=== PATIENT | male | born 1935 | race Caucasian/White ===

== ENCOUNTER 2020-10-07 07:17 | Outpatient (REF) | payer MEDICARE, SELFPAY ==
[2020-10-07 08:24] LABS: MANUAL DIFF FLAG NO
[2020-10-07 08:34] LABS: Basophils Percent Auto 0.9 % (0-2); Eosinophils Absolute Auto 0.2 X10*3/uL (0.0-0.4); Eosinophils Percent Auto 3.2 % (0-4); Hematocrit 42.7 % (42-52); Hemoglobin 13.5 g/dl (14.0-18.0); Imm Gran Abs Auto 0.01 X10*3/uL (0.00-0.03); Imm Gran Pct Auto 0.2 % (0.0-0.4); Lymphocytes Absolute Auto 1.5 X10*3/uL (1.2-4.9); Lymphocytes Percent Auto 32.8 % (20-40); Mean Corpuscular HGB Conc 31.6 g/dl (31.0-36.0); Mean Corpuscular Hemoglobin 32.9 pg (27.0-33.0); Mean Corpuscular Volume 104.1 fL (80-98); Mean Platelet Volume 10.7 fL (9.4-12.4); Monocytes Absolute Auto 0.5 X10*3/uL (0.1-1.2); Monocytes Percent Auto 10.6 % (2-11); Neutrophils Absolute Auto 2.4 X10*3/uL (2.0-8.3); Neutrophils Percent Auto 52.3 % (45-73); Platelet Count 203 X10*3/uL (160-400); Red Cell Distribution Width 13.8 % (11.0-16.0); White Blood Count 4.6 X10*3/uL (4.8-10.8)
[2020-10-07 08:54] LABS: Alanine Aminotransferase 21 U/L (0-40); Albumin Level 3.9 g/dL (3.5-5.0); Alkaline Phosphatase 59 U/L (39-117); Anion Gap 12 (12-20); Aspartate Amino Transferase 17 U/L (5-37); Bilirubin Total 1.2 mg/dL (0.0-1.0); Blood Urea Nitrogen 19 mg/dL (9-16); Calcium 9.2 mg/dL (8.4-10.2); Carbon Dioxide 27 mmol/L (22-29); Chloride 103 mmol/L (96-108); Cholesterol 127 mg/dL; Estimated Glomerular Filt Rate > 60; Glucose Fasting 97 mg/dL (60-99); HDL Cholesterol 49 mg/dL; LDL Cholesterol Calculated 63 mg/dl; Sodium 138 mmol/L (135-145); Total Protein 6.7 g/dL (6.5-8.0); Triglycerides 77 mg/dL
[2020-10-07 09:57] LABS: Prostate Specific Antigen 0.24 ng/mL (<0.05-4.0)
== END 2020-10-07 07:18 | disposition home or self-care (01) ==
LOC: HO.LAB 07:17
PROVIDERS: PCP Internal Medicine Medical Oncology; Visit Provider Internal Medicine Medical Oncology
DX: Z12.5 Encounter for screening for malignant neoplasm of prostate (principal); I10 Essential (primary) hypertension; E78.5 Hyperlipidemia, unspecified; E66.3 Overweight
CPT/HCPCS: 36415; 80053; 80061; 84153; 85025

== ENCOUNTER 2020-12-24 07:47 | Outpatient (REF) | payer MEDICARE, SELFPAY ==
[2020-12-24 08:22] LABS: MANUAL DIFF FLAG NO
[2020-12-24 08:26] LABS: Basophils Percent Auto 0.5 % (0-2); Eosinophils Absolute Auto 0.1 X10*3/uL (0.0-0.4); Eosinophils Percent Auto 1.6 % (0-4); Hematocrit 41.5 % (42-52); Hemoglobin 13.3 g/dl (14.0-18.0); Imm Gran Abs Auto 0.03 X10*3/uL (0.00-0.03); Imm Gran Pct Auto 0.5 % (0.0-0.4); Lymphocytes Absolute Auto 1.5 X10*3/uL (1.2-4.9); Lymphocytes Percent Auto 26.6 % (20-40); Mean Corpuscular Hemoglobin 32.8 pg (27.0-33.0); Mean Corpuscular Volume 102.5 fL (80-98); Mean Platelet Volume 9.9 fL (9.4-12.4); Monocytes Absolute Auto 0.7 X10*3/uL (0.1-1.2); Neutrophils Absolute Auto 3.2 X10*3/uL (2.0-8.3); Neutrophils Percent Auto 58.8 % (45-73); Platelet Count 307 X10*3/uL (160-400); Red Blood Count 4.05 X10*6/uL (4.60-5.80); Red Cell Distribution Width 14.3 % (11.0-16.0); White Blood Count 5.5 X10*3/uL (4.8-10.8)
[2020-12-24 08:34] LABS: Prothrombin Time 11.2 SEC (9.9-13.0)
[2020-12-24 09:05] LABS: Anion Gap 10 (12-20); Blood Urea Nitrogen 17 mg/dL (9-16); Calcium 9.5 mg/dL (8.4-10.2); Carbon Dioxide 29 mmol/L (22-29); Chloride 105 mmol/L (96-108); Estimated Glomerular Filt Rate > 60; Glucose Random 95 mg/dL (60-115); Potassium 4.4 mmol/L (3.3-5.1); Sodium 140 mmol/L (135-145)
== END 2020-12-24 07:48 | disposition home or self-care (01) ==
LOC: HO.LAB 07:47
PROVIDERS: PCP Internal Medicine Medical Oncology; Visit Provider Internal Medicine Cardiovascular Disease
DX: I35.0 Nonrheumatic aortic (valve) stenosis (principal)
CPT/HCPCS: 36415; 80048; 85025; 85610

== ENCOUNTER 2021-05-18 11:28 | Outpatient (REF) | payer MEDICARE, SELFPAY ==
[2021-05-18 13:12] LABS: COVID-19 Test Negative (Negative)
== END 2021-05-18 11:29 | disposition home or self-care (01) ==
LOC: HO.LAB 11:28
PROVIDERS: Visit Provider Internal Medicine
DX: Z20.822 Contact with and (suspected) exposure to COVID-19 (principal)
CPT/HCPCS: 36415; 87635; C9803

== ENCOUNTER 2021-11-05 12:04 | Outpatient (REF) | payer MEDICARE, SELFPAY ==
[2021-11-05 12:27] LABS: MANUAL DIFF FLAG NO
[2021-11-05 13:22] LABS: Basophils Percent Auto 0.5 % (0-2); Eosinophils Absolute Auto 0.1 X10*3/uL (0.0-0.4); Eosinophils Percent Auto 0.7 % (0-4); Hematocrit 39.2 % (42.0-52.0); Hemoglobin 12.6 g/dl (14.0-18.0); Imm Gran Abs Auto 0.04 X10*3/uL (0.00-0.03); Imm Gran Pct Auto 0.5 % (0.0-0.4); Lymphocytes Absolute Auto 1.3 X10*3/uL (1.2-4.9); Lymphocytes Percent Auto 17.2 % (20-40); Mean Corpuscular HGB Conc 32.1 g/dl (31.0-36.0); Mean Corpuscular Hemoglobin 31.2 pg (27.0-33.0); Mean Platelet Volume 10.2 fL (9.4-12.4); Monocytes Absolute Auto 0.6 X10*3/uL (0.1-1.2); Monocytes Percent Auto 7.6 % (2-11); Neutrophils Absolute Auto 5.4 x10*3/uL (2.0-8.3); Neutrophils Percent Auto 73.5 % (45-73); Platelet Count 251 X10*3/uL (160-400); Red Blood Count 4.04 X10*6/uL (4.60-5.80); White Blood Count 7.4 X10*3/uL (4.8-10.8)
[2021-11-05 13:40] LABS: Alanine Aminotransferase 23 U/L (0-40); Albumin Level 3.9 g/dL (3.5-5.0); Alkaline Phosphatase 61 U/L (39-117); Anion Gap 12 (12-20); Aspartate Amino Transferase 19 U/L (5-37); Blood Urea Nitrogen 15 mg/dL (9-16); Calcium 9.1 mg/dL (8.4-10.2); Carbon Dioxide 27 mmol/L (22-29); Chloride 105 mmol/L (96-108); Estimated Glomerular Filt Rate > 60; Glucose Random 83 mg/dL (60-115); Lipase 26 U/L (8-78); Sodium 140 mmol/L (135-145); Total Protein 6.9 g/dL (6.5-8.0)
[2021-11-05 14:01] LABS: Erythrocyte Sedimentation Rate 12 MM/HR (0-15)
[2021-11-05 14:19] LABS: Folate 19.2 ng/mL (> or = 4.0); Vitamin B12 412 pg/mL (200-900)
[2021-11-06 08:54] LABS: Campylobacter Not Detected (Not Detect.); E. coli EAEC Not Detected (Not Detect.); E. coli EPEC Not Detected (Not Detect.); E. coli ETEC Not Detected (Not Detect.); E. coli STEC Not Detected (Not Detect.); Plesiomonas shigelloides Not Detected (Not Detect.); Salmonella Not Detected (Not Detect.); Vibrio Not Detected (Not Detect.); Vibrio Cholerae Not Detected (Not Detect.); Yersinia enterocolitica Not Detected (Not Detect.)
[2021-11-06 08:55] LABS: Adenovirus F 40/41 Not Detected (Not Detect.); Astrovirus Not Detected (Not Detect.); Cryptosporidium Not Detected (Not Detect.); Cyclospora cayetanensis Not Detected (Not Detect.); Entamoeba histolytica Not Detected (Not Detect.); Giardia lamblia Not Detected (Not Detect.); Norovirus GI/GII Not Detected (Not Detect.); Rotavirus A Not Detected (Not Detect.); Sapovirus Not Detected (Not Detect.); Shigella sp./EIEC Not Detected (Not Detect.)
== END 2021-11-05 12:05 | disposition home or self-care (01) ==
LOC: HO.LAB 12:04
PROVIDERS: Visit Provider Internal Medicine Medical Oncology
DX: R19.5 Other fecal abnormalities (principal); A08.8 Other specified intestinal infections; I10 Essential (primary) hypertension; E78.5 Hyperlipidemia, unspecified; C61 Malignant neoplasm of prostate; K52.9 Noninfective gastroenteritis and colitis, unspecified
CPT/HCPCS: 36415; 80053; 82607; 82746; 83690; 85025; 85652; 87177; 87209; 87507

== ENCOUNTER 2022-01-12 08:20 | Outpatient (REF) | payer MEDICARE, SELFPAY ==
--- NOTE | ~2022-01-12 | FL_ITS ---
EXAMINATION: FL BARIUM SWALLOW CLINICAL INFORMATION: Dysphagia COMPARISON: None TECHNIQUE: Barium swallow examination is performed using fluoroscopic evaluation in addition to multiple fluoroscopic spot views. After effervescent granules, the patient swallowed thick barium in upright position. Fluoroscopy time: 1.3 minutes DAP: 3.155 Gycm2 Images: 12 FINDINGS: The patient initiated swallowing normally. The patient had minimal silent aspiration of thin barium with single swallows by cup, (image 4/12). There is ineffective primary peristalsis with marked tertiary contractions noted even with swallowing in the upright position. No fixed esophageal narrowing seen to suggest a mass or stricture. The patient has undergone additional episode of aspiration which triggered a cough (image 12/12). At this point, the examination was terminated. FL/FL barium swallow IMPRESSION: Aspiration of thin barium by cup in upright position. Recommend dedicated swallowing evaluation by speech and language therapy. Esophageal dysmotility evidenced by ineffective primary peristalsis with marked tertiary contractions noted in the upright position.
== END 2022-01-12 08:21 | disposition home or self-care (01) ==
LOC: HO.XRAY 08:20
PROVIDERS: PCP Internal Medicine Medical Oncology; Visit Provider Internal Medicine Gastroenterology
DX: R13.10 Dysphagia, unspecified (principal)
CPT/HCPCS: 74220

== ENCOUNTER 2022-01-29 10:18 | Outpatient (REF) | payer MEDICARE, SELFPAY ==
--- NOTE | ~2022-01-29 | FL_ITS ---
EXAMINATION: XR BARIUM SWALLOW CLINICAL INFORMATION: Dysphagia COMPARISON: Barium swallow 01/12/2022 TECHNIQUE: Fluoroscopy guidance provided for modified barium swallow performed by the speech and hearing department. FINDINGS: There is penetration seen with liquid barium. There is probable faint aspiration. There is retention in the vallecula seen with multiple media. No penetration or aspiration was seen with solid food or thickened liquids. Please see speech and hearing report for detailed findings. FLUOROSCOPY TIME: 2.7 minutes DOSE AREA PRODUCT: 1.9 gycm2 FL/FL barium swallow modified IMPRESSION: Fluoroscopy guidance for modified barium swallow.
--- NOTE | 2022-01-29 16:35 | MHC.SL.IMP ---
Date of Plan of Treatment: 01/29/22 Onset of Symptoms/Illness: 01/29/21 Date Treatment Started: 01/29/22 Admitting Diagnosis: Hypertension, Hyperlipidemia Primary Speech & Language Diagnosis: R13.12 Oropharyngeal Phase Dysphagia Reason for Today's Visit: 59509 Modified Barium Swallow Study Pre-evaluation Dietary Consistencies: Regular Pre-evaluation Liquid Consistency: Thin Pre-evaluation Medication Administration: Whole with Liquid Medical History: [place], [place] Modified Barium Swallow Study Fluoroscopic Evaluation of Swallowing Function CPT Code 43449 Evaluation Year: 2021 Reason for Study: Patient reports globus sensation. 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 Pt reports globus sensation intermittently when swallowing and expectoration of bile and food. Pt denies odynophagia. Pt denies choking or coughing on food or liquids. Pt stated that milkshakes and yogurt in particular ?won?t go down.? Pt mentioned he had a procedure for his tonsils when he was 25 and that he ?had his esophagus checked 30-40 years ago and was advised not to eat or drink in bed? at that time. Pt had barium swallow study done on 01/12/22 which showed silent aspiration on thin barium. He was subsequently referred for a modified barium swallow study to further evaluate. Barium Swallow X-Ray 01/12/22: ?FINDINGS: The patient initiated swallowing normally. The patient had minimal silent aspiration of thin barium with single swallows by cup, (image 4/12). There is ineffective primary peristalsis with marked tertiary contractions noted even with swallowing in the upright position. No fixed esophageal narrowing seen to suggest a mass or stricture. The patient has undergone additional episode of aspiration which triggered a cough (image 12/). At this point, the examination was terminated. FL/FL barium swallow IMPRESSION: Aspiration of thin barium by cup in upright position. Recommend dedicated swallowing evaluation by speech and language therapy. Esophageal dysmotility evidenced by ineffective primary peristalsis with marked tertiary contractions noted in the upright position.? Oral Motor Exam Facial Symmetry: Symmetrical Mouth Occlusion: Normal Oral-Facial Teeth Characteristics: Intact/Normal Oral-Facial Smile (Lips) Description: Normal Oral-Facial Puff Cheeks Description: Normal Tongue Size: Normal Tongue Excursion Description: Normal Tongue Range of Movement Description: Normal Tongue Speed of Movement Description: Normal Tongue Strength of Movement (against opposing pressure): Normal Is patient able to produce volitional cough?: Yes Food and Liquid Trials: Oral Impairment: Lip Closure: Did not test Oral Impairment: Tongue Control During Bolus Hold: 1=Escape to lateral buccal cavity/floor of mouth (FOM) Oral Impairment: Bolus Preparation/Mastication: 1=Slow prolonged chewing/mashing with complete re-collection Oral Impairment: Bolus Transport/Lingual Motion: 2=Slowed tongue motion Oral Impairment: Oral Residue: 2=Residue collection on oral structures Oral Impairment:Initiation of Pharyngeal Swallow: 2=Bolus head at posterior laryngeal surface of epiglottis Pharyngeal Impairment: Soft Palate Elevation: 0=No bolus between soft palate (SP)/pharyngeal wall (PW) Pharyngeal Impairment: Laryngeal Elevation: 1=Partial thyroid cartilage/arytenoids to epiglottic petiole movement Pharyngeal Impairment: Anterior Hyoid Excursion: 1=Partial anterior movement Pharyngeal Impairment: Epiglottic Movement: 1=Partial inversion Pharyngeal Impairment: Laryngeal Vestibular Closure:: 1=Incomplete: narrow column air/contrast in laryngeal vestibule Pharyngeal Impairment: Pharyngeal Stripping Wave: 1=Present: diminished Pharyngeal Impairment: Pharyngeal Contraction: Did not test Pharyngeal Impairment: Pharyngoesophageal Segment Openin=Complete distension and complete duration: no obstruction of flow Pharyngeal Impairment: Tongue Base (TB) Retraction: 2=Narrow column of contrast/air between TB and posterior PW Pharyngeal Impairment: Pharyngeal Residue: 2=Collection of residue within or on pharyngeal structures Pharyngeal Impairment: Esophageal Clearance Upright Position: Did not test Impressions and Recommendations Clinical Observations: OBJECTIVE: Time-out: performed at 10:45 Evaluation Start: 10:30; Stop: 10:36 Patient Positioning: Seated 70-90 degrees Viewing Planes: LATERAL ONLY Contrast: MBSImP? Standardized Protocol using commercially prepared, standardized Barium viscosities, including: Varibar? THIN LIQUID (40% w/v, <15 cps) , Varibar? NECTAR (40% w/v, <150-450 cps) , Varibar? THIN HONEY (40% w/v, <800-1800 cps) , 1/2 Shortbread Cookie (1 x1 x.25 ) MBSImP ID: [id number] MBSImP Results: Lip closure for intraoral bolus containment could not be assessed due to logistical reasons not related to physiologic impairment. Tongue control during bolus hold allowed bolus escape to the lateral buccal cavity/floor of mouth. Bolus preparation and mastication resulted in slow, prolonged chewing/mashing but with complete re-collection. Bolus transport/lingual motion was with slowed tongue motion. Oral residue was a collection on oral structures. Initiation of the pharyngeal swallow occurred as the bolus head was at the posterior laryngeal surface of the epiglottis. Soft palate elevation resulted in no bolus between the soft palate and the pharyngeal wall. Laryngeal elevation was decreased, with partial superior movement of the thyroid cartilage/partial approximation of the arytenoids to the epiglottic petiole. Anterior hyoid excursion demonstrated partial anterior movement. Epiglottic movement resulted in partial inversion. Laryngeal vestibular closure was incomplete, with a narrow column of air/contrast noted within the laryngeal vestibule at the height of the swallow. Pharyngeal stripping wave was present, but diminished. Pharyngeal contraction could not be determined due to logistical reasons not related to physiologic impairment. Pharyngoesophageal segment opening was completely distended for complete duration with no obstruction of bolus flow. Tongue base retraction allowed a narrow column of contrast or air between the retracted tongue base and the posterior pharyngeal wall. Pharyngeal residue was a collection of residue within or on pharyngeal structures. Esophageal clearance in the upright position could not be assessed due to logistical reasons not related to physiologic impairment. Oral Impairment Score: 8 (absence of score, component 1) Pharyngeal Impairment Score: 9 (absence of score, component 13) Esophageal Impairment Score: --- (absence of score, component 17) Laryngeal Penetration and Aspiration: Both Penetration and Aspiration were observed in today's study. Thin Contrast entered the airway, remained above the vocal folds, and was ejected from the airway. Thin Contrast entered the airway, remained above the vocal folds, and was not ejected from the airway. Thin Contrast mixed w/ pureed residuals entered the airway, passed below the vocal folds, and no effort was made to eject. ASSESSMENT: Clinician Assessment: This exam was conducted by a multidisciplinary team, which included speech pathologist, radiologist, and museum exhibit technician. Pt was seated upright at 90 degree position in a chair for lateral view only. Pt trialed the following liquid and solid consistencies: 5 mL thin liquid barium, individual cup sips thin liquid barium, individual cup sips nectar thick liquid barium, honey thick liquid barium via teaspoon, pureed solid (mixture applesauce with barium paste), ground solid (mixture chicken salad with barium paste), regular solid (Tonja Doone cookie coated with barium paste). Pt presents with moderate oropharyngeal phase dysphagia. Mild impairments noted in oral phase of swallow. When instructed for bolus hold, there was escape of bolus to the floor of mouth. Lingual movement for posterior transport of bolus was mildly delayed and slowed. Mastication was mildly prolonged. There was mild lingual residue which cleared with subsequent dry swallow. Pt demonstrated moderate impairments of the pharyngeal phase of swallow. Pharyngeal swallow trigger was delayed, initiated as bolus head reached posterior laryngeal surface of epiglottis. There was no nasopharyngeal reflux evident during this exam. Laryngeal elevation was incomplete, with partial anterior hyoid excursion and partial epiglottic inversion. Incomplete laryngeal vestibular closure, with evidence of penetration with thin liquid and trace aspiration on residuals thin liquid mixed with pureed solid. Diminished pharyngeal stripping wave. Mild residue in valleculae, trace residuals in pyriform sinuses, on tongue base, and on posterior pharyngeal wall. Additional dry swallow with and without chin tuck strategy was effective in reducing oral and pharyngeal residue. With 5 mL amount thin liquid barium, there was no aspiration or penetration seen, with complete clearance of the valleculae and pyriforms. Pt took individual sips of thin liquid barium by cup with consistent penetration during the swallow. Contrast entered the trachea above the vocal folds at times spontaneously clearing, other times leaving trace residue above the vocal folds. With thin liquid there was mild residue in the valleculae, trace residuals in pyriform sinus. Pt was cued for a dry swallow, which reduced but did not entirely clear valleculae. Pt took bite of applesauce by teaspoon. Pureed consistency (likely mixed with thin residuals) spilled from valleculae with trace tracheal aspiration. There was no aspiration or penetration with bites of ground solid and regular solid. There was mild residue in the valleculae, with trace residuals in pyriform sinuses and on pharyngeal wall. Dry swallow both with and without chin tuck strategy was effective in reducing pharyngeal residue. There was no aspiration or penetration with intake of nectar thick liquid and honey thick liquid. There was mild pooling in the valleculae and trace pooling in pyriform sinuses. Again, dry swallow both with and without chin tuck strategy was effective in reducing pharyngeal residue. Throughout the exam, pt did not produce spontaneous cough or throat clear in response to penetration or aspiration. The following compensatory strategies have not been used until today's study, but when employed, improved swallowing function: [place]-thick Liquid eliminated Penetration, Aspiration Honey-thick Liquid eliminated Penetration, Aspiration Bolus Volume Change eliminated Pharyngeal Residue Bolus Volume Change decreased Penetration Rate of Ingestion Change decreased Penetration, Pharyngeal Residue Chin Tuck decreased Pharyngeal Residue Additional Swallow(s) per Bolus decreased Pharyngeal Residue Liquid Intake Recommendation: [place] Thick Liquid Intake Strategies: Small Sips, No Straws, Double Swallow Dietary Recommendations: Regular Medication Administration: Whole with Liquid Please contact the pharmacy regarding appropriate crushable or liquid drug formulations that are available whenever modified delivery is recommended. Compensatory Strategies Recommended: Sitting Upright (90 deg) Chin Tuck Double Swallow No Straw Liquids from Cup Liquids from Spoon Small Bites and Sips Rate of Ingestion Change Supervision during eating and or drinking: None Needed Recommended Treatments: Pharyngeal Resistive Exer, Compens. Strategy Educat. Recommendation for Speech Therapy: Outpatient Speech Therapy PLAN: Intake Recommendations: Route: PO Diet Grade: Regular Liquid Consistencies: [place] Post-Study Functional Oral Intake Scale (FOIS): 5- Total oral intake of multiple consistencies requiring special preparation Pt is recommended REGULAR solids, self-selecting items which are easier for him to swallow, NECTAR THICK liquids, pills WHOLE with NECTAR THICK liquid. When eating softer food items, ensure pudding-like CONGEALED textures ONLY, selecting thick, more viscous, and thoroughly blended purees, such as pudding and thick yogurt, which form a cohesive bolus on the spoon. Avoid purees such as applesauce and pureed peaches, as these often separate into a mixed texture with thin liquid. As evidenced during our exam, pt is at risk of aspiration with this texture (thin/mixed purees & thin liquid). Recommend strict aspiration precautions and a strict oral care routine to reduce risk of aspiration pneumonia: Use small sponge or wash with toothbrush and toothpaste, rinse with mouthwash that does not contain alcohol. Oral care to be provided before pt?s first meal and after each meal. Recommended strategies and precautions include: -Take small sips of liquid, one sip at a time -Additional dry swallow after each sip -Avoid ?chugging? consecutive sips of liquid -Avoid the use of straws -One bite at a time and chew food well -Additional dry swallow after each bite -Chin tuck with dry swallow to clear pharyngeal residue -Clear oral cavity before taking more bites. -Upright 90 degree position when eating/drinking and for at least 45-60 minutes afterwards Pt is recommended 10 speech therapy visits for the treatment of dysphagia, w/ follow-up MBSS in 10-12 weeks. Recommend patient to continue monitoring his dysphagia. Contact PCP if there is any worsening of dysphagia, in which case patient may need re-evaluation. Suggested Referrals: The patient might benefit from a referral to: Gastroenterology Indication for Referral: Pt reports expectoration of bile and food. Pt may benefit from further workup w/ G.I. for esophageal dysphagia. Nutrition Services Indication for Referral: Pt is recommended thickened liquids. Therapy Recommendations: Therapy will be initiated Prognosis for Improvement: The prognosis for the patient to meet nutritional needs by mouth is good based on degree of impairment. Longterm Goals: ? The patient will demonstrate improved swallowing function via repeat clinical evaluation, videoendoscopy/videofluoroscopy and/or patient self-rating scores. ? The patient and/or family will participate in further education for swallowing goals. Short Term Goals: ? Guidelines - The patient will comply with/recall the following guidelines/strategies 100% of the time with minimal cuing: [place]-thick Liquid, Bolus Volume Change, Rate of Ingestion Change, Chin Tuck, Additional Swallow(s) per Bolus. ? Independent Home Exercise - The patient will perform 10 repetitions of the Effortful Swallow, Thomas Maneuver, Shaker Head Lifts, Teodora Maneuver 2 times a day with 100% accuracy and minimal cuing as part of a home exercise program. ? Structured Therapy - The patient will demonstrate 100% accuracy and require minimal cuing in structured swallowing therapy with the TELEPHONE WORKER using the following exercises/therapy approaches and therapy assisted devices: Effortful Swallow, Thomas Maneuver, Shaker Head Lifts, Teodora Maneuver, . ? Education - The patient will verbalize/demonstrate understanding of the results of this evaluation, the above recommendations, and the swallowing guidelines. Frequency/Duration: 1x weekly x 10 weeks Date Range for Service Requested: Timeline to reassess: 3 months Clinician - Supplemental, Miscellaneous Communication: It is important to note MBSS objective studies are snapshots in time and Patient function might vary with factors such as time of day or concomitant medical conditions. For this reason, the final treatment plan for this patient should rest with their medical care team. Additional recommendations should be considered with the totality of the Patient in mind. Thank for the opportunity to participate in the care of this patient. If you have any questions about the content of this report, please contact the [facility] at [facility]. Education: Education regarding findings from today's study and plans for therapy were provided to Patient only through Verbal Instruction. Understanding was expressed by the Patient only. [employer] Clinician/Clinical Fellow: No Supervisory Statement: N/A Speech Language Pathologist: Mya Armenta M.A., [facility]-TELEPHONE WORKER
== END 2022-01-29 10:19 | disposition home or self-care (01) ==
LOC: HO.XRAY 10:18
PROVIDERS: Visit Provider Internal Medicine Gastroenterology
DX: R13.10 Dysphagia, unspecified (principal)
CPT/HCPCS: 74230; 92611

== ENCOUNTER 2022-11-23 07:13 | Outpatient (REF) | payer MEDICARE, SELFPAY ==
[2022-11-23 07:24] LABS: MANUAL DIFF FLAG NO
[2022-11-23 08:27] LABS: Basophils Absolute Auto 0.1 X10*3/uL (0.0-0.2); Basophils Percent Auto 1.2 % (0-2); Eosinophils Absolute Auto 0.2 X10*3/uL (0.0-0.4); Eosinophils Percent Auto 3.9 % (0-4); Hematocrit 40.7 % (42.0-52.0); Imm Gran Abs Auto 0.02 X10*3/uL (0.00-0.03); Imm Gran Pct Auto 0.3 % (0.0-0.4); Lymphocytes Absolute Auto 1.4 X10*3/uL (1.2-4.9); Mean Corpuscular HGB Conc 31.9 g/dl (31.0-36.0); Mean Corpuscular Hemoglobin 31.2 pg (27.0-33.0); Mean Corpuscular Volume 97.6 fL (80.0-98.0); Mean Platelet Volume 10.4 fL (9.4-12.4); Monocytes Absolute Auto 0.6 X10*3/uL (0.1-1.2); Monocytes Percent Auto 10.3 % (2-11); Neutrophils Absolute Auto 3.5 x10*3/uL (2.0-8.3); Neutrophils Percent Auto 60.3 % (45-73); Platelet Count 206 X10*3/uL (160-400); Red Blood Count 4.17 X10*6/uL (4.60-5.80); Red Cell Distribution Width 14.3 % (11.0-16.0); White Blood Count 5.8 X10*3/uL (4.8-10.8)
[2022-11-23 09:11] LABS: Alanine Aminotransferase 24 U/L (0-40); Albumin Level 3.8 g/dL (3.5-5.0); Alkaline Phosphatase 54 U/L (39-117); Anion Gap 14 (12-20); Aspartate Amino Transferase 21 U/L (5-37); Bilirubin Total 1.1 mg/dL (0.0-1.0); Blood Urea Nitrogen 15 mg/dL (9-16); Calcium 9.6 mg/dL (8.4-10.2); Carbon Dioxide 25 mmol/L (22-29); Chloride 105 mmol/L (96-108); Cholesterol 131 mg/dL; Estimated Glomerular Filt Rate > 60; Glucose Fasting 103 mg/dL (60-99); HDL Cholesterol 49 mg/dL; LDL Cholesterol Calculated 69 mg/dl; Potassium 3.9 mmol/L (3.3-5.1); Sodium 140 mmol/L (135-145); Total Protein 7.1 g/dL (6.5-8.0); Triglycerides 66 mg/dL
[2022-11-23 09:20] LABS: Prostate Specific Antigen 0.43 ng/mL (<0.05-4.0)
== END 2022-11-23 07:14 | disposition home or self-care (01) ==
LOC: HO.LAB 07:13
PROVIDERS: PCP Internal Medicine Medical Oncology; Visit Provider Internal Medicine Medical Oncology
DX: Z12.5 Encounter for screening for malignant neoplasm of prostate (principal); E78.5 Hyperlipidemia, unspecified; I10 Essential (primary) hypertension; C61 Malignant neoplasm of prostate; I25.10 Atherosclerotic heart disease of native coronary artery without angina pectoris; I35.0 Nonrheumatic aortic (valve) stenosis
CPT/HCPCS: 36415; 80053; 80061; 84153; 85025

== ENCOUNTER 2023-04-12 11:06 | Outpatient (REF) | payer MEDICARE, SELFPAY ==
--- NOTE | ~2023-04-12 | XR_ITS ---
EXAMINATION: XR HAND, RIGHT CLINICAL INFORMATION: Right hand edema and swelling of third finger. COMPARISON: Right hand radiographs dated 05/03/2014. TECHNIQUE: PA, lateral, and oblique views of the right hand. FINDINGS: No acute fracture or dislocation. Joint space narrowing with marginal osteophytes scattered throughout the metacarpophalangeal and interphalangeal joints, most severe at the 1st and 2nd distal interphalangeal joints where there are central erosions. Second and third digit soft tissue swelling. No abnormal soft tissue calcification. XR/XR hand RT min 3V IMPRESSION: 1. Degenerative arthritis scattered throughout the metacarpophalangeal and interphalangeal joints, most severe at the 1st and 2nd distal interphalangeal joints where there are central erosions. 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 2. Second and third digit soft tissue swelling.
[2023-04-12 11:40] LABS: MANUAL DIFF FLAG NO
[2023-04-12 12:06] LABS: Basophils Absolute Auto 0.1 X10*3/uL (0.0-0.2); Eosinophils Absolute Auto 0.2 X10*3/uL (0.0-0.4); Eosinophils Percent Auto 2.3 % (0-4); Hemoglobin 12.6 g/dl (14.0-18.0); Imm Gran Abs Auto 0.02 X10*3/uL (0.00-0.03); Imm Gran Pct Auto 0.3 % (0.0-0.4); Lymphocytes Absolute Auto 1.2 X10*3/uL (1.2-4.9); Lymphocytes Percent Auto 17.4 % (20-40); Mean Corpuscular HGB Conc 32.3 g/dl (31.0-36.0); Mean Corpuscular Hemoglobin 31.7 pg (27.0-33.0); Mean Corpuscular Volume 98.2 fL (80.0-98.0); Mean Platelet Volume 9.9 fL (9.4-12.4); Monocytes Absolute Auto 0.7 X10*3/uL (0.1-1.2); Monocytes Percent Auto 10.3 % (2-11); Neutrophils Absolute Auto 4.8 x10*3/uL (2.0-8.3); Neutrophils Percent Auto 68.7 % (45-73); Platelet Count 246 X10*3/uL (160-400); Red Blood Count 3.97 X10*6/uL (4.60-5.80); Red Cell Distribution Width 14.4 % (11.0-16.0)
[2023-04-12 12:43] LABS: Alanine Aminotransferase 16 U/L (0-40); Albumin Level 3.9 g/dL (3.5-5.0); Alkaline Phosphatase 62 U/L (39-117); Anion Gap 11 (12-20); Aspartate Amino Transferase 20 U/L (5-37); Bilirubin Total 0.7 mg/dL (0.0-1.0); Blood Urea Nitrogen 17 mg/dL (9-16); Calcium 9.4 mg/dL (8.4-10.2); Carbon Dioxide 30 mmol/L (22-29); Chloride 102 mmol/L (96-108); Estimated Glomerular Filt Rate > 60; Glucose Random 97 mg/dL (60-115); Potassium 4.5 mmol/L (3.3-5.1); Sodium 138 mmol/L (135-145); Total Protein 7.3 g/dL (6.5-8.0); Uric Acid 5.4 mg/dL (3.4-7.0)
[2023-04-12 12:52] LABS: Prostate Specific Antigen 0.44 ng/mL (<0.05-4.0)
== END 2023-04-12 11:07 | disposition home or self-care (01) ==
LOC: HO.LAB 11:06
PROVIDERS: PCP Internal Medicine Medical Oncology; Visit Provider Internal Medicine Medical Oncology
DX: Z12.5 Encounter for screening for malignant neoplasm of prostate (principal); I10 Essential (primary) hypertension; R60.9 Edema, unspecified; M79.89 Other specified soft tissue disorders; C61 Malignant neoplasm of prostate
CPT/HCPCS: 36415; 73130; 80053; 84153; 84550; 85025

== ENCOUNTER 2024-05-14 12:08 | Outpatient (REF) | payer MEDICARE, SELFPAY ==
[2024-05-14 12:42] LABS: MANUAL DIFF FLAG NO
[2024-05-14 13:02] LABS: Basophils Absolute Auto 0.1 X10*3/uL (0.0-0.2); Basophils Percent Auto 0.6 % (0-2); Eosinophils Absolute Auto 0.2 X10*3/uL (0.0-0.4); Eosinophils Percent Auto 1.8 % (0-4); Hematocrit 38.7 % (42.0-52.0); Hemoglobin 12.3 g/dl (14.0-18.0); Imm Gran Abs Auto 0.03 X10*3/uL (0.00-0.03); Imm Gran Pct Auto 0.4 % (0.0-0.4); Lymphocytes Percent Auto 12.2 % (20-40); Mean Corpuscular HGB Conc 31.8 g/dl (31.0-36.0); Mean Corpuscular Hemoglobin 31.3 pg (27.0-33.0); Mean Corpuscular Volume 98.5 fL (80.0-98.0); Mean Platelet Volume 9.6 fL (9.4-12.4); Monocytes Absolute Auto 0.8 X10*3/uL (0.1-1.2); Monocytes Percent Auto 9.2 % (2-11); Neutrophils Absolute Auto 6.5 x10*3/uL (2.0-8.3); Neutrophils Percent Auto 75.8 % (45-73); Platelet Count 243 X10*3/uL (160-400); Red Blood Count 3.93 X10*6/uL (4.60-5.80); Red Cell Distribution Width 15.7 % (11.0-16.0); White Blood Count 8.5 X10*3/uL (4.8-10.8)
[2024-05-14 14:08] LABS: Alanine Aminotransferase 17 U/L (0-40); Alkaline Phosphatase 62 U/L (39-117); Anion Gap 10 (12-20); Aspartate Amino Transferase 25 U/L (5-37); Bilirubin Total 0.8 mg/dL (0.0-1.0); Blood Urea Nitrogen 18 mg/dL (9-16); Calcium 9.7 mg/dL (8.4-10.2); Carbon Dioxide 28 mmol/L (22-29); Chloride 104 mmol/L (96-108); Estimated Glomerular Filt Rate > 60; Glucose Random 97 mg/dL (60-115); Potassium 4.2 mmol/L (3.3-5.1); Sodium 138 mmol/L (135-145); Total Protein 7.1 g/dL (6.5-8.0)
[2024-05-18 23:44] LABS: Beta-2 Glycoprotein IgA <2.0 U/mL (<20.0); Beta-2 Glycoprotein IgG <2.0 U/mL (<20.0); Beta-2 Glycoprotein IgM 4.8 U/mL (<20.0)
[2024-05-21 09:12] LABS: Amitriptyline, Urine NEGATIVE; Nortriptyline, Urine NEGATIVE
== END 2024-05-14 12:09 | disposition home or self-care (01) ==
LOC: HO.LAB 12:08
PROVIDERS: PCP Internal Medicine Medical Oncology; Visit Provider Internal Medicine Medical Oncology
DX: Z87.891 Personal history of nicotine dependence (principal); I10 Essential (primary) hypertension; C61 Malignant neoplasm of prostate; Z12.5 Encounter for screening for malignant neoplasm of prostate
CPT/HCPCS: 36415; 80053; 80335; 84153; 85025; 86146

== ENCOUNTER 2024-05-23 11:46 | Outpatient (REF) | payer MEDICARE, SELFPAY ==
--- NOTE | ~2024-05-23 | CT_ITS ---
EXAMINATION: CT ABDOMEN PELVIS WITH IV CONTRAST HISTORY: femoral hernia COMPARISON: There are no prior studies for comparison. TECHNIQUE: CT scan of the abdomen and pelvis was performed following administration of 85 mL Omnipaque 350 using standard departmental protocol. Coronal and sagittal reformatted images were generated and reviewed. The patient received oral contrast material. This CT exam was performed with one or more of the following dose reduction techniques: automated exposure control, adjustment of the mA and/or kV according to patient size, use of iterative reconstruction technique. DLP: 594 mGy-cm FINDINGS: LOWER CHEST: There is scarring at the right lung base. The visualized left lung base is clear. There is no pleural effusion. CARDIOVASCULATURE: The heart is normal in size. There is no pericardial effusion. LIVER: The liver is normal in size and contour. No liver mass is identified. The hepatic and portal veins are patent. GALLBLADDER / BILE DUCTS: The gallbladder is unremarkable. There is no intra or extrahepatic biliary ductal dilatation. SPLEEN: The spleen is normal in size. No focal splenic lesion is identified. PANCREAS: The pancreas is unremarkable in appearance. ADRENAL GLANDS: Within normal limits. KIDNEYS/RETROPERITONEUM: No renal calculi are identified. There is no hydronephrosis. No renal masses are identified. LYMPH NODES: No abdominal or pelvic lymphadenopathy. VASCULATURE: The abdominal aorta demonstrates atherosclerotic calcification, but is normal in caliber. MESENTERY/PERITONEUM: No free fluid. No masses. There is no free intraperitoneal gas. STOMACH: The stomach is collapsed, limiting evaluation. SMALL BOWEL: The small bowel is normal in caliber. COLON: There is a large amount of stool throughout the colon. APPENDIX: Normal. URINARY BLADDER/PELVIC ORGANS: The urinary bladder is unremarkable. The prostate is obscured by streak artifact from a left total hip arthroplasty. BONES / SOFT TISSUES: No suspicious bony or soft tissue abnormalities. There is a fat-containing right femoral hernia. CT/CT abdomen pelvis w IV con IMPRESSION: 1. Fat-containing right femoral hernia. 2. Large amount of stool throughout the colon. Electronically signed by: Sebastian Latham MD 05/23/2024 03:27 PM [facility] [place]
--- OUTSIDE RECORDS SUMMARY | 2024-05-23 11:55 | XMS_ITS | Patient Health Record ---
Author Organization [facility] Address [address] [place] [id number] Care Team Providers Care Brine Room Laborer Name Role Phone Sebastian Preciado MD Primary Care Provider Kt Sorenson Jr Unavailable ALLERGIES No Known Allergies REASON FOR REFERRAL No Information MEDICATIONS Medication SIG (Take, Route, Frequency, Duration) Notes Start Date End Date Status Plavix 75 MG 1 tablet Orally Once a day for 30 day(s) Active Aspirin 81 81 MG 1 tablet Orally Once a day for 30 day(s) Active Losartan Potassium-HCTZ 50-12.5 MG 1 tablet Orally Once a day for 30 day(s) Active Atenolol 25 MG 1 tablet Orally Once a day for 30 day(s) Active Pravastatin Sodium 40 MG 1 tablet Orally Once a day for 30 day(s) Active IMMUNIZATIONS Vaccine Route Administration Date Status Comme nts Influenza Unknown 12/16/2021 Refused SOCIAL HISTORY Tobacco Use: Social History Observation Description Date Details (start date - stop date) Never Smoker NA - NA Sex Assigned At : Social History Observation Description Sex Assigned At Unknown Tobacco Use/Smoking Question Answer Notes Patient is a nonsmoker Alcohol Screen Question Answer Notes Did you have a drink contain ing alcohol in the past year? Yes How often did you have a dri nk containing alcohol in the past year? Monthly or less (1 point) How many drinks did you have on a typical day when you were drinking in the past year? 1 or 2 drinks (0 point) How often did you have 6 or more drinks on one occasion in the past year? Never (0 point) Points 1 Interpretation Negative PROBLEMS Problem Type ICD Code Onset Dates Problem Status W/U Status Risk SNOMED Code Notes Problem Diarrhea, unspecified type (R19.7) Active confirmed 03085242 Problem Other dysphagia (R13.19) Active confirmed 29552031 Problem Dysphagia, unspecified type (R13.10) Active confirmed 76517238 Problem Aspiration into airway, initial encounter (T17.908A) Active confirmed 989556270 Problem Oropharyngeal dysphagia (R13.12) Active confirmed 87631113 Problem Other constipation (K59.09) Active confirmed 22945281 PLAN OF TREATMENT Pending Test Test Name Order Date XR BARIUM SWALLOW-ESOPHAGUS 12/16/2021 XR BARIUM SWALLOW, MODIFIED VIDEO 2021 Insurance Providers Payer Name Payer Address Payer Phone Subscriber Number Group Number Insured Name Patient Relationship to Insured Coverage Start Date Coverage End Date MEDICARE OF [place] [address] [place] [id number] AMITA JERNIGAN Self - patient is the insured [employer] CLAIMS [address] [place] [phone] [id number] AMITA JERNIGAN Self - patient is the insured MEDICAL (GENERAL) HISTORY Medical History History ICD Code Hypertension Coronary artery disease with history of stent placement Prostate cancer status post XRT and horm one therapy Hyperlipidemia Degenerative joint disease/osteoarthriti s Gastroesophageal reflux disease Microscopic hematuria VZV/shingles infection Aortic stenosis TIA Surgical History Surgery Date(Month/Year) Tonsillectomy TAVR, 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
--- OUTSIDE RECORDS SUMMARY | 2024-05-23 11:55 | XMS_ITS ---
Author Organization Sebastian Preciado III, MD Address [address] [place] [address] [place] [address] Care Team Providers Care Climate Change Analyst Name Role Phone Sebastian Preciado Primary Care Provider REASON FOR VISIT Message Social History Sex Assigned At : Social History Observation Description Sex Assigned At Male Encounters Encounter Location Date Provider Diagnosis Sebastian Preciado III, MD [address] [place] [address] [place] [address] 05/21/2024 Sebastian Preciado Unilateral femoral hernia without obstruction or gangrene, recurrence not specified K41.90 Assessments Encounter Date Diagnosis (ICD Code) Assessment Notes Treat ment Notes Treatment Clinical Notes 05/21/2024 Unilateral femoral hernia without obstruction or gangrene, recurrence not specified (ICD-10 - K41.90) Plan Of Treatment Pending Test Test Name Order Date CT ABD & PELVIS WITH CONTRAST 05/21/2024 Next Appt Details Provider Name:Sebastian Preciado, 06/04/2024 09:00:00 AM, [address] [place] [address] [place], [address], Progress Notes * Mar JERNIGAN: 8 (88 yo M)Acc No.[id number]:05/21/2024 Patient:Royce INGRAM :1935???Age:88 Y???Sex:Male Address:[address] [place] [id number] Subjective: * Chief Complaints: * ???Message * Medical History:? * Surgical History:? * Hospitalization/Major Diagno stic Procedure:? * Medications:? Objective: * Vitals:? * Physical Examination:? Assessment: * Assessment: 1.?Unilateral femoral hernia without obstruction or gangrene, recurrence not specified - K41.90??? Plan: * Treatment: * Procedure Codes:? * * Date:?
--- OUTSIDE RECORDS SUMMARY | 2024-05-23 11:55 | XMS_ITS ---
Author Organization Sebastian Preciado III, MD Address [address] [place] [address] [address] [place] [address] Care Team Providers Care Clinical Data Assistant Name Role Phone Sebastian Preciado Primary Care Provider Allergies Allergen (clinical drug ingredient) Drug/Non Drug Allergy documented on EMR Reaction Allergy Type Onset Date Status No Known Drug Allergy Unknown Drug Allergy Active REASON FOR VISIT Left hip pain, Reason left hip intertrochanteric fracture, Hypertension, Prostate cancer, Coronary artery disease, 3. Aortic stenosis cervical radiculopathy, . Medications Medication SIG (Take, Route, Frequency, Duration) Notes Start Date End Date Status Docusate Sodium 100 MG TAKE 1 CAPSULE BY MOUTH TWICE DAILY Oral Active Enoxaparin Sodium 40 MG/0.4ML INJECT 1 SHOT SUBCUTANEOUSLY ONCE DAILY. LAST DOSE ON 12/12/2023 Injection Active FeroSul 325 (65 Fe) MG TAKE 1 TABLET BY MOUTH TWICE DAILY Oral Active Acetaminophen 325 MG TAKE 3 TABLETS BY M OUTH THREE TIMES DAILY Oral Active Pravastatin Sodium 40 MG 1 tablet Orally Once a day Active Isosorbide Mononitrate ER 30 MG 1 tablet in the morning Orally Once a day Active Multi Vitamin Active Atenolol 25 MG 12.5 mg Orally Once a day Active Clopidogrel Bisulfate 75 MG 1 tablet Orally Once a day 07/28/2022 A ctive Adult Aspirin EC Low Strength 81 MG 1 tablet Orally Once a day Active Polyethylene Glycol 3350 17 GM MIX 1 PACKET (17 GRAM) IN LIQUID DIRECTED AND DRINK BY MOUTH DAILY NEEDED FOR CONSTIPATION Oral Active Social History Tobacco Use: Social History Observation Description Date Details (start date - stop date) Former Smoker NA - NA Sex Assigned At : Social History Observation Description Sex Assigned At Male Tobacco Use/Smoking Question Answer Notes Patient is a former smoker How long has it been since you last smoked? > 10 years Additional Findings: Tobacco Non-User Ex-cigaret te smoker Vital Signs Temperature 97.3 degrees Fahrenheit 01/27/20 24 Blood pressure systolic 130 mm Hg 01/27/20 24 Blood pressure diastolic 68 mm Hg 024 Heart Rate 72 /min 01/27/2024 Height 68 in 01/27/2024 Weight 164 lbs 01/27/2024 BMI 24.93 kg/m2 01/27/2024 Encounters Encounter Location Date Provider Diagnosis Sebastian Preciado III, MD [address] [place] [address] [place] [address] 01/27/2024 Sebastian Preciado Former smoker Z87.89 1 ; Essential (primary) hypertension I10 ; Hyperlipidemia, unspecified E78.5 ; Gastro-esophageal reflux disease without esophagitis K21.9 ; Nonrheumatic aortic valve stenosis I35.0 ; Ischemic heart disease I25.9 and Closed fracture of left hip, initial encounter S72.002A Assessments Encounter Date Diagnosis (ICD Code) Assessment Notes Treatment Notes Treatment Clinical Notes 01/27/2024 Former smoker (ICD-10 - Z87.891) He has a plan to prevent relapse in times of stress and illness. We discussed lifestyle today. 01/27/2024 Essential (primary) hypertension (ICD-10 - I10) His blood pressure has been in the normal range at 133/69 and no change was made in his regimen. I urged him to have his blood pressure determined at least once a week while he is in [place] and reported back to me. 01/27/2024 Hyperlipidemia, unspecified (ICD-10 - E78.5) The current fasting lipid profile shows good control of his lipids. No change in his regimen as needed. 01/27/2024 Gastro-esophageal reflux disease without esophagitis (ICD-10 - K21.9) His esophageal reflux is well controlled with [id number] medication and no change in his regimen was necessary today. 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 He is going to have an ultrasound of his heart, which will help clarify if the valve is a source of an embolism. 01/27/2024 Ischemic heart disease (ICD-10 - I25.9) We have requested the results of his cardiac studies. He is tolerating the isosorbide well without dizziness. 01/27/2024 Closed fracture of left hip, initial encounter (ICD-10 - S72.002A) He was referred back to orthopedics to do with the postoperative pain Plan Of Treatment Medication Medication Name Sig Start Date Stop Date Notes Docusate Sodium 100 MG TAKE 1 CAPSULE BY MOUTH TWICE DAILY Oral Enoxaparin Sodium 40 MG/0.4ML INJECT 1 S HOT SUBCUTANEOUSLY ONCE DAILY. LAST DOSE ON 12/12/2023 Injection FeroSul 325 (65 Fe) MG TAKE 1 TABLET BY MOUTH TWICE DAILY Oral Acetaminophen 325 MG TAKE 3 TABLETS BY M OUTH THREE TIMES DAILY Oral Pravastatin Sodium 40 MG 1 tablet Orally Once a day Isosorbide Mononitrate ER 30 MG 1 tablet in the morning Orally Once a day Multi Vitamin Atenolol 25 MG 12.5 mg Orally Once a day Clopidogrel Bisulfate 75 MG 1 tablet Orally Once a day Adult Aspirin EC Low Strengt h 81 MG 1 tablet Orally Once a day Polyethylene Glycol 3350 17 GM MIX 1 PACKET (17 GRAM) IN LIQUID DIRECTED AND DRINK BY MOUTH DAILY NEEDED FOR CONSTIPATION Oral Next Appt Details Follow Up: 3 Months, Reason: OV, Annual Exam Provider Name:Sebastian Preciado, 06/04/2024 09:00:00 AM, [address] [place] [address] DR [facility] Steve, [place], [address], Progress Notes * Royce JERNIGANDOB: 8 (88 yo M)Acc No.[id number]:01/27/2024 Progress Notes Patient:?Royce Jernigan Provider:?Sebastian Preciado MD :1935???Age:88 Y???Sex:Male Bakari e:01/27/2024 Address:[id number] Subjective: * Chief Complaints: * ???Left hip painReason left hip intertrochanteric fractureHypertensionProstate cancerCoronary artery disease3. Aortic stenosis cervical radiculopathy. * HPI: ???COVID-19 Screening:? He returns for medical management. He says that ever since his surgery to repair of the left hip fracture he has had pain in the left lateral thigh and both knees. He says a titanium shemar was inserted. He plans to go to [place] for 6 months on February 23, 2024. He is concerned about his who has severe arthritis in her knees.He denies any recent chest pain or dyspnea. His arthritis is mild at this time. His esophageal reflux as well controlled. There is no comprehensive blood work recently available but it has been ordered today. ?Questions?Have you experienced fever, chills, cough, sore throat, shortness of breath, difficulty breathing, muscle aches, loss of taste or smell??No ?Have you been exposed to the virus within the last 10 days??No ?Have you travelled internationally in the last 10 days??No ?Have you been exposed to COVID-19 in the past??No * ROS:?General/Constitutional:?pain?knees and left thighand left hip.?Chills?denies.?Fatigue?admits.?Fever?denies.?ENT:?Decreased hearing?in both ears.?Respiratory:?Cough?denies.?Cardiovascular:?Chest pain with exertion?denies.?Dyspnea on exertion?denies.?Shortness of breath?denies.?Gastrointestinal:?Constipation?occasional.?Decreased appetite?denies.?Diarrhea?denies.?Heartburn?denies.?Nausea?denies.?Rectal bleeding?denies.?Vomiting?denies.?Hematology:?bruising?denies.?petechiae?denies.?Swollen glands?none have been noted.?Genitourinary:?Frequent urination?once a night.?Musculoskeletal:?Muscle aches?denies.?Painful joints?denies.?Sciatica?denies.?Weakness?denies.?Skin:?Itching?denies.?Rash?denies.?Skin lesion(s)?denies.?Neurologic:?Difficulty speaking?denies.?Dizziness?denies.?Headache?denies.?Low back pain?denies.?Psychiatric:?Depressed mood?which is mild.? * Medical History:? * Surgical History:?cardiac ca theterization, 3 stents December 2012TA, [facility] 02/2021 * Hospitalization/Major Diagno stic Procedure:?Denies Past Hospitalization * Family History:?Father: dece ased 72 yrs, blood clot.?Mother: 62 yrs, blood clot.?1 brother(s) , 2 sister(s) . .? Three siblings have from accidents, surgery and hypotension. * Social History:?Tobacco Use:?Tobacco Use/Smoking?Patient is a?former smoker ?How long has it been since you last smoked??> 10 years ?Additional Findings: Tobacco Non-User?Ex-cigarette smoker ???He was born in [place], [place] and has been to [facility] for 59 years. He has 3 children and 9 grandchildren. 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 * Medications:?TakingMulti Vit tai Atenolol 25 MG Tablet 12.5 mg Orally Once a dayClopidogrel Bisulfate 75 MG Tablet 1 tablet Orally Once a dayAdult Aspirin EC Low Strength 81 MG Tablet Delayed Release 1 tablet Orally Once a dayPravastatin Sodium 40 MG Tablet 1 tablet Orally Once a dayDocusate Sodium 100 MG Capsule TAKE 1 CAPSULE BY MOUTH TWICE DAILY Oral Enoxaparin Sodium 40 MG/0.4ML Solution Prefilled Syringe INJECT 1 SHOT SUBCUTANEOUSLY ONCE DAILY. LAST DOSE ON 12/12/2023 Injection FeroSul 325 (65 Fe) MG Tablet TAKE 1 TABLET BY MOUTH TWICE DAILY Oral Acetaminophen 325 MG Tablet TAKE 3 TABLETS BY MOUTH THREE TIMES DAILY Oral Polyethylene Glycol 3350 17 GM Packet MIX 1 PACKET (17 GRAM) IN LIQUID DIRECTED AND DRINK BY MOUTH DAILY NEEDED FOR CONSTIPATION Oral Isosorbide Mononitrate ER 30 MG Tablet Extended Release 24 Hour 1 tablet in the morning Orally Once a dayMedication List reviewed and reconciled with the patientTaking Multi Vitamin Taking Atenolol 25 MG Tablet 12.5 mg Orally Once a dayTaking Clopidogrel Bisulfate 75 MG Tablet 1 tablet Orally Once a dayTaking Adult Aspirin EC Low Strength 81 MG Tablet Delayed Release 1 tablet Orally Once a dayTaking Pravastatin Sodium 40 MG Tablet 1 tablet Orally Once a dayTaking Docusate Sodium 100 MG Capsule TAKE 1 CAPSULE BY MOUTH TWICE DAILY Oral Taking Enoxaparin Sodium 40 MG/0.4ML Solution Prefilled Syringe INJECT 1 SHOT SUBCUTANEOUSLY ONCE DAILY. LAST DOSE ON 12/12/2023 Injection Taking FeroSul 325 (65 Fe) MG Tablet TAKE 1 TABLET BY MOUTH TWICE DAILY Oral Taking Acetaminophen 325 MG Tablet TAKE 3 TABLETS BY MOUTH THREE TIMES DAILY Oral Taking Polyethylene Glycol 3350 17 GM Packet MIX 1 PACKET (17 GRAM) IN LIQUID DIRECTED AND DRINK BY MOUTH DAILY NEEDED FOR CONSTIPATION Oral Taking Isosorbide Mononitrate ER 30 MG Tablet Extended Release 24 Hour 1 tablet in the morning Orally Once a dayMedication List reviewed and reconciled with the patient * Allergies:?No Known Drug All ergyno[Allergies Verified] Objective: * Vitals:?Ht: 68, Wt:164, BMI: 24.93, BP:130/68, HR:72, Temp:97.3, Ht-cm: 172.72, Wt-k.39. * Examination: ???General Examination: ?GENERAL APPEARANCE:?pleasant, well nourished, well developed, in no acute distress, calm and relaxed , elderly man.?HEAD:?atraumatic, normocephalic.?EYES:?eomi, perrla, anicteric, conjugate.?EARS:?normal.?NOSE:?septum intact.?ORAL CAVITY:?normal, unremarkable.?NECK/THYROID:?no jugular venous distention, no carotid bruit, thyroid normal.?LYMPH NODES:?no enlarged lymph nodes,spleen normal.?SKIN:?no suspicious lesions, anicteric.?HEART:?no clicks, gallops, murmurs, or rubs, regular rhythm, S1, S2 normal, no s3, or vascular bruits.?LUNGS:?clear to auscultation .?BREASTS:??no masses palpable bilaterally.?ABDOMEN:?bowel sounds normal, no ascites, no organomegaly, no mass, The aneurysm is not palpable and there is no vascular bruit.?RECTAL EXAM:?not examined.?MUSCULOSKELETAL:?extremities unremarkable, no clubbing, cyanosis or edema, Pain and decreased range of motion of the lumbar and cervical spine.?PERIPHERAL PULSES:?normal.?NEUROLOGIC:?alert and oriented, cranial nerves 2-12 grossly intact, deep tendon reflexes 2+ symmetrical, motor strength normal upper and lower extremities, sensory exam intact.?PSYCH:?alert, oriented , thought process logical, goal directed , cognitive function intact , speech clear.? Assessment: * Assessment: 1.?Former smoker - Z87.891 ( Primary), He has a plan to prevent relapse in times of stress and illness. We discussed lifestyle today.?2.?Essential (primary) hypertension - I10, His blood pressure has been in the normal range at 133/69 and no change was made in his regimen. I urged him to have his blood pressure determined at least once a week while he is in [place] and reported back to me.?3.?Hyperlipidemia, unspecified - E78.5, The current fasting lipid profile shows good control of his lipids. No change in his regimen as needed.?4.?Gastro-esophageal reflux disease without esophagitis - K21.9, His esophageal reflux is well controlled with tluc-iyu-pfvrshu medication and no change in his regimen was necessary today.?5.?Nonrheumatic aortic valve stenosis - I35.0, He had a TAVR in the recent past for aortic stenosis. He is going to have an ultrasound of his heart, which will help clarify if the valve is a source of an embolism.?6.?Ischemic heart disease - I25.9, We have requested the results of his cardiac studies. He is tolerating the isosorbide well without dizziness.?7.?Closed fracture of left hip, initial encounter - S72.002A, He was referred back to orthopedics to do with the postoperative pain? Plan: * Treatment: * Procedure Codes:? * Preventive Medicine:? ??Counseling:?Care goal follow-up plan:?Counseling for abnormal BMI given?No ?Smoking/Tobacco Use?Patient counseled on the dangers of tobacco use and urged to quit.?01/27/2024 * Follow Up:?3 Months (Reason: OV, Annual Exam) * Images: * Sign off status: Completed true * Provider:?Sebastian Preciado MD Date:?01/14 Generated for Estelle chao/Maximino/eTjamessmitting on:?05/23/2024 11:54 AM EST History and Physical Notes * HPI (History of Present Illness) Category Sub-Category Detail Notes COVID-19 Screening Questions Have you had any new onset fever, chills, cough, congestion, sore throat, shortness of breath, muscle aches?: No Have you been exposed to the virus withi n the last 10 days?: No Have you travelled internationally [facility] last 10 days?: No Have you been exposed to COVID-19 in the past?: No Examination Category Sub-Category Detail Notes General Examination GENERAL APPEARANCE: pleasant , well nourished, well developed, in no acute distress, calm and relaxed , elderly man HEAD: atraumatic, normocep halic EYES: eomi, perrla, anicte paulina, conjugate EARS: normal NOSE: septum intact NECK/THYROID: no jugular venous di stention, no carotid bruit, thyroid normal HEART: no clicks, gallops, murmurs, or rubs, regular rhythm, S1, S2 normal, no s3, or vascular bruits LUNGS: clear to auscultatio n ABDOMEN: bowel sounds normal, no ascites, no organomegaly, no mass, The aneurysm is not palpable and there is no vascular bruit NEUROLOGIC: alert and oriented, cranial nerves 2-12 grossly intact, deep tendon reflexes 2+ symmetrical, motor strength normal upper and lower extremities, sensory exam intact SKIN: no suspicious lesion s, anicteric PERIPHERAL PULSES: normal BREASTS: no masses palpable b ilaterally MUSCULOSKELETAL: extremities unremark able, no clubbing, cyanosis or edema, Pain and decreased range of motion of the lumbar and cervical spine LYMPH NODES: no enlarged lymph no ed,spleen normal RECTAL EXAM: not examined PSYCH: alert, oriented , th ought process logical, goal directed , cognitive function intact , speech clear ORAL CAVITY: normal, unremarkable
--- OUTSIDE RECORDS SUMMARY | 2024-05-23 11:55 | XMS_ITS ---
Author Organization Sebastian Preciado III, MD Address [address] [place] [address] Care Team Providers Care Top Edge Beveler Name Role Phone Sebastian Preciado Primary Care Provider [phone] Allergies Allergen (clinical drug ingredient) Drug/Non Drug Allergy documented on EMR Reaction Allergy Type Onset Date Status No Known Drug Allergy Unknown Drug Allergy Active Results Component Value Reference Range Notes URINE DIP STICK Reviewed date:05/14/2024 01:21:43 PM Interpretation: Performing Lab: Notes/Report: SG 1.010 1.005 - 1.025 pH 5.0 5.0 - 9.0 RAQUEL Negative Negative - NIT Negative Negative - PRO 15 Negative - Trace GLU Negative Negative - KET 5 Negative - UBG 0.2 0.1 - 1.8 MOIZ 1 0.2 - 1.3 BLD Negative Negative - REASON FOR VISIT Annual Exam Medications Medication SIG (Take, Route, Frequency, Duration) Notes Start Date End Date Status Isosorbide Mononitrate ER 30 MG 1 tablet in the morning Orally Once a day Active Pravastatin Sodium 40 MG 1 tablet Orally Once a day Active Adult Aspirin EC Low Strength 81 MG 1 tablet Orally Once a day Active Atenolol 25 MG 12.5 mg Orally Once a day Active Centrum Silver Activ e Tylenol Arthritis Pain Active Social History Tobacco Use: Social History Observation Description Date Details (start date - stop date) Former Smoker NA - NA Sex Assigned At : Social History Observation Description Sex Assigned At Male Tobacco Use/Smoking Question Answer Notes Patient is a former smoker How long has it been since you last smoked? > 10 years Additional Findings: Tobacco Non-User Ex-cigaret te smoker Tobacco Control (Standard) Question Answer Notes Tobacco use: Former smoker How long has it been since you last smoked? Grea ter than 10 years Additional Findings: Tobacco non-user Ex-cigaret te smoker AUDIT-C (Standard) Question Answer Notes Did you have a drink containing alcohol in the p ast year? No Points 0 Interpretation Negative Vital Signs Temperature 98.6 degrees Fahrenheit 05/14/20 24 Blood pressure systolic 134 mm Hg 05/14/20 24 Blood pressure diastolic 72 mm Hg 024 Heart Rate 81 /min 05/14/2024 Height 68 in 05/14/2024 Weight 165 lbs 05/14/2024 BMI 25.09 kg/m2 05/14/2024 Encounters Encounter Location Date Provider Diagnosis Sebastian Preciado III, MD [address] [place] [address] [place] [address] 05/14/2024 Sebastian Ilana Former smoker Z87.89 1 ; Essential (primary) hypertension I10 ; Hyperlipidemia, unspecified E78.5 ; Malignant neoplasm of prostate C61 ; Gastro-esophageal reflux disease without esophagitis K21.9 ; Atherosclerotic heart disease of [place] coronary artery without angina pectoris I25.10 ; Osteoarthritis of cervical spine, unspecified spinal osteoarthritis complication status M47.812 and Overweight E66.3 Assessments Encounter Date Diagnosis (ICD Code) Assessment Notes Treat ment Notes Treatment Clinical Notes 05/14/2024 Former smoker (ICD-1 0 - Z87.891) He has a plan to prevent relapse in times of stress and illness. We discussed lifestyle today. 05/14/2024 Essential (primary) hypertension (ICD-10 - I10) His blood pressure is 134/72 and no change was made in his regimen. I urged him to have his blood pressure determined at least once a week while he is in [place] and reported back to me. 05/14/2024 Hyperlipidemia, unspecified (ICD-10 - E78.5) The current fasting lipid profile shows good control of his lipids. No change in his regimen as needed. 05/14/2024 Malignant neoplasm o f prostate (ICD-10 - C61) His prostate cancer appears to be stable. There was no sign of disease progression today. 05/14/2024 Gastro-esophageal reflux disease without esophagitis (ICD-10 - K21.9) His esophageal reflux is well controlled with nhbi-nme-dtazmst medication and no change in his regimen was necessary today. 05/14/2024 Atherosclerotic hear t disease of [place] coronary artery without angina pectoris (ICD-10 - I25.10) He continues to have anginaa with prolonged exertion. He has an appointment in the near future to see the railroad worker after he has an echocardiogram and a nuclear medicine stress test. He will come back from [place] the end of September 2023. I continue to use peak with him every 21 days. 05/14/2024 Osteoarthritis of cervical spine, unspecified spinal osteoarthritis complication status (ICD-10 - M47.812) He has very limited range of motion in all directions of his neck. The current nerve impingement symptoms are improving rapidly. 05/14/2024 Overweight (ICD-10 - E66.3) His body mass index is stable at 25.09. We discussed a weight loss strategy. He will try to lose weight at a rate of one half of a pound per week. Plan Of Treatment Medication Medication Name Sig Start Date Stop Date Notes Isosorbide Mononitrate ER 30 MG 1 tablet in the morning Orally Once a day Pravastatin Sodium 40 MG 1 tablet Orally Once a day Adult Aspirin EC Low Strengt h 81 MG 1 tablet Orally Once a day Atenolol 25 MG 12.5 mg Orally Once a day Centrum Silver Tylenol Arthritis Pain Pending Test Test Name Order Date CT ABD WITH CONTRAST 05/14/2024 Next Appt Details Follow Up: [place] leaving for [place] on 05/28/2024, Early October or late October, Reason: Follow-up on possible hernia and left hip fracture Provider Name:Sebastian Preciado, 06/04/2024 09:00:00 AM, [address] [place] [address] [address], [place], [address], Progress Notes * Mar JERNIGAN: 8 (88 yo M)Acc No.[id number]:05/14/2024 Progress Notes Patient:Royce INGRAM Provider:?Sebastian Preciado MD :[id number]???Age:88 Y???Sex:Male Bakari e:05/14/2024 Address:[address] [place] [address], [id number] Subjective: * Chief Complaints: * ???Annual Exam * HPI: ???Depression Screening:?left thigh shemar hurts, fx october? apap, card stopped plavix, mneck ok, back to [place] 05/28 until october. ?PHQ-9?Little interest or pleasure in doing things?Not at all ?Feeling down, depressed, or hopeless?Not at all ?Trouble falling or staying asleep, or sleeping too much?Not at all ?Feeling tired or having little energy?Several days ?Poor appetite or overeating?Not at all ?Feeling bad about yourself or that you are a failure, or have let yourself or your family down?Not at all ?Trouble concentrating on things, such as reading the newspaper or watching television?Not at all ?Moving or speaking so slowly that other people could have noticed; or the opposite, being so fidgety or restless that you have been moving around a lot more than usual?Not at all ?Thoughts that you would be better off or of hurting yourself in some way?Not at all ?Total Score?1 ?Interpretation?Minimal Depression ???COVID-19 Screening:?Questions?Have you had any new onset fever, chills, cough, congestion, sore throat, shortness of breath, muscle aches??No ???SDOH Questions:?SDOH Questions?In the past year have you been worried about losing your housing??No ?In the past year have you or any family members you live with been unable to get any of the following when it was really needed? Check all that apply:?None ???Fall Risk Screening:?Fall History?Have you had any falls with injury in the past year??Yes ?Have you had two or more falls in the past year??No ?Fall Risk Assessment:?One fall with injury in the past year ???:?The patient, an 88-year-old male, presented with complaints of pain in his left thigh, knee, and ankle. He reported feeling screws in his thigh and experiencing intermittent pain. The patient had a history of a left hip fracture in late October and was still experiencing pain in that leg. He was due to see an channel marketing specialist in early May. The patient was managing his pain with a regimen of Tylenol, taking 1300mg three times a day. He also reported a sharp, burning pain in his groin area, which he suspected might be a hernia. The patient had stopped taking Plavix, a medication for his heart, due to concerns about excessive bleeding. He had not experienced any chest pains or breathing difficulties. The patient had a history of prostate cancer, which was treated with radiation and hormone injections. Upon examination he may have a femoral hernia.? He does not have an inguinal hernia.? CT scan of the abdomen has been ordered after comprehensive blood work which will assess his renal function for radiographic?contrast.? He is leaving for [place] May 28, 2023 to stay until October.? If the CT study cannot be arranged before then I will help him arrange it in [place] should he wish.? There was no sign of incarceration today.He saw his railroad worker recently who stopped the clothespin a girl.? He had repair of? a fracture of the left femur in October 2023.? He complains that it still hurts with weightbearing.? I have encouraged him to reconsult the orthopedic surgeon but he wants to wait until he returns in October. * ROS:?General/Constitutional:?Admits?pain,?Range of motion of neck, Right lower abdominal wall, Left hip, otherwise only normal aches and pains.?Chills?denies.?Fatigue?admits.?Fever?denies.?ENT:?Decreased hearing?denies.?Respiratory:?Cough?denies.?Cardiovascular:?Chest pain with exertion?denies.?Dyspnea on exertion?denies.?Shortness of breath?denies.?Gastrointestinal:?Constipation?denies.?Decreased appetite?denies.?Diarrhea?denies.?Heartburn?denies.?Nausea?denies.?Rectal bleeding?denies.?Vomiting?denies.?Hematology:?bruising?denies.?petechiae?denies.?Swollen glands?none have been noted.?Genitourinary:?Frequent urination?denies.?Musculoskeletal:?Muscle aches?denies.?Painful joints?Neck and left hip.?Sciatica?denies.?Weakness?denies.?Skin:?Itching?denies.?Rash?denies.?Skin lesion(s)?denies.?Neurologic:?Difficulty speaking?denies.?Dizziness?denies.?Headache?denies.?Low back pain?denies.?Psychiatric:?Depressed mood?which is mild.? * Medical History:? * Surgical History:?cardiac ca theterization, 3 stents December 2012TA, [facility] eft hip surgery 11/2023 * Hospitalization/Major Diagno stic Procedure:?No history * Family History:?Father: dece ased 72 yrs, blood clot.?Mother: 62 yrs, blood clot.?Siblings: .?1 brother(s) , 2 sister(s) . .? Three siblings have from accidents, surgery and hypotension. * Social History:?Tobacco Use:?Tobacco Use/Smoking?Patient is a?former smoker ?How long has it been since you last smoked??> 10 years ?Additional Findings: Tobacco Non-User?Ex-cigarette smoker ?Tobacco Control (Standard)?Tobacco use:?Former smoker ?How long has it been since you last smoked??Greater than 10 years ?Additional Findings: Tobacco non-user?Ex-cigarette smoker ???Drugs/Alcohol:?Drugs?Have you used drugs other than those for medical reasons in the past 12 months??No ???Drug/Alcohol:?AUDIT-C (Standard)?Did you have a drink containing alcohol in the past year??No ?Points?0 ?Interpretation?Negative ???He was born in [place], [place] and has been to [facility] for 59 years. He has 3 children and 9 grandchildren. 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 * Medications:?TakingTylenol A rthritis Pain Centrum Silver Atenolol 25 MG Tablet 12.5 mg Orally Once a day Adult Aspirin EC Low Strength 81 MG Tablet Delayed Release 1 tablet Orally Once a day Pravastatin Sodium 40 MG Tablet 1 tablet Orally Once a day Isosorbide Mononitrate ER 30 MG Tablet Extended Release 24 Hour 1 tablet in the morning Orally Once a day Taking Tylenol Arthritis Pain Taking Centrum Silver Taking Atenolol 25 MG Tablet 12.5 mg Orally Once a day Taking Adult Aspirin EC Low Strength 81 MG Tablet Delayed Release 1 tablet Orally Once a day Taking Pravastatin Sodium 40 MG Tablet 1 tablet Orally Once a day Taking Isosorbide Mononitrate ER 30 MG Tablet Extended Release 24 Hour 1 tablet in the morning Orally Once a day DiscontinuedMulti Vitamin Clopidogrel Bisulfate 75 MG Tablet 1 tablet Orally Once a day Docusate Sodium 100 MG Capsule TAKE 1 [...] BY MOUTH DAILY NEEDED FOR CONSTIPATION Oral Medication List reviewed and reconciled with the patientDiscontinued Multi Vitamin Discontinued Clopidogrel Bisulfate 75 MG Tablet 1 tablet Orally Once a day Discontinued Docusate Sodium 100 MG Capsule TAKE 1 CAPSULE BY MOUTH TWICE DAILY Oral Discontinued Enoxaparin Sodium 40 MG/0.4ML Solution Prefilled Syringe INJECT 1 SHOT SUBCUTANEOUSLY ONCE DAILY. LAST DOSE ON 12/12/2023 Injection Discontinued FeroSul 325 (65 Fe) MG Tablet TAKE 1 TABLET BY MOUTH TWICE DAILY Oral Discontinued Acetaminophen 325 MG Tablet TAKE 3 TABLETS BY MOUTH THREE TIMES DAILY Oral Discontinued Polyethylene Glycol 3350 17 GM Packet MIX 1 PACKET (17 GRAM) IN LIQUID DIRECTED AND DRINK BY MOUTH DAILY NEEDED FOR CONSTIPATION Oral Medication List reviewed and reconciled with the patient * Allergies:?No Known Drug All ergyno[Allergies Verified] Objective: * Vitals:?Ht: 68, Wt:165, BMI: 25.09, BP:134/72, HR:81, Temp:98.6, Ht-cm: 172.72, Wt-k.84. * Examination: ???General Examination: ?GENERAL APPEARANCE:?pleasant, well nourished, well developed, in no acute distress, calm and relaxed, overweight, man.?HEAD:?atraumatic, normocephalic.?EYES:?eomi, perrla, anicteric, conjugate.?EARS:?normal.?NOSE:?septum intact.?ORAL CAVITY:?normal, unremarkable.?NECK/THYROID:?no jugular venous distention, no carotid bruit, thyroid normal, Mild pain to range of motion.?LYMPH NODES:?no enlarged lymph nodes,spleen normal.?SKIN:?no suspicious lesions, anicteric.?HEART:?no clicks, gallops, murmurs, or rubs, regular rhythm, S1, S2 normal, no s3, or vascular bruits.?LUNGS:?clear to auscultation .?BREASTS:??no masses palpable bilaterally.?ABDOMEN:?bowel sounds normal, no ascites, no organomegaly, no mass, overweight, Possible femoral hernia is small right lower quadrant.?RECTAL EXAM:?Declined.?MUSCULOSKELETAL:?extremities unremarkable, no clubbing, cyanosis or edema.?PERIPHERAL PULSES:?normal.?NEUROLOGIC:?alert and oriented, cranial nerves 2-12 grossly intact, deep tendon reflexes 2+ symmetrical, motor strength normal upper and lower extremities, sensory exam intact.?PSYCH:?alert, oriented, anxious appearing, thought process logical, goal directed, cognitive function intact, cooperative with exam, speech clear.? Assessment: * Assessment: 1.?Essential (primary) hyper tension - I10 (Primary)???Notes :His blood pressure is 134/72 and no change was made in his regimen. I urged him to have his blood pressure determined at least once a week while he is in [place] and reported back to me.???2.?Former smoker - Z87.891???Notes :He has a plan to prevent relapse in times of stress and illness. We discussed lifestyle today.???3.?Hyperlipidemia, unspecified - E78.5???Notes :The current fasting lipid profile shows good control of his lipids. No change in his regimen as needed.???4.?Malignant neoplasm of prostate - C61???Notes :His prostate cancer appears to be stable. 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 He has an appointment in the near future to see the railroad worker after he has an echocardiogram and a nuclear medicine stress test. He will come back from [place] the end of September 2023. I continue to use peak with him every 21 days.???7.?Osteoarthritis of cervical spine, unspecified spinal osteoarthritis complication status - M47.812???Notes :He has very limited range of motion in all directions of his neck. The current nerve impingement symptoms are improving rapidly.???8.?Overweight - E66.3???Notes :His body mass index is stable at 25.09. We discussed a weight loss strategy. He will try to lose weight at a rate of one half of a pound per week.??? Plan: * Treatment: 2.?Former smoker? Continue Tylenol Arthritis Pain;?Continue Centrum Silver;?Continue Atenolol Tablet, 25 MG, 12.5 mg, Orally, Once a day;?Continue Adult Aspirin EC Low Strength Tablet Delayed Release, 81 MG, 1 tablet, Orally, Once a day;?Continue Pravastatin Sodium Tablet, 40 MG, 1 tablet, Orally, Once a day;?Continue Isosorbide Mononitrate ER Tablet Extended Release 24 Hour, 30 MG, 1 tablet in the morning, Orally, Once a day.?LAB: PROFILE, RANDOM (COMPREHENSIVE METABOLIC) ?LAB: PSA, TOTAL ?LAB: CBC w DIFF * Imaging:? * ?Imaging: CT ABD WITH CO NTRAST * Labs:? * ?Lab: URINE DIP STICK (C ollection Date & Time - 05/14/2024) ? Value Reference Range ?SG 1.010 1.005 - 1.025 * ?pH 5.0 5.0 - 9.0 * ?RAQUEL Negative Negative - * ?NIT Negative Negative - * ?PRO 15 Negative - Trac e * ?GLU Negative Negative - * ?KET 5 Negative - * ?UBG 0.2 0.1 - 1.8 * ?MOIZ 1 0.2 - 1.3 * ?BLD Negative Negative - * Procedure Codes:?31594 URINE -NO MICRO * Preventive Medicine:? ??Counseling:?Care goal follow-up plan:?Counseling for abnormal BMI given?Yes ?Above Normal BMI Follow-up?Dietary management education, guidance, and counseling ?Smoking/Tobacco Use?Patient counseled on the dangers of tobacco use and urged to quit.?05/14/2024 * Follow Up:?pt leaving for [place] on 05/28/2024, Early October or late October (Reason: Follow-up on possible hernia and left hip fracture) * Images: * Sign off status: Completed true * Provider:?Sebastian Preciado MD Date:?04/17 Generated for Estelle chao/Maximino/Zoilasmitting on:?05/23/2024 11:54 AM EST History and Physical Notes * HPI (History of Present Illness) Category Sub-Category Detail Notes Depression Screening PHQ-9 Little inte rest or pleasure in doing things: Not at all Feeling down, depressed, or hopeless: No t at all Trouble falling or staying asleep, or sl eeping too much: Not at all Feeling tired or having little energy: S everal days Poor appetite or overeating: Not at all Feeling bad about yourself o r that you are a failure, or have let yourself or your family down: Not at all Trouble concentrating on thi ngs, such as reading the newspaper or watching television: Not at all Moving or speaking so slowly that other people could have noticed; or the opposite, being so fidgety or restless that you have been moving around a lot more than usual: Not at all Thoughts that you would be b junaid off or of hurting yourself in some way: Not at all Total Score: 1 Interpretation: Minimal Depression Fall Risk Screening Fall History Have you had any falls with injury in the past year?: Yes Have you had two or more falls in the year?: No Fall Risk Assessment:: One fall with inj ury in the past year COVID-19 Screening Questions Have you had any new onset fever, chills, cough, congestion, sore throat, shortness of breath, muscle aches?: No SDOH Questions SDOH Questions In the past year have you been worried about losing your housing?: No In the past year have you or any family members you live with been unable to get any of the following when it was really needed? Check all that apply:: None Examination Category Sub-Category Detail Notes General Examination GENERAL APPEARANCE: pleasant , well nourished, well developed, in no acute distress, calm and relaxed, overweight, man HEAD: atraumatic, normocep halic EYES: eomi, perrla, anicte paulina, conjugate EARS: normal NOSE: septum intact NECK/THYROID: no jugular venous di stention, no carotid bruit, thyroid normal, Mild pain to range of motion HEART: no clicks, gallops, murmurs, or rubs, regular rhythm, S1, S2 normal, no s3, or vascular bruits LUNGS: clear to auscultatio n ABDOMEN: bowel sounds normal, no ascites, no organomegaly, no mass, overweight, Possible femoral hernia is small right lower quadrant NEUROLOGIC: alert and oriented, cranial nerves 2-12 grossly intact, deep tendon reflexes 2+ symmetrical, motor strength normal upper and lower extremities, sensory exam intact SKIN: no suspicious lesion s, anicteric PERIPHERAL PULSES: normal BREASTS: no masses palpable b ilaterally MUSCULOSKELETAL: extremities unremark able, no clubbing, cyanosis or edema LYMPH NODES: no enlarged lymph no ed,spleen normal RECTAL EXAM: Declined PSYCH: alert, oriented, anx ious appearing, thought process logical, goal directed, cognitive function intact, cooperative with exam, speech clear ORAL CAVITY: normal, unremarkable
--- OUTSIDE RECORDS SUMMARY | 2024-05-23 11:55 | XMS_ITS | Patient Health Record ---
Author Organization Sebastian Preciado III, MD Address [address] [place] [address] Care Team Providers Care Conservation Officer Name Role Phone Sebastian Preciado Primary Care [...] 0.2 - 1.3 BLD Negative Negative - Complete Blood Count Auto Di ff Reviewed date:05/15/2024 11:39:51 AM Interpretation: Performing Lab:[facility], [address] [place] [phone] Notes/Report: White Blood Count 8.5 4.8-10.8 X10*3/uL Red Blood Count 3.93 4.60-5.80 X10*6/uL Hemoglobin 12.3 14.0-18.0 g/dl Hematocrit 38.7 42.0-52.0 % Mean Corpuscular Volume 98.5 80.0-98.0 fL Mean Corpuscular Hemoglobin 31.3 27.0-33.0 pg Mean Corpuscular HGB Conc 31.8 31.0-36.0 g/dl Red Cell Distribution Width 15.7 11.0-16.0 % Platelet Count 243 160-400 X10*3/uL Mean Platelet Volume 9.6 9.4-12.4 fL Neutrophils Percent Auto 75.8 45-73 % Imm Gran Pct Auto 0.4 0.0-0.4 % Lymphocytes Percent Auto 12.2 20-40 % Monocytes Percent Auto 9.2 2-11 % Eosinophils Percent Auto 1.8 0-4 % Basophils Percent Auto 0.6 0-2 % NRBC Pct Auto 0.0 0.0-0.2 /100WBC Neutrophils Absolute Auto 6.5 2.0-8.3 x10*3/u L Imm Gran Abs Auto 0.03 0.00-0.03 X10*3/uL Lymphocytes Absolute Auto 1.0 1.2-4.9 X10*3/u L Monocytes Absolute Auto 0.8 0.1-1.2 X10*3/uL Eosinophils Absolute Auto 0.2 0.0-0.4 X10*3/u L Basophils Absolute Auto 0.1 0.0-0.2 X10*3/uL NRBC Abs Auto 0.000 0.0-0.012 X10*3/uL Comprehensive Met. Panel Reviewed date:05/15/2024 11:39:51 AM Interpretation: Performing Lab:[facility], [address] [place] [phone] Notes/Report: Sodium 138 135-145 mmol/L Potassium 4.2 3.3-5.1 mmol/L Chloride 104 96-108 mmol/L Carbon Dioxide 28 22-29 mmol/L Anion Gap 10 12-20 Blood Urea Nitrogen 18 9-16 mg/dL Creatinine 0.85 0.5-1.4 mg/dL Estimated Glomerular Filt Rate > 60 Chronic Kidney Disease: Estimated GFR < 60 mL/min/1.73m2 Severe Kidney Disease: Estimated GFR < 15 mL/min/1.73m2 Glucose Random 97 60-115 mg/dL Calcium 9.7 8.4-10.2 mg/dL Bilirubin Total 0.8 0.0-1.0 mg/dL Aspartate Amino Transferase 25 5-37 U/L Alanine Aminotransferase 17 0-40 U/L Total Protein 7.1 6.5-8.0 g/dL Albumin Level 4.0 3.5-5.0 g/dL Alkaline Phosphatase 62 39-117 U/L Prostate Specific Antigen Reviewed date:05/15/2024 11:39:51 AM Interpretation: Performing Lab:[facility], [address] [place] [phone] Notes/Report: Prostate Specific Antigen 0.50 <0.05-4.0 ng/mL PSA methodology: F2G Alinity i Chemiluminescent Microparticle Immunoassay (CMIA) Beta-2 Glycoprotein Antibody Reviewed date:05/22/2024 04:16:19 PM Interpretation: Performing Lab:[facility], [address] [place] [phone] Notes/Report: Beta-2 Glycoprotein IgG <2.0 <20.0 U/mL Value Interpretation ----- < 20.0 Antibody not detected > or = 20.0 Antibody detected Beta-2 Glycoprotein IgM 4.8 <20.0 U/mL Value Interpretation ----- < 20.0 Antibody not detected > or = 20.0 Antibody detected Beta-2 Glycoprotein IgA <2.0 <20.0 U/mL Value Interpretation ----- < 20.0 Antibody not detected > or = 20.0 Antibody detected The antiphospholipid antibody syndrome (APS) is a clinical-pathologic correlation that includes a clinical event (e.g. arterial or venous thrombosis, morbidity) and persistent positive antiphospholipid antibodies (IgM, IgG Cardiolipin or b2GPI antibodies greater than the 99th percentile; or a lupus anticoagulant). International consensus guidelines for APS suggest waiting at least 12 weeks before retesting to confirm antibody persistence. The Systemic Lupus International Collabor[facility] immunological classification criteria for systemic lupus erythematosus (SLE) include testing for isotype IgA, which has yet to be incorporated into APS criteria. Low level antiphospholipid antibodies may sometimes be detected in the setting of infection, drug therapy or aging. For additional information, please refer to http://education.[employer].Second Decimal/faq/BIL055 (This link is being provided for informational/ educational purposes only.) THIS TEST WAS PERFORMED AT: [facility] [address] TREVON CHEN MD,PHD Tricyclic Antidepressant Scr n Reviewed date:05/22/2024 04:16:19 PM Interpretation: Performing Lab:[facility], [address] [place] [phone] Notes/Report: Amitriptyline, Urine NEGATIVE REFERENCE RANGE: <100 ng/mL THIS TEST PERFORMED AT: [facility] [address] [place], [place] [phone] DAILY SALES AUDIT CLERK: TREVON CHEN MD, PHD NOTES AND COMMENTS: This drug testing is for medical treatment only. Analysis was performed as non-forensic testing and these results should be used only by healthcare providers to render diagnosis or treatment, or to monitor progress of medical conditions. LDT Notes: Confirmation tests were developed and their analytical performance characteristics have been determined by [facility]. It has not been cleared or approved by the FDA. This assay has been validated pursuant to the CLIA regulations and is used for clinical purposes. Healthcare Providers needing Interpretation assistance, please contact us at [phone] ( ) M-F, 8am to 10pm EST THIS TEST PERFORMED AT: [facility] [address] [address] [phone] DAILY SALES AUDIT CLERK: JAYDA WATTS MD Nortriptyline, Urine NEGATIVE REFERENCE RANGE: <100 ng/mL THIS TEST PERFORMED AT: [facility] [place] [id number] [place], [place] [phone] DAILY SALES AUDIT CLERK: TREVON CHEN MD, PHD NOTES AND COMMENTS: This drug testing is for medical treatment only. Analysis was performed as non-forensic testing and these results should be used only by healthcare providers to render diagnosis or treatment, or to monitor progress of medical conditions. LDT Notes: Confirmation tests were developed and their analytical performance characteristics have been determined by [facility]. It has not been cleared or approved by the FDA. This assay has been validated pursuant to the CLIA regulations and is used for clinical purposes. Healthcare Providers needing Interpretation assistance, please contact us at [phone] ( ) M-F, 8am to 10pm EST THIS TEST PERFORMED AT: [facility] [address] [place] [phone] DAILY SALES AUDIT CLERK: JAYDA WATTS MD Reason For Referral No Information Medications Medication SIG (Take, Route, Frequency, Duration) [...] Silver Activ e Tylenol Arthritis Pain Active Immunizations Vaccine Route Administration Date Status Comme nts Influenza IM Intramuscular 04/18/2013 Administered Lot# [id number] Pneumococcal Unknown 02/25/2010 Administered Influenza Unknown 03/04/2014 Administered Influenza no Preserv 3 and > Unknown 02/09/2011 Administered Influenza no Preserv 3 and > Unknown 03/23/2012 Administered Influenza-iiv4 p-free high dose Unknown 03/20/2020 Administered COVID 19 Moderna Unknown 05/04/2021 Administered Social History Tobacco Use: Social History Observation [...] ast year? No Points 0 Interpretation Negative Problems Problem Type SNOMED Code ICD Code Onset Dates Problem Status W/U Status Risk Notes Problem 6427299 Former smoker (Z87.891) Active confirmed He has a plan to prevent relapse in times of stress and illness. We discussed lifestyle today. Problem 270133629 Overweight (E66.3) Active confirmed His body mass index is stable at 25.09. We discussed a weight loss strategy. He will try to lose weight at a rate of one half of a pound per week. Problem 3090809 Arthritis (M19.90) Active confirmed The right third finger is edematous with loss of range of motion of the PIP joint. Some erythema on the ventral surface of the finger. This could be gout flareup of arthritis or infectionThe blood work was ordered with a uric acid and white blood cell count. An x-ray was ordered. Treatment will begin his indices are available.He was also referred to orthopedics hand surgery Problem Malignant tumor of prostate (293086223) Malignant neoplasm of prostate (C61) Active confirmed His prostate cancer appears to be stable. There was no sign of disease progression today. Problem Hyperlipidemia (84898939) Hyperlipidemia, unspecified (E78.5) Active confirmed The current fasting lipid profile shows good control of his lipids. No change in his regimen as needed. Problem Essential hypertension (46513773) Essential (primary) hypertension (I10) Active confirmed His blood pressure is 134/72 and no change was made in his regimen. I urged him to have his blood pressure determined at least once a week while he is in [place] and reported back to me. Problem Atherosclerotic heart disease of [place] coronary artery without angina pectoris (587838023768773 ) Atherosclerotic heart disease of [place] coronary artery without angina pectoris (I25.10) Active confirmed He continues to have anginaa with prolonged exertion. He has an appointment in the near future to see the astronautical engineer after he has an echocardiogram and a nuclear medicine stress test. He will come back from [place] the end of September 2023. I continue to use peak with him every 21 days. Problem Gastro-esophagea l reflux disease without esophagitis (508480301) Gastro-esophagea l reflux disease without esophagitis (K21.9) Active confirmed His esophageal reflux is well controlled with [id number] r medication and no change in his regimen was necessary today. Problem 162568331 Erosive (osteo)arthritis (M15.4) Active confirmed The swelling in the right third and fourth fingers is less than the erythema has resolved. Will be observed at this time. Problem 10169436 Cervical radiculopathy (M54.12) Active confirmed He is free of symptoms at this time. He will notify me if the pain returns. Problem 752024562 Nonrheumatic aortic valve stenosis (I35.0) Active confirmed He had a TA VR in the recent past for aortic stenosis. He is going to have an ultrasound of his heart, which will help clarify if the valve is a source of an embolism. Problem 575532493 Osteoarthritis of cervical spine, unspecified spinal osteoarthritis complication status (M47.812) Active confirmed He has very limited range of motion in all directions of his neck. The current nerve impingement symptoms are improving rapidly. Problem 426100606 Ischemic heart disease (I25.9) Active confirmed We have requested the results of his cardiac studies. He is tolerating the isosorbide well without dizziness. Vital Signs Heart Rate 81 /min 05/14/2024 Temperature 98.6 degrees Fahrenheit 05/14/2024 Blood pressure diastolic 72 mm Hg 05/14/2024 Height 68 in 05/14/2024 Blood pressure systolic 134 mm Hg 05/14/2024 Weight 165 lbs 05/14/2024 BMI 25.09 kg/m2 05/14/2024 Encounters Encounter Location Date Provider Diagnosis Sebastian Preciado III, MD [address] [place] [address] [place] [address] 06/02/2023 Sebastian Preciado Former smoker Z87.89 1 ; Malignant neoplasm of prostate C61 ; Hyperlipidemia, unspecified E78.5 ; Essential (primary) hypertension I10 ; Gastro-esophageal reflux disease without esophagitis K21.9 ; Overweight E66.3 ; Osteoarthritis of cervical spine, unspecified spinal osteoarthritis complication status M47.812 ; Atherosclerotic heart disease of [place] coronary artery without angina pectoris I25.10 ; Nonrheumatic aortic valve stenosis I35.0 and Arthritis M19.90 Sebastian Preciado III, MD [address] [place] [address] [place] [phone] 06/23/2023 Sebastian Preciado Former smoker Z87.89 1 ; Essential (primary) hypertension I10 ; Hyperlipidemia, unspecified E78.5 ; Malignant neoplasm of prostate C61 ; Gastro-esophageal reflux disease without esophagitis K21.9 ; Nonrheumatic aortic valve stenosis I35.0 ; Overweight E66.3 ; Osteoarthritis of cervical spine, unspecified spinal osteoarthritis complication status M47.812 ; Atherosclerotic heart disease of [place] coronary artery without angina pectoris I25.10 and Arthritis M19.90 Sebastian Preciado III, MD [address] [place] [address] [place] [address] 07/22/2023 Sebastian Preciado Former smoker Z87.89 1 ; Essential (primary) hypertension I10 ; Hyperlipidemia, unspecified E78.5 ; Malignant neoplasm of prostate C61 ; Gastro-esophageal reflux disease without esophagitis K21.9 ; Atherosclerotic heart disease of [place] coronary artery without angina pectoris I25.10 ; Osteoarthritis of cervical spine, unspecified spinal osteoarthritis complication status M47.812 ; Overweight E66.3 ; Nonrheumatic aortic valve stenosis I35.0 and Cervical radiculopathy M54.12 Sebastian Preciado III, MD [address] [place] [address] [place] [address] 08/19/2023 Sebastian Preciado Former smoker Z87.89 1 ; Essential (primary) hypertension I10 ; Hyperlipidemia, unspecified E78.5 ; Malignant neoplasm of prostate C61 ; Gastro-esophageal reflux disease without esophagitis K21.9 ; Nonrheumatic aortic valve stenosis I35.0 ; Overweight E66.3 and Atherosclerotic heart disease of [place] coronary artery without angina pectoris I25.10 Sebastian Preciado III, MD [address] [place] [address] [place] [address] 09/09/2023 Sebastian Preciado Former smoker Z87.89 1 ; Hyperlipidemia, unspecified E78.5 ; Essential (primary) hypertension I10 ; Malignant neoplasm of prostate C61 ; Gastro-esophageal reflux disease without esophagitis K21.9 ; Atherosclerotic heart disease of [place] coronary artery without angina pectoris I25.10 ; Nonrheumatic aortic valve stenosis I35.0 ; Overweight E66.3 and Cervical radiculopathy M54.12 Sebastian Preciado III, MD [address] [place] [address] [place] [address] 10/07/2023 Sebastian Preciado Former smoker Z87.89 1 ; Essential (primary) hypertension I10 ; Hyperlipidemia, unspecified E78.5 ; Malignant neoplasm of prostate C61 ; Gastro-esophageal reflux disease without esophagitis K21.9 ; Overweight E66.3 ; Nonrheumatic aortic valve stenosis I35.0 ; Cervical radiculopathy M54.12 and Ischemic heart disease I25.9 Sebastian Preciado III, MD [address] [place] [address] [place] [address] 12/07/2023 Sebastian Preciado Former smoker Z87.89 1 ; Essential (primary) hypertension I10 ; Hyperlipidemia, unspecified E78.5 ; Malignant neoplasm of prostate C61 ; Gastro-esophageal reflux disease without esophagitis K21.9 ; Atherosclerotic heart disease of [place] coronary artery without angina pectoris I25.10 ; Overweight E66.3 ; Nonrheumatic aortic valve stenosis I35.0 ; Cervical radiculopathy M54.12 and Closed fracture of left hip, initial encounter S72.002A Sebastian Preciado III, MD [address] [place] [address] [place] [address] 12/21/2023 Sebastian Preciado Former smoker Z87.89 1 ; Essential (primary) hypertension I10 ; Hyperlipidemia, unspecified E78.5 ; Malignant neoplasm of prostate C61 ; Gastro-esophageal reflux disease without esophagitis K21.9 ; Cervical radiculopathy M54.12 ; Nonrheumatic aortic valve stenosis I35.0 ; Ischemic heart disease I25.9 and Closed nondisplaced intertrochanteric fracture of left femur, sequela S72.145S Sebastian Preciado III, MD [address] [place] [address] [place] [address] 01/27/2024 Sebastian Preciado Former smoker Z87.89 1 ; Essential (primary) hypertension I10 ; Hyperlipidemia, unspecified E78.5 ; Gastro-esophageal reflux disease without esophagitis K21.9 ; Nonrheumatic aortic valve stenosis I35.0 ; Ischemic heart disease I25.9 and Closed fracture of left hip, initial encounter S72.002A Sebastian Preciado III, MD [address] [place] [address] [place] [address] 05/14/2024 Sebastian Preciado Former smoker Z87.89 1 ; Essential (primary) hypertension I10 ; Hyperlipidemia, unspecified E78.5 ; Malignant neoplasm of prostate C61 ; Gastro-esophageal reflux disease without esophagitis K21.9 ; Atherosclerotic heart disease of [place] coronary artery without angina pectoris I25.10 ; Osteoarthritis of cervical spine, unspecified spinal osteoarthritis complication status M47.812 and Overweight E66.3 Sebastian Preciado III, MD [address] [place] [address] [place] [address] 05/21/2024 Sebastian Preciado Unilateral femoral h ernia without obstruction or gangrene, recurrence not specified K41.90 Sebastian Preciado III, MD [address] [place] [address] [place] [address] 08/08/2023 Sebastian Preciado III, MD [address] [place] [address] [place] [address] 10/07/2023 Sebastian Preciado III, MD [address] [place] [address] [place] [address] 11/14/2023 Sebastian Preciado III, MD [address] [place] [address] [place] [address] 11/29/2023 Sebastian Preicado III, MD [address] [place] [address] [place] [address] 11/30/2023 Sebastian Preciado III, MD [address] [place] [address] [place] [address] 12/02/2023 Sebastian Preciado III, MD [address] [place] [address] [place] [address] 12/28/2023 Sebastian Preciado III, MD [address] [place] [address] [place] [address] 12/28/2023 Sebastian Preciado III, MD [address] [place] [address] [place] [address] 08/05/2023 Sebastian Preciado Former smoker Z87.89 1 Sebastian Preciado III, MD [address] [place] [address] [place] [address] 08/16/2023 Sebastian Preciado III, MD [address] [place] [address] [place] [address] 11/02/2023 Sebastian Preciado Former smoker Z87.89 1 Assessments Encounter Date Diagnosis (ICD Code) Assessment Notes T reatment Notes Treatment Clinical Notes 06/02/2023 Former smoker (ICD-1 0 - Z87.891) He is highly motivated not to smoke. He has a plan to prevent relapse in times of stress. 06/02/2023 Malignant neoplasm o f prostate (ICD-10 - C61) His prostate cancer appears to be stable. There was no sign of disease progression today. 06/23/2023 Former smoker (ICD-1 0 - Z87.891) He is highly motivated not to smoke. He has a plan to prevent relapse in times of stress. 06/23/2023 Essential (primary) hypertension (ICD-10 - I10) His blood pressure has been in the normal range and no change was made in his regimen.I urged him to have his blood pressure determined at least once a week while he is in [place] and reported back to me. 07/22/2023 Former smoker (ICD-1 0 - Z87.891) He is highly motivated not to smoke. He has a plan to prevent relapse in times of stress. 07/22/2023 Essential (primary) hypertension (ICD-10 - I10) His blood pressure has been in the normal range and no change was made in his regimen.I urged him to have his blood pressure determined at least once a week while he is in [place] and reported back to me. 08/19/2023 Former smoker (ICD-1 0 - Z87.891) He is highly motivated not to smoke. He has a plan to prevent relapse in times of stress. 08/19/2023 Essential (primary) hypertension (ICD-10 - I10) His blood pressure has been in the normal range and no change was made in his regimen.I urged him to have his blood pressure determined at least once a week while he is in [place] and reported back to me. 09/09/2023 Former smoker (ICD-1 0 - Z87.891) He is highly motivated not to smoke. He has a plan to prevent relapse in times of stress. 09/09/2023 Hyperlipidemia, unspecified (ICD-10 - E78.5) The current fasting lipid profile shows good control of his lipids. No change in his regimen as needed. 10/07/2023 Former smoker (ICD-1 0 - Z87.891) He is highly motivated not to smoke. He has a plan to prevent relapse in times of stress. 10/07/2023 Essential (primary) hypertension (ICD-10 - I10) His blood pressure has been in the normal range and no change was made in his regimen.I urged him to have his blood pressure determined at least once a week while he is in [place] and reported back to me. 12/07/2023 Former smoker (ICD-1 0 - Z87.891) He is highly motivated not to smoke. He has a plan to prevent relapse in times of stress. 12/07/2023 Essential (primary) hypertension (ICD-10 - I10) His blood pressure has been in the normal range at 133/69 and no change was made in his regimen. I urged him to have his blood pressure determined at least once a week while he is in [place] and reported back to me. 12/21/2023 Former smoker (ICD-1 0 - Z87.891) He is highly motivated not to smoke. He has a plan to prevent relapse in times of stress. 12/21/2023 Essential (primary) hypertension (ICD-10 - I10) His blood pressure has been in the normal range at 133/69 and no change was made in his regimen. I urged him to have his blood pressure determined at least once a week while he is in [place] and reported back to me. 01/27/2024 Former smoker (ICD-1 0 - Z87.891) He [...] [place] and reported back to me. 05/14/2024 Former smoker (ICD-1 0 - Z87.891) [...] in [place] and reported back to me. 05/21/2024 Unilateral femoral hernia without obstruction or gangrene, recurrence not specified (ICD-10 - K41.90) 08/05/2023 Former smoker (ICD-1 0 - Z87.891) He is highly motivated not to smoke. He has a plan to prevent relapse in times of stress. 11/02/2023 Former smoker (ICD-1 0 - Z87.891) He is highly motivated not to smoke. He has a plan to prevent relapse in times of stress. 06/02/2023 Hyperlipidemia, unspecified (ICD-10 - E78.5) The current fasting lipid profile shows good control of his lipids. No change in his regimen as needed. 06/23/2023 Hyperlipidemia, unspecified (ICD-10 - E78.5) The current fasting lipid profile shows good control of his lipids. No change in his regimen as needed. 07/22/2023 Hyperlipidemia, unspecified (ICD-10 - E78.5) The current fasting lipid profile shows good control of his lipids. No change in his regimen as needed. 08/19/2023 Hyperlipidemia, unspecified (ICD-10 - E78.5) The current fasting lipid profile shows good control of his lipids. No change in his regimen as needed. 09/09/2023 Essential (primary) hypertension (ICD-10 - I10) His blood pressure has been in the normal range and no change was made in his regimen.I urged him to have his blood pressure determined at least once a week while he is in [place] and reported back to me. 10/07/2023 Hyperlipidemia, unspecified (ICD-10 - E78.5) The current fasting lipid profile shows good control of his lipids. No change in his regimen as needed. 12/07/2023 Hyperlipidemia, unspecified (ICD-10 - E78.5) The current fasting lipid profile shows good control of his lipids. No change in his regimen as needed. 12/21/2023 Hyperlipidemia, unspecified (ICD-10 - E78.5) The current fasting lipid profile shows good control of his lipids. No change in his regimen as needed. 01/27/2024 Hyperlipidemia, unspecified (ICD-10 - E78.5) The current fasting lipid profile shows good control of his lipids. No change in his regimen as needed. 05/14/2024 Hyperlipidemia, unspecified (ICD-10 - E78.5) The current fasting lipid profile shows good control of his lipids. No change in his regimen as needed. 06/02/2023 Essential (primary) hypertension (ICD-10 - I10) His blood pressure has been in the normal range and no change was made in his regimen. 06/23/2023 Malignant neoplasm o f prostate (ICD-10 - C61) His prostate cancer appears to be stable. There was no sign of disease progression today. 07/22/2023 Malignant neoplasm o f prostate (ICD-10 - C61) His prostate cancer appears to be stable. There was no sign of disease progression today. 08/19/2023 Malignant neoplasm o f prostate (ICD-10 - C61) His prostate cancer appears to be stable. There was no sign of disease progression today. 09/09/2023 Malignant neoplasm o f prostate (ICD-10 - C61) His prostate cancer appears to be stable. There was no sign of disease progression today. 10/07/2023 Malignant neoplasm o f prostate (ICD-10 - C61) His prostate cancer appears to be stable. There was no sign of disease progression today. 12/07/2023 Malignant neoplasm o f prostate (ICD-10 - C61) His prostate cancer appears to be stable. There was no sign of disease progression today. 12/21/2023 Malignant neoplasm o f prostate (ICD-10 - C61) His prostate cancer appears to be stable. There was no sign of disease progression today. 01/27/2024 Gastro-esophageal reflux disease without esophagitis (ICD-10 - K21.9) His esophageal reflux is well controlled with ecar-fqq-afgmaav medication and no change in his regimen was necessary today. 05/14/2024 Malignant neoplasm o f prostate (ICD-10 - C61) His prostate cancer appears to be stable. There was no sign of disease progression today. 06/02/2023 Gastro-esophageal reflux disease without esophagitis (ICD-10 - K21.9) His esophageal reflux is well controlled with rpwa-hej-doefhvi medication and no change in his regimen was necessary today. 06/23/2023 Gastro-esophageal reflux disease without esophagitis (ICD-10 - K21.9) His esophageal reflux is well controlled with mhvn-awv-zviapso medication and no change in his regimen was necessary today. 07/22/2023 Gastro-esophageal reflux disease without esophagitis (ICD-10 - K21.9) His esophageal reflux is well controlled with tmsk-mwr-lsqzlie medication and no change in his regimen was necessary today. 08/19/2023 Gastro-esophageal reflux disease without esophagitis (ICD-10 - K21.9) His esophageal reflux is well controlled with lfxx-ldy-lgulotv medication and no change in his regimen was necessary today. 09/09/2023 Gastro-esophageal reflux disease without esophagitis (ICD-10 - K21.9) His esophageal reflux is well controlled with cola-puw-tjojomx medication and no change in his regimen was necessary today. 10/07/2023 Gastro-esophageal reflux disease without esophagitis (ICD-10 - K21.9) His esophageal reflux is well controlled with znoj-yqb-mvosjmp medication and no change in his regimen was necessary today. 12/07/2023 Gastro-esophageal reflux disease without esophagitis (ICD-10 - K21.9) His esophageal reflux is well controlled with siqq-mou-fipezrt medication and no change in his regimen was necessary today. 12/21/2023 Gastro-esophageal reflux disease without esophagitis (ICD-10 - K21.9) His esophageal reflux is well controlled with tanp-bjm-wdwleti medication and no change in his regimen was necessary today. 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 He is going to have an ultrasound of his heart, which will help clarify if the valve is a source of an embolism. 05/14/2024 Gastro-esophageal reflux disease without esophagitis (ICD-10 - K21.9) His esophageal reflux is well controlled with jvsl-cif-clhoihe medication and no change in his regimen was necessary today. 06/02/2023 Overweight (ICD-10 - E66.3) His body mass index is stable at 27. We discussed a weight loss strategy. He will try to lose weight at a rate of one half of a pound per week. 06/23/2023 Nonrheumatic aortic valve stenosis (ICD-10 - I35.0) He had a TAVR in the recent past for aortic stenosis. He is going to have an ultrasound of his heart, which will help clarify if the valve is a source of an embolism. 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 He says that when the pain resolves he is able to walk indefinitely. I have urged him to obtain a primary care physician and then a local astronautical engineer to evaluate this symptom. He said he would do so at once. 08/19/2023 Nonrheumatic aortic valve stenosis (ICD-10 - I35.0) He had a TAVR in the recent past for aortic stenosis. He is going to have an ultrasound of his heart, which will help clarify if the valve is a source of an embolism. 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 He has an appointment in the near future to see the astronautical engineer after he has an echocardiogram and a nuclear medicine stress test. He will come back from [place] the end of September 2023. I continue to use peak with him every 21 days. 10/07/2023 Overweight (ICD-10 - E66.3) His body mass index is stable at 27. We discussed a weight loss strategy. He will try to lose weight at a rate of one half of a pound per week. 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 He has an appointment in the near future to see the astronautical engineer after he has an echocardiogram and a nuclear medicine stress test. He will come back from [place] the end of September 2023. I continue to use peak with him every 21 days. 12/21/2023 Cervical radiculopat hy (ICD-10 - M54.12) He is free of symptoms at this time. He will notify me if the pain returns. 01/27/2024 Ischemic heart disea se (ICD-10 - I25.9) We have requested the results of his cardiac studies. He is tolerating the isosorbide well without dizziness. 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 He has an appointment in the near future to see the astronautical engineer after he has an echocardiogram and a nuclear medicine stress test. He will come back from [place] the end of September 2023. I continue to use peak with him every 21 days. 06/02/2023 Osteoarthritis of cervical spine, unspecified spinal osteoarthritis complication status (ICD-10 - M47.812) He has very limited range of motion in all directions of his neck. The current nerve impingement symptoms are improving rapidly. 06/23/2023 Overweight (ICD-10 - E66.3) His body mass index is stable at 27. We discussed a weight loss strategy. He will try to lose weight at a rate of one half of a pound per week. 07/22/2023 Osteoarthritis of cervical spine, unspecified spinal osteoarthritis complication status (ICD-10 - M47.812) He has very limited range of motion in all directions of his neck. The current nerve impingement symptoms are improving rapidly. 08/19/2023 Overweight (ICD-10 - E66.3) His body mass index is stable at 27. We discussed a weight loss strategy. He will try to lose weight at a rate of one half of a pound per week. 09/09/2023 Nonrheumatic aortic valve stenosis (ICD-10 - I35.0) He had a TAVR in the recent past for aortic stenosis. He is going to have an ultrasound of his heart, which will help clarify if the valve is a source of an embolism. 10/07/2023 Nonrheumatic aortic valve stenosis (ICD-10 - I35.0) He had a TAVR in the recent past for aortic stenosis. He is going to have an ultrasound of his heart, which will help clarify if the valve is a source of an embolism. 12/07/2023 Overweight (ICD-10 - E66.3) His body mass index is stable at 27. We discussed a weight loss strategy. He will try to lose weight at a rate of one half of a pound per week. 12/21/2023 Nonrheumatic aortic valve stenosis (ICD-10 - I35.0) He had a TAVR in the recent past for aortic stenosis. He is going to have an ultrasound of his heart, which will help clarify if the valve is a source of an embolism. 01/27/2024 Closed fracture of l eft hip, initial encounter (ICD-10 - S72.002A) He was referred back to orthopedics to do with the postoperative pain 05/14/2024 Osteoarthritis of cervical spine, unspecified spinal osteoarthritis complication status (ICD-10 - M47.812) He has very limited range of motion in all directions of his neck. The current nerve impingement symptoms are improving rapidly. 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 06/23/2023 Osteoarthritis of cervical spine, unspecified spinal osteoarthritis complication status (ICD-10 - M47.812) He has very limited range of motion in all directions of his neck. The current nerve impingement symptoms are improving rapidly. 07/22/2023 Overweight (ICD-10 - E66.3) His body mass index is stable at 27. We discussed a weight loss strategy. He will try to lose weight at a rate of one half of a pound per week. 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 He has an appointment in the near future to see the astronautical engineer. He will come back from [place] the end of September 2023. I continue to use peak with him every 21 days. 09/09/2023 Overweight (ICD-10 - E66.3) His body mass index is stable at 27. We discussed a weight loss strategy. He will try to lose weight at a rate of one half of a pound per week. 10/07/2023 Cervical radiculopat hy (ICD-10 - M54.12) He is free of symptoms at this time. He will notify me if the pain returns. 12/07/2023 Nonrheumatic aortic valve stenosis (ICD-10 - I35.0) He had a TAVR in the recent past for aortic stenosis. He is going to have an ultrasound of his heart, which will help clarify if the valve is a source of an embolism. 12/21/2023 Ischemic heart disea se (ICD-10 - I25.9) We have requested the results of his cardiac studies. He is tolerating the isosorbide well without dizziness. 05/14/2024 Overweight (ICD-10 - E66.3) His body mass index is stable at 25.09. We discussed a weight loss strategy. He will try to lose weight at a rate of one half of a pound per week. 06/02/2023 Nonrheumatic aortic valve stenosis (ICD-10 - I35.0) He had a TAVR in the recent past for aortic stenosis. He is going to have an ultrasound of his heart, which will help clarify if the valve is a source of an embolism. 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 He says that when the pain resolves he is able to walk indefinitely. I have urged him to obtain a primary care physician and then a local astronautical engineer to evaluate this symptom. He said he would do so at once. 07/22/2023 Nonrheumatic aortic valve stenosis (ICD-10 - I35.0) He had a TAVR in the recent past for aortic stenosis. He is going to have an ultrasound of his heart, which will help clarify if the valve is a source of an embolism. 09/09/2023 Cervical radiculopat hy (ICD-10 - M54.12) He is free of symptoms at this time. He will notify me if the pain returns. 10/07/2023 Ischemic heart disea se (ICD-10 - I25.9) We have requested the results of his cardiac studies. He is tolerating the isosorbide well without dizziness. 12/07/2023 Cervical radiculopat hy (ICD-10 - M54.12) He is free of symptoms at this time. He will notify me if the pain returns. 12/21/2023 Closed nondisplaced intertrochanteric fracture of left femur, sequela (ICD-10 - S72.145S) His pain is slowly receding. He is discourages how long it is taking to recover normal functioning. Emotional support was rendered. He continues with orthopedics. 06/02/2023 Arthritis (ICD-10 - M19.90) The right third finger is edematous with loss of range of motion of the PIP joint. Some erythema on the ventral surface of the finger. This could be gout flareup of arthritis or infectionThe blood work was ordered with a uric acid and white blood cell count. An x-ray was ordered. Treatment will begin his indices are available.He was also referred to orthopedics hand surgery 06/23/2023 Arthritis (ICD-10 - M19.90) The right third finger is edematous with loss of range of motion of the PIP joint. Some erythema on the ventral surface of the finger. This could be gout flareup of arthritis or infectionThe blood work was ordered with a uric acid and white blood cell count. An x-ray was ordered. Treatment will begin his indices are available.He was also referred to orthopedics hand surgery 07/22/2023 Cervical radiculopat hy (ICD-10 - M54.12) He is free of symptoms at this time. He will notify me if the pain returns. 12/07/2023 Closed fracture of l eft hip, initial encounter (ICD-10 - S72.002A) Fracture has been repaired with an intramedullary implant. He is ambulatory with some pain. His tramadol was refilled. Plan Of Treatment Pending Test Test Name Order Date PREALBUMIN 11/21/2019 PROFILE, FASTING (COMPREHENSIVE METABOLI C) 05/12/2020 PROFILE, FASTING (COMPREHENSIVE METABOLI C) 09/14/2017 PROFILE, FASTING (COMPREHENSIVE METABOLI C) 11/07/2018 PROFILE, FASTING (COMPREHENSIVE METABOLI C) 05/18/2017 PROFILE, FASTING (COMPREHENSIVE METABOLI C) 02/28/2020 PROFILE, FASTING (COMPREHENSIVE METABOLI C) 05/10/2018 PROFILE, FASTING (COMPREHENSIVE METABOLI C) 12/15/2017 PROFILE, FASTING (COMPREHENSIVE METABOLI C) 03/14/2019 MAGNESIUM 11/21/2019 LIPID PANEL 12/15/2017 LIPID PANEL 03/14/2019 LIPID PANEL 05/12/2020 LIPID PANEL 09/14/2017 LIPID PANEL 11/07/2018 LIPID PANEL 05/18/2017 LIPID PANEL 02/28/2020 LIPID PANEL 05/10/2018 FREE T4 (FT4) 11/21/2019 TSH (THYROID STIMULATING HORMONE) 2019 PSA, TOTAL 12/15/2017 PSA, TOTAL 03/14/2019 PSA, TOTAL 05/12/2020 PSA, TOTAL 09/14/2017 PSA, TOTAL 11/07/2018 PSA, TOTAL 05/18/2017 CBC w DIFF 05/10/2018 CBC w DIFF 12/15/2017 CBC w DIFF 03/14/2019 CBC w DIFF 05/12/2020 CBC w DIFF 09/14/2017 CBC w DIFF 11/07/2018 CBC w DIFF 02/28/2020 CBC w DIFF 05/18/2017 CT ABD WITH CONTRAST 05/14/2024 CT ABD & PELVIS WITH CONTRAST 05/21/2024 Next Appt Details Provider Name:Sebastian Preciado, 06/04/2024 09:00:00 AM, [address] [place] [address] [address], [address], [place], [address], Insurance Providers Payer Name Payer Address Payer Phone Subscriber Number Group Number Insured Name Patient Relationship to Insured Coverage Start Date Coverage End Date MEDICARE NGS [address] [place] [phone] [id number] SanthoshRoyce sethi Self - patient is the insured [facility] [address] [place], [place] [id number] AlexaRoyce Self - patient is the insured Medical (General) History Medical History History ICD Code DJD of the neck hypertension hyperlipidemia gastroesophageal reflux disease (GERD) microscopic hematuria Herpes zoster January 2023, lower righ t back OA / effusion right knee 2001 prostate cancer XRT - [facility] coronary artery disease obesity former smoker aortic stenosis 1.0 cm Surgical History Surgery Date(Month/Year) Left hip surgery 11/2023 TAVR, [facility] 02/2021 cardiac catheterization, 3 stents December 2012 Hospitalization History Reason Date(Month/Year) No history
--- OUTSIDE RECORDS SUMMARY | 2024-05-23 11:56 | XMS_ITS | Data Portability ---
Author Organization [facility], [facility] Address [address] [place] [address] Care Team Providers Care Electric Powerline Examiner Name Role Phone PORTIA HAWKINS Primary Care Provider Assessment Encounter Date Assessment Date Assessment LastModified by Organization Details LastModified Time 12/20/2023 12/20/2023 CC FU left trochanteric femur fx - IMN 11/14/2023 HPI 88 y/o man Accompanied by his from home Reports some soreness left hip, more left ankle, h/o ankle arthritis He is walking with a cane He is satisfied with progress EXAM L UE calf soft/nontender, ankle DF/PF intact XRAYS ordered obtained reviewed by me Left hip two views and pelvis AP views taken and show the left trochanteric femur fracture reduction maintained with implant position intact A/P L trochanteric femur fracture healing. recovery progressing well. reviewed recovery time frame expectations with patient. recheck in 4-5 weeks with xrays left hip and pelvis. Not available 12/20/2023 15:48:39 01/18/2024 01/18/2024 CC FU left trochanteric femur fx - IMN 11/14/2023 HPI 88 y/o man Accompanied by his from home Improved since last visit He is walking, has little hip pain, some knee and lower leg pain that he recalls having for years. EXAM L UE calf soft/nontender, ankle DF/PF intact XRAYS ordered obtained reviewed by me Left hip two views and pelvis AP views taken and show the left trochanteric femur fracture reduction maintained with implant position intact, and fracture lines blurred/healing A/P L trochanteric femur fracture healing. recovery progressing well. reviewed recovery time frame expectations with patient. recheck in 4-5 months with xrays left hip and pelvis. Not available 01/25/2024 17:12:58 02/21/2024 02/21/2024 Patient seen und er general supervision of Dr. Green who was available but who did not see the patient. HPI: 88-year-old male seen today for follow-up status post InterTAN fixation left intertrochanteric femur fracture performed by Dr. Taveras 11/14/23. Patient reports she has continued pain about the hip and difficulty with ambulation. Patient denies any new falls or trauma. Patient is notably concerned as she is scheduled to leave for [place] with his on . Patient denies numbness or tingling about the left lower extremity. Examination: 88-year-old male in distress alert and oriented. Palpation and percussion assistance from a cane. On examination of the left hip surgical incisions are well-healed and benign. Range of motion is limited with mild irritability elicited. Calf is soft. X-rays ordered, obtained and reviewed at [facility] 2 views left hip reveal short InterTAN nailing good position. No change in fixation noted, no significant progression of callus from previous x-rays. 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 Patient offered possibility of CT scan to further evaluate. Patient reports she needs to leave on for [place], was cautioned that she have continued difficulty should seek care while he is in [place] or upon his return. Was counseled to continue with use of ambulatory assistive devices. [facility] speech recognition dairy feed mixing operator software was used to create portions of this document. An attempt at proofreading has been made to minimize errors. Please call for corrections. [email or web address] Not available 02/21/2024 17:54:31 05/22/2024 05/22/2024 SUBJECTIVE CHIEF COMPLAINT Follow-up, left trochanteric femur fracture, status post cephalomedullary nailing. HISTORY OF PRESENT ILLNESS 88-year-old man, Mr. Liu, reports an episode of inability to weight-bear on the left lower extremity two months ago. Since then, his weight-bearing ability has recovered, and he continues to be ambulatory using a cane. At his last visit, there was concern about the completeness of fracture healing. OBJECTIVE EXAMINATION Gait over short distance is normal. Left lower extremity hip rotation is painless. IMAGING X-rays ordered, obtained, and reviewed by me today at [facility] show a trochanteric femur fracture with displacement through the lateral cortex and consolidation of the fracture through the medial and calcar areas. The short cephalomedullary nail is in place but impinging upon the lateral cortex. X-RAYS Pelvis and two views of left hip. OTHER DATA None at this time. ASSESSMENT Left trochanteric femur fracture healing. Symptoms of inability to weight-bear two months ago are concerning but hard to explain given the elapsed time with subsequent improvement. Ongoing observation is warranted as the potential possibilities include incomplete fracture healing, implant-related symptoms. PLAN Activity as tolerated. Follow-up with X-rays in three months' time. Date: 05/22/2024 Patient Name: Mr. Liu [email or web address] Not available 05/22/2024 15:35:19 Plan of Treatment Reminders Order Date Submit Date Provider Last Modified By Organization Details Last Modified Time Details Appointments None recorded. Lab None recorded. Referral None recorded. Procedures None recorded. Surgeries None recorded. Imaging XR, hip + pelvis, unilatera l, 2 or 3 view - 315 ap pelvis, 2v left hip global pt is changing into shorts 2023 024 [email or web address] [facility], [address], [place], [address], 4 17:05:27 XR, hip + pelvis, unilatera l, 2 or 3 view - 313 2v lt hip and ap pelvis global 2023 024 RITA [facility], [address], [address], [place], [address], 4 15:14:06 XR, hip + pelvis, unilatera l, 2 or 3 view - room 120 2V L hip 2023 024 [email or web address] [facility], [address], [place], [address], 4 15:48:00 XR, hip + pelvis, unilatera l, 2 or 3 view - 315 ap hip and 2v left hip recheck 2024 025 [email or web address] [facility], [address], [address], [place], [address], 15:21:23 Medication Orders None recorded. Patient TargetsNo targets recorded. Patient InstructionsNo instructions recorded. Reason for Referral None Reported. Results Created Date Observation Date Name Description Value Unit Range Abnormal Flag Note LastModifiedBy Organization Detail LastModifiedTime 12/20/19 24 12/20/2023 XR, hip + pelvi s, unila teral , 2 or 3 view [email or web address]:/ [email or web address] ?Encry pted=s hAaTro YD8dLq bEUv6g %2BXZw aYqtaq 0bqfl% 2Fg9IQ a4ajBk vP9nXo QUaueC m3YtLR FvZlgJ JJ8mAn HZtai3 2h5263 AC0Kob 3qEV6P eUC8mr 84%3D INTERFACE [facility] [address], [place], [address], 12/20/2023 13:54:35 12/20/19 24 12/20/2023 XR, hip + pelvi s, unila teral , 2 or 3 view [email or web address]:/ [email or web address] ?Encry pted=s hAaTro YD8dLq bEUv6g %2BXZw aYqtaq 0bqfl% 2Fg9IQ a4ajBk vP9nXo QUaueC m3YtLR FvZlgJ JJ8mAn HZtai3 4g1676 AC0Kob 3qEV6P eUC8mr 84%3D INTERFACE [facility] [address], [place], [address], 12/20/2023 13:54:37 01/18/20 24 01/18/2024 XR, hip + pelvi s, unila teral , 2 or 3 view [email or web address]:/ [email or web address] ?Encry pted=s hAaTro YD8dLq bEUv6g %2BXZw aYqtaq 0bqfl% 2Fg9IQ a4ajBk vP9nXo QUaueC m3YtLR FvZlgJ JJ8mAn HZtai3 2e9548 AC0Kqa n2FV6S vKiQtr MwF INTERFACE [facility] [address], [place], [address], 01/18/2024 15:14:06 01/18/20 24 01/18/2024 XR, hip + pelvi s, unila teral , 2 or 3 view [email or web address]:/ [email or web address] ?Encry pted=s hAaTro YD8dLq bEUv6g %2BXZw aYqtaq 0bqfl% 2Fg9IQ a4ajBk vP9nXo QUaueC m3YtLR FvZlgJ JJ8mAn HZtai3 1l7741 AC0Kqa n2FV6S vKiQtr MwF INTERFACE [facility] [address], [place], [address], 01/18/2024 15:14:09 02/21/20 24 02/21/2024 XR, hip + pelvi s, unila teral , 2 or 3 view [email or web address]:/ [email or web address] ?Encry pted=s hAaTro YD8dLq bEUv6g %2BXZw aYqtaq 0bqfl% 2Fg9IQ a4ajBk vP9nXo QUaueC m3YtLR FvZlgJ JJ8mAn HZtai3 9h0332 AC0Kqa 3mGVaW hKiQtr MwF INTERFACE [facility] [address], [place], [address], 02/21/2024 17:00:06 02/21/20 24 02/21/2024 XR, hip + pelvi s, unila teral , 2 or 3 view [email or web address] ?Encry pted=s hAaTro YD8dLq bEUv6g %2BXZw aYqtaq 0bqfl% 2Fg9IQ a4ajBk vP9nXo QUaueC m3YtLR FvZlgJ JJ8mAn HZtai3 1m3469 AC0Kqa 3mGVaW hKiQtr MwF INTERFACE [facility] [address] [facility] [address], [place], [address], 02/21/2024 17:00:08 05/22/19 25 05/22/2024 XR, hip + pelvi s, unila teral , 2 or 3 view [email or web address]:/ [email or web address] ?Encry pted=s hAaTro YD8dLq bEUv6g %2BXZw aYqtaq 0bqfl% 2Fg9IQ a4ajBk vP9nXo QUaueC m3YtLR FvZlg JJ8mAn HZtai3 6z4085 AC0Kqb 32NUqq vKiQtr MwF INTERFACE [facility] [address], [place], [address], 05/22/2024 13:41:00 05/22/19 25 05/22/2024 XR, hip + pelvi s, unila teral , 2 or 3 view [email or web address]:/ [email or web address] ?Encry pted=s hAaTro YD8dLq bEUv6g %2BXZw aYqtaq 0bqfl% 2Fg9IQ a4ajBk vP9nXo QUaueC m3YtLR FvZlg JJ8mAn HZtai3 4i2072 AC0Kqb 32NUqq vKiQtr MwF INTERFACE [facility] [address], [place], [address], 05/22/2024 13:41:02 Result Notes None recorded. Procedures Surgical History Date Name Laterality Status Provider Name and Address Organization Details Recorded Time open reduction of fracture of femur with internal fixation completed KATE WINN [place] - [facility] 05/22/2024 13:26:59 insertion of stent into aorta completed KATE WINN [place] - [facility] 05/22/2024 13:26:41 Imaging Results Imaging Date Name Status LastModified by Organiz ation Details LastModified Time 12/20/2023 XR, hip + pelvis, unilateral , 2 or 3 view completed INTERFACE [facility] [address], [place], [address], 12/20/2023 13:54:35 12/20/2023 XR, hip + pelvis, unilateral , 2 or 3 view completed INTERFACE [facility] [address], [place], [address], 12/20/2023 13:54:37 01/18/2024 XR, hip + pelvis, unilateral , 2 or 3 view completed INTERFACE [facility] [address], [place], [address], 01/18/2024 15:14:06 01/18/2024 XR, hip + pelvis, unilateral , 2 or 3 view completed INTER[facility] [address], [place], [address], 01/18/2024 15:14:09 02/21/2024 XR, hip + pelvis, unilateral , 2 or 3 view completed INTERFACE [facility] [address], [place], [address], 02/21/2024 17:00:06 02/21/2024 XR, hip + pelvis, unilateral , 2 or 3 view completed INTERFACE [facility] [address], [place], [address], 02/21/2024 17:00:08 05/22/2024 XR, hip + pelvis, unilateral , 2 or 3 view completed INTERFACE [facility] [address], [place], [address], 05/22/2024 13:41:00 05/22/2024 XR, hip + pelvis, unilateral , 2 or 3 view completed INTERFACE [facility] [address], [place], [address], 05/22/2024 13:41:02 Procedure Notes None recorded. Medical Equipment None Reported. Allergies No known drug allergies Medications Name Sig Start Date Stop Date Status Note LastModified by Organization Details LastModified Time losartan 50 mg tablet TAKE 1 TABLET BY MOUTH ONCE DAILY DIRECTED 12/19 completed Not Available Not Available Not Available acetaminoph en 325 mg tablet TAKE 3 TABLETS BY MOUTH THREE TIMES DAILY active Not Available Not Available No t Available polyethylen e glycol 3350 17 gram oral powder packet MIX 1 PACKET (17 GRAM) IN LIQUID DIRECTED AND DRINK BY MOUTH DAILY NEEDED FOR CONSTIPAT ION 12/19 completed Not Available Not Available Not Available pravastatin 40 mg tablet TAKE 1 TABLET BY MOUTH ONCE DAILY active Not Available Not Available No t Available valacyclovi r 1 gram tablet TAKE 1 TABLET BY MOUTH THREE TIMES DAILY FOR 7 DAYS 12/19 completed Not Available Not Available Not Available senna 8.6 mg tablet TAKE 2 TABLETS BY MOUTH AT BEDTIME 12/19 completed Not Available Not Available Not Available isosorbide mononitrate ER 30 mg tablet,exte nded release 24 hr TAKE 1 TABLET BY MOUTH ONCE DAILY IN THE MORNING active Not Available Not Available No t Available atenolol 25 mg tablet TAKE 1/2 (ONE-HALF ) TABLET BY MOUTH AT BEDTIME active Not Available Not Available No t Available clopidogrel 75 mg tablet TAKE 1 TABLET BY MOUTH ONCE DAILY 05/22 completed Not Available Not Available Not Available aspirin 81 mg tablet,flores yed release TAKE 1 TABLET BY MOUTH ONCE DAILY active Not Available Not Available No t Available tramadol 50 mg tablet TAKE 1 TABLET BY MOUTH EVERY 8 HOURS NEEDED FOR PAIN FOR 10 DAYS 05/22 completed Not Available Not Available Not Available cephalexin 500 mg capsule TAKE 1 CAPSULE BY MOUTH 4 TIMES DAILY FOR 10 DAYS 12/19 completed Not Available Not Available Not Available docusate sodium 100 mg capsule TAKE 1 CAPSULE BY MOUTH TWICE DAILY 05/22 completed Not Available Not Available Not Available enoxaparin 40 mg/0.4 mL subcutaneou s syringe INJECT 1 SHOT SUBCUTANE OUSLY ONCE DAILY. LAST DOSE ON 12/19 completed Not Available Not Available Not Available Centrum Silver active Not Available Not Available Not Available FeroSul 325 mg (65 mg iron) tablet TAKE 1 TABLET BY MOUTH TWICE DAILY 05/22 completed Not Available Not Available Not Available Vitals Date Recorded Body height Body mass index (BMI) Body weight Provider Name and Address Organization Details Last Updated DateTime 12/20/2023 177.8 cm 23 kg/m2 25295.78 g KATE WINN [facility] 12/20/2023 13:43:47 Date Recorded Body height Body mass index (BMI) Body weight Provider Name and Address Organization Details Last Updated DateTime 01/18/2024 177.8 cm 23 kg/m2 24892.78 g KATE WINN [facility] 01/18/2024 15:05:18 Date Recorded Body height Body mass index (BMI) Body weight Provider Name and Address Organization Details Last Updated DateTime 02/21/2024 175.26 cm 23.8 kg/m2 95820.37 g MILTON CAPRI [facility] 02/21/2024 16:52:06 Date Recorded Body height Body mass index (BMI) Body weight Provider Name and Address Organization Details Last Updated DateTime 05/22/2024 175.26 cm 23.8 kg/m2 64375.37 [facility] 13:24:30 Social History None recorded. Functional Status None recorded. Mental Status None recorded. Family History Nothing Reported. Medical History Condition Response Allergies/Hayfever N Coronary Artery Disease N Breathing or lung disorders N Anxiety/Depression N Emphysema N Nerve Disorders N Thyroid Problems N COPD N Pacemaker N Kidney/Bladder Problems N Anemia N Vascular Disease N Heart Trouble N Gastrointestinal Disease N Heart Attack (CA) N Cholesterol N Diabetes N Autoimmune disease N Bleeding Disorder N Inflammatory Joint disease N Orthotics N Arthritis Y Seizures/Epilepsy N Blood Clot N AIDS/HIV N Congestive Heart Failure (CHF) N Acid Reflux (GERD) N Cancer Y Stroke Y Asthma N Circulation Problems Y Peripheral Vascular Disease N Sleep Apnea N Hepatitis N Heart Disease N Rheumatoid Arthritis N Arrhythmia N Pulmonary Embolism N Headaches N Fibromyalgia N Hypertension Y Osteoporosis N Past Encounters Encounter ID Performer Location Encounter Start Date Encounter Closed Date Diagnosis/Indication Diagnosis SNOMED-CT Code Diagnosis ICD10 Code Diagnosis Note [id number] MD Acosta Murphy [address] [place] [address] 12/20/2023 13:33:40 12/20/2023 16:09:42 Fracture of neck of femur 9979491 S72.001D [id number] MD Acosta Murphy [address] [place] [address] 01/18/2024 14:53:36 02/14/2024 09:50:01 Fracture of neck of femur 4300563 S72.001D [id number] NICHOLAS Linknimary alice [address] [place] [address] 02/21/2024 16:30:46 03/08/2024 15:48:00 Pain of left hip joint 0349579803 04771 M25.787 [id number] Felipa Juan MD MICHAEL - Jeffn[facility] alice [address] [place] [address] 05/22/2024 13:08:51 05/22/2024 15:35:43 Closed fracture of hip 126687698 S72.002A Health Concerns Section Related Observation LastModified by Organization Detai ls LastModified Time None Recorded Concern Status LastModified by Organization Details LastModified Time None Recorded Advance Directives Directive None Recorded Payers Encounter Date Sequence Insurance Name Policy Number Policy Dean Covered Member ID Dean Member ID Guarantor Name 12/20/2023 2 [place] [id number] Royce Liu [id number] Royce Liu 12/20/2023 1 [place] Royce Liu [id number] Royce Liu 01/18/2024 2 [place] [id number] Royce Liu [id number] Royce Liu 01/18/2024 1 [place] Royce Liu [id number] Royce Liu 02/21/2024 2 [place] [id number] Royce Liu [id number] Royce Liu 02/21/2024 1 [place] Royce Liu [id number] Royce Liu 05/22/2024 2 [place] [id number] Royce Liu [id number] Royce Liu 05/22/2024 1 [place] Royce Liu [id number] Royce Liu
--- OUTSIDE RECORDS SUMMARY | 2024-05-23 11:56 | XMS_ITS | Clinical Summary ---
Author Organization Unknown Care Team Providers Care Candy Maker Helper Name Role Phone ROSS PRECIADO, PORTIA Unavailable Unavailable TERE DUKEN, PABLO Unavailable Unavail able MAYELIN PT, CLEO Unavailable Unavailable JERRI RN, RIC Unavailable Unavailable CHRISTY RN, SHAYNE Unavailable Unavailable Payers Payer Name Policy Type Policy Number Effective Date Expira tion Date MEDICARE - [place] [id number] [facility] [id number] Problems Condition Name Condition Details Condition Category Status Onset Date Resolution Date Last Treatment Date Treating Clinician Comments DISPL INTERTROCH FX L FEMUR, SUBS FOR CLOS FX W ROUTN HEAL Active 05-16 00:00: 00 NONDISP FX OF DIST PHALANX OF L RNG FNGR, 7THD Active 05-16 00:00: 00 ATHSCL HEART DISEASE OF [place] CORONARY ARTERY W/O ANG PCTRS Active 05-16 00:00: 00 HYPERLIPIDEM IA, UNSPECIFIED Active 05-16 00:00: 00 ANEMIA, UNSPECIFIED Active 05-16 00:00: 00 ESSENTIAL (PRIMARY) HYPERTENSION Active 05-16 00:00: 00 PRSNL HX OF TIA (TIA), AND CEREB INFRC W/O RESID DEFICITS Active 05-16 00:00: 00 PERSONAL HISTORY OF MALIGNANT NEOPLASM OF PROSTATE Active 05-16 00:00: 00 PRESENCE OF PROSTHETIC HEART VALVE Active 05-16 00:00: 00 PRESENCE OF CORONARY ANGIOPLASTY IMPLANT AND GRAFT Active 05-16 00:00: 00 CODING VALIDATOR (CURRENT) USE OF ASPIRIN Active 05-16 00:00: 00 CODING VALIDATOR (CURRENT) USE OF ANTITHROMBOT ICS/ANTIPLAT ELETS Active 05-16 00:00: 00 CODING VALIDATOR (CURRENT) USE OF OPIATE ANALGESIC Active 05-16 00:00: 00 HALFWAY (CURRENT) USE OF ANTICOAGULAN TS Active 05-16 00:00: 00 HISTORY OF FALLING Active 05-16 00:00: 00 Allergies, Adverse Reactions, Alerts Allergy Name Allergy Type Status Severity Reaction(s) Onset Date Inactive Date Treating Clinician Comments NKA Propensity to adverse reactions Active 2023-11 12:13:2 2 Medications Ordered Medication Name Filled Medication Name Start Date Stop Date Current Medication? Ordering Clinician Indication Dosage Frequency Signature (SIG) Comments Components atenolol 25 mg tablet 12-01 00:00: 00 Yes [id number] Unavailable 12.5 mg ONCE DAILY 12.5 m g ONCE DAILY (route: oral) Med Classific ation: Cardiovas cular Therapy Agents clopidogrel 75 mg tablet 12-01 00:00: 00 Yes [id number] 1 tablet ONCE DAILY 1 tablet ONCE DAILY (route: oral) Med Classific ation: Hematolog ical Agents pravastatin 40 mg tablet 12-01 00:00: 00 Yes [id number] 1 tablet ONCE DAILY 1 tablet ONCE DAILY (route: oral) Med Classific ation: Cardiovas cular Therapy Agents aspirin 81 mg tablet,flores yed release 12-01 00:00: 00 Yes [id number] 1 tablet DAILY 1 tablet DAILY (route: oral) Med Classific ation: Hematolog ical Agents Colace 100 mg capsule 12-01 00:00: 00 Yes [id number] 1 capsule DAILY 1 capsule DAILY (route: oral) Med Classific ation: Gastroint estinal Therapy Agents ferrous sulfate 325 mg (65 mg iron) tablet 12-01 00:00: 00 Yes [id number] 1 tablet 2 TIMES DAILY 1 tablet 2 TIMES DAILY (route: oral) Med Classific ation: Electroly te Balance-N utritiona l Products Lovenox 100 mg/mL subcutaneou s syringe 12-01 00:00: 00 Yes [id number] 40 mg NOON 40 mg NOO N (route: subcutaneo us) Med Classific ation: Hematolog ical Agents Miralax 17 gram/dose oral powder 12-01 00:00: 00 Yes [id number] 17 gram DAILY 17 gram DAILY (route: oral) Med Classific ation: Gastroint estinal Therapy Agents multivitami n with minerals tablet 12-01 00:00: 00 Yes [id number] 1 tablet DAILY 1 tablet DAILY (route: oral) Med Classific ation: Electroly te Balance-N utritiona l Products Senna Lax 8.6 mg tablet 12-01 00:00: 00 Yes [id number] 2 tablet EVERY 8 HOURS 2 tablet EVERY 8 HOURS (route: oral) Med Classific ation: Gastroint estinal Therapy Agents tramadol 50 mg tablet 12-01 00:00: 00 Yes [id number] 1 tablet EVERY 8 HOURS 1 tablet EVERY 8 HOURS (route: oral) Med Classific ation: Analgesic , Anti-infl ammatory or Antipyret ic Tylenol 325 mg capsule 12-01 00:00: 00 Yes [id number] 975 mg 3 TIMES DAILY 975 mg 3 TIMES DAILY (route: oral) Med Classific ation: Analgesic , Anti-infl ammatory or Antipyret ic Vital Signs Vital Name Observation Time Observation Value Commen ts Temperature 2024-01-26 09:15:00.000 99.5 [degF] Temperature 2024-01-20 09:51:00.000 98.1 [degF] Temperature 2024-01-13 14:35:00.000 99.1 [degF] Temperature 2024-01-10 11:08:00.000 97.1 [degF] Temperature 2024-01-05 10:53:00.000 97 [degF] Temperature 2024-01-04 19:00:00.000 97.8 [degF] Temperature 2023-12-29 10:58:00.000 97 [degF] Temperature 2023-12-28 20:11:00.000 98 [degF] Temperature 2023-12-20 18:19:00.000 98.3 [degF] Temperature 2023-12-19 10:54:00.000 97 [degF] Temperature 2023-12-14 13:56:00.000 96.9 [degF] Temperature 2023-12-14 13:11:00.000 97.8 [degF] Temperature 2023-12-07 19:43:00.000 98.3 [degF] Temperature 2023-12-06 14:25:00.000 96.9 [degF] Temperature 2023-12-02 12:25:00.000 98.9 [degF] BMI (%) 2023-12-02 12:25:00.000 24 kg/m2 Height 2023-12-02 12:25:00.000 70 [in_us] Pulse 2024-01-26 09:15:00.000 63 /min Pulse 2024-01-20 09:51:00.000 70 /min Pulse 2024-01-13 14:35:00.000 71 /min Pulse 2024-01-10 11:08:00.000 80 /min Pulse 2024-01-05 10:53:00.000 60 /min Pulse 2024-01-04 19:00:00.000 80 /min Pulse 2023-12-29 10:58:00.000 90 /min Pulse 2023-12-28 20:11:00.000 76 /min Pulse 2023-12-20 18:19:00.000 72 /min Pulse 2023-12-19 10:54:00.000 76 /min Pulse 2023-12-14 13:56:00.000 78 /min Pulse 2023-12-14 13:11:00.000 84 /min Pulse 2023-12-07 19:43:00.000 82 /min Pulse 2023-12-06 14:25:00.000 90 /min Pulse 2023-12-02 12:25:00.000 74 /min O2 Saturation (%) 2024-01-26 09:15:00.000 97 % O2 Saturation (%) 2024-01-20 09:51:00.000 99 % O2 Saturation (%) 2024-01-13 14:35:00.000 96 % O2 Saturation (%) 2024-01-10 11:08:00.000 96 % O2 Saturation (%) 2024-01-05 10:53:00.000 98 % O2 Saturation (%) 2023-12-29 10:58:00.000 96 % O2 Saturation (%) 2023-12-19 10:54:00.000 96 % O2 Saturation (%) 2023-12-14 13:56:00.000 98 % O2 Saturation (%) 2023-12-14 13:11:00.000 95 % O2 Saturation (%) 2023-12-07 19:43:00.000 98 % O2 Saturation (%) 2023-12-06 14:25:00.000 98 % O2 Saturation (%) 2023-12-02 12:25:00.000 96 % Respirations 2024-01-26 09:15:00.000 16 /min Respirations 2024-01-20 09:51:00.000 16 /min Respirations 2024-01-13 14:35:00.000 18 /min Respirations 2024-01-10 11:08:00.000 18 /min Respirations 2024-01-05 10:53:00.000 18 /min Respirations 2024-01-04 19:00:00.000 20 /min Respirations 2023-12-29 10:58:00.000 18 /min Respirations 2023-12-28 20:11:00.000 18 /min Respirations 2023-12-20 18:19:00.000 18 /min Respirations 2023-12-19 10:54:00.000 20 /min Respirations 2023-12-14 13:56:00.000 20 /min Respirations 2023-12-14 13:11:00.000 18 /min Respirations 2023-12-07 19:43:00.000 20 /min Respirations 2023-12-06 14:25:00.000 18 /min Respirations 2023-12-02 12:25:00.000 18 /min Weight (lbs) 2023-12-14 13:19:00.000 170 [lb_av] Weight (lbs) 2023-12-07 19:43:00.000 174.6 [lb_av] Weight (lbs) 2023-12-02 12:25:00.000 170 [lb_av] Systolic Blood Pressure 2024-01-26 09:15:00.000 132 mm [Hg] Systolic Blood Pressure 2024-01-20 09:51:00.000 128 mm [Hg] Systolic Blood Pressure 2024-01-13 14:35:00.000 118 mm [Hg] Systolic Blood Pressure 2024-01-10 11:08:00.000 118 mm [Hg] Systolic Blood Pressure 2024-01-05 10:53:00.000 120 mm [Hg] Systolic Blood Pressure 2024-01-04 19:00:00.000 122 mm [Hg] Systolic Blood Pressure 2023-12-29 10:58:00.000 116 mm [Hg] Systolic Blood Pressure 2023-12-28 20:11:00.000 122 mm [Hg] Systolic Blood Pressure 2023-12-20 18:19:00.000 122 mm [Hg] Systolic Blood Pressure 2023-12-19 10:54:00.000 110 mm [Hg] Systolic Blood Pressure 2023-12-14 13:56:00.000 114 mm [Hg] Systolic Blood Pressure 2023-12-14 13:11:00.000 120 mm [Hg] Systolic Blood Pressure 2023-12-07 19:43:00.000 124 mm [Hg] Systolic Blood Pressure 2023-12-06 14:25:00.000 122 mm [Hg] Systolic Blood Pressure 2023-12-02 12:25:00.000 102 mm [Hg] Diastolic Blood Pressure 2024-01-26 09:15:00.000 72 mm [Hg] Diastolic Blood Pressure 2024-01-20 09:51:00.000 62 mm [Hg] Diastolic Blood Pressure 2024-01-13 14:35:00.000 64 mm [Hg] Diastolic Blood Pressure 2024-01-10 11:08:00.000 70 mm [Hg] Diastolic Blood Pressure 2024-01-05 10:53:00.000 66 mm [Hg] Diastolic Blood Pressure 2024-01-04 19:00:00.000 66 mm [Hg] Diastolic Blood Pressure 2023-12-29 10:58:00.000 62 mm [Hg] Diastolic Blood Pressure 2023-12-28 20:11:00.000 62 mm [Hg] Diastolic Blood Pressure 2023-12-20 18:19:00.000 61 mm [Hg] Diastolic Blood Pressure 2023-12-19 10:54:00.000 70 mm [Hg] Diastolic Blood Pressure 2023-12-14 13:56:00.000 64 mm [Hg] Diastolic Blood Pressure 2023-12-14 13:11:00.000 52 mm [Hg] Diastolic Blood Pressure 2023-12-07 19:43:00.000 68 mm [Hg] Diastolic Blood Pressure 2023-12-06 14:25:00.000 72 mm [Hg] Diastolic Blood Pressure 2023-12-02 12:25:00.000 60 mm [Hg] Plan of Treatment Planned Activity Planned Date Details Comments Future Scheduled Test SKILLED NU RSE TO EVALUATE PATIENT, IDENTIFY PRIMARY AND CO-MORBID CONDITIONS CODED PER CODING GUIDELINES, AND DEVELOP PATIENT SPECIFIC PLAN OF CARE THAT INCLUDES PATIENT GOAL FOR HOME HEALTH. [code = SKILLED NURSE TO EVALUATE PATIENT, IDENTIFY PRIMARY AND CO-MORBID CONDITIONS CODED PER CODING GUIDELINES, AND DEVELOP PATIENT SPECIFIC PLAN OF CARE THAT INCLUDES PATIENT GOAL FOR HOME HEALTH.] Future Scheduled Test SKILLED NU RSE TO REVIEW PATIENT MEDICATIONS. INSTRUCT PATIENT/CAREGIVER ON MONITORING OF EFFECTIVENESS, ADVERSE DRUG REACTIONS, SIDE EFFECTS OF ALL MEDICATIONS (PRESCRIPTION/-OTC), AND HOW AND WHEN TO REPORT PROBLEMS. [code = SKILLED NURSE TO REVIEW PATIENT MEDICATIONS. INSTRUCT PATIENT/CAREGIVER ON MONITORING OF EFFECTIVENESS, ADVERSE DRUG REACTIONS, SIDE EFFECTS OF ALL MEDICATIONS (PRESCRIPTION/-OTC), AND HOW AND WHEN TO REPORT PROBLEMS.] Future Scheduled Test SKILLED NU RSE FOR O/A AND TEACHING RELATED TO PROSTATE CANCER/NEOPLASM INCLUDING SIGNS AND SYMPTOMS OF DISEASE PROGRESSION, TREATMENT, AND MANAGEMENT OF POTENTIAL SIDE EFFECTS. [code = SKILLED NURSE FOR O/A AND TEACHING RELATED TO PROSTATE CANCER/NEOPLASM INCLUDING SIGNS AND SYMPTOMS OF DISEASE PROGRESSION, TREATMENT, AND MANAGEMENT OF POTENTIAL SIDE EFFECTS.] Future Scheduled Test SKILLED NU RSE FOR O/A, TEACHING, AND MANAGEMENT OF CAD / TIA [code = SKILLED NURSE FOR O/A, TEACHING, AND MANAGEMENT OF CAD / TIA] Future Scheduled Test SKILLED NU RSE FOR O/A OF MUSCULOSKELETAL STATUS AND TEACHING ON MEASURES TO MANAGE LEFT HIP INTERTROCHANTERIC FX AND TO MAINTAIN SAFETY WITH ACTIVITY. [code = SKILLED NURSE FOR O/A OF MUSCULOSKELETAL STATUS AND TEACHING ON MEASURES TO MANAGE LEFT HIP INTERTROCHANTERIC FX AND TO MAINTAIN SAFETY WITH ACTIVITY.] Future Scheduled Test SKILLED NU RSE FOR MONITORING, O/A AND TEACHING RELATED TO MANAGEMENT OF ANTICOAGULATION THERAPY INCLUDING DIET, MEDICATION SIDE EFFECTS, SAFETY MEASURES TO PREVENT INJURY, AND S/S TO REPORT. [code = SKILLED NURSE FOR MONITORING, O/A AND TEACHING RELATED TO MANAGEMENT OF ANTICOAGULATION THERAPY INCLUDING DIET, MEDICATION SIDE EFFECTS, SAFETY MEASURES TO PREVENT INJURY, AND S/S TO REPORT. ] Future Scheduled Test SKILLED NU RSE TO PROVIDE TEACHING ON SIGNS AND SYMPTOMS AND MANAGEMENT OF HYPERTENSION. [code = SKILLED NURSE TO PROVIDE TEACHING ON SIGNS AND SYMPTOMS AND MANAGEMENT OF HYPERTENSION.] Future Scheduled Test SKILLED NU RSE TO INSTRUCT PATIENT/CAREGIVER ON WARNING SIGNS OF CVA, RISK FACTORS, AND METHODS TO MANAGE CODING VALIDATOR EFFECTS OF CVA. [code = SKILLED NURSE TO INSTRUCT PATIENT/CAREGIVER ON WARNING SIGNS OF CVA, RISK FACTORS, AND METHODS TO MANAGE HALFWAY EFFECTS OF CVA.] Future Scheduled Test SKILLED NU RSE FOR O/A AND SKILLED TEACHING RELATED TO SIGNS AND SYMPTOMS AND MANAGEMENT OF ANEMIA. [code = SKILLED NURSE FOR O/A AND SKILLED TEACHING RELATED TO SIGNS AND SYMPTOMS AND MANAGEMENT OF ANEMIA.] Future Scheduled Test VIRTUAL SIT FREQUENCY: 1-6 PER WEEK X 3 WEEKS AND 6 PRN VIRTUAL VISITS MAY BE PERFORMED UTILIZING TELECOMMUNICATIONS SYSTEM TO OPTIMIZE SKILLED SERVICES FURNISHED ON THE PLAN OF CARE. SKILLED NURSE TO ESTABLISH SUPPORT MEASURES TO MINIMIZE RISK OF REHOSPITALIZATION, AND INSTRUCT PATIENT/CAREGIVER ON METHODS TO REDUCE AVOIDABLE HOSPITALIZATION. [code = VIRTUAL VISIT FREQUENCY: 1-6 PER WEEK X 3 WEEKS AND 6 PRN VIRTUAL VISITS MAY BE PERFORMED UTILIZING TELECOMMUNICATIONS SYSTEM TO OPTIMIZE SKILLED SERVICES FURNISHED ON THE PLAN OF CARE. SKILLED NURSE TO ESTABLISH SUPPORT MEASURES TO MINIMIZE RISK OF REHOSPITALIZATION, AND INSTRUCT PATIENT/CAREGIVER ON METHODS TO REDUCE AVOIDABLE HOSPITALIZATION.] Future Scheduled Test PATIENT LOPEZ S A RISK OF HOSPITALIZATION AND ED USE. SKILLED NURSE TO ESTABLISH SUPPORT MEASURES TO MINIMIZE RISK OF HOSPITALIZATION AND ED USE, AND INSTRUCT PATIENT/CAREGIVER ON METHODS TO REDUCE AVOIDABLE HOSPITALIZATION AND ED USE. [code = PATIENT HAS A RISK OF HOSPITALIZATION AND ED USE. SKILLED NURSE TO ESTABLISH SUPPORT MEASURES TO MINIMIZE RISK OF HOSPITALIZATION AND ED USE, AND INSTRUCT PATIENT/CAREGIVER ON METHODS TO REDUCE AVOIDABLE HOSPITALIZATION AND ED USE.] Future Scheduled Test SKILLED NU RSE TO PROVIDE INSTRUCTION TO PATIENT/CAREGIVER RELATED TO DISCHARGE PLANNING. [code = SKILLED NURSE TO PROVIDE INSTRUCTION TO PATIENT/CAREGIVER RELATED TO DISCHARGE PLANNING.] Future Scheduled Test SKILLED NU RSE TO PERFORM HOME SAFETY AND FALL ASSESSMENT AND PROVIDE INSTRUCTION TO IMPLEMENT HOME SAFETY AND FALL PREVENTION STRATEGIES. [code = SKILLED NURSE TO PERFORM HOME SAFETY AND FALL ASSESSMENT AND PROVIDE INSTRUCTION TO IMPLEMENT HOME SAFETY AND FALL PREVENTION STRATEGIES.] Future Scheduled Test SKILLED NU RSE FOR OBSERVATION AND ASSESSMENT OF PATIENTS PAIN LEVEL AND EFFECTIVENESS OF PAIN MANAGEMENT REGIMEN. SKILLED NURSE TO INSTRUCT PATIENT/CAREGIVER REGARDING PHARMACOLOGIC AND NON-PHARMACOLOGIC PAIN CONTROL MEASURES. SKILLED NURSE TO REPORT TO PHYSICIAN IF PAIN IS UNCONTROLLED WITH CURRENT PAIN MANAGEMENT REGIMEN. [code = SKILLED NURSE FOR OBSERVATION AND ASSESSMENT OF PATIENTS PAIN LEVEL AND EFFECTIVENESS OF PAIN MANAGEMENT REGIMEN. SKILLED NURSE TO INSTRUCT PATIENT/CAREGIVER REGARDING PHARMACOLOGIC AND NON-PHARMACOLOGIC PAIN CONTROL MEASURES. SKILLED NURSE TO REPORT TO PHYSICIAN IF PAIN IS UNCONTROLLED WITH CURRENT PAIN MANAGEMENT REGIMEN.] Future Scheduled Test SKILLED NU RSE TO ASSESS PATIENT'S SKIN INTEGRITY AND INSTRUCT PATIENT/CAREGIVER ON MEASURES TO PREVENT PRESSURE ULCERS. [code = SKILLED NURSE TO ASSESS PATIENT'S SKIN INTEGRITY AND INSTRUCT PATIENT/CAREGIVER ON MEASURES TO PREVENT PRESSURE ULCERS.] Future Scheduled Test PHYSICAL T HERAPIST TO EVALUATE PATIENT SECONDARY TO FUNCTIONAL DEFICITS/SAFETY CONCERNS. PHYSICAL THERAPIST TO ASSESS BEST PRACTICE INTERVENTIONS TO ASSIST PATIENTS TO IMPROVE OR STABILIZE MEDICAL STATUS AND PREVENT RE-HOSPITALIZATION. MEASURES INCLUDING REVIEW AND IDENTIFICATION OF CONCERNS FOR THE FOLLOWING AREAS: DRUG REGIMEN, ENVIRONMENTAL SAFETY ISSUES AND FALLS, PRESSURE ULCERS, PAIN, AND DISEASE MANAGEMENT. PHYSICAL THERAPY TO ESTABLISH /UPGRADE/DOWNGRADE THERAPEUTIC EXERCISE PROGRAM AND INSTRUCT PATIENT/CAREGIVER ON EXERCISE PRECAUTIONS WITH WRITTEN HOME PROGRAM. MAY INCLUDE PROM, AAROM, AROM, RROM APPROPRIATE TO IMPROVE FUNCTIONAL STRENGTH AND RANGE OF MOTION. PHYSICAL THERAPY TO INSTRUCT PATIENT/CAREGIVER ON SAFE TRANSFER TECHNIQUES USING PROPER BODY MECHANICS AND EQUIPMENT. PHYSICAL THERAPY TO INSTRUCT PATIENT/CAREGIVER ON GAIT TRAINING TECHNIQUES USING APPROPRIATE ASSISTIVE DEVICE, PROPER BODY MECHANICS TO IMPROVE MOBILITY, AND PREVENT INJURY OF PATIENT AND/OR CAREGIVER. PHYSICAL THERAPY TO ASSESS AND RECOMMEND HOME SAFETY ADAPTATIONS AND EDUCATE PATIENT /CAREGIVER ON FALL PREVENTION STRATEGIES. PHYSICAL THERAPY FOR OBSERVATION AND ASSESSMENT OF PAIN, EFFECTIVENESS OF PAIN MANAGEMENT REGIMEN AND SKILLED TEACHING RELATED TO PAIN MANAGEMENT. THERAPIST TO REPORT INCREASED PAIN LEVEL TO PHYSICIAN FOR PROMPT INTERVENTION. PHYSICAL THERAPY TO INSTRUCT PATIENT/CAREGIVER ON BALANCE AND BALANCE STRATEGIES TO IMPROVE SAFE MOBILITY AND REDUCE RISK FOR FALL AND INJURY INCLUDING PARTICIPATION IN [facility] SPECIALTY PROGRAM SUMMARY OF THERAPY EVAL/ASSESSMENT FINDINGS AND REASON(S) SKILLS OF A THERAPIST ARE INDICATED: PHYSICAL THERAPY EVALUATION (12/06/23) PATIENT IS A 88 YEAR OLD MALE WITH PHYSICAL THERAPY REFERRAL AFTER FALL RESULTING IN [facility] H[facility]PITALIZATION 11/12/23 AND SNF STAY ([facility] 11/17-11/30), DX: LEFT INTERTROCHANTERIC HIP FX AND LEFT DISTAL FOURTH FINGER FX. PATIENT UNDERWENT LEFT HIP ORIF BY MD CASANOVA. PAST MD HX: TIA, HX OF PROSTATE CANCER, HTN, ANEMIA AND CAD, AORTIC VALVE RELACEMENT. FALL HISTORY: [facility] FALL AT [facility] WHEN TRIPPED OVER STEP AND IMPACTED LEFT SIDE, RESULTING IN FRACTURES. 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 PATIENT LIVES IN 2 FAMILY HOME WITH SUPPORTIVE DEWAYNE, 5 STAIRS WITH BILAT RAIL, 1 THRESHOLD STEP TO NEGOTIATE. GRANDSON LIVES IN UPSTAIRS UNIT. PLOF: DROVE, AMB WITHOUT AD, SNOW[place]IRDS IN [place] FE[place] - OCTOBER CLOF: DME: SBQC, TUB TRANSFER BENCH, RAISED SEAT TOILET PATIENT IS WBAT LEFT LE. PATIENT DEMO +2 LEFT LE EDEMA. BILAT LE ROM WFL, BILAT LE STRENGTH R: 4+/5, L: HIP 3/5, KNEE: 3+/5, ANKLE 4/5. TO INCREASE BILAT LE STRENGTH, PATIENT COMPLETED BILAT LE THER EXER WITH VERBAL CUES FOR FORM: SEATED PLANTAR/DORSIFLEX, HIP FLEX, KNEE EXT, SUPINE BRIDGING, AROM SLR, AAROM LEFT SLR. DISPENSED HEP SHEET. PATIENT COMPLETED SIT-->STAND WITH SBQC AND SUPERVISION, VERBAL CUES TO INCREASE COM OVER ELIJAH AND TO INCREASE HIP EXT WITH STAND-->SIT. PATIENT AMB 40' WITH SBQC AND SUPERVISION, VERBAL CUES FOR SEQUENCING. PATIENT DEMO BILAT LE DECREASED STEPS WITH RIGHT MORE DIMINISHED THAN LEFT, LEFT FOOT FLAT AT INITIAL CONTACT. TINETTI = 16/28, FALL RISK. PATIENT PRESENTS WITH THE FOLLOWING DEFICITS: LEFT LE WEAKNESS, LEFT HIP PAIN, RESULTING IN DIFFICULTIES WITH TRANSFERS AND AMB. SKILLED [facility] FREQ 1X6WKS TO MAX SAFETY AND FUNCTIONAL LEVEL IN HOME ENVIRONMENT WITH THER EXER, ESTABLISH HEP, TRANSFER AND GAIT TRAINING, STAIR NEGOTIATION, BALANCE ACTIVITY. PATIENT AND CG INFORMED ABOUT PHYSICAL THERAPY POC INCLUDING FREQ, VERBALIZED ACCEPTANCE. NOTIFIED ABOUT PATIENT STATUS AND POC. UPCOMING APPOINTMENTS: APPOINTMENT WITH DR WATERS 12/06/23 FOR FINGER F/U. ORTHOPEDIC APPT 12/20/23 AT 1:[address] CASANOVA AND PCP APPT 12/07/[address] HAWKINS. RAILROAD CAR CHECKER APPT 12/08/[address] HOLLAND. CONTINUE GOALS FROM CURRENT POC WITH EXPECTED DATE OF COMPLETION SPECIFIED ON ORDER FREQUENCY AND DURATION. [code = PHYSICAL THERAPIST TO EVALUATE PATIENT SECONDARY TO FUNCTIONAL DEFICITS/SAFETY CONCERNS. PHYSICAL THERAPIST TO ASSESS BEST PRACTICE INTERVENTIONS TO ASSIST PATIENTS TO IMPROVE OR STABILIZE MEDICAL STATUS AND PREVENT RE-HOSPITALIZATION. MEASURES INCLUDING REVIEW AND IDENTIFICATION OF CONCERNS FOR THE FOLLOWING AREAS: DRUG REGIMEN, ENVIRONMENTAL SAFETY ISSUES AND FALLS, PRESSURE ULCERS, PAIN, AND DISEASE MANAGEMENT. PHYSICAL THERAPY TO ESTABLISH /UPGRADE/DOWNGRADE THERAPEUTIC EXERCISE PROGRAM AND INSTRUCT PATIENT/CAREGIVER ON EXERCISE PRECAUTIONS WITH WRITTEN HOME PROGRAM. MAY INCLUDE PROM, AAROM, AROM, RROM APPROPRIATE TO IMPROVE FUNCTIONAL STRENGTH AND RANGE OF MOTION. PHYSICAL THERAPY TO INSTRUCT PATIENT/CAREGIVER ON SAFE TRANSFER TECHNIQUES USING PROPER BODY MECHANICS AND EQUIPMENT. PHYSICAL THERAPY TO INSTRUCT PATIENT/CAREGIVER ON GAIT TRAINING TECHNIQUES USING APPROPRIATE ASSISTIVE DEVICE, PROPER BODY MECHANICS TO IMPROVE MOBILITY, AND PREVENT INJURY OF PATIENT AND/OR CAREGIVER. PHYSICAL THERAPY TO ASSESS AND RECOMMEND HOME SAFETY ADAPTATIONS AND EDUCATE PATIENT /CAREGIVER ON FALL PREVENTION STRATEGIES. PHYSICAL THERAPY FOR OBSERVATION AND ASSESSMENT OF PAIN, EFFECTIVENESS OF PAIN MANAGEMENT REGIMEN AND SKILLED TEACHING RELATED TO PAIN MANAGEMENT. THERAPIST TO REPORT INCREASED PAIN LEVEL TO PHYSICIAN FOR PROMPT INTERVENTION. PHYSICAL THERAPY TO INSTRUCT PATIENT/CAREGIVER ON BALANCE AND BALANCE STRATEGIES TO IMPROVE SAFE MOBILITY AND REDUCE RISK FOR FALL AND INJURY INCLUDING PARTICIPATION IN [facility] SPECIALTY PROGRAM SUMMARY OF THERAPY EVAL/ASSESSMENT FINDINGS AND REASON(S) SKILLS OF A THERAPIST ARE INDICATED: PHYSICAL THERAPY EVALUATION (12/06/23) PATIENT IS A 88 YEAR OLD MALE WITH PHYSICAL THERAPY REFERRAL AFTER FALL RESULTING IN [facility] 11/12/23 AND SN[facility] STAY ([facility] 11/17-11/30), DX: LEFT INTERTROCHANTERIC HIP FX AND LEFT DISTAL FOURTH FINGER FX. PATIENT UNDERWENT LEFT HIP ORIF BY MD CASANOVA. PAST MD HX: TIA, HX OF PROSTATE CANCER, HTN, ANEMIA AND CAD, AORTIC VALVE RELACEMENT. FALL HISTORY: 1 FALL AT [facility] WHEN TRIPPED OVER STEP AND IMPACTED LEFT SIDE, RESULTING IN FRACTURES. 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 PATIENT LIVES IN 2 FAMILY HOME WITH SUPPORTIVE DEWAYNE, 5 STAIRS WITH BILAT RAIL, 1 THRESHOLD STEP TO NEGOTIATE. GRANDSON LIVES IN UPSTAIRS UNIT. PLOF: DROVE, AMB WITHOUT AD, [place]IR[place] FE[place] - OCTOBER CLOF: DME: SBQC, TUB TRANSFER BENCH, RAISED SEAT TOILET PATIENT IS WBAT LEFT LE. PATIENT DEMO +2 LEFT LE EDEMA. BILAT LE ROM WFL, BILAT LE STRENGTH R: 4+/5, L: HIP 3/5, KNEE: 3+/5, ANKLE 4/5. TO INCREASE BILAT LE STRENGTH, PATIENT COMPLETED BILAT LE THER EXER WITH VERBAL CUES FOR FORM: SEATED PLANTAR/DORSIFLEX, HIP FLEX, KNEE EXT, SUPINE BRIDGING, AROM SLR, AAROM LEFT SLR. DISPENSED HEP SHEET. PATIENT COMPLETED SIT-->STAND WITH SBQC AND SUPERVISION, VERBAL CUES TO INCREASE COM OVER ELIJAH AND TO INCREASE HIP EXT WITH STAND-->SIT. PATIENT AMB 40' WITH SBQC AND SUPERVISION, VERBAL CUES FOR SEQUENCING. PATIENT DEMO BILAT LE DECREASED STEPS WITH RIGHT MORE DIMINISHED THAN LEFT, LEFT FOOT FLAT AT INITIAL CONTACT. TINETTI = 16/28, FALL RISK. PATIENT PRESENTS WITH THE FOLLOWING DEFICITS: LEFT LE WEAKNESS, LEFT HIP PAIN, RESULTING IN DIFFICULTIES WITH TRANSFERS AND AMB. SKILLED [facility] PH[facility]ER[facility] FREQ 1X6WKS TO MAX SAFETY AND FUNCTIONAL LEVEL IN HOME ENVIRONMENT WITH THER EXER, ESTABLISH HEP, TRANSFER AND GAIT TRAINING, STAIR NEGOTIATION, BALANCE ACTIVITY. PATIENT AND CG INFORMED ABOUT PHYSICAL THERAPY POC INCLUDING FREQ, VERBALIZED ACCEPTANCE. MD NOTIFIED ABOUT PATIENT STATUS AND POC. UPCOMING APPOINTMENTS: APPOINTMENT WITH DR WATERS 12/06/23 FOR FINGER F/U. ORTHOPEDIC APPT 12/20/23 AT 1:[address] CASANOVA AND PCP APPT 12/07/[address] HAWKINS. RAILROAD CAR CHECKER APPT 12/08/[address] HOLLAND. CONTINUE GOALS FROM CURRENT POC WITH EXPECTED DATE OF COMPLETION SPECIFIED ON ORDER FREQUENCY AND DURATION.] Goal 2024-01-26 Patient Goal - I WANT TO GET [facility] TO DRIVING Goal Provider Goal - A PLAN OF CARE WILL BE ESTABLISHED THAT MEETS PATIENT'S ALF NEEDS AND INCLUDES PATIENT GOAL FOR HOME HEALTH. Goal Provider Goal - PATIENT/CAREGIVER WILL VERBALIZE UNDERSTANDING OF EDUCATION PROVIDED ON MEDICATIONS BY THE END OF THE CERTIFICATION PERIOD. Goal Provider Goal - PATIENT/CAREGIVER WILL VERBALIZE/DEMONSTRATE MANAGEMENT OF PROSTATE CANCER/NEOPLASM DISEASE AND THE SIDE EFFECTS OF TREATMENTS DURING THIS EPISODE. Goal Provider Goal - PATIENT/CAREGIVER WILL VERBALIZE/DEMONSTRATE MANAGEMENT OF CAD CARDIAC DISEASE PROCESS AND EXACERBATIONS WILL BE IDENTIFIED AND PROMPTLY REPORTED THROUGHOUT THE CERTIFICATION PERIOD. Goal Provider Goal - PATIENT/CAREGIVER WILL VERBALIZE/DEMONSTRATE ABILITY TO MANAGE HIP FX MUSCULOSKELETAL DISEASE WHILE MAINTAINING SAFETY THROUGHOUT THE EPISODE. Goal Provider Goal - PATIENT/CAREGIVER WILL VERBALIZE/DEMONSTRATE UNDERSTANDING OF MANAGEMENT OF ANTICOAGULATION THERAPY BY END OF EPISODE. PT/INR OBTAINED AND REPORTED TO PHYSICIAN. Goal Provider Goal - PATIENT/CAREGIVER WILL VERBALIZE SIGNS AND SYMPTOMS OF HYPERTENSION AND WILL BE ABLE TO DEMONSTRATE ABILITY TO MANAGE EXACERBATION BY END OF THE EPISODE. Goal Provider Goal - PATIENT/CAREGIVER WILL DEMONSTRATE COMPLIANCE WITH TREATMENT REGIME AND VERBALIZE SIGNS AND SYMPTOMS TO REPORT WELL POSSIBLE COMPLICATIONS OF CVA BY END OF EPISODE. Goal Provider Goal - PATIENT/CARGIVER WILL VERBALIZE UNDERSTANDING OF ANEMIA INCLUDING SIGNS AND SYMPTOMS, MANAGEMENT OF COMPLICATIONS, AND PRESCRIBED TREATMENT REGIMEN BY END OF EPISODE. Goal Provider Goal - PATIENT/CAREGIVER WILL UTILIZE VIRTUAL VISITS TO ACHIEVE GOALS OUTLINED ON THE PLAN OF CARE. PATIENT WILL HAVE SUPPORT MEASURES ESTABLISHED TO PREVENT HOSPITALIZATION AND PATIENT/CAREGIVER WILL VERBALIZE/DEMONSTRATE METHODS TO REDUCE AVOIDABLE HOSPITALIZATION THROUGHOUT THE CERTIFICATION PERIOD. Goal Provider Goal - PATIENT WILL HAVE SUPPORT MEASURES ESTABLISHED TO PREVENT HOSPITALIZATION AND ED USE AND PATIENT/CAREGIVER WILL VERBALIZE/DEMONSTRATE METHODS TO REDUCE AVOIDABLE HOSPITALIZATION AND ED USE BY END OF EPISODE. Goal Provider Goal - PATIENT/CAREGIVER WILL VERBALIZE UNDERSTANDING OF DISCHARGE PLANNING INSTRUCTIONS BY DATE OF DISCHARGE. Goal Provider Goal - PATIENT/CAREGIVER WILL VERBALIZE/DEMONSTRATE EFFECTIVE HOME SAFETY AND FALL PREVENTION STRATEGIES THROUGHOUT CERTIFICATION PERIOD. Goal Provider Goal - PATIENT/CAREGIVER WILL DEMONSTRATE UNDERSTANDING OF PHARMACOLOGIC AND NONPHARMACOLOGIC PAIN CONTROL MEASURES AND PATIENT WILL HAVE IMPROVEMENT IN PAIN INTERFERING WITH ACTIVITY EVIDENCED BY PAIN CONTROLLED AT LEVEL OF 7 OR LESS BY END OF CERTIFICATION PERIOD. Goal Provider Goal - PATIENT/CAREGIVER WILL VERBALIZE UNDERSTANDING OF PRESSURE ULCER PREVENTION BY END OF THE EPISODE. Goal Provider Goal - PHYSICAL THERAPY EVALUATION TO BE COMPLETED WITH RECOMMENDATIONS AND/OR WRITTEN TREATMENT PLAN OF CARE ESTABLISHED FOR THE PHYSICIANS SIGNATURE PATIENT/CAREGIVER VERBALIZES UNDERSTANDING OF THE INITIAL BEST PRACTICE RECOMMENDATIONS. PHYSICIAN TO BE NOTIFIED APPROPRIATE FOR ANY CHANGES OR COMPLICATIONS THROUGHOUT THE CERTIFICATION PERIOD. PATIENT/CAREGIVER WILL PERFORM THERAPEUTIC EXERCISE/S AND DEMONSTRATE PARTICIPATION IN A HOME PROGRAM. PATIENT/CAREGIVER WILL DEMONSTRATE SAFE TRANSFERS USING APPROPRIATE ASSISTIVE DEVICE, BODY MECHANICS AND EQUIPMENT. PATIENT/CAREGIVER WILL DEMONSTRATE IMPROVED GAIT TECHNIQUES TO MINIMIZE RISK OF INJURY. PATIENT/CAREGIVER WILL DEMONSTRATE/VERBALIZE UNDERSTANDING OF RECOMMENDATIONS TO INCREASE SAFETY IN THE HOME AND FALL PREVENTION. INCREASED PAIN OR INEFFECTIVE PAIN CONTROL MEASURES WILL BE IDENTIFIED AND PROMPTLY REPORTED TO THE PHYSICIAN. PATIENT/CAREGIVER WILL DEMONSTRATE EFFECTIVE PAIN MANAGEMENT. PATIENT/CAREGIVER WILL DEMONSTRATE IMPROVED BALANCE AND REDUCE THE RISK OF FALLS AND INJURY. PHYSICAL THERAPY REASSESSMENT WILL BE COMPLETED WITH ESTABLISHMENT OF CONTINUED POC. Reason for Visit [facility]DEPENDENT IN THE COMMUNITY Encounters Start Date/Time End Date/Time Encounter Type Admission Type Attending [facility] Care Department Encounter ID Discharge Date Discharge Status Discharge Condition Discharge Reason Percent Goals Met 2023-12-02 00:00:00 2024-01-26 00:00:00 Outpatient NEW ADMISSION SHAYNE HARRISON [facility] [place] [id number] 2024-01-26 00:00:00 DISCHARGE TO HOME OR SELF CARE [facility]DEPENDEN T IN THE COMMUNITY GOALS MET ( ONLY) 100.00
[2024-05-23] MEDS: iohexoL 350 MG/ML 100 ML INFUS..BTL 85 ML IV (14:26)
[2024-05-23] MEDS: Barium Sulfate Oral (Mocha) 450 ML ORAL.SUSP 900 ML PO (14:26)
== END 2024-05-23 11:47 | disposition home or self-care (01) ==
LOC: HO.CT 11:46
PROVIDERS: PCP Internal Medicine Medical Oncology; Visit Provider Internal Medicine Medical Oncology
DX: K41.90 Unilateral femoral hernia, without obstruction or gangrene, not specified as recurrent (principal)
CPT/HCPCS: 74177; Q9967

== ENCOUNTER → 2024-05-23 14:11 | Outpatient (BNV) | payer MEDICARE, SELFPAY | PROVIDERS: PCP Internal Medicine Medical Oncology; Visit Provider Radiology Diagnostic Radiology | DX: K41.90 Unilateral femoral hernia, without obstruction or gangrene, not specified as recurrent (principal); K59.00 Constipation, unspecified | CPT/HCPCS: 74177 ==

== ENCOUNTER 2024-11-01 07:13 | Outpatient (REF) | payer MEDICARE, SELFPAY ==
--- OUTSIDE RECORDS SUMMARY | 2024-11-01 07:16 | XMS_ITS | Patient Health Record ---
Author Organization [facility] Address [address] [place] [address] Care Team Providers Care Belt Sander Stone Name Role Phone Sebastian Preciado MD Primary Care Provider Kt Sorenson Jr Unavailable Allergies No Known Allergies Reason For Referral No Information Medications Medication [...] Once a day for 30 day(s) Active Immunizations Vaccine Route Administration Date Status Comme nts Influenza Unknown 12/16/2021 Refused Social History Tobacco Use: Social History Observation Description Date Details (start date - stop date) Never Smoker NA - NA Tobacco Use/Smoking Question Answer Notes Patient is [...] Never (0 point) Points 1 Interpretation Negative Problems Problem Type SNOMED Code ICD Code Onset Dates Problem Status W/U Status Risk Notes Problem 73540108 Other constipati on (K59.09) Active confirmed Problem 82591998 Other dysphagia (R13.19) Active confirmed Problem 12420414 Oropharyngeal dysphagia (R13.12) Active confirmed Problem 95989237 Dysphagia, unspecified type (R13.10) Active confirmed Problem 78368712 Diarrhea, unspecified type (R19.7) Active confirmed Problem 411526888 Aspiration into airway, initial encounter (T17.948A) Active confirmed Plan Of Treatment Pending Test Test Name Order Date XR BARIUM SWALLOW-ESOPHAGUS 12/16/2021 XR BARIUM SWALLOW, MODIFIED VIDEO 2021 Insurance Providers Payer Name Payer Address Payer Phone Subscriber Number Group Number Insured Name Patient Relationship to Insured Coverage Start Date Coverage End Date MEDICARE OF [place] [address] ESTELA DUGAN [id number] AMITA JRENIGAN Self - patient is the insured [employer] ATT[employer] CLAIMS [address] [place] [address] [id number] AMITA JERNIGAN Self - patient is the insured Medical (General) History Medical History History ICD Code Hypertension Coronary artery disease with history of stent placement Prostate cancer status post XRT and horm one therapy Hyperlipidemia Degenerative joint disease/osteoarthriti s Gastroesophageal reflux disease Microscopic hematuria VZV/shingles infection Aortic stenosis TIA Surgical History Surgery Date(Month/Year) Tonsillectomy TAVR, 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
[2024-11-01 07:26] LABS: MANUAL DIFF FLAG NO
[2024-11-01 07:52] LABS: Basophils Absolute Auto 0.1 X10*3/uL (0.0-0.2); Basophils Percent Auto 1.4 % (0-2); Eosinophils Absolute Auto 0.2 X10*3/uL (0.0-0.4); Eosinophils Percent Auto 3.4 % (0-4); Hematocrit 41.5 % (42.0-52.0); Hemoglobin 13.6 g/dl (14.0-18.0); Imm Gran Abs Auto 0.03 X10*3/uL (0.00-0.03); Imm Gran Pct Auto 0.5 % (0.0-0.4); Lymphocytes Absolute Auto 1.5 X10*3/uL (1.2-4.9); Mean Corpuscular HGB Conc 32.8 g/dl (31.0-36.0); Mean Corpuscular Hemoglobin 32.2 pg (27.0-33.0); Mean Corpuscular Volume 98.3 fL (80.0-98.0); Monocytes Absolute Auto 0.6 X10*3/uL (0.1-1.2); Monocytes Percent Auto 10.5 % (2-11); Neutrophils Absolute Auto 3.4 x10*3/uL (2.0-8.3); Neutrophils Percent Auto 59.2 % (45-73); Platelet Count 248 X10*3/uL (160-400); Red Blood Count 4.22 X10*6/uL (4.60-5.80); Red Cell Distribution Width 14.6 % (11.0-16.0); White Blood Count 5.8 X10*3/uL (4.8-10.8)
[2024-11-01 08:09] LABS: Alanine Aminotransferase 19 U/L (0-40); Albumin Level 4.3 g/dL (3.5-5.0); Alkaline Phosphatase 60 U/L (39-117); Anion Gap 11 (12-20); Aspartate Amino Transferase 23 U/L (5-37); Blood Urea Nitrogen 22 mg/dL (9-16); Calcium 9.6 mg/dL (8.4-10.2); Carbon Dioxide 30 mmol/L (22-29); Chloride 102 mmol/L (96-108); Cholesterol 133 mg/dL (<200); Estimated Glomerular Filt Rate > 60; Glucose Fasting 92 mg/dL (60-99); HDL Cholesterol 42 mg/dL (>40); LDL Cholesterol Calculated 77 mg/dL (<100); Potassium 4.2 mmol/L (3.3-5.1); Sodium 139 mmol/L (135-145); Total Protein 7.4 g/dL (6.5-8.0); Triglycerides 70 mg/dL (<150)
[2024-11-01 08:33] LABS: Prostate Specific Antigen 0.69 ng/mL (<0.05-4.0)
== END 2024-11-01 07:14 | disposition home or self-care (01) ==
LOC: HO.LAB 07:13
PROVIDERS: PCP Internal Medicine Medical Oncology; Visit Provider Internal Medicine Medical Oncology
DX: E78.5 Hyperlipidemia, unspecified (principal); E66.3 Overweight; C61 Malignant neoplasm of prostate; Z12.5 Encounter for screening for malignant neoplasm of prostate
CPT/HCPCS: 36415; 80053; 80061; 84153; 85025

== ENCOUNTER 2024-11-20 07:18 | Outpatient (REF) | payer MEDICARE, SELFPAY ==
--- OUTSIDE RECORDS SUMMARY | 2024-10-18 06:15 | XMS_ITS ---
Author Organization Sebastian Preciado III, MD Address [address] [place] [address] [place] [address] Care Team Providers Care President + Publisher Name Role Phone Sebastian Preciado Primary Care Provider [phone] REASON FOR VISIT Rx Refill Medications Medication [...] Date Provider Diagnosis Sebastian Preciado III, MD [address] [place] [address] [place] [address] 10/18/2024 Sebastian Preciado Former smoker Z87.891 Assessments [...] 90 days Next Appt Details Provider Name:Sebastian Preciado, 11/27/2024 11:15:00 AM, [address] [facility] [address], [place], [address], Provider Name:Sebastian Preciado, 05/10/2025 11:00:00 AM, [address] [place] [address] [address], [place], [address], Progress Notes * Royce JERNIGANDOB: (89 yo M)Acc No.[id number]:10/18/2024 Patient: Royce [place] :1935 A ge:89 Y S ex:Male Address:[address] [place] [phone] * Refills Refill Isosorbide Mononitrate ER Tablet [...] * Date: Generated for Estelle chao/Maximino/David on: 0 11/20/2024 07:20 AM EDT
--- OUTSIDE RECORDS SUMMARY | 2024-11-20 07:21 | XMS_ITS | Patient Health Record ---
Author Organization [facility] Address [address] [place] [address] Care Team Providers Care Collar Trimmer Name Role Phone Sebastian Preciado MD Primary [...] Problem Status W/U Status Risk Notes Problem [id number] Other constipati on (K59.09) Active confirmed Problem 24534255 Other dysphagia (R13.19) Active confirmed Problem 41397005 Oropharyngeal dysphagia (R13.12) Active confirmed Problem 98504972 Dysphagia, unspecified type (R13.10) Active confirmed Problem 55839282 Diarrhea, unspecified type (R19.7) Active confirmed Problem 147842719 Aspiration into airway, initial encounter (T17.498A) Active confirmed Plan Of Treatment Pending Test Test Name Order Date XR BARIUM SWALLOW-ESOPHAGUS 12/16/2021 XR BARIUM SWALLOW, MODIFIED VIDEO 2021 Insurance Providers Payer Name Payer Address Payer Phone Subscriber Number Group Number Insured Name Patient Relationship to Insured Coverage Start Date Coverage End Date MEDICARE OF [place] [address] ESTELA [place] [id number] AMITA JERNIGAN Self - patient is the insured [employer] ATT[employer] CLAIMS [address] [place] [address] [phone] [id number] AMITA JERNIGAN Self - patient is the [...] 03/02/21 Hospitalization History Reason Date(Month/Year) TIA in [place] 09/05
--- OUTSIDE RECORDS SUMMARY | 2024-11-20 07:21 | XMS_ITS | Clinical Summary ---
Author Organization [facility] ity Address [address] [place] [address] Care Team Providers Care Paper Feeder Name Role Phone Unavailable Primary Care Provider Unavailabl e Social History Tobacco Use Types Packs/Day Years Used Date Smoking Tobacco: Never Assessed Sex and Gender Information Value Date Recorded Sex Assigned at Not on file Legal Sex Male 3:42 PM EDT Gender Identity Not on file Sexual Orientation Not on file Plan of Treatment Health Maintenance Due Date Last Done Comments DTaP,Tdap,and Td Vaccines (1 - Tdap) 1954 Pneumococcal Vaccine: 50+ Ye ars (1 of 1 - PCV) 10/15/1987 Zoster Vaccines (1 of 2) 10/15/1987 RSV Immunization Adult Patie nts (1 - 1-dose 75+ series) 2012 COVID-19 Vaccine ( - 2023-2 5 season) 2024 Cholesterol Screening (Lipid Panel) 03/11/2024 Depression Screening 03/11/2024 Falls Risk Assessment 03/11/2024 Social Influencers of Health Screening 03/11/2024 Influenza Vaccine (#1) 2025 HIB Vaccines Aged Out No longer eligi ble based on patient's age to complete this topic HPV Vaccines Aged Out No longer eligi ble based on patient's age to complete this topic Hepatitis A Vaccines Aged Out No long er eligible based on patient's age to complete this topic Hepatitis B Vaccines Aged Out No long er eligible based on patient's age to complete this topic IPV Vaccines Aged Out No longer eligi ble based on patient's age to complete this topic MMR Vaccines Aged Out No longer eligi ble based on patient's age to complete this topic Meningococcal ACWY Vaccine Aged Out N o longer eligible based on patient's age to complete this topic Meningococcal B Vaccine Aged Out No l onger eligible based on patient's age to complete this topic RSV Immunization Patients Un stephen 20 months Aged Out No longer eligible b ased on patient's age to complete this topic Varicella Vaccines Aged Out No longer eligible based on patient's age to complete this topic Advance Directives Documents on File Type Date Recorded Patient Community Organization Worker Expl anation Health Care Decision (hx) 11/21/2023 [facility]
--- OUTSIDE RECORDS SUMMARY | 2024-11-20 07:21 | XMS_ITS | Data Portability ---
Author Organization [facility], [facility] Address [address] [place] [address] Care Team Providers Care Chainstitch Seat Joiner Name Role Phone PORTIA HAWKINS Primary Care [...] weeks with xrays left hip and pelvis. [email or web address] Not available 12/20/2023 15:48:39 01/18/2024 01/18/2024 CC [...] months with xrays left hip and pelvis. [email or web address] Not available 01/25/2024 17:12:58 02/21/2024 02/21/2024 Patient [...] as she is scheduled to leave for [place] with his on . Patient denies numbness or tingling about the left lower extremity. Examination: 88-year-old male in distress alert and oriented. Palpation and percussion assistance from a cane. On examination of the left hip surgical incisions are well-healed and benign. Range of motion is limited with mild irritability elicited. Calf is soft. X-rays ordered, obtained and reviewed at [facility] 2 views left hip reveal short InterTAN nailing good position. No change in fixation noted, no significant progression of callus from previous x-rays. 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 Patient offered possibility of CT scan to further evaluate. Patient reports she needs to leave on for [place], was cautioned that she have continued difficulty should seek care while he is in [place] or upon his return. Was counseled to continue with use of ambulatory assistive devices. [facility] speech recognition food quality technician software was used to create portions of [...] obtained, and reviewed by me today at [facility] show a trochanteric femur fracture with [...] time. Date: 05/22/2024 Patient Name: Mr. Liu [email or web address] Not available 05/22/2024 15:35:19 Plan of Treatment Reminders Order Date Submit Date Provider Last Modified By Organization Details Last Modified Time Details Appointments None recorded. Lab None recorded. Referral None recorded. Procedures None recorded. Surgeries None recorded. Imaging XR, hip + pelvis, unilatera l, 2 or 3 view - 315 ap hip and 2v left hip recheck 2024 025 [email or web address], [address], [place], [address], 5 14:13:10 XR, hip + pelvis, unilatera l, 2 or 3 view - room 120 2V L hip 2023 024 [email or web address] [facility], [address], [place], [address], 4 15:48:00 XR, hip + pelvis, unilatera l, 2 or 3 view - 313 2v lt hip and ap pelvis global 2023 024 RITA [facility], [address], [address], [place], [address], 4 15:14:06 XR, hip + pelvis, unilatera l, 2 or 3 view - 315 ap pelvis, 2v left hip global pt is changing into shorts 2023 024 [email or web address] [facility], [address], [address], [place], [address], 17:05:27 Medication Orders None recorded. Patient TargetsNo targets [...] a4ajBk vP9nXo QUaueC m3YtLR FvZlgJ JJ8mAn HZtai3 3j6905 AC0Kob 3qEV6P eUC8mr 84%3D INTERFACE [facility] [address], [place], [address], 12/20/2023 13:54:35 12/20/19 24 12/20/2023 XR, hip + pelvi s, unila teral , 2 or 3 view [email or web address]:/ [email or web address] ?Encry pted=s hAaTro YD8dLq bEUv6g %2BXZw aYqtaq 0bqfl% 2Fg9IQ a4ajBk vP9nXo QUaueC m3YtLR FvZlgJ JJ8mAn HZtai3 5e5482 AC0Kob 3qEV6P eUC8mr 84%3D INTERFACE [facility] [address], [place], [address], 12/20/2023 13:54:37 01/18/20 24 01/18/2024 XR, hip + pelvi s, unila teral , 2 or 3 view http:/ [email or web address] ?Encry pted=s hAaTro YD8dLq bEUv6g %2BXZw aYqtaq 0bqfl% 2Fg9IQ a4ajBk vP9nXo QUaueC m3YtLR FvZlgJ JJ8mAn HZtai3 1m9961 AC0Kqa n2FV6S vKiQtr MwF INTERFACE [facility] [address], [place], [address], 01/18/2024 15:14:06 01/18/20 24 01/18/2024 XR, hip + pelvi s, unila teral , 2 or 3 view [email or web address]:/ [email or web address] ?Encry pted=s hAaTro YD8dLq bEUv6g %2BXZw aYqtaq 0bqfl% 2Fg9IQ a4ajBk vP9nXo QUaueC m3YtLR FvZlgJ JJ8mAn HZtai3 3k4351 AC0Kqa n2FV6S vKiQtr MwF INTERFACE [facility] [address], [place], [address], 01/18/2024 15:14:09 02/21/20 24 02/21/2024 XR, hip + pelvi s, unila teral , 2 or 3 view http:/ [email or web address] ?Encry pted=s hAaTro YD8dLq bEUv6g %2BXZw aYqtaq 0bqfl% 2Fg9IQ a4ajBk vP9nXo QUaueC m3YtLR FvZlgJ JJ8mAn HZtai3 1p0739 AC0Kqa 3mGVaW hKiQtr MwF INTERFACE [facility] [address], [place], [address], 02/21/2024 17:00:06 02/21/20 24 02/21/2024 XR, hip + pelvi s, unila teral , 2 or 3 view http:/ [email or web address] ?Encry pted=s hAaTro YD8dLq bEUv6g %2BXZw aYqtaq 0bqfl% 2Fg9IQ a4ajBk vP9nXo QUaueC m3YtLR FvZlgJ JJ8mAn HZtai3 4l4727 AC0Kqa 3mGVaW hKiQtr MwF INTERFACE [facility] [address] [facility] [facility] [address], [place], [address], 02/21/2024 17:00:08 05/22/19 25 05/22/2024 XR, hip + pelvi s, unila teral , 2 or 3 view http:/ [email or web address] ?Encry pted=s hAaTro YD8dLq bEUv6g %2BXZw aYqtaq 0bqfl% 2Fg9IQ a4ajBk vP9nXo QUaueC m3YtLR FvZlg JJ8mAn HZtai3 7x7183 AC0Kqb 32NUqq vKiQtr MwF INTERFACE [facility] [address] [facility] [address], [place], [address], 05/22/2024 13:41:00 05/22/19 25 05/22/2024 XR, hip + pelvi s, unila teral , 2 or 3 view http:/ [email or web address] ?Encry pted=s hAaTro YD8dLq bEUv6g %2BXZw aYqtaq 0bqfl% 2Fg9IQ a4ajBk vP9nXo QUaueC m3YtLR FvZlgJ JJ8mAn HZtai3 9p0613 AC0Kqb 32NUqq vKiQtr MwF INTERFACE [facility] [address] [facility] [address], [place], [address], 05/22/2024 13:41:02 Result Notes Documentation Provider Name and Address Organization Details Recorded Time Xr, Hip + Pelvis, Unilateral, 2 Or 3 View : [email or web address] Encrypted=krZmMleXN8zQjdF Uv6g%9YGOtgNjdlr2eety%2Fg 1ALo5yvRrvG9mKcJPeihOq6Ou NTUyPwcWGG0hUzRApqn77l339 5NA3Kan6mRM8CeQX5oq96%3D Not Available [facility] 12/20/2023 13:5 4:36 Xr, Hip + Pelvis, Unilateral, 2 Or 3 View : [email or web address] Encrypted=xoZsEcySG9hCobV Uv6g%3OVCujBeldm0cnrj%2Fg 3ASy4hwBniN1aIkCMulwXu1Yj HSQuYbtJJY1lFgULabe50r064 6NF0Uwd8dBF5BiXR7np80%3D Not Available [facility] 12/20/2023 13:5 4:38 Xr, Hip + Pelvis, Unilateral, 2 Or 3 View : [email or web address] Encrypted=iwLfRvsCR4lDubO Uv6g%3RVFzrHmfzf9zpgj%2Fg 6DXj7xaFysH0eVaRHbhlDn2Xi YEXiItiYDS1bEvTXnce58w592 3WR2Mbvh4QO0LvZkGkgUoG Not Available [facility] 01/18/2024 15:14: 07 Xr, Hip + Pelvis, Unilateral, 2 Or 3 View : [email or web address] Encrypted=ktGkPwoRZ0tAdaC Uv6g%5TGAofMbxsy0gtud%2Fg 4CRc3pnDulQ0fAmRGjzvRz9Ug TNGmOdnGZU8hBoSGgfr51c723 7PY3Mygx2UU8ChBkRneCzU Not Available [facility] 01/18/2024 15:14: 09 Xr, Hip + Pelvis, Unilateral, 2 Or 3 View : [email or web address] Encrypted=cfEuXtiXW3uLetL Uv6g%6BVDhvWzwqb2lxtj%2Fg 0VGc4jzBvfG1nTkVYgtuFs2Yi BCMiPzzBKF8xXcNWacg33m482 3BS7Zjt8jHFoUvOcEtlEpG Not Available [facility] 02/21/2024 17:00: 07 Xr, Hip + Pelvis, Unilateral, 2 Or 3 View : [email or web address] Encrypted=vxVcWmaFA9uKrhN Uv6g%4AFZtwRpfxs9otlc%2Fg 4ODc6vdXpqO6qSiCOzlhOd1Dy FPEsIxjIOC2zBzRNihb61s921 4UV0Rsi5cNXnHyWvRctUhL Not Available [facility] 02/21/2024 17:00: 09 Xr, Hip + Pelvis, Unilateral, 2 Or 3 View : [email or web address] Encrypted=pmOkTznZB3gFuiM Uv6g%6QBBssGhygt5qksc%2Fg 1ARp4esBggP0zLhNCitqMt5Ef OFJeUkzEBV4jGrQJqqr18c943 5YM2Akk82NAhqpTsJzeGrW Not Available [facility] 05/22/2024 13:41: 01 Xr, Hip + Pelvis, Unilateral, 2 Or 3 View : [email or web address] Encrypted=wfUlGvfQL4xDtnP Uv6g%8FKBzkJzzmx6falm%2Fg 5YVp2vkMbpD5eWrGVdtyKb0Wu MJTdKcgNRL6xCmRVgll03p580 3QW0Ixx75EZpcvJpOcrZvP Not Available [facility] 05/22/2024 13:41: 03 Procedures Surgical History Date Name Laterality Status Provider Name and Address Organization Details Recorded Time open reduction of fracture of femur with internal fixation completed KATE WINN [place] - [facility] 05/22/2024 13:26:59 insertion of stent into aorta completed KATE WINN [place] - [facility] 05/22/2024 13:26:41 Imaging Results None recorded. Procedure Notes None recorded. Medical Equipment None [...] Updated DateTime 05/22/2024 175.26 cm 23.8 kg/m2 60015.37 g KATE WINN [facility] 05/22/2024 13:24:30 Date Recorded Body height Body mass index (BMI) Body weight Provider Name and Address Organization Details Last Updated DateTime 12/20/2023 177.8 cm 23 kg/m2 21770.78 g KATE WINN [facility] 12/20/2023 13:43:47 Date Recorded Body height Body mass index (BMI) Body weight Provider Name and Address Organization Details Last Updated DateTime 01/18/2024 177.8 cm 23 kg/m2 98285.78 g KATE WINN [facility] 01/18/2024 15:05:18 Date Recorded Body height Body mass index (BMI) Body weight Provider Name and Address Organization Details Last Updated DateTime 02/21/2024 175.26 cm 23.8 kg/m2 67397.37 g MILTON FAROOQ [facility] 02/21/2024 16:52:06 Social History None recorded. Functional Status None recorded. Mental Status None recorded. Family History Nothing Reported. Medical History Condition Response Allergies/Hayfever N Coronary Artery Disease N Breathing or lung disorders N Anxiety/Depression N Emphysema N Nerve Disorders N Thyroid Problems N COPD N Pacemaker N Anemia N Kidney/Bladder Problems N Vascular Disease N Heart Trouble N Heart Attack ([place]) N Gastrointestinal Disease N Cholesterol N Diabetes N Autoimmune disease [...] SNOMED-CT Code Diagnosis ICD10 Code Diagnosis Note [id number] MD [facility] [address] [place] [address] 12/20/2023 13:33:40 12/20/2023 16:09:42 Fracture of neck of femur 7094265 S72.001D [id number] Felipa Juan MD [facility] [address] [place] [address] 01/18/2024 14:53:36 02/14/2024 09:50:01 Fracture of neck of femur 8934535 S72.001D [id number] Srinivas Portillo PA-C [facility] [address] [place] [address] 02/21/2024 16:30:46 03/08/2024 15:48:00 Pain of left hip joint 9385644898 91803 M25.329 [id number] Felipa Juan MD MICHAEL - [facility] [address] [place] [address] 05/22/2024 13:08:51 06/04/2024 14:13:09 Closed fracture of hip 617024369 S72.002A Health Concerns Section Related Observation LastModified by Organization Detai ls LastModified Time None Recorded Concern Status LastModified by Organization Details LastModified Time None Recorded Advance Directives Directive None Recorded Payers Insurance Date Sequence Insurance Name Policy Number Policy Dean Covered Member ID Dean Member ID Guarantor Name 06/04/2024 2 [place] [id number] Royce Liu [id number] Royce Liu 05/22/2024 1 [place] [employer] Royce Liu [id number] Royce Liu
[2024-11-20 07:31] LABS: MANUAL DIFF FLAG NO
[2024-11-20 07:50] LABS: Hematocrit 40.0 % (42.0-52.0); Hemoglobin 12.9 g/dl (14.0-18.0); Imm Gran Abs Auto 0.03 X10*3/uL (0.00-0.03); Imm Gran Pct Auto 0.5 % (0.0-0.4); Lymphocytes Absolute Auto 1.4 X10*3/uL (1.2-4.9); Mean Corpuscular HGB Conc 32.3 g/dl (31.0-36.0); Mean Corpuscular Hemoglobin 31.6 pg (27.0-33.0); Mean Corpuscular Volume 98.0 fL (80.0-98.0); NRBC Abs Auto 0.000 X10*3/uL (0.0-0.012); NRBC Pct Auto 0.0 /100WBC (0.0-0.2); Platelet Count 203 X10*3/uL (160-400); Red Blood Count 4.08 X10*6/uL (4.60-5.80); White Blood Count 6.2 X10*3/uL (4.8-10.8)
[2024-11-20 08:31] LABS: Alanine Aminotransferase 18 U/L (0-40); Albumin Level 4.1 g/dL (3.5-5.0); Alkaline Phosphatase 59 U/L (39-117); Anion Gap 9 (12-20); Aspartate Amino Transferase 22 U/L (5-37); Blood Urea Nitrogen 17 mg/dL (9-16); Calcium 9.3 mg/dL (8.4-10.2); Carbon Dioxide 30 mmol/L (22-29); Chloride 104 mmol/L (96-108); Estimated Glomerular Filt Rate > 60; Potassium 4.2 mmol/L (3.3-5.1); Sodium 139 mmol/L (135-145); Total Protein 7.0 g/dL (6.5-8.0)
== END 2024-11-20 07:19 | disposition home or self-care (01) ==
LOC: HO.LAB 07:18
PROVIDERS: PCP Internal Medicine Medical Oncology; Visit Provider Internal Medicine Medical Oncology
DX: E78.5 Hyperlipidemia, unspecified (principal); E66.3 Overweight
CPT/HCPCS: 36415; 80053; 85025

== ENCOUNTER 2025-01-21 15:07 | Outpatient (AMB) | payer MEDICARE, SELFPAY ==
--- OUTSIDE RECORDS SUMMARY | 2024-10-18 06:15 | XMS_ITS ---
Author Organization Sebastian Preciado III, MD Address [address] [place] [address] [place] [address] Care Team Providers Care Associate Automation Engineer Name Role Phone Sebastian Preciado Primary Care Provider REASON FOR VISIT Rx [...] Date Provider Diagnosis Sebastian Preciado III, MD [address] [place] [address] [place] [address] 10/18/2024 Sebastian Preciado Former smoker Z87.891 Assessments [...] days Next Appt Details Provider Name:Sebastian Preciado, 02/15/2025 11:15:00 AM, [address] [place] [address] [address], [place], [address], Provider Name:Sebastian Preciado, 05/10/2025 11:00:00 AM, [address] [place] [address] [address], [place], [address], Progress Notes * Royce JERNIGANDOB: (89 yo M)Acc No.[id number]:10/18/2024 Patient: Royce [place] :1935 A ge:89 Y S ex:Male Address:[address] [place] [phone] * Refills Refill Isosorbide Mononitrate ER Tablet [...] Date: Generated for Estelle chao/Maximino/David on: 0 01/21/2025 06:18 PM EDT
--- OUTSIDE RECORDS SUMMARY | 2024-10-23 11:30 | XMS_ITS ---
Author Organization Sebastian Preciado III, MD Address [address] [place] [address] [address] [place] [address] Care Team Providers Care Job Placement Counselor Name Role Phone Sebastian Preciado Primary Care Provider [phone] Allergies Allergen (clinical drug ingredient) Drug/Non Drug [...] Provider Speciality Internal M edicine Referred Provider [facility] er, General Surgeons Referred Provider Specialty Surgery [...] Date Provider Diagnosis Sebastian Preciado III, MD [address] [place] [address] [place] [address] 10/23/2024 Sebastian Ilana Former smoker Z87.89 1 ; Essential (primary) hypertension I10 ; Malignant neoplasm of prostate C61 ; Hyperlipidemia, unspecified E78.5 ; Gastro-esophageal reflux disease without esophagitis K21.9 ; Atherosclerotic heart disease of [place] coronary artery without angina pectoris I25.10 ; [...] once a week while he is in [place] and reported back to me. 10/23/2024 Malignant [...] His esophageal reflux is well controlled with qirq-nhf-djhqrvj medication and no change in his regimen was necessary today. 10/23/2024 Atherosclerotic hear t disease of [place] coronary artery without angina pectoris (ICD-10 - I25.10) He continues to have anginaa with prolonged exertion. He has an appointment in the near future to see the parts room clerk after he has an echocardiogram and a nuclear medicine stress test. He will come back from [place] the end of September 2023. I continue [...] Femoral hernia of right side, General Surgeons [facility] Next Appt Details Follow Up: 2 Weeks, Reason: OV Provider Name:Sebastian Preciado, 02/15/2025 11:15:00 AM, [address] [place] [address] [address], [facility] [place], [address], Provider Name:Sebastian Preciado, 05/10/2025 11:00:00 AM, [address] [place] [address] [address], [place], [address], Progress Notes * Royce JERNIGANDOB: 8 (89 yo M)Acc No.[id number]:10/23/2024 Progress Notes Patient: Royce LOWRY Provider: Willa Preciado MD :1935 A ge:89 Y S ex:Male Date:10/23/2024 Address:[address] [place], [place] [id number] Subjective: * Chief Complaints: * L eft knee and ankle painWeight lossHypertensionHyperlipidemiaCoronary artery diseaseProstate cancerRepaired aortic stenosis * HPI: C OVID-19 Screening: Jorge wheat returns for ongoing medical management. He is up-to-date with his parts room clerk, Dr. Stephen. He was told his replaced [...] c ardiac catheterization, 3 stents December 2012TAVR, [facility] eft hip surgery 11/2023No history * [...] x-cigarette smoker Jorge wheat was born in [place], [place] and has been to [facility] for 59 years. He has 3 [...] once a week while he is in [place] and reported back to me. 2 . [...] :His esophageal reflux is well controlled with totb-dfh-mtcmwsz medication and no change in his regimen was necessary today. 6 . A therosclerotic heart disease of [place] coronary artery without angina pectoris - I25.10 N otes :He continues to have anginaa with prolonged exertion. He has an appointment in the near future to see the parts room clerk after he has an echocardiogram and a nuclear medicine stress test. He will come back from [place] the end of September 2023. I continue [...] Panel 5. O thers Referral To:General Surgeons [facility] Surgery Reason:Evaluate and Treat Right sided abdominal pain Femoral hernia of right side * Procedure Codes: * Preventive Medicine: Counseling: S moking/Tobacco Use Patient counseled on the dangers of tobacco use and urged to quit. 0 10/23/2024 * Follow Up: 2 Weeks (Reason: OV) * Images: * Sign off status: Completed true * Provider: Willa Preciado MD Date: 0 10/23/2024 Generated for Estelle chao/Maximino/Alyseitting on: 0 01/21/2025 06:19 PM EDT History and Physical Notes * HPI [...] Referring Provider Referred Provider Not es 10/23/2024 Ilana [facility], General Surgeons Evaluate and Treat Right sided abdominal pain Femoral hernia of right side
--- OUTSIDE RECORDS SUMMARY | 2024-11-06 06:45 | XMS_ITS ---
Author Organization Sebastian Preciado III, MD Address [address] [place] [address] [address] [place] [address] Care Team Providers Care Event Specialist Name Role Phone Sebastian Preciado Primary Care [...] Problem Status W/U Status Risk Notes Problem [id number] Peripheral edema (R60.0) Active confirmed We began [...] Date Provider Diagnosis Sebastian Preciado III, MD [address] [place] [address] [place] [address] 11/06/2024 Sebastian Ilana Former smoker Z87.89 1 ; Peripheral edema R60.0 ; Overweight E66.3 ; Essential (primary) hypertension I10 ; Hyperlipidemia, unspecified E78.5 ; Malignant neoplasm of prostate C61 ; Gastro-esophageal reflux disease without esophagitis K21.9 ; Nonrheumatic aortic valve stenosis I35.0 ; Osteoarthritis of cervical spine, unspecified spinal osteoarthritis complication status M47.812 and Atherosclerotic heart disease of [place] coronary artery without angina pectoris I25.10 Assessments [...] once a week while he is in [place] and reported back to me. 11/06/2024 Hyperlipidemia, [...] His esophageal reflux is well controlled with glwb-nsz-snqutou medication and no change in his regimen [...] rapidly. 11/06/2024 Atherosclerotic hear t disease of [place] coronary artery without angina pectoris (ICD-10 - I25.10) He continues to have anginaa with prolonged exertion. He has an appointment in the near future to see the honest john rocket crew member after he has an echocardiogram and a nuclear medicine stress test. He will come back from [place] the end of September 2023. I continue [...] Up: 3 Weeks, Reason: OV Provider Name:Sebastian Preciado, 02/15/2025 11:15:00 AM, [address] [place] [address] [address], [place], [address], Provider Name:Sebastian Preciado, 05/10/2025 11:00:00 AM, [address] [place] [address] [address], [place], [address], Progress Notes * Royce JERNIGANDOB: 8 (89 yo M)Acc No.[id number]:11/06/2024 Progress Notes Patient: Royce LOWRY Provider: Willa Preciado MD :1935 A ge:89 Y S ex:Male Date:11/06/2024 Address:[address] [place], [place] [id number] Subjective: * Chief Complaints: * P ain [...] c ardiac catheterization, 3 stents December 2012TA, [facility] eft hip surgery 11/2023No history [...] x-cigarette smoker Jorge wheat was born in [place], [place] and has been to [facility] for 59 years. He has 3 [...] 0.000 (Ref Range: 0.0-0.012 X10*3/uL) * Lab:[facility] * Collection Date 11/01/2024 [...] once a week while he is in [place] and reported back to me. 5 . [...] :His esophageal reflux is well controlled with moqn-qhj-trtfmfe medication and no change in his regimen [...] 1 0. A therosclerotic heart disease of [place] coronary artery without angina pectoris - I25.10 N otes :He continues to have anginaa with prolonged exertion. He has an appointment in the near future to see the honest john rocket crew member after he has an echocardiogram and a nuclear medicine stress test. He will come back from [place] the end of September 2023. I continue [...] MD Date: 0 11/06/2024 Generated for Estelle chao/Maximino/David on: 0 01/21/2025 06:19 PM EDT History [...]
--- OUTSIDE RECORDS SUMMARY | 2024-11-27 07:15 | XMS_ITS ---
Author Organization Sebastian Preciado III, MD Address [address] [place] [address] [address] [place] [address] Care Team Providers Care Flash Welding Machine Operator Name Role Phone Sebastian Preciado Primary Care [...] Provider Diagnosis Sebastian Preciado III, MD [address] [place] [address] [place] [address] 11/27/2024 Sebastian Ilana Former smoker Z87.89 1 ; Femoral hernia of right side K41.90 ; Hyperlipidemia, unspecified E78.5 ; Malignant neoplasm of prostate C61 ; Essential (primary) hypertension I10 ; Gastro-esophageal reflux disease without esophagitis K21.9 ; Nonrheumatic aortic valve stenosis I35.0 ; Atherosclerotic heart disease of [place] coronary artery without angina pectoris I25.10 ; [...] once a week while he is in [place] and reported back to me. 11/27/2024 Gastro-esophageal reflux disease without esophagitis (ICD-10 - K21.9) His esophageal reflux is well controlled with jlve-cyc-beazqjz medication and no change in his regimen was necessary today. 11/27/2024 Nonrheumatic aortic valve stenosis (ICD-10 - I35.0) He had a TAVR in the recent past for aortic stenosis. He is going to have an ultrasound of his heart, which will help clarify if the valve is a source of an embolism. 11/27/2024 Atherosclerotic hear t disease of [place] coronary artery without angina pectoris (ICD-10 - I25.10) He continues to have anginaa with prolonged exertion. He has an appointment in the near future to see the clamper after he has an echocardiogram and a nuclear medicine stress test. He will come back from [place] the end of September 2023. I continue [...] Up: 3 Months, Reason: OV Provider Name:Sebastian Preciado, 02/15/2025 11:15:00 AM, [address] [place] [address] [address], [place], [address], Provider Name:Sebastian Preciado, 05/10/2025 11:00:00 AM, [address] [place] [address] [address], [place], [address], Progress Notes * Royce JERNIGANDOB: 8 (89 yo M)Acc No.[id number]:11/27/2024 Progress Notes Patient: Royce LOWRY Provider: Willa Preciado MD :1935 A ge:89 Y S ex:Male Date:11/27/2024 Address:[address] [place], [place] [address] Subjective: * Chief Complaints: * R ight femoral herniaHypertensionHyperlipidemiaGERDProstate cancerCoronary artery diseasePeripheral edema * HPI: C OVID-19 Screening: Jorge wheat has an appointment at 9:30 in the morning November 29, 2024 to discuss and plan a right femoral herniorrhaphy at [facility]. He says she is feeling tired [...] c ardiac catheterization, 3 stents December 2012TAVR, [facility] eft hip surgery 11/2023No history * [...] x-cigarette smoker Jorge wheat was born in [place], [place] and has been to [facility] for 59 years. He has 3 [...] mg/dL) 49 (Ref Range: mg/dL) * Lab:[facility]. Pane l Fast * Collection Date 11/01/2024 [...] once a week while he is in [place] and reported back to me. 6 . G warner-esophageal reflux disease without esophagitis - K21.9 ?Notes :His esophageal reflux is well controlled with giaj-xwd-xhuoppe medication and no change in his regimen was necessary today. 7 . N onrheumatic aortic valve stenosis - I35.0 N otes :He had a TAVR in the recent past for aortic stenosis. He is going to have an ultrasound of his heart, which will help clarify if the valve is a source of an embolism. 8 . A therosclerotic heart disease of [place] coronary artery without angina pectoris - I25.10 N otes :He continues to have anginaa with prolonged exertion. He has an appointment in the near future to see the clamper after he has an echocardiogram and a nuclear medicine stress test. He will come back from [place] the end of September 2023. I continue [...] 0 11/27/2024 Generated for Estelle chao/Maximino/Alyseitting on: 0 01/21/2025 [...]
--- OUTSIDE RECORDS SUMMARY | 2024-12-06 06:55 | XMS_ITS ---
Author Organization Sebastian Preciado III, MD Address [address] [place] [address] [place] [address] Care Team Providers Care Manager Workers Compensation Name Role Phone Sebastian Preciado Primary Care [...] Date Provider Diagnosis Sebastian Preciado III, MD [address] [place] [address] [place] [address] 12/06/2024 Sebastian Preciado Former smoker Z87.891 Assessments [...] Details Provider Name:Sebastian Preciado, 02/15/2025 11:15:00 AM, [address] [place] [address] [place], [address], Provider Name:Sebastian Preciado, 05/10/2025 11:00:00 AM, [address] [facility] [address], [place], [address], Progress Notes * EVERARDORoyec WALLSDOB: 8 (89 yo M)Acc No.[id number]:12/06/2024 Patient: Royce LOWRY :1935 A ge:89 Y S ex:Male Address:[address] [place] [address] * Refills Refill Atenolol Tablet, 25 MG, Orally, 90 Tablet, 1 tablet, Once a day, 90 days, Refills=3 * true * Date: Generated for Estelle chao/Maximino/Alyseitting on: 0 01/21/2025 06:19 PM EDT
--- NOTE | 2025-01-21 15:19 | A.OFFVIS_ITS ---
Vital Signs 01/21/25 15:21 Height 5 ft 9 in Weight 161 lb BMI 23.8 BP 166/78 H Blood Pressure Location Lt brachial Position Sitting Pulse 79 Intake Visit Reasons: hernia Intake Note: Patient is seen in office for evaluation and treatment of a femoral hernia. Pt c/o: feels a lump right groin, onset 9 months, had broken lt hip before that and was in rehab at the time he notice the lump CT: 05/23/24 Medical Insurance Clerk Required: No Accompanied by: Self / Same As Patient Allergies No Known Allergies Allergy (Verified 01/21/25 15:29) HPI Comments Details: 89-year-old male patient presenting for evaluation of a right inguinal hernia. The hernia has been present for approximately 9 months and seems to be increa sing in size. He reports being very constipated due to narcotics requiring significant straining which may have increased the size of the hernia. He is now off narcotic and feels much improved but continues to note the hernia. The hernia does decrease in size at night when in bed. [facility] Medical History (Updated 01/21/25 @ 16:20 by Anand Woodruff MD) Reducible right inguinal hernia Surgical History History of hip surgery (11/2023) Hx of cardiac catheterization (12/2012) Social History Patient Tobacco Use Status: Current everyday Tobacco user Review of Systems Const All systems reviewed & are unremarkable except as noted in HPI and below Physical Exam Vital Signs: Last Vital Signs Pulse 79 01/21/25 15:21 BP 166/78 H 01/21/25 15:21 BMI result Body Mass Index 23.8 Const General: cooperative and no acute distress Nutritional Appearance: well nourished Orientation/consciousness: patient oriented x3 Limitations: no limitations HEENT Head: Yes normocephalic and Yes atraumatic Ears: hearing grossly normal bilaterally Resp Effort & Inspection: normal respiratory effort, no audible wheezes, no cough and no respiratory distress Cardio Jugular venous distension: no JVD GI Other: Soft, nondistended, nontender, easily identified right inguinal hernia noted in the standing position. Hernia increases in size with Valsalva maneuvers and does reduce with light pressure. There may be a communicating hydrocele on the right side and possibly on the left. Inspection: Yes normal to inspection Skin Other: Warm, dry, no rash Neuro General: patient oriented x3 Extrem General: Yes no clubbing, cyanosis or edema Assessment & Plan Assessment & Plan (1) Reducible right inguinal hernia: Code(s): K40.90 - Unilateral inguinal hernia, without obstruction or gangrene, not specified as recurrent Category: Medical Plan 89-year-old male patient presenting with a reducible right inguinal hernia. On examination the hernia is quite large but does reduce with light pressure. I recommended repair of the right inguinal hernia with mesh and after discussion of the procedure, risks, and alternatives, he consents to the procedure. As he will be leaving for [place] on February 19 we will attempt to have the surgery done as soon as possible. Coding Level of Care Code New Pt Level 4 (99691) Diagnoses Reducible right inguinal hernia K40.90
[2025-01-21 15:21] VITALS: BP 166/78; PULSE 79; BMI 23.8
--- OUTSIDE RECORDS SUMMARY | 2025-01-21 18:19 | XMS_ITS | Clinical Summary ---
Author Organization [facility] ity Address [address] [place] [address] Care Team Providers Care Health Education Specialist Name Role Phone Unavailable Primary Care Provider [...] nts (1 - 1-dose 75+ series) 2012 Cholesterol Screening (Lipid Panel) 03/11/2024 Falls Risk Assessment 03/11/2024 Social Influencers of Health Screening 03/11/2024 Depression Screening 05/16/2024 COVID-19 Vaccine (1 - 2023-2 5 season) 2025 Influenza Vaccine (#1) 2025 HIB Vaccines Aged [...] Documents on File Type Date Recorded Patient Insulation Professional Expl anation Health Care Decision (hx) 11/21/2023 HE ALTH CARE PROXY
--- OUTSIDE RECORDS SUMMARY | 2025-01-21 18:19 | XMS_ITS | Patient Health Record ---
Author Organization [facility] Address [address] [place] [address] Care Team Providers Care Social Insurance Administrator Name Role Phone Sebastian Preciado MD Primary Care Provider Kt Sorenson Jr Unavailable [phone] Allergies No Known Allergies Reason For Referral [...] Problem Status W/U Status Risk Notes Problem 18594006 Other constipati on (K59.09) Active confirmed Problem 41808510 Other dysphagia (R13.19) Active confirmed Problem 34970558 Oropharyngeal dysphagia (R13.12) Active confirmed Problem 67490901 Dysphagia, unspecified type (R13.10) Active confirmed Problem 13842326 Diarrhea, unspecified type (R19.7) Active confirmed Problem 758472250 Aspiration into airway, initial encounter (T17.088A) Active confirmed Plan Of Treatment Pending Test Test Name Order Date XR BARIUM SWALLOW-ESOPHAGUS 12/16/2021 XR BARIUM SWALLOW, MODIFIED VIDEO 2021 Insurance Providers Payer Name Payer Address Payer Phone Subscriber Number Group Number Insured Name Patient Relationship to Insured Coverage Start Date Coverage End Date MEDICARE OF [place] [address] [place] [address] [id number] AMITA JERNIGAN Self - patient is the insured [employer] ATT[employer] CLAIMS [address] [place] [address] [id number] AMITA JERNIGAN Self - patient is the [...] 03/02/21 Hospitalization History Reason Date(Month/Year) TIA in [place] 09/05
--- OUTSIDE RECORDS SUMMARY | 2025-01-21 18:20 | XMS_ITS | Patient Health Record ---
Author Organization Sebastian Preciado III, MD Address [address] [facility] [place] [address] Care Team Providers Care Shift Leader Name Role Phone Sebastian Preciado Primary Care [...] ff Reviewed date:05/15/2024 11:39:51 AM Interpretation: Performing Lab:[facility], [address] [place] [phone] Notes/Report: White Blood Count 8.5 4.8-10.8 X10*3/uL [...] 0.0-0.2 /100WBC Neutrophils Absolute Auto 6.5 2.0-8.3 x10*3/uL Imm Gran Abs Auto 0.03 0.00-0.03 X10*3/uL Lymphocytes Absolute Auto 1.0 1.2-4.9 X10*3/uL Monocytes Absolute Auto 0.8 0.1-1.2 X10*3/uL Eosinophils Absolute Auto 0.2 0.0-0.4 X10*3/uL Basophils Absolute Auto 0.1 0.0-0.2 X10*3/uL NRBC Abs Auto 0.000 0.0-0.012 X10*3/uL Comprehensive Met. Panel Reviewed date:05/15/2024 11:39:51 AM Interpretation: Performing Lab:[facility], [address] [place] [phone] Notes/Report: Sodium 138 135-145 mmol/L Potassium 4.2 [...] Antigen Reviewed date:05/15/2024 11:39:51 AM Interpretation: Performing Lab:[facility], [address] [place] [phone] Notes/Report: Prostate Specific Antigen 0.50 <0.05-4.0 ng/mL PSA methodology: [employer] i Chemiluminescent Microparticle Immunoassay (CMIA) Beta-2 Glycoprotein Antibody Reviewed date:05/22/2024 04:16:19 PM Interpretation: Performing Lab:[facility], [address] [place] [phone] Notes/Report: Beta-2 Glycoprotein IgG <2.0 <20.0 U/mL [...] aging. For additional information, please refer to http://education.SwingPal/faq/FAQ1 09 (This link is being provided for informational/ educational purposes only.) THIS TEST WAS PERFORMED AT: [facility] TREVON CHEN MD,PHD Tricycl[facility] Antidepressant Scr n Reviewed date:05/22/2024 04:16:19 PM Interpretation: Performing Lab:[facility], [address] [place] [phone] Notes/Report: Amitriptyline, Urine NEGATIVE REFERENCE RANGE: <100 ng/mL THIS TEST PERFORMED AT: [facility] [address] [place], [place] [phone] PROCESSOR HELPER: TREVON CHEN MD, PHD NOTES AND COMMENTS: This drug testing is for medical treatment only. Analysis was performed as non-forensic testing and these results should be used only by healthcare providers to render diagnosis or treatment, or to monitor progress of medical conditions. LDT Notes: Confirmation tests were developed and their analytical performance characteristics have been determined by [employer]. It has not been cleared or approved by the FDA. This assay has been validated pursuant to the CLIA regulations and is used for clinical purposes. Healthcare Providers needing Interpretation assistance, please contact us at [phone] ( ) M-F, 8am to 10pm EST THIS TEST PERFORMED AT: [facility] [address] [address] [phone] PROCESSOR HELPER: JAYDA WATTS MD Nortriptyline, Urine NEGATIVE REFERENCE RANGE: <100 ng/mL THIS TEST PERFORMED AT: [facility] [address] [place] [address] [phone] PROCESSOR HELPER: TREVON CHEN MD, PHD NOTES AND COMMENTS: This drug testing is for medical treatment only. Analysis was performed as non-forensic testing and these results should be used only by healthcare providers to render diagnosis or treatment, or to monitor progress of medical conditions. LDT Notes: Confirmation tests were developed and their analytical performance characteristics have been determined by [facility]. It has not been cleared or approved by the FDA. This assay has been validated pursuant to the CLIA regulations and is used for clinical purposes. Healthcare Providers needing Interpretation assistance, please contact us at [phone] ( ) M-F, 8am to 10pm EST THIS TEST PERFORMED AT: [facility] [address] [place] [phone] PROCESSOR HELPER: JAYDA WATTS MD CT abdomen pelvis w con Reviewed date:05/26/2024 09:04:12 PM Interpretation: Performing Lab: Notes/Report: [address] [address] [address] Scan Report Signed Patient: Royce Jernigan MR#: [id number] : 1935 Acct:[id number] Age/Sex: 88 / M ADM Date: 05/23/24 Loc: HO.CT Attending Dr: Sebastian Preciado MD Ordering Physician: Sebastian Preciado MD Date of Service: 05/23/24 Procedure(s): CT abdomen pelvis w IV con Accession Number(s): [id number] cc: Sebastian Preciado MD Report Number: [id number]: Total DLP = 594.00 mGy-cm EXAMINATION: CT ABDOMEN PELVIS WITH IV CONTRAST HISTORY: femoral hernia COMPARISON: There are no prior studies for comparison. TECHNIQUE: CT scan of the abdomen and pelvis was performed following administration of 85 mL Omnipaque 350 using standard departmental protocol. Coronal and sagittal reformatted images were generated and reviewed. The patient received oral contrast material. This CT exam was performed with one or more of the following dose reduction techniques: automated exposure control, adjustment of the mA and/or kV according to patient size, use of iterative reconstruction technique. DLP: 594 mGy-cm FINDINGS: LOWER CHEST: There is scarring at the right lung base. The visualized left lung base is clear. There is no pleural effusion. CARDIOVASCULATURE: The heart is normal in size. There is no pericardial effusion. LIVER: The liver is normal in size and contour. No liver mass is identified. The hepatic and portal veins are patent. GALLBLADDER / BILE DUCTS: The gallbladder is unremarkable. There is no intra or extrahepatic biliary ductal dilatation. SPLEEN: The spleen is normal in size. No focal splenic lesion is identified. PANCREAS: The pancreas is unremarkable in appearance. ADRENAL GLANDS: Within normal limits. KIDNEYS/RETROPERITONEUM: No renal calculi are identified. There is no hydronephrosis. No renal masses are identified. LYMPH NODES: No abdominal or pelvic lymphadenopathy. VASCULATURE: The abdominal aorta demonstrates atherosclerotic calcification, but is normal in caliber. MESENTERY/PERITONEUM: No free fluid. No masses. There is no free intraperitoneal gas. STOMACH: The stomach is collapsed, limiting evaluation. SMALL BOWEL: The small bowel is normal in caliber. COLON: There is a large amount of stool throughout the colon. APPENDIX: Normal. URINARY BLADDER/PELVIC ORGANS: The urinary bladder is unremarkable. The prostate is obscured by streak artifact from a left total hip arthroplasty. BONES / SOFT TISSUES: No suspicious bony or soft tissue abnormalities. There is a fat-containing right femoral hernia. CT/CT abdomen pelvis w IV con IMPRESSION: 1. Fat-containing right femoral hernia. 2. Large amount of stool throughout the colon. Electronically signed by: Sebastian Latham MD 05/23/2024 03:27 PM [facility] Dictated By: Sebastian Latham MD Signed By: <Electronically signed by Sebastian Latham MD in OV> 05/23/24 1527 DD/ 1411 TD/TT: 05/23/24 1446 Night Nurse: [address] [address] [address] Scan Report Signed Patient: Royce Jernigan MR#: [id number] : 1935 Acct:[id number] Age/Sex: 88 / M ADM Date: 05/23/24 Loc: HO.CT Attending Dr: Sebastian Preciado MD Ordering Physician: Sebastian Preciado MD Date of Service: 05/23/24 Procedure(s): CT abdomen pelvis w IV con Accession Number(s): [id number] cc: Sebastian Preciado MD Report Number: [id number]: Total DLP = 594.00 mGy-cm EXAMINATION: CT ABDOMEN PELVIS WITH IV CONTRAST HISTORY: femoral hernia COMPARISON: There ar e no prior studies for comparison. TECHNIQUE: CT scan o f the abdomen and pelvis was performed following administration of 85 mL Omnipaque 350 using standard departmental protocol. Coronal an d sagittal reformatted images were generated and reviewed. The patien t received oral contrast material. This CT exam was performed with one or more of the following dose reduction techniques : automated exposure control, adjustment of the mA and/or kV according to patient size, use of iterative reconstruction technique. DLP: 594 mGy-cm FINDINGS: LOWER CHEST: There i s scarring at the right lung base. The visualized left lung base is clear. There is no pleural effusion. CARDIOVASCULATURE: T he heart is normal in size. There is no pericardial effusion. LIVER: The liver is normal in size and contour. No liver mass is identified. The hepatic and portal veins are patent. GALLBLADDER / BILE DUCTS: The gallbladder is unremarkable. There is no intra or extrahepati c biliary ductal dilatation. SPLEEN: The spleen i s normal in size. No focal splenic lesion is identified. PANCREAS: The pancre as is unremarkable in appearance. ADRENAL GLANDS: With in normal limits. KIDNEYS/RETROPERITON EU M: No renal calculi are identified. There is no hydronephrosis. No renal masses are identified. LYMPH NODES: No abdominal or pelvic lymphadenopathy. VASCULATURE: The abdominal aorta demonstrates atherosclerotic calcification, but i s normal in caliber. MESENTERY/PERITONEUM : No free fluid. No masses. There is no free intraperitoneal gas. STOMACH: The stomach is collapsed, limiting evaluation. SMALL BOWEL: The sma ll bowel is normal in caliber. COLON: There is a large amount of stool throughout the colon. APPENDIX: Normal. URINARY BLADDER/PELV IC ORGANS: The urinary bladder is unremarkable. The prostate is obscured by streak artifact from a left total hip arthroplasty. BONES / SOFT TISSUES : No suspicious bony or soft tissue abnormalities. There is a fat-containing right femoral hernia. __ CT/CT abdomen pelvis w IV con IMPRESSION: 1. Fat-containing right femoral hernia. 2. Large amount of stool throughout the colon. Electronically yunior d by: Sebastian Latham MD 05/23/2024 03:27 PM [facility] Dictated By: Sebastian Latham MD Signed By: <Electronically signed by Sebastian Latham MD in OV> 05/23/24 1527 DD/ 1411 TD/TT: 05/23/24 1446 Night Nurse: Complete Blood Count Auto Di ff Reviewed date:11/04/2024 01:48:53 PM Interpretation: Performing Lab:[facility], [address] [place] [phone] Notes/Report: White Blood Count 5.8 4.8-10.8 X10*3/uL Red Blood Count 4.22 4.60-5.80 X10*6/uL Hemoglobin 13.6 14.0-18.0 g/dl Hematocrit 41.5 42.0-52.0 % Mean Corpuscular Volume 98.3 80.0-98.0 fL Mean Corpuscular Hemoglobin 32.2 27.0-33.0 pg Mean Corpuscular HGB Conc 32.8 31.0-36.0 g/dl Red Cell Distribution Width 14.6 11.0-16.0 % Platelet Count 248 160-400 X10*3/uL Mean Platelet Volume 10.0 9.4-12.4 fL Neutrophils Percent Auto 59.2 45-73 % Imm Gran Pct Auto 0.5 0.0-0.4 % Lymphocytes Percent Auto 25.0 20-40 % Monocytes Percent Auto 10.5 2-11 % Eosinophils Percent Auto 3.4 0-4 % Basophils Percent Auto 1.4 0-2 % NRBC Pct Auto 0.0 0.0-0.2 /100WBC Neutrophils Absolute Auto 3.4 2.0-8.3 x10*3/uL Imm Gran Abs Auto 0.03 0.00-0.03 X10*3/uL Lymphocytes Absolute Auto 1.5 1.2-4.9 X10*3/uL Monocytes Absolute Auto 0.6 0.1-1.2 X10*3/uL Eosinophils Absolute Auto 0.2 0.0-0.4 X10*3/uL Basophils Absolute Auto 0.1 0.0-0.2 X10*3/uL NRBC Abs Auto 0.000 0.0-0.012 X10*3/uL Comprehensive [place]. Panel Fa Reviewed date:11/04/2024 01:48:53 PM Interpretation: Performing Lab:[facility], [address] [place] [phone] Notes/Report: Sodium 139 135-145 mmol/L Potassium 4.2 3.3-5.1 mmol/L Chloride 102 96-108 mmol/L Carbon Dioxide 30 22-29 mmol/L Anion Gap 11 12-20 Blood Urea Nitrogen 22 9-16 mg/dL Creatinine 1.05 0.5-1.4 mg/dL Estimated Glomerular Filt Rate > 60 Chronic Kidney Disease: Estimated GFR < 60 mL/min/1.73m2 Severe Kidney Disease: Estimated GFR < 15 mL/min/1.73m2 Glucose Fasting 92 60-99 mg/dL Calcium 9.6 8.4-10.2 mg/dL Bilirubin Total 1.0 0.0-1.0 mg/dL Aspartate Amino Transferase 23 5-37 U/L Alanine Aminotransferase 19 0-40 U/L Total Protein 7.4 6.5-8.0 g/dL Albumin Level 4.3 3.5-5.0 g/dL Alkaline Phosphatase 60 39-117 U/L Lipid Panel Reviewed date:11/04/2024 01:48:53 PM Interpretation: Performing Lab:[facility], [address] [place] [phone] Notes/Report: Triglycerides 70 <150 mg/dL Desirable Triglyceride: less than 150 mg/dL Borderline High Triglyceride 150-199 mg/dL High Triglyceride: 200-499 mg/dL Very High Triglyceride: greater than or equal to 5OO mg/dL Cholesterol 133 <200 mg/dL Desirable Cholesterol: less than 200 mg/dL Borderline High Cholesterol: 200-239 mg/dL High Cholesterol: greater than 239 mg/dL LDL Cholesterol Calculated 77 <100 mg/dL Desirable LDL: less than 100 mg/dL Near Optimal/Above Optimal LDL: 110-129 mg/dL Borderline High LDL: 130-159 mg/dL High LDL: 160-189 mg/dL Very High LDL: greater than or equal to 190 mg/dL HDL Cholesterol 42 >40 mg/dL Desirable HDL: greater than 40 mg/dL Note: This HDL assay may give artificially low results in patients with liver disease. Prostate Specific Antigen Reviewed date:11/04/2024 01:48:53 PM Interpretation: Performing Lab:[facility], [address] [place] [phone] Notes/Report: Prostate Specific Antigen 0.69 <0.05-4.0 ng/mL PSA methodology: [employer] i Chemiluminescent Microparticle Immunoassay (CMIA) Complete Blood Count Auto Di ff Reviewed date:11/25/2024 09:42:15 AM Interpretation: Performing Lab:[facility], [address] [place] [phone] Notes/Report: White Blood Count 6.2 4.8-10.8 X10*3/uL Red Blood Count 4.08 4.60-5.80 X10*6/uL Hemoglobin 12.9 14.0-18.0 g/dl Hematocrit 40.0 42.0-52.0 % Mean Corpuscular Volume 98.0 80.0-98.0 fL Mean Corpuscular Hemoglobin 31.6 27.0-33.0 pg Mean Corpuscular HGB Conc 32.3 31.0-36.0 g/dl Red Cell Distribution Width 14.6 11.0-16.0 % Platelet Count 203 160-400 X10*3/uL Mean Platelet Volume 9.7 9.4-12.4 fL Neutrophils Percent Auto 61.3 45-73 % Imm Gran Pct Auto 0.5 0.0-0.4 % Lymphocytes Percent Auto 22.7 20-40 % Monocytes Percent Auto 10.2 2-11 % Eosinophils Percent Auto 4.2 0-4 % Basophils Percent Auto 1.1 0-2 % NRBC Pct Auto 0.0 0.0-0.2 /100WBC Neutrophils Absolute Auto 3.8 2.0-8.3 x10*3/uL Imm Gran Abs Auto 0.03 0.00-0.03 X10*3/uL Lymphocytes Absolute Auto 1.4 1.2-4.9 X10*3/uL Monocytes Absolute Auto 0.6 0.1-1.2 X10*3/uL Eosinophils Absolute Auto 0.3 0.0-0.4 X10*3/uL Basophils Absolute Auto 0.1 0.0-0.2 X10*3/uL NRBC Abs Auto 0.000 0.0-0.012 X10*3/uL Comprehensive Met. Panel Reviewed date:11/25/2024 09:42:15 AM Interpretation: Performing Lab:[facility], [address] [place] [phone] Notes/Report: Sodium 139 135-145 mmol/L Potassium 4.2 3.3-5.1 mmol/L Chloride 104 96-108 mmol/L Carbon Dioxide 30 22-29 mmol/L Anion Gap 9 12-20 Blood Urea Nitrogen 17 9-16 mg/dL Creatinine 0.93 0.5-1.4 mg/dL Estimated Glomerular Filt Rate > 60 Chronic Kidney Disease: Estimated GFR < 60 mL/min/1.73m2 Severe Kidney Disease: Estimated GFR < 15 mL/min/1.73m2 Glucose Random 93 60-115 mg/dL Calcium 9.3 8.4-10.2 mg/dL Bilirubin Total 0.9 0.0-1.0 mg/dL Aspartate Amino Transferase 22 5-37 U/L Alanine Aminotransferase 18 0-40 U/L Total Protein 7.0 6.5-8.0 g/dL Albumin Level 4.1 3.5-5.0 g/dL Alkaline Phosphatase 59 39-117 U/L Reason For Referral Reason Evaluate and Treat Right sided abdominal pain Femoral hernia of right side Diagnosis 1 Femoral hernia of ri ght side (K41.90) Diagnosis 2 Abdominal pain (R10. 9) Referral Organization Sebastian Preciado III, MD Referring Provider First Name Sebastian Referring Provider Last Name Ilana Referring Provider Speciality Internal M edicine Referred Provider [facility] er, General Surgeons Referred Provider Specialty Surgery General Notes D, Sade 10/29/2024 10:27:12 AM > Referral faxed with progress note Referral Priority Routine Referral Appointment Date 11/29/2024 Medications Medication SIG (Take, Route, Frequency, Duration) Notes Start Date End Date Status Furosemide 20 MG 1 tablet Orally Once a day 11/06/2024 Active Potassium Chloride ER 10 MEQ 1 tablet with food Orally once a day 11/06/2024 Active Isosorbide Mononitrate ER 30 MG 1 tablet in the morning Orally Once a day Active Pravastatin Sodium 40 MG 1 tablet Orally Once a day Active Tylenol Arthritis Pain Active Centrum Silver Activ e Adult Aspirin EC Low Strength 81 MG 1 tablet Orally Once a day Active Atenolol 25 MG 1 tablet Orally Once a day for 90 days Active Immunizations Vaccine Route Administration Date Status Comme nts Influenza IM Intramuscular 04/18/2013 Administered Lot# [id number] Pneumococcal Unknown 02/25/2010 Administered Influenza Unknown 03/04/2014 [...] Problem Status W/U Status Risk Notes Problem 7287082 Former smoker (Z87.891) Active confirmed He has a plan to prevent relapse in times of stress and illness. We discussed lifestyle today. Problem 807531289 Overweight (E66.3) Active confirmed He remains overweight. We discussed his diet and nutrition.We reviewed his previous weights. We made a plan to lose weight at a rate of 1 pound per week. Problem 0600067 Arthritis (M19.90) Active confirmed The right third [...] referred to orthopedics hand surgery Problem Malignant neoplasm of prostate (347729544) Malignant neoplasm of prostate (C61) Active confirmed His PSA in was 0.44. It is currently 0.63. The values being observed. Problem Hyperlipidemia (77795389) Hyperlipidemia, unspecified (E78.5) Active confirmed His lipids are treated and have been stable. A fasting lipid profile will be done periodically. Problem Essential hypertension (04033708) Essential (primary) hypertension (I10) Active confirmed His blood pressure has been normal and no change was made in his regimen. I urged him to have his blood pressure determined at least once a week while he is in [place] and reported back to me. Problem Atherosclerotic heart disease of [place] coronary artery without angina pectoris ([id number]) Atherosclerotic heart disease of [place] coronary artery without angina pectoris (I25.10) Active confirmed He continues to have anginaa with prolonged exertion. He has an appointment in the near future to see the risk control specialist after he has an echocardiogram and a nuclear medicine stress test. He will come back from [place] the end of September 2023. I continue to use peak with him every 21 days. Problem Gastro-esophageal reflux disease without esophagitis (015478581) Gastro-esophage al reflux disease without esophagitis (K21.9) Active confirmed His esophageal reflux is well controlled with [id number] r medication and no change in his regimen was necessary today. Problem 717744083 Erosive (osteo)arthriti s (M15.4) Active confirmed The swelling in the right third and fourth fingers is less than the erythema has resolved. Will be observed at this time. Problem 15927910 Cervical radiculopathy (M54.12) Active confirmed He is free of symptoms at this time. He will notify me if the pain returns. 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 He is going to have an ultrasound of his heart, which will help clarify if the valve is a source of an embolism. Problem 845222680 Osteoarthritis of cervical spine, unspecified spinal osteoarthritis complication status (M47.812) Active confirmed He has very limited range of motion in all directions of his neck. The current nerve impingement symptoms are improving rapidly. Problem 203626382 Ischemic heart disease (I25.9) Active confirmed We have requested the results of his cardiac studies. He is tolerating the isosorbide well without dizziness. Problem 724883363 Peripheral edema (R60.0) Active confirmed We began a regimen of furosemide 20 mg and potassium chloride 10 mEq daily. Problem [id number] Femoral hernia of right side (K41.90) Active confirmed He has occasional pain in his right lower abdominal wall. There is a right femoral hernia on the CT scan done recently. He was instructed on how to take care of this if it worsens. A surgical consultation is pending later this week. Vital Signs Heart Rate 66 /min 11/27/2024 Temperature 98.2 degrees Fahrenheit 11/27/2024 Blood pressure diastolic 79 mm Hg 11/27/2024 Height 68 in 11/27/2024 Blood pressure systolic 138 mm Hg 11/27/2024 Weight 159 lbs 11/27/2024 BMI 24.17 kg/m2 11/27/2024 Encounters Encounter Location Date Provider Diagnosis Sebastian Preciado III, MD [address] [place] [address] [place] [address] 01/27/2024 Sebastian Preciado Former smoker Z87.89 1 ; Essential (primary) hypertension I10 ; Hyperlipidemia, unspecified E78.5 ; Gastro-esophageal reflux disease without esophagitis K21.9 ; Nonrheumatic aortic valve stenosis I35.0 ; Ischemic heart disease I25.9 and Closed fracture of left hip, initial encounter S72.002A Sebastian Preciado III, MD [address] [place] [address] [place] [address] 05/14/2024 Sebastian Preciado Former smoker Z87.89 1 ; Essential (primary) hypertension I10 ; Hyperlipidemia, unspecified E78.5 ; Malignant neoplasm of prostate C61 ; Gastro-esophageal reflux disease without esophagitis K21.9 ; Atherosclerotic heart disease of [place] coronary artery without angina pectoris I25.10 ; Osteoarthritis of cervical spine, unspecified spinal osteoarthritis complication status M47.812 and Overweight E66.3 Sebastian Preciado III, MD [address] [place] [address] [place] [address] 06/04/2024 Sebastian Preciado Former smoker Z87.89 1 ; Femoral hernia of right side K41.90 ; Gastro-esophageal reflux disease without esophagitis K21.9 ; Malignant neoplasm of prostate C61 ; Essential (primary) hypertension I10 ; Hyperlipidemia, unspecified E78.5 ; Nonrheumatic aortic valve stenosis I35.0 ; Atherosclerotic heart disease of [place] coronary artery without angina pectoris I25.10 and Overweight E66.3 Sebastian Preciado III, MD [address] [place] [address] [place] [address] 08/03/2024 Sebastian Preciado Former smoker Z87.89 1 ; Femoral hernia of right side K41.90 ; Essential (primary) hypertension I10 ; Malignant neoplasm of prostate C61 ; Gastro-esophageal reflux disease without esophagitis K21.9 ; Osteoarthritis of cervical spine, unspecified spinal osteoarthritis complication status M47.812 ; Atherosclerotic heart disease of [place] coronary artery without angina pectoris I25.10 ; Overweight E66.3 and Nonrheumatic aortic valve stenosis I35.0 Sebastian Preciado III, MD [address] [place] [address] [place] [address] 10/23/2024 Sebastian Preciado Former smoker Z87.89 1 ; Essential (primary) hypertension I10 ; Malignant neoplasm of prostate C61 ; Hyperlipidemia, unspecified E78.5 ; Gastro-esophageal reflux disease without esophagitis K21.9 ; Atherosclerotic heart disease of [place] coronary artery without angina pectoris I25.10 ; Osteoarthritis of cervical spine, unspecified spinal osteoarthritis complication status M47.812 ; Overweight E66.3 and Nonrheumatic aortic valve stenosis I35.0 Sebastian Preciado III, MD [address] [place] [address] [place] [address] 11/06/2024 Sebastian Preciado Former smoker Z87.89 1 ; Peripheral edema R60.0 ; Overweight E66.3 ; Essential (primary) hypertension I10 ; Hyperlipidemia, unspecified E78.5 ; Malignant neoplasm of prostate C61 ; Gastro-esophageal reflux disease without esophagitis K21.9 ; Nonrheumatic aortic valve stenosis I35.0 ; Osteoarthritis of cervical spine, unspecified spinal osteoarthritis complication status M47.812 and Atherosclerotic heart disease of [place] coronary artery without angina pectoris I25.10 Sebastian Preciado III, MD [address] [place] [address] [place] [address] 11/27/2024 Sebastian Preciado Former smoker Z87.89 1 ; Femoral hernia of right side K41.90 ; Hyperlipidemia, unspecified E78.5 ; Malignant neoplasm of prostate C61 ; Essential (primary) hypertension I10 ; Gastro-esophageal reflux disease without esophagitis K21.9 ; Nonrheumatic aortic valve stenosis I35.0 ; Atherosclerotic heart disease of [place] coronary artery without angina pectoris I25.10 ; Osteoarthritis of cervical spine, unspecified spinal osteoarthritis complication status M47.812 and Peripheral edema R60.0 Sebastian Preciado III, MD [address] [place] [address] DR [place] [address] 05/21/2024 Sebastian Preciado Unilateral femoral hernia without obstruction or gangrene, recurrence not specified K41.90 Sebastian Preciado III, MD [address] [place] [address] [place] [address] 06/04/2024 Sebastian Chaidezne Former smoker Z87.89 1 Sebastian Preciado III, MD [address] [place] [address] [place] [address] 10/18/2024 Sebastian Preciado Former smoker Z87.89 1 Sebastian Preciado III, MD [address] [place] [address] [place] [address] 12/06/2024 Sebastian Preciado Former smoker Z87.89 1 Assessments Encounter Date Diagnosis (ICD Code) Assessment Notes Treat ment Notes Treatment Clinical Notes 01/27/2024 Former smoker (ICD-1 0 - Z87.891) [...] in [place] and reported back to me. 05/14/2024 Former [...] in [place] and reported back to me. 06/04/2024 Former smoker (ICD-1 0 - Z87.891) [...] to wait until he comes back to [place] in the spring to have it repaired. 08/03/2024 Former smoker (ICD-1 0 - Z87.891) [...] to wait until he comes back to [place] in the spring to have it repaired. 10/23/2024 Former smoker (ICD-1 0 - Z87.891) [...] [place] and reported back to me. 11/06/2024 Former smoker (ICD-1 0 - Z87.891) He has a plan to prevent relapse in times of stress and illness. We discussed lifestyle today. 11/06/2024 Peripheral edema (ICD-10 - R60.0) We began a regimen of furosemide 20 mg and potassium chloride 10 mEq daily. 11/27/2024 Former smoker (ICD-1 0 - Z87.891) [...] surgical consultation is pending later this week. 05/21/2024 Unilateral femoral hernia without obstruction or gangrene, recurrence not specified (ICD-10 - K41.90) 06/04/2024 Former smoker (ICD-1 0 - Z87.891) He has a plan to prevent relapse in times of stress and illness. We discussed lifestyle today. 10/18/2024 Former smoker (ICD-1 0 - Z87.891) He has a plan to prevent relapse in times of stress and illness. We discussed lifestyle today. 12/06/2024 Former smoker (ICD-1 0 - Z87.891) He has a plan to prevent relapse in times of stress and illness. We discussed lifestyle today. 01/27/2024 Hyperlipidemia, unspecified (ICD-10 - E78.5) The current fasting lipid profile shows good control of his lipids. No change in his regimen as needed. 05/14/2024 Hyperlipidemia, unspecified (ICD-10 - E78.5) The current fasting lipid profile shows good control of his lipids. No change in his regimen as needed. 06/04/2024 Gastro-esophageal reflux disease without esophagitis (ICD-10 - K21.9) His esophageal reflux is well controlled with gbmw-egf-swbwsfm medication and no change in his regimen was necessary today. 08/03/2024 Essential (primary) hypertension (ICD-10 - I10) His blood pressure has been 134/72 and no change was made in his regimen. I urged him to have his blood pressure determined at least once a week while he is in [place] and reported back to me. 10/23/2024 Malignant neoplasm o f prostate (ICD-10 - C61) His PSA is being followed. He is under the care of urology. He remains asymptomatic. 11/06/2024 Overweight (ICD-10 - E66.3) He remains overweight. We discussed his diet and nutrition.We reviewed his previous weights. We made a plan to lose weight at a rate of 1 pound per week. 11/27/2024 Hyperlipidemia, unspecified (ICD-10 - E78.5) His lipids are treated and have been stable. A fasting lipid profile will be done periodically. 01/27/2024 Gastro-esophageal reflux disease without esophagitis (ICD-10 - K21.9) His esophageal reflux is well controlled with ovme-lqq-lvweakw medication and no change in his regimen was necessary today. 05/14/2024 Malignant neoplasm o f prostate (ICD-10 - C61) His prostate cancer appears to be stable. There was no sign of disease progression today. 06/04/2024 Malignant neoplasm o f prostate (ICD-10 - C61) His prostate cancer appears to be stable. There was no sign of disease progression today. 08/03/2024 Malignant neoplasm o f prostate (ICD-10 - C61) His prostate cancer appears to be stable. There was no sign of disease progression today. 10/23/2024 Hyperlipidemia, unspecified (ICD-10 - E78.5) The current fasting lipid profile shows good control of his lipids. No change in his regimen as needed. 11/06/2024 Essential (primary) hypertension (ICD-10 - I10) His blood pressure has been normal and no change was made in his regimen. I urged him to have his blood pressure determined at least once a week while he is in [place] and reported back to me. 11/27/2024 Malignant neoplasm o f prostate (ICD-10 - C61) His PSA in 2022 was 0.44. It is currently 0.63. The values being observed. 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 He is going to have an ultrasound of his heart, which will help clarify if the valve is a source of an embolism. 05/14/2024 Gastro-esophageal reflux disease without esophagitis (ICD-10 - K21.9) His esophageal reflux is well controlled with xcrj-fqz-qswatap medication and no change in his regimen was necessary today. 06/04/2024 Essential (primary) hypertension (ICD-10 - I10) His blood pressure is 134/72 and no change was made in his regimen. I urged him to have his blood pressure determined at least once a week while he is in [place] and reported back to me. 08/03/2024 Gastro-esophageal reflux disease without esophagitis (ICD-10 - K21.9) His esophageal reflux is well controlled with fjrk-fex-nfynzvm medication and no change in his regimen was necessary today. 10/23/2024 Gastro-esophageal reflux disease without esophagitis (ICD-10 - K21.9) His esophageal reflux is well controlled with uotl-akw-amndqos medication and no change in his regimen was necessary today. 11/06/2024 Hyperlipidemia, unspecified (ICD-10 - E78.5) The current fasting lipid profile shows good control of his lipids. No change in his regimen as needed. 11/27/2024 Essential (primary) hypertension (ICD-10 - I10) His blood pressure has been normal and no change was made in his regimen. I urged him to have his blood pressure determined at least once a week while he is in [place] and reported back to me. 01/27/2024 Ischemic heart disease (ICD-10 - I25.9) We have requested the results of his cardiac studies. He is tolerating the isosorbide well without dizziness. 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 He has an appointment in the near future to see the risk control specialist after he has an echocardiogram and a nuclear medicine stress test. He will come back from [place] the end of September 2023. I continue to use peak with him every 21 days. 06/04/2024 Hyperlipidemia, unspecified (ICD-10 - E78.5) The current fasting lipid profile shows good control of his lipids. No change in his regimen as needed. 08/03/2024 Osteoarthritis of cervical spine, unspecified spinal osteoarthritis complication status (ICD-10 - M47.812) He has very limited range of motion in all directions of his neck. The current nerve impingement symptoms are improving rapidly. 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 He has an appointment in the near future to see the risk control specialist after he has an echocardiogram and a nuclear medicine stress test. He will come back from [place] the end of September 2023. I continue to use peak with him every 21 days. 11/06/2024 Malignant neoplasm o f prostate (ICD-10 - C61) His PSA is being followed. He is under the care of urology. He remains asymptomatic. 11/27/2024 Gastro-esophageal reflux disease without esophagitis (ICD-10 - K21.9) His esophageal reflux is well controlled with ukrq-ffl-vqhljma medication and no change in his regimen was necessary today. 01/27/2024 Closed fracture of left hip, initial encounter (ICD-10 - S72.002A) He was referred back to orthopedics to do with the postoperative pain 05/14/2024 Osteoarthritis of cervical spine, unspecified spinal osteoarthritis complication status (ICD-10 - M47.812) He has very limited range of motion in all directions of his neck. The current nerve impingement symptoms are improving rapidly. 06/04/2024 Nonrheumatic aortic valve stenosis (ICD-10 - I35.0) He had a TAVR in the recent past for aortic stenosis. He is going to have an ultrasound of his heart, which will help clarify if the valve is a source of an embolism. 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 He has an appointment in the near future to see the risk control specialist after he has an echocardiogram and [...] nerve impingement symptoms are improving rapidly. 11/06/2024 Gastro-esophageal reflux disease without esophagitis (ICD-10 - K21.9) His esophageal reflux is well controlled with gaey-qqb-jytncdw medication and no change in his regimen was necessary today. 11/27/2024 Nonrheumatic aortic valve stenosis (ICD-10 - I35.0) He had a TAVR in the recent past for aortic stenosis. He is going to have an ultrasound of his heart, which will help clarify if the valve is a source of an embolism. 05/14/2024 Overweight (ICD-10 - E66.3) His body mass index is stable at 25.09. We discussed a weight loss strategy. He will try to lose weight at a rate of one half of a pound per week. 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 He has an appointment in the near future to see the risk control specialist after he has an echocardiogram and [...] half of a pound per week. 10/23/2024 Overweight (ICD-10 - E66.3) His body mass index is stable at 25.09. We discussed a weight loss strategy. He will try to lose weight at a rate of one half of a pound per week. 11/06/2024 Nonrheumatic aortic valve stenosis (ICD-10 - I35.0) He had a TAVR in the recent past for aortic stenosis. He is going to have an ultrasound of his heart, which will help clarify if the valve is a source of an embolism. 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 He has an appointment in the near future to see the risk control specialist after he has an echocardiogram and [...] valve is a source of an embolism. 10/23/2024 Nonrheumatic aortic valve stenosis (ICD-10 - [...] nerve impingement symptoms are improving rapidly. 11/27/2024 Osteoarthritis of cervical spine, unspecified spinal osteoarthritis complication status (ICD-10 - M47.812) He has very limited range of motion in all directions of his neck. The current nerve impingement symptoms are improving rapidly. 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 He has an appointment in the near future to see the risk control specialist after he has an echocardiogram and a nuclear medicine stress test. He will come back from [place] the end of September 2023. I continue to use peak with him every 21 days. 11/27/2024 Peripheral edema (ICD-10 - R60.0) We began a regimen of furosemide 20 mg and potassium chloride 10 mEq daily. Plan Of Treatment Pending Test Test Name Order Date PREALBUMIN 11/21/2019 PROFILE, FASTING (COMPREHENSIVE METABOLI C) 09/14/2017 PROFILE, FASTING (COMPREHENSIVE METABOLI C) 11/07/2018 PROFILE, FASTING (COMPREHENSIVE METABOLI C) 05/18/2017 PROFILE, FASTING (COMPREHENSIVE METABOLI C) 02/28/2020 PROFILE, FASTING (COMPREHENSIVE METABOLI C) 05/10/2018 PROFILE, FASTING (COMPREHENSIVE METABOLI C) 11/27/2024 PROFILE, FASTING (COMPREHENSIVE METABOLI C) 12/15/2017 PROFILE, FASTING (COMPREHENSIVE METABOLI C) 03/14/2019 PROFILE, FASTING (COMPREHENSIVE METABOLI C) 05/12/2020 MAGNESIUM 11/21/2019 LIPID PANEL 12/15/2017 LIPID PANEL 03/14/2019 LIPID PANEL 05/12/2020 LIPID PANEL 09/14/2017 LIPID PANEL 11/07/2018 LIPID PANEL 05/18/2017 LIPID PANEL 02/28/2020 LIPID PANEL 05/10/2018 FREE T4 (FT4) 11/21/2019 TSH (THYROID STIMULATING HORMONE) 2019 PSA, TOTAL 12/15/2017 PSA, TOTAL 03/14/2019 PSA, TOTAL 05/12/2020 PSA, TOTAL 09/14/2017 PSA, TOTAL 11/07/2018 PSA, TOTAL 05/18/2017 PSA, TOTAL 11/27/2024 CBC w DIFF 11/27/2024 CBC w DIFF 12/15/2017 CBC w DIFF 03/14/2019 CBC w DIFF 05/12/2020 CBC w DIFF 09/14/2017 CBC w DIFF 11/07/2018 CBC w DIFF 02/28/2020 CBC w DIFF 05/18/2017 CBC w DIFF 05/10/2018 Lipid Panel 11/27/2024 Next Appt Details Provider Name:Sebastian Preciado, 02/15/2025 11:15:00 AM, [address] [facility] [address], [place], [address], Provider Name:Sebastian Preciado, 05/10/2025 11:00:00 AM, [address] [facility] [address], [place], [address], Insurance Providers Payer Name Payer Address Payer Phone Subscriber Number Group Number Insured Name Patient Relationship to Insured Coverage Start Date Coverage End Date MEDICARE [place] [address] [place] [address] [id number] SanthoshRoyce sethi Self - patient is the insured [facility] [address] [place], [place] [id number] [phone] [id number] Royce Jernigan Self - patient is the insured Medical (General) History Medical History History ICD Code DJD of the neck hypertension hyperlipidemia gastroesophageal reflux disease (GERD) microscopic hematuria Herpes zoster January 2023, lower righ t back OA / effusion right knee 2001 prostate cancer XRT - [facility] coronary artery disease obesity former smoker aortic stenosis 1.0 cm Surgical History Surgery Date(Month/Year) No history Left hip surgery 11/2023 TAVR, [facility] 02/2021 cardiac catheterization, 3 stents December 2012 Hospitalization History Reason Date(Month/Year) No history
== END 2025-01-21 15:44 | disposition home or self-care (01) ==
LOC: HO.HGS 15:08
PROVIDERS: PCP Internal Medicine Medical Oncology; Visit Provider Surgery
DX: K40.90 Unilateral inguinal hernia, without obstruction or gangrene, not specified as recurrent (principal)
CPT/HCPCS: 99204

== ENCOUNTER → 2025-01-21 15:07 | Outpatient (BNVA) | payer MEDICARE, SELFPAY | PROVIDERS: PCP Internal Medicine Medical Oncology; Visit Provider Surgery | DX: K40.90 Unilateral inguinal hernia, without obstruction or gangrene, not specified as recurrent (principal); I10 Essential (primary) hypertension; F17.210 Nicotine dependence, cigarettes, uncomplicated | CPT/HCPCS: 99202 ==

== ENCOUNTER 2025-02-05 07:11 | Outpatient (REF) | payer MEDICARE, SELFPAY ==
--- OUTSIDE RECORDS SUMMARY | 2024-10-18 06:15 | XMS_ITS ---
Author Organization Sebastian Preciado III, MD Address [address] [place] [address] [place] [address] Care Team Providers Care Printing Estimator Name Role Phone Dr. Sebastian Preciado III Primary Care Provider [phone] REASON FOR VISIT Rx Refill Medications Medication [...] Date Provider Diagnosis Sebastian Preciado III, MD [address] [place] [address] [place] [address] 10/18/2024 Sebastian Preciado Former smoker Z87.891 Assessments [...] Name:Sebastian Preciado , 02/15/2025 11:15:00 AM, [address] [facility] [address], [place], [address], Provider Name:Sebastian Preciado , 05/14/2025 11:00:00 AM, [address] [facility] [address], [place], [address], Progress Notes * Royce JERNIGANDOB: (89 yo M)Acc No.[id number]:10/18/2024 Patient: Royce [place] :1935 A ge:89 Y S ex:Male Address:[address] [place] [phone] * Refills Refill Isosorbide Mononitrate ER Tablet [...] * Date: Generated for Estelle chao/Maximino/David on: 02/05/2025 07:14 AM EDT
--- OUTSIDE RECORDS SUMMARY | 2024-10-23 11:30 | XMS_ITS ---
Author Organization Sebastian Preciado III, MD Address [address] [place] [address] [address] [place] [address] Care Team Providers Care Boner Meat Name Role Phone Dr. Sebastian Preciado III [...] Provider Speciality Internal M edicine Referred Provider [facility] er, General Surgeons Referred Provider Specialty Surgery [...] Date Provider Diagnosis Sebastian Preciado III, MD [address] [place] [address] [place] [address] 10/23/2024 Sebastian Ilana Former smoker Z87.89 1 ; Essential (primary) hypertension I10 ; Malignant neoplasm of prostate C61 ; Hyperlipidemia, unspecified E78.5 ; Gastro-esophageal reflux disease without esophagitis K21.9 ; Atherosclerotic heart disease of [place] coronary artery without angina pectoris I25.10 ; [...] once a week while he is in [place] and reported back to me. 10/23/2024 Malignant [...] His esophageal reflux is well controlled with ypbj-qmq-dazudll medication and no change in his regimen was necessary today. 10/23/2024 Atherosclerotic hear t disease of [place] coronary artery without angina pectoris (ICD-10 - I25.10) He continues to have anginaa with prolonged exertion. He has an appointment in the near future to see the licensed nursing assistant after he has an echocardiogram and a nuclear medicine stress test. He will come back from [place] the end of September 2023. I continue [...] Femoral hernia of right side, General Surgeons [facility] Next Appt Details Follow Up: 2 Weeks, Reason: OV Provider Name:Sebastian Preciado , 02/15/2025 11:15:00 AM, [address] [place] [address] [address], [place], [address], Provider Name:Sebastian Preciado , 05/14/2025 11:00:00 AM, [address] [place] [address] [address], [place], [address], Progress Notes * Royce JERNIGANDOB: 8 (89 yo M)Acc No.[id number]:10/23/2024 Progress Notes Patient: Royce LOWRY Provider: Willa Preciado MD :1935 A ge:89 Y S ex:Male Date:10/23/2024 Address:[address] [place], [place] [id number] Subjective: * Chief Complaints: * L eft knee and ankle painWeight lossHypertensionHyperlipidemiaCoronary artery diseaseProstate cancerRepaired aortic stenosis * HPI: C OVID-19 Screening: Jorge hweat returns for ongoing medical management. He is up-to-date with his licensed nursing assistant, Dr. Stephen. He was told his replaced [...] c ardiac catheterization, 3 stents December 2012TAVR, [facility] eft hip surgery 11/2023No history * [...] x-cigarette smoker Jorge wheat was born in [place], [place] and has been to [facility] for 59 years. He has 3 [...] once a week while he is in [place] and reported back to me. 2 . [...] :His esophageal reflux is well controlled with ltzd-vsi-mjsrjcb medication and no change in his regimen was necessary today. 6 . A therosclerotic heart disease of [place] coronary artery without angina pectoris - I25.10 N otes :He continues to have anginaa with prolonged exertion. He has an appointment in the near future to see the licensed nursing assistant after he has an echocardiogram and a nuclear medicine stress test. He will come back from [place] the end of September 2023. I continue [...] Panel 5. O thers Referral To:General Surgeons [facility] Surgery Reason:Evaluate and Treat Right sided abdominal pain Femoral hernia of right side * Procedure Codes: * Preventive Medicine: Counseling: S moking/Tobacco Use Patient counseled on the dangers of tobacco use and urged to quit. 0 10/23/2024 * Follow Up: 2 Weeks (Reason: OV) * Images: * Sign off status: Completed true * Provider: Willa Preciado MD Date: 10/23/2024 Generated for Estelle chao/Maximino/Alyseitting on: 02/05/2025 07:15 AM EDT History and Physical Notes * HPI (History [...] Referred Provider Not es 10/23/2024 Sebastian Preciado [facility], General Surgeons Evaluate and Treat Right sided abdominal pain Femoral hernia of right side
--- OUTSIDE RECORDS SUMMARY | 2024-11-06 06:45 | XMS_ITS ---
Author Organization Sebastian Preciado III, MD Address [address] [place] [address] [address] [place] [address] Care Team Providers Care Watermelon Harvesting Supervisor Name Role Phone Dr. Sebastian Preciado III [...] Problem Status W/U Status Risk Notes Problem [id number] Peripheral edema (R60.0) Active confirmed We began [...] Date Provider Diagnosis Sebastian Preciado III, MD [address] [place] [address] [place] [address] 11/06/2024 Sebastian Preciado Former smoker Z87.89 1 ; Peripheral edema R60.0 ; Overweight E66.3 ; Essential (primary) hypertension I10 ; Hyperlipidemia, unspecified E78.5 ; Malignant neoplasm of prostate C61 ; Gastro-esophageal reflux disease without esophagitis K21.9 ; Nonrheumatic aortic valve stenosis I35.0 ; Osteoarthritis of cervical spine, unspecified spinal osteoarthritis complication status M47.812 and Atherosclerotic heart disease of [place] coronary artery without angina pectoris I25.10 Assessments [...] once a week while he is in [place] and reported back to me. 11/06/2024 Hyperlipidemia, [...] His esophageal reflux is well controlled with eabw-tmx-frkzphy medication and no change in his regimen [...] rapidly. 11/06/2024 Atherosclerotic hear t disease of [place] coronary artery without angina pectoris (ICD-10 - I25.10) He continues to have anginaa with prolonged exertion. He has an appointment in the near future to see the directory carrier after he has an echocardiogram and a nuclear medicine stress test. He will come back from [place] the end of September 2023. I continue [...] Provider Name:Sebastian Preciado , 02/15/2025 11:15:00 AM, [address] [place] [address] [address], [place], [address], Provider Name:Sebastian Preciado , 05/14/2025 11:00:00 AM, [address] [place] [address] [address], [place], [address], Progress Notes * Royce JERNIGANDOB: 8 (89 yo M)Acc No.[id number]:11/06/2024 Progress Notes Patient: Royce LOWRY Provider: Willa Preciado MD :1935 A ge:89 Y S ex:Male Date:11/06/2024 Address:[address] [place], [place] [id number] Subjective: * Chief Complaints: * P ain [...] c ardiac catheterization, 3 stents December 2012TAVR, [facility] eft hip surgery 11/2023No history * [...] x-cigarette smoker Jorge wheat was born in [place], [place] and has been to [facility] for 59 years. He has 3 [...] once a week while he is in [place] and reported back to me. 5 . [...] :His esophageal reflux is well controlled with ydcu-ran-ruqxcpi medication and no change in his regimen [...] 1 0. A therosclerotic heart disease of [place] coronary artery without angina pectoris - I25.10 N otes :He continues to have anginaa with prolonged exertion. He has an appointment in the near future to see the directory carrier after he has an echocardiogram and a nuclear medicine stress test. He will come back from [place] the end of September 2023. I continue [...] MD Date: 0 11/06/2024 Generated for Estelle chao/Maximino/Alyseitting on: 02/05/2025 07:15 [...]
--- OUTSIDE RECORDS SUMMARY | 2024-11-27 07:15 | XMS_ITS ---
Author Organization Sebastian Preciado III, MD Address [address] [place] [address] [address] [place] [address] Care Team Providers Care Grey Roll Worker Name Role Phone Dr. Sebastian Preciado III [...] Date Provider Diagnosis Sebastian Preciado III, MD [address] [place] [address] [address], [place] [address] 11/27/2024 Sebastian Ilana Former smoker Z87.89 1 ; Femoral hernia of right side K41.90 ; Hyperlipidemia, unspecified E78.5 ; Malignant neoplasm of prostate C61 ; Essential (primary) hypertension I10 ; Gastro-esophageal reflux disease without esophagitis K21.9 ; Nonrheumatic aortic valve stenosis I35.0 ; Atherosclerotic heart disease of [place] coronary artery without angina pectoris I25.10 ; [...] once a week while he is in [place] and reported back to me. 11/27/2024 Gastro-esophageal reflux disease without esophagitis (ICD-10 - K21.9) His esophageal reflux is well controlled with otbf-wbu-ciivqzc medication and no change in his regimen was necessary today. 11/27/2024 Nonrheumatic aortic valve stenosis (ICD-10 - I35.0) He had a TAVR in the recent past for aortic stenosis. He is going to have an ultrasound of his heart, which will help clarify if the valve is a source of an embolism. 11/27/2024 Atherosclerotic hear t disease of [place] coronary artery without angina pectoris (ICD-10 - I25.10) He continues to have anginaa with prolonged exertion. He has an appointment in the near future to see the senior investment analyst after he has an echocardiogram and a nuclear medicine stress test. He will come back from [place] the end of September 2023. I continue [...] Provider Name:Sebastian Preciado , 02/15/2025 11:15:00 AM, [address] [place] [address] [address], [place], [address], Provider Name:Sebastian Preciado , 05/14/2025 11:00:00 AM, [address] [place] [address] [address], [place], [address], Progress Notes * Royce JERNIGANDOB: (89 yo M)Acc No.[id number]:11/27/2024 Progress Notes Patient: Royce LOWRY Provider: Willa Preciado MD :1935 A ge:89 Y S ex:Male Date:11/27/2024 Address:[address] [place], [place] [phone] Subjective: * Chief Complaints: * R ight femoral herniaHypertensionHyperlipidemiaGERDProstate cancerCoronary artery diseasePeripheral edema * HPI: C OVID-19 Screening: Jorge wheat has an appointment at 9:30 in the morning November 29, 2024 to discuss and plan a right femoral herniorrhaphy at [facility]. He says she is feeling tired [...] c ardiac catheterization, 3 stents December 2012TAVR, [facility] eft hip surgery 11/2023No history * [...] x-cigarette smoker Jorge wheat was born in [place], [place] and has been to [facility] for 59 years. He has 3 children [...] mg/dL) 49 (Ref Range: mg/dL) * Lab:[facility]. Pane l Fast * Collection Date 11/01/2024 [...] once a week while he is in [place] and reported back to me. 6 . G warner-esophageal reflux disease without esophagitis - K21.9 ?Notes :His esophageal reflux is well controlled with gszf-bui-zmptdec medication and no change in his regimen was necessary today. 7 . N onrheumatic aortic valve stenosis - I35.0 N otes :He had a TAVR in the recent past for aortic stenosis. He is going to have an ultrasound of his heart, which will help clarify if the valve is a source of an embolism. 8 . A therosclerotic heart disease of [place] coronary artery without angina pectoris - I25.10 N otes :He continues to have anginaa with prolonged exertion. He has an appointment in the near future to see the senior investment analyst after he has an echocardiogram and a nuclear medicine stress test. He will come back from [place] the end of September 2023. I continue [...] 11/27/2024 Generated for Estelle chao/Maximino/Alyseitting on: 0 02/05/2025 07:15 AM EDT History and Physical [...]
--- OUTSIDE RECORDS SUMMARY | 2024-12-06 06:55 | XMS_ITS ---
Author Organization Sebastian Preciado III, MD Address [address] [place] [address] [place] [address] Care Team Providers Care Livestock Inspector Name Role Phone Dr. Sebastian Preciado III Primary Care Provider [phone] REASON FOR VISIT Rx Refill Medications Medication SIG (Take, Route, Fr equency, Duration) Notes Start Date End Date Status Atenolol 25 MG 1 tablet Orally Once a day for 90 days Active Social History Sex Assigned At : Social History Observation Description Sex Assigned At Male Encounters Encounter Location Date Provider Diagnosis Sebastian Preciado III, MD [address] [place] [address] [place] [address] 12/06/2024 Sebastian Preciado Former smoker Z87.891 Assessments [...] Provider Name:Sebastian Preciado , 02/15/2025 11:15:00 AM, [address] [place] [address] [address] [place], [address], Provider Name:Sebastian Preciado , 05/14/2025 11:00:00 AM, [address] [place] [address] [address], [place], [address], Progress Notes * Royce JERNIGANDOB: 8 (89 yo M)Acc No.[id number]:12/06/2024 Patient: George MARTINESDEBBIE Royce :1935 A ge:89 Y S ex:Male Address:[address] [place] [address] [place] [address] * Refills Refill Atenolol Tablet, 25 MG, Orally, 90 Tablet, 1 tablet, Once a day, 90 days, Refills=3 * true * Date: Generated for Estelle chao/Maximino/Alyseitting on: 0 02/05/2025 07:15 AM EDT
--- OUTSIDE RECORDS SUMMARY | 2025-02-05 07:15 | XMS_ITS | Clinical Summary ---
Author Organization [facility] ity Address [address] [place] [address] Care Team Providers Care Channel Manager Name Role Phone Unavailable Primary Care Provider [...] Documents on File Type Date Recorded Patient Chief Power Dispatcher Expl anation Health Care Decision (hx) 11/21/2023 [facility]
--- OUTSIDE RECORDS SUMMARY | 2025-02-05 07:15 | XMS_ITS | Patient Health Record ---
Author Organization [facility] Address [address] [place] [address] Care Team Providers Care Hourly Sales Staff Name Role Phone Sebastian Preciado MD Primary [...] Problem Status W/U Status Risk Notes Problem [id number] Other constipati on (K59.09) Active confirmed Problem 19515326 Other dysphagia (R13.19) Active confirmed Problem 13538480 Oropharyngeal dysphagia (R13.12) Active confirmed Problem 81821100 Dysphagia, unspecified type (R13.10) Active confirmed Problem 43893613 Diarrhea, unspecified type (R19.7) Active confirmed Problem [id number] Aspiration into airway, initial encounter (T17.488A) Active confirmed Plan Of Treatment Pending Test Test Name Order Date XR BARIUM SWALLOW-ESOPHAGUS 12/16/2021 XR BARIUM SWALLOW, MODIFIED VIDEO 2021 Insurance Providers Payer Name Payer Address Payer Phone Subscriber Number Group Number Insured Name Patient Relationship to Insured Coverage Start Date Coverage End Date MEDICARE OF [place] [address] [place] [id number] AMITA JERNIGAN Self - patient is the insured [employer] CLAIM[employer] [address] [place] [address] [id number] AMITA JERNIGAN Self - patient is the [...]
--- OUTSIDE RECORDS SUMMARY | 2025-02-05 07:16 | XMS_ITS | Patient Health Record ---
Author Organization Sebastian Preciado III, MD Address [address] [place] [address] [place] [address] Care Team Providers Care Cardiac Monitor Technician Name Role Phone Dr. Sebastian Preciado III [...] ff Reviewed date:05/15/2024 11:39:51 AM Interpretation: Performing Lab:[facility], [address] [place] [address] Notes/Report: White Blood Count 8.5 4.8-10.8 X10*3/uL [...] Panel Reviewed date:05/15/2024 11:39:51 AM Interpretation: Performing Lab:[facility], [address] [place] [phone] Notes/Report: Sodium 138 135-145 mmol/L Potassium 4.2 [...] Antigen Reviewed date:05/15/2024 11:39:51 AM Interpretation: Performing Lab:[facility], [address] [place] [address] Notes/Report: Prostate Specific Antigen 0.50 <0.05-4.0 ng/mL PSA methodology: PAAY Alinity i Chemiluminescent Microparticle Immunoassay (CMIA) Beta-2 Glycoprotein Antibody Reviewed date:05/22/2024 04:16:19 PM Interpretation: Performing Lab:[facility], [address] [place] [phone] Notes/Report: Beta-2 Glycoprotein IgG <2.0 <20.0 U/mL [...] aging. For additional information, please refer to http://education.[employer]utor[employer]/faq/FAQ1 09 (This link is being provided for informational/ educational purposes only.) THIS TEST WAS PERFORMED AT: [facility] [address] TREVON CHEN MD,PHD Tricyclic Antidepressant Scr n Reviewed date:05/22/2024 04:16:19 PM Interpretation: Performing Lab:[facility], [address] [place] [phone] Notes/Report: Amitriptyline, Urine NEGATIVE REFERENCE RANGE: <100 ng/mL THIS TEST PERFORMED AT: [facility] [address] [place], [place] [phone] GENERAL EXPEDITOR: TREVON CHEN MD, PHD NOTES AND COMMENTS: This drug testing is for medical treatment only. Analysis was performed as non-forensic testing and these results should be used only by healthcare providers to render diagnosis or treatment, or to monitor progress of medical conditions. LDT Notes: Confirmation tests were developed and their analytical performance characteristics have been determined by [facility]. It has not been cleared or approved by the FDA. This assay has been validated pursuant to the CLIA regulations and is used for clinical purposes. Healthcare Providers needing Interpretation assistance, please contact us at [phone] ( ) M-F, 8am to 10pm EST THIS TEST PERFORMED AT: [facility] [address] [place] [phone] GENERAL EXPEDITOR: JAYDA WATTS MD Nortriptyline, Urine NEGATIVE REFERENCE RANGE: <100 ng/mL THIS TEST PERFORMED AT: [facility] [place] [id number] [facility] [address] [place], [place] [phone] GENERAL EXPEDITOR: TREVON CHEN MD, PHD NOTES AND COMMENTS: This drug testing is for medical treatment only. Analysis was performed as non-forensic testing and these results should be used only by healthcare providers to render diagnosis or treatment, or to monitor progress of medical conditions. LDT Notes: Confirmation tests were developed and their analytical performance characteristics have been determined by [facility]. It has not been cleared or approved by the FDA. This assay has been validated pursuant to the CLIA regulations and is used for clinical purposes. Healthcare Providers needing Interpretation assistance, please contact us at [phone] ( ) M-F, 8am to 10pm EST THIS TEST PERFORMED AT: [facility] [address] [place] [phone] GENERAL EXPEDITOR: JAYDA WATTS MD CT abdomen pelvis w con Reviewed date:05/26/2024 09:04:12 PM Interpretation: Performing Lab: Notes/Report: [address] [address] [address] Scan Report Signed Patient: Royce Jernigan MR#: [id number] : 1935 Acct:[id number] Age/Sex: 88 / M ADM Date: 05/23/24 Loc: HO.CT Attending Dr: Sebastian Preciado MD Ordering Physician: Sebastian Preciado MD Date of Service: 05/23/24 Procedure(s): CT abdomen pelvis w IV con Accession Number(s): [id number] cc: Sebastian Preciado MD Report Number: [id number]: Total DLP = 594.00 mGy-cm EXAMINATION: CT [...] Sebastian Latham MD 05/23/2024 03:27 PM [facility] Dictated By: Sebastian Latham MD Signed By: <Electronically signed by Sebastian Latham MD in OV> 05/23/24 1527 DD/ 1411 TD/TT: 05/23/24 1446 Breast Trimmer: [place] [address] CT Scan Report Signed Patient: Royce Jernigan MR#: [id number] 0424 : 1935 Acct:[id number] Age/Sex: 88 / M ADM Date: 05/23/24 Loc: HO.CT Attending Dr: Sebastian Preciado MD Ordering Physician: Sebastian Preciado MD Date of Service: 05/23/24 Procedure(s): CT abdomen pelvis w IV con Accession Number(s): [id number] cc: Sebastian Preciado MD Report Number: [id number]: Total DLP = 594.00 mGy-cm EXAMINATION: CT [...] Sebastian Latham MD 05/23/2024 03:27 PM [facility] Dictated By: Sebastian Latham MD Signed By: <Electronically signed by Sebastian Latham MD in OV> 05/23/24 1527 DD/ 1411 TD/TT: 05/23/24 1446 Breast Trimmer: Complete Blood Count Auto Di ff Reviewed date:11/04/2024 01:48:53 PM Interpretation: Performing Lab:[facility], [address] [place] [phone] Notes/Report: White Blood Count 5.8 4.8-10.8 X10*3/uL [...] NRBC Abs Auto 0.000 0.0-0.012 X10*3/uL Comprehensive [place]. Panel Fa Reviewed date:11/04/2024 01:48:53 PM Interpretation: Performing Lab:[facility], [address] [place] [phone] Notes/Report: Sodium 139 135-145 mmol/L Potassium 4.2 [...] Panel Reviewed date:11/04/2024 01:48:53 PM Interpretation: Performing Lab:[facility], [address] [place] [phone] Notes/Report: Triglycerides 70 <150 mg/dL Desirable Triglyceride: [...] Antigen Reviewed date:11/04/2024 01:48:53 PM Interpretation: Performing Lab:[facility], [address] [place] [phone] Notes/Report: Prostate Specific Antigen 0.69 <0.05-4.0 ng/mL PSA methodology: Burger Alinity i Chemiluminescent Microparticle Immunoassay (CMIA) Complete Blood Count Auto Di ff Reviewed date:11/25/2024 09:42:15 AM Interpretation: Performing Lab:[facility], [address] [place] [phone] Notes/Report: White Blood Count 6.2 4.8-10.8 X10*3/uL [...] Panel Reviewed date:11/25/2024 09:42:15 AM Interpretation: Performing Lab:[facility], [address] [place] [phone] Notes/Report: Sodium 139 135-145 mmol/L Potassium 4.2 [...] Provider Speciality Internal M edicine Referred Provider [facility] er, General Surgeons Referred Provider Specialty [...] Influenza IM Intramuscular 04/18/2013 Administered Lot# [id number] Pneumococcal Unknown 02/25/2010 Administered Influenza Unknown 03/04/2014 [...] Problem Status W/U Status Risk Notes Problem 9437071 Former smoker (Z87.891) Active confirmed He has a plan to prevent relapse in times of stress and illness. We discussed lifestyle today. Problem 391518403 Overweight (E66.3) Active confirmed He remains overweight. We discussed his diet and nutrition.We reviewed his previous weights. We made a plan to lose weight at a rate of 1 pound per week. Problem 9610046 Arthritis (M19.90) Active confirmed The right third [...] hand surgery Problem Malignant neoplasm of prostate (984569208) Malignant neoplasm of prostate (C61) Active confirmed His PSA in was 0.44. It is currently 0.63. The values being observed. Problem Hyperlipidemia (59927028) Hyperlipidemia, unspecified (E78.5) Active confirmed His lipids are treated and have been stable. A fasting lipid profile will be done periodically. Problem Essential hypertension (12646477) Essential (primary) hypertension (I10) Active confirmed His blood pressure has been normal and no change was made in his regimen. I urged him to have his blood pressure determined at least once a week while he is in [place] and reported back to me. Problem Atherosclerotic heart disease of [place] coronary artery without angina pectoris (135106120175489) Atherosclerotic heart disease of [place] coronary artery without angina pectoris (I25.10) Active confirmed He continues to have anginaa with prolonged exertion. He has an appointment in the near future to see the professor of musicology after he has an echocardiogram and a nuclear medicine stress test. He will come back from [place] the end of September 2023. I continue to use peak with him every 21 days. Problem Gastro-esophageal reflux disease without esophagitis (910484017) Gastro-esophage al reflux disease without esophagitis (K21.9) Active confirmed His esophageal reflux is well controlled with wfcr-xyd-jtekes r medication and no change in his regimen was necessary today. 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 Will be observed at this time. Problem 92631503 Cervical radiculopathy (M54.12) Active confirmed He is free of symptoms at this time. He will notify me if the pain returns. 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 He is going to have an ultrasound of his heart, which will help clarify if the valve is a source of an embolism. Problem 578548523 Osteoarthritis of cervical spine, unspecified spinal osteoarthritis complication status (M47.812) Active confirmed He has very limited range of motion in all directions of his neck. The current nerve impingement symptoms are improving rapidly. Problem 876618166 Ischemic heart disease (I25.9) Active confirmed We have requested the results of his cardiac studies. He is tolerating the isosorbide well without dizziness. Problem 826656764 Peripheral edema (R60.0) Active confirmed We began a regimen of furosemide 20 mg and potassium chloride 10 mEq daily. Problem [id number] Femoral hernia of right side (K41.90) Active [...] Date Provider Diagnosis Sebastian Preciado III, MD [address] [place] [address] [place] [address] 05/14/2024 Sebastian Preciado Former smoker Z87.89 1 ; Essential (primary) hypertension I10 ; Hyperlipidemia, unspecified E78.5 ; Malignant neoplasm of prostate C61 ; Gastro-esophageal reflux disease without esophagitis K21.9 ; Atherosclerotic heart disease of [place] coronary artery without angina pectoris I25.10 ; Osteoarthritis of cervical spine, unspecified spinal osteoarthritis complication status M47.812 and Overweight E66.3 Sebastian Preciado III, MD [address] [place] [address] [place] [address] 06/04/2024 Sebastian Prceiado Former smoker Z87.89 1 ; Femoral hernia of right side K41.90 ; Gastro-esophageal reflux disease without esophagitis K21.9 ; Malignant neoplasm of prostate C61 ; Essential (primary) hypertension I10 ; Hyperlipidemia, unspecified E78.5 ; Nonrheumatic aortic valve stenosis I35.0 ; Atherosclerotic heart disease of [place] coronary artery without angina pectoris I25.10 and Overweight E66.3 Sebastian Preciado III, MD [address] [place] [address] [place] [address] 08/03/2024 Sebastian Preciado Former smoker Z87.89 1 ; Femoral hernia of right side K41.90 ; Essential (primary) hypertension I10 ; Malignant neoplasm of prostate C61 ; Gastro-esophageal reflux disease without esophagitis K21.9 ; Osteoarthritis of cervical spine, unspecified spinal osteoarthritis complication status M47.812 ; Atherosclerotic heart disease of [place] coronary artery without angina pectoris I25.10 ; Overweight E66.3 and Nonrheumatic aortic valve stenosis I35.0 Sebastian Preciado III, MD [address] [place] [address] [place] [address] 10/23/2024 Sebastian Preciado Former smoker Z87.89 1 ; Essential (primary) hypertension I10 ; Malignant neoplasm of prostate C61 ; Hyperlipidemia, unspecified E78.5 ; Gastro-esophageal reflux disease without esophagitis K21.9 ; Atherosclerotic heart disease of [place] coronary artery without angina pectoris I25.10 ; Osteoarthritis of cervical spine, unspecified spinal osteoarthritis complication status M47.812 ; Overweight E66.3 and Nonrheumatic aortic valve stenosis I35.0 Sebastian Preciado III, MD [address] [place] [address] [place] [address] 11/06/2024 Sebastian Preciado Former smoker Z87.89 1 ; Peripheral edema R60.0 ; Overweight E66.3 ; Essential (primary) hypertension I10 ; Hyperlipidemia, unspecified E78.5 ; Malignant neoplasm of prostate C61 ; Gastro-esophageal reflux disease without esophagitis K21.9 ; Nonrheumatic aortic valve stenosis I35.0 ; Osteoarthritis of cervical spine, unspecified spinal osteoarthritis complication status M47.812 and Atherosclerotic heart disease of [place] coronary artery without angina pectoris I25.10 Sebastian Preciado III, MD [address] [place] [address] [place] [address] 11/27/2024 Sebastian Preciado Former smoker Z87.89 1 ; Femoral hernia of right side K41.90 ; Hyperlipidemia, unspecified E78.5 ; Malignant neoplasm of prostate C61 ; Essential (primary) hypertension I10 ; Gastro-esophageal reflux disease without esophagitis K21.9 ; Nonrheumatic aortic valve stenosis I35.0 ; Atherosclerotic heart disease of [place] coronary artery without angina pectoris I25.10 ; Osteoarthritis of cervical spine, unspecified spinal osteoarthritis complication status M47.812 and Peripheral edema R60.0 Sebastian Preciado III, MD [address] [place] [address] [place] [address] 05/21/2024 Sebastian Preciado Unilateral femoral hernia without obstruction or gangrene, recurrence not specified K41.90 Sebastian Preciado III, MD [address] [place] [address] [place] [address] 06/04/2024 Sebastian Preciado Former smoker Z87.89 1 Sebastian Preciado III, MD [address] [place] [address] [address] [place] [address] 10/18/2024 Sebastian Preciado Former smoker Z87.89 1 Sebastian Preciado III, MD [address] [place] [address] [address] [place] [address] 12/06/2024 Sebastian Preciado Former smoker Z87.89 1 [...] once a week while he is in [place] and reported back to me. 06/04/2024 Former [...] to wait until he comes back to [place] in the spring to have it repaired. [...] to wait until he comes back to [place] in the spring to have it repaired. [...] once a week while he is in [place] and reported back to me. 11/06/2024 Former [...] and illness. We discussed lifestyle today. 05/14/2024 Hyperlipidemia, unspecified (ICD-10 - E78.5) The current fasting lipid profile shows good control of his lipids. No change in his regimen as needed. 06/04/2024 Gastro-esophageal reflux disease without esophagitis (ICD-10 - K21.9) His esophageal reflux is well controlled with pjjw-imo-crhmblj medication and no change in his regimen was necessary today. 08/03/2024 Essential (primary) hypertension (ICD-10 - I10) His blood pressure has been 134/72 and no change was made in his regimen. I urged him to have his blood pressure determined at least once a week while he is in [place] and reported back to me. 10/23/2024 Malignant [...] fasting lipid profile will be done periodically. 05/14/2024 Malignant neoplasm o f prostate (ICD-10 [...] once a week while he is in [place] and reported back to me. 11/27/2024 Malignant neoplasm o f prostate (ICD-10 - C61) His PSA in 2022 was 0.44. It is currently 0.63. The values being observed. 05/14/2024 Gastro-esophageal reflux disease without esophagitis (ICD-10 - K21.9) His esophageal reflux is well controlled with ekvh-kbd-kgrrolc medication and no change in his regimen was necessary today. 06/04/2024 Essential (primary) hypertension (ICD-10 - I10) His blood pressure is 134/72 and no change was made in his regimen. I urged him to have his blood pressure determined at least once a week while he is in [place] and reported back to me. 08/03/2024 Gastro-esophageal reflux disease without esophagitis (ICD-10 - K21.9) His esophageal reflux is well controlled with oaca-mbi-wxgenvk medication and no change in his regimen was necessary today. 10/23/2024 Gastro-esophageal reflux disease without esophagitis (ICD-10 - K21.9) His esophageal reflux is well controlled with zcpb-fno-naegqll medication and no change in his regimen [...] once a week while he is in [place] and reported back to me. 05/14/2024 Atherosclerotic hear t disease of [place] coronary artery without angina pectoris (ICD-10 - I25.10) He continues to have anginaa with prolonged exertion. He has an appointment in the near future to see the professor of musicology after he has an echocardiogram and a nuclear medicine stress test. He will come back from [place] the end of September 2023. I continue [...] rapidly. 10/23/2024 Atherosclerotic hear t disease of [place] coronary artery without angina pectoris (ICD-10 - I25.10) He continues to have anginaa with prolonged exertion. He has an appointment in the near future to see the professor of musicology after he has an echocardiogram and a nuclear medicine stress test. He will come back from [place] the end of September 2023. I continue to use peak with him every 21 days. 11/06/2024 Malignant neoplasm o f prostate (ICD-10 - C61) His PSA is being followed. He is under the care of urology. He remains asymptomatic. 11/27/2024 Gastro-esophageal reflux disease without esophagitis (ICD-10 - K21.9) His esophageal reflux is well controlled with grkd-god-saemobt medication and no change in his regimen was necessary today. 05/14/2024 Osteoarthritis of cervical spine, unspecified spinal [...] embolism. 08/03/2024 Atherosclerotic hear t disease of [place] coronary artery without angina pectoris (ICD-10 - I25.10) He continues to have anginaa with prolonged exertion. He has an appointment in the near future to see the professor of musicology after he has an echocardiogram and a nuclear medicine stress test. He will come back from [place] the end of September 2023. I continue [...] His esophageal reflux is well controlled with ljny-gxi-tmgwdzp medication and no change in his regimen [...] week. 06/04/2024 Atherosclerotic hear t disease of [place] coronary artery without angina pectoris (ICD-10 - I25.10) He continues to have anginaa with prolonged exertion. He has an appointment in the near future to see the professor of musicology after he has an echocardiogram and a nuclear medicine stress test. He will come back from [place] the end of September 2023. I continue [...] embolism. 11/27/2024 Atherosclerotic hear t disease of [place] coronary artery without angina pectoris (ICD-10 - I25.10) He continues to have anginaa with prolonged exertion. He has an appointment in the near future to see the professor of musicology after he has an echocardiogram and a nuclear medicine stress test. He will come back from [place] the end of September 2023. I continue [...] rapidly. 11/06/2024 Atherosclerotic hear t disease of [place] coronary artery without angina pectoris (ICD-10 - I25.10) He continues to have anginaa with prolonged exertion. He has an appointment in the near future to see the professor of musicology after he has an echocardiogram and a nuclear medicine stress test. He will come back from [place] the end of September 2023. I continue to use peak with him every 21 days. 11/27/2024 Peripheral edema (ICD-10 - R60.0) We began a regimen of furosemide 20 mg and potassium chloride 10 mEq daily. Plan Of Treatment Pending Test Test Name Order Date PREALBUMIN 11/21/2019 PROFILE, FASTING (COMPREHENSIVE METABOLI C) 11/07/2018 PROFILE, FASTING (COMPREHENSIVE METABOLI C) 05/18/2017 PROFILE, FASTING (COMPREHENSIVE METABOLI C) 02/28/2020 PROFILE, FASTING (COMPREHENSIVE METABOLI C) 05/10/2018 PROFILE, FASTING (COMPREHENSIVE METABOLI C) 11/27/2024 PROFILE, FASTING (COMPREHENSIVE METABOLI C) 12/15/2017 PROFILE, FASTING (COMPREHENSIVE METABOLI C) 03/14/2019 PROFILE, FASTING (COMPREHENSIVE METABOLI C) 05/12/2020 PROFILE, FASTING (COMPREHENSIVE METABOLI C) 09/14/2017 MAGNESIUM 11/21/2019 LIPID PANEL 05/12/2020 LIPID PANEL 09/14/2017 LIPID PANEL 11/07/2018 LIPID PANEL 05/18/2017 LIPID PANEL 02/28/2020 LIPID PANEL 05/10/2018 LIPID PANEL 12/15/2017 LIPID PANEL 03/14/2019 FREE T4 (FT4) 11/21/2019 TSH (THYROID STIMULATING HORMONE) 2019 PSA, TOTAL 12/15/2017 PSA, TOTAL 03/14/2019 PSA, TOTAL 05/12/2020 PSA, TOTAL 09/14/2017 PSA, TOTAL 11/07/2018 PSA, TOTAL 05/18/2017 PSA, TOTAL 11/27/2024 CBC w DIFF 12/15/2017 CBC w DIFF 03/14/2019 CBC w DIFF 05/12/2020 CBC w DIFF 09/14/2017 CBC w DIFF 11/07/2018 CBC w DIFF 02/28/2020 CBC w DIFF 05/18/2017 CBC w DIFF 05/10/2018 CBC w DIFF 11/27/2024 Lipid Panel 11/27/2024 Next Appt Details Provider Name:Sebastian Preciado , 02/15/2025 11:15:00 AM, [address] [facility] [address], [place], [address], Provider Name:Sebastian Preciado , 05/14/2025 11:00:00 AM, [address] [facility] [address], [place], [address], Insurance Providers Payer Name Payer Address Payer Phone Subscriber Number Group Number Insured Name Patient Relationship to Insured Coverage Start Date Coverage End Date MEDICARE NGS [address] [place] [address] [id number] Royce Jernigan Self - patient is the insured [facility] [address] [place], [place] [id number] Royce Jernigan Self - patient is [...] No history Left hip surgery 11/2023 TAVR, [facility] 02/2021 cardiac catheterization, 3 stents December 2012 Hospitalization History Reason Date(Month/Year) No history
== END 2025-02-05 07:12 | disposition home or self-care (01) ==
LOC: HO.LAB 07:11
PROVIDERS: PCP Internal Medicine Medical Oncology; Visit Provider Internal Medicine Medical Oncology
DX: C61 Malignant neoplasm of prostate (principal); E78.5 Hyperlipidemia, unspecified; E66.3 Overweight; Z12.5 Encounter for screening for malignant neoplasm of prostate; Z87.891 Personal history of nicotine dependence
CPT/HCPCS: 36415; 80053; 80061; 84153; 85025

== ENCOUNTER 2025-02-06 07:19 | Day surgery (SDC) | payer MEDICARE, SELFPAY ==
--- OUTSIDE RECORDS SUMMARY | 2025-01-30 14:08 | XMS_ITS | Clinical Summary ---
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
--- NOTE | 2025-02-04 12:28 | HO.ANESPROP2 ---
Documented by User: Radhika Robertson NP 02/05/25 08:25 HPI - Anesthesia Eval Consult details Narrative: 89yo M for Right Repair Hernia Inguinal Reducible with mesh Cardiac optimzied. Follows [facility] Cardiology for CAD s/p stents 2012, aortic stenosis s/p TAVR [facility] Active Problems Active Problems: All Active Problems Reducible right inguinal hernia (Acute) Past Medical History Medical History Prostate CA HLD (hyperlipidemia) HTN (hypertension) Aortic stenosis CAD (coronary artery disease) Reducible right inguinal hernia Surgical History Surgical History S/P TAVR (transcatheter aortic valve replacement) (~2020) History of hip surgery (11/2023) Hx of cardiac catheterization (12/2012) Social History Social History Patient Tobacco Use Status: Former Tobacco user Use of substances other than those prescribed or required for medical reasons: No Advance Directives: No Advance Directives Information Provided: Yes Meds Allergies Allergy/AdvReac Type Severity Reaction Status Date / Time No Known Allergies Allergy Verified 01/21/25 15:29 Home Medications ?Medication ?Instructions ?Recorded ?Confirmed ?Last Taken ?Type acetaminophen 650 mg 650 mg PO Q12H 11/27/24 02/04/25 08:00 History tablet,extended release (Tylenol Arthritis Pain) aspirin 81 mg tablet 81 mg PO DAILY 11/27/24 02/06/25 02/05/25 08:00 History atenolol 25 mg tablet 25 mg PO DAILY 11/27/24 02/06/25 02/04/25 20:00 History isosorbide mononitrate 30 mg 30 mg PO DAILY 11/27/24 02/06/25 02/05/25 08:00 History tablet,extended release 24 hr lyyqzirr-jm-ufnew 300 mcg-K 60 1 tab PO DAILY 11/27/24 02/06/25 02/03/25 08:00 History mcg-lycop 600 mcg-lutein 300 mcg tablet (Centrum Silver Men) pravastatin 40 mg tablet 40 mg PO DAILY 11/27/24 02/06/25 02/05/25 20:00 History Exam Pertinent Lab Results Pertinent Lab Results: Laboratory Tests 11/20/24 07:24 WBC 6.2 Hgb 12.9 L Hct 40.0 L Plt Count 203 Sodium 139 Potassium 4.2 Chloride 104 Carbon Dioxide 30 H BUN 17 H Creatinine 0.93 Narrative Narrative: EKG 01/2025 SR @ 77 with PAC, no new ischemic changes ECHO 01/2025 LVEF 65-70% TAVR Mild mitral regurg Mild tricuspid regurg Mild pulmo htn Assessment and Plan Assessment Anesthesia Assessment: Chart Reviewed Documented by User: Kylee Orozco MD 02/06/25 09:20 PMFSH Past Medical History Medical History Prostate CA HLD (hyperlipidemia) HTN (hypertension) Aortic stenosis CAD (coronary artery disease) Reducible right inguinal hernia Family History Family history of problems with anesthesia: No Surgical History Surgical History S/P TAVR (transcatheter aortic valve replacement) (~2020) History of hip surgery (11/2023) Hx of cardiac catheterization (12/2012) History of Problems with Anesthesia: Unobtainable Social History Social History Patient Tobacco Use Status: Former Tobacco user Use of substances other than those prescribed or required for medical reasons: No Advance Directives: No Advance Directives Information Provided: Yes Meds Allergies Allergy/AdvReac Type Severity Reaction Status Date / Time No Known Allergies Allergy Verified 01/21/25 15:29 Home Medications ?Medication ?Instructions ?Recorded ?Confirmed ?Last Taken ?Type acetaminophen 650 mg 650 mg PO Q12H 11/27/24 02/04/25 08:00 History tablet,extended release (Tylenol Arthritis Pain) aspirin 81 mg tablet 81 mg PO DAILY 11/27/24 02/06/25 02/05/25 08:00 History atenolol 25 mg tablet 25 mg PO DAILY 11/27/24 02/06/25 02/04/25 20:00 History isosorbide mononitrate 30 mg 30 mg PO DAILY 11/27/24 02/06/25 02/05/25 08:00 History tablet,extended release 24 hr glctxeoh-rk-kmjxe 300 mcg-K 60 1 tab PO DAILY 11/27/24 02/06/25 02/03/25 08:00 History mcg-lycop 600 mcg-lutein 300 mcg tablet (Centrum Silver Men) pravastatin 40 mg tablet 40 mg PO DAILY 11/27/24 02/06/25 02/05/25 20:00 History Exam Airway Mallampati Class: III Neck ROM: Limited Assessment and Plan Assessment Anesthesia Assessment: Anesthesia Plan Discussed Final Anesthetic Review Family History of Problems with Anesthesia: No History of Problems with Anesthesia: Unobtainable ASA Class: III Anesthetic Plan Anesthetic Plan: MAC: Disposition: Standard PACU Documented by User: Zac Santos MD 02/06/25 09:20 [facility] Past Medical History Medical History Prostate CA HLD (hyperlipidemia) HTN (hypertension) Aortic stenosis CAD (coronary artery disease) Reducible right inguinal hernia Functional capacity: independent ambulation Family History Family history of problems with anesthesia: Unobtainable Surgical History Surgical History S/P TAVR (transcatheter aortic valve replacement) (~2020) History of hip surgery (11/2023) Hx of cardiac catheterization (12/2012) History of Problems with Anesthesia: Unobtainable Social History Social History Patient Tobacco Use Status: Former Tobacco user Use of substances other than those prescribed or required for medical reasons: No Advance Directives: No Advance Directives Information Provided: Yes Meds Allergies Allergy/AdvReac Type Severity Reaction Status Date / Time No Known Allergies Allergy Verified 01/21/25 15:29 Home Medications ?Medication ?Instructions ?Recorded ?Confirmed ?Last Taken ?Type acetaminophen 650 mg 650 mg PO Q12H 11/27/24 02/04/25 08:00 History tablet,extended release (Tylenol Arthritis Pain) aspirin 81 mg tablet 81 mg PO DAILY 11/27/24 02/06/25 02/05/25 08:00 History atenolol 25 mg tablet 25 mg PO DAILY 11/27/24 02/06/25 02/04/25 20:00 History isosorbide mononitrate 30 mg 30 mg PO DAILY 11/27/24 02/06/25 02/05/25 08:00 History tablet,extended release 24 hr fctdugyq-su-yxntk 300 mcg-K 60 1 tab PO DAILY 11/27/24 02/06/25 02/03/25 08:00 History mcg-lycop 600 mcg-lutein 300 mcg tablet (Centrum Silver Men) pravastatin 40 mg tablet 40 mg PO DAILY 11/27/24 02/06/25 02/05/25 20:00 History Exam Exam Date and Time: 02/06/25 Airway Mallampati Class: II TM Dist: >3cm Neck ROM: Full Heart: Rrr Lungs: cta Other: ormal Assessment and Plan Final Anesthetic Review Family History of Problems with Anesthesia: Unobtainable History of Problems with Anesthesia: Unobtainable NPO: Yes ASA Class: II Final Preanesthetic Review: No Changes in Pt Med Stat, Meds/Allgs Chart Reviewed, Consent Obtained/Reviewed and Anes Risks/Benef Reviewed Patient Risk: Intermediate Procedure Risk: Intermediate Anesthetic Plan Anesthetic Plan: GA and Agree w/ Assess. and Plan Disposition: Standard PACU
[2025-02-06 07:48] VITALS: BMI 22.6
[2025-02-06] MEDS: Lactated Ringers 1,000 ML 100 ML IVCONT (08:11)
[2025-02-06 08:13] VITALS: BP 144/68; PULSE 71; RESP 16; TEMP 37.1; O2SAT 98
--- NOTE | 2025-02-06 08:42 | MHC.SHP ---
Pre-Procedural Eval Section A - 24 Hr Update-Section A only Date of Service: 02/06/25 The patient is an INPATIENT: No Changes since office visit: Yes Patient answered all questions; No Cold of Flu in the past 2 weeks, No New Medical Problems and No Changes in Medication The patient has been examined within 24 hours of the surgical procedure. The History & Physical has been completed within 30 days and I have reviewed it.: Yes Section B - Complete if H&P > 30 days Chief Complaint: Unilateral inguinal hernia, without obstruction Allergies: Allergies Allergy/AdvReac Type Severity Reaction Status Date / Time No Known Allergies Allergy Verified 01/21/25 15:29 Plan Diagnosis/Plan: Unchanged I have reviewed the history and physical and performed a pertinent physical examination on my patient. No changes have occurred unless specified. Time Spent With Patient Time: Total time managing care of this patient today ____ minutes.
--- NOTE | 2025-02-06 10:46 | P.OP_ITS ---
Operative Note Operative Note Date of Service: 02/06/25 Narrative: Preoperative diagnosis: Right inguinal hernia, reducible Postoperative diagnosis: Same Procedure: Repair right inguinal hernia with mesh Surgeon: Anand Woodruff MD Supervisor Capacitor Processing: Bety Chavez PA-C; SAURABH Linares Anesthesia: General LMA Indications for procedure: 89-year-old male patient presenting for repair of a right inguinal hernia with mesh. Operative findings: Indirect right inguinal hernia reducible repaired with a medium PHS mesh Specimen: Hernia sac Estimated blood loss: 5 mL Complications: None Procedure details: Patient was brought to the OR and placed in a supine position. After administering general anesthesia the patient's abdomen was prepped with ChloraPrep and draped in a sterile fashion. A surgical time-out was called the consent confirmed. Patient received preoperative antibiotics and Venodyne boots were in place. Local anesthesia consisting of 0.5% Sensorcaine with epinephrine was then infiltrated over the right inguinal ligament. Incision was then made over the right inguinal ligament and carried out through subcutaneous tissue, past Cornelio's fashion up to the external oblique aponeurosis. This was then incised with a scalpel and widened with the M etzenbaum scissors. The spermatic cord was then identified and dissected free from the surrounding inguinal canal. This was then retracted using a [place] drain. Fibers of the cremaster muscle were then and a indirect sac identified. This was then dissected down to the internal ring. The sac was then ligated with a pursestring of 0 Polysorb suture and excised. The floor of the inguinal canal was found to be intact without a direct inguinal hernia. A preperitoneal space was then dissected through the internal ring. A medium PHS mesh was then obtained. The circular underlay was then deployed within the preperitoneal space. The overlay was then secured to the pubic tubercle, conjoined tendon, and shelving edge of the inguinal ligament using 0 Polysorb suture. A slit was made in the mesh in the mesh wrapped around the spermatic cord at the internal ring. This was then secured to the shelving edge of the inguinal ligament using the 0 Polysorb suture. The remainder of the mesh was then placed below the external oblique aponeurosis. Wounds were then irrigated with saline solution and suctioned dry. External oblique aponeurosis was then closed using a running 2-0 Polysorb suture. Approximately 8 mL of Zenrelef was then instilled below the external oblique aponeurosis for postoperative pain relief. Cornelio's fascia and dermis were then reapproximated using interrupted 3-0 Polysorb sutures. Skin was closed using a running subcuticular 4-0 Polysorb suture. Steri-Strips, 4 x 4 gauze and Tegaderm were then applied. The patient tolerated the procedure well. He was transferred to PACU in stable condition.
[2025-02-06 11:00] VITALS: BP 114/95; PULSE 60; RESP 18; TEMP 36.9; O2SAT 95
[2025-02-06 11:05] VITALS: BP 124/67; PULSE 59; RESP 16; O2SAT 98
[2025-02-06 11:10] VITALS: BP 114/63; PULSE 58; RESP 16; O2SAT 99
[2025-02-06 11:15] VITALS: BP 142/68; PULSE 55; RESP 16; O2SAT 97
[2025-02-06 11:30] VITALS: BP 148/74; PULSE 62; RESP 16; TEMP 36.9; O2SAT 99
== END 2025-02-06 12:17 | disposition home or self-care (01) ==
PROVIDERS: PCP Internal Medicine Medical Oncology; Visit Provider Surgery
PROC: (CPT 49505; principal; 2025-02-06 09:00)
DX: K40.90 Unilateral inguinal hernia, without obstruction or gangrene, not specified as recurrent (principal); I25.10 Atherosclerotic heart disease of native coronary artery without angina pectoris; Z95.5 Presence of coronary angioplasty implant and graft; E78.5 Hyperlipidemia, unspecified; I35.0 Nonrheumatic aortic (valve) stenosis; Z95.2 Presence of prosthetic heart valve; C61 Malignant neoplasm of prostate; Z92.3 Personal history of irradiation; Z79.82 Long term (current) use of aspirin; Z79.899 Other long term (current) drug therapy; Z98.890 Other specified postprocedural states; Z87.891 Personal history of nicotine dependence
CPT/HCPCS: 49505; 88302; C1781; C9088; J0690; J2003; J2405; J2704; J3010

== ENCOUNTER → 2025-02-06 07:19 | Outpatient (BNV) | payer MEDICARE, SELFPAY | PROVIDERS: PCP Internal Medicine Medical Oncology; Visit Provider Surgery | DX: K40.90 Unilateral inguinal hernia, without obstruction or gangrene, not specified as recurrent (principal) | CPT/HCPCS: 49505 ==

== ENCOUNTER 2025-02-14 09:17 | Outpatient (AMB) | payer MEDICARE, SELFPAY ==
--- OUTSIDE RECORDS SUMMARY | 2024-10-18 06:15 | XMS_ITS ---
Author Organization Sebastian Preciado III, MD Address [address] [place] [address] [place] [address] Care Team Providers Care Organ Tuner Electronic Name Role Phone Dr. Sebastian Preciado III [...] Date Provider Diagnosis Sebastian Preciado III, MD [address] [place] [address] [place] [address] 10/18/2024 Sebastian Preciado Former smoker Z87.891 Assessments [...] Next Appt Details Provider Name:Sebastian Preciado , 02/15/2025 11:15:00 AM, [address] [facility] [address] [place], [place], [phone], Provider Name:Sebastian Preciado , 05/14/2025 11:00:00 AM, [address] [facility] [address], [place], [phone], Progress Notes * Royce JERNIGANDOB: (89 yo M)Acc No.[id number]:10/18/2024 Patient: Royce [place] :1935 A ge:89 Y S ex:Male Address:[address] [place] [phone] * Refills Refill Isosorbide Mononitrate ER Tablet [...] * Date: Generated for Estelle chao/Maximino/David on: 10:12 AM EDT
--- OUTSIDE RECORDS SUMMARY | 2024-10-23 11:30 | XMS_ITS ---
Author Organization Sebastian Preciado III, MD Address [address] [place] [address] [address] [place] [address] Care Team Providers Care Rn Er Name Role Phone Dr. Sebastian Preciado III [...] Provider Speciality Internal M edicine Referred Provider [facility] er, General Surgeons Referred Provider Specialty [...] Date Provider Diagnosis Sebastian Preciado III, MD [address] [place] [address] [place] [id number] 10/23/2024 Sebastian Ilana Former smoker Z87.89 1 ; Essential (primary) hypertension I10 ; Malignant neoplasm of prostate C61 ; Hyperlipidemia, unspecified E78.5 ; Gastro-esophageal reflux disease without esophagitis K21.9 ; Atherosclerotic heart disease of [place] coronary artery without angina pectoris I25.10 ; [...] once a week while he is in [place] and reported back to me. 10/23/2024 Malignant [...] His esophageal reflux is well controlled with gzgh-mle-onbwoot medication and no change in his regimen was necessary today. 10/23/2024 Atherosclerotic hear t disease of [place] coronary artery without angina pectoris (ICD-10 - I25.10) He continues to have anginaa with prolonged exertion. He has an appointment in the near future to see the molecular geneticist after he has an echocardiogram and a nuclear medicine stress test. He will come back from [place] the end of September 2023. I continue [...] Femoral hernia of right side, General Surgeons [facility] Next Appt Details Follow Up: 2 Weeks, Reason: OV Provider Name:Sebastian Preciado , 02/15/2025 11:15:00 AM, [address] [place] [address] [address], [place], [id number], Provider Name:Sebastian Preciado , 05/14/2025 11:00:00 AM, [address] [place] [address] [address], [place], [id number], Progress Notes * Royce JERNIGANDOB: 8 (89 yo M)Acc No.[id number]:10/23/2024 Progress Notes Patient: Royce LOWRY Provider: Willa Preciado MD :1935 A ge:89 Y S ex:Male Date:10/23/2024 Address:[address] [place], [place] [id number] Subjective: * Chief Complaints: * L eft knee and ankle painWeight lossHypertensionHyperlipidemiaCoronary artery diseaseProstate cancerRepaired aortic stenosis * HPI: C OVID-19 Screening: Jorge wheat returns for ongoing medical management. He is up-to-date with his molecular geneticist, Dr. Stephen. He was told his replaced [...] c ardiac catheterization, 3 stents December 2012TAVR, [facility] eft hip surgery 11/2023No history * [...] x-cigarette smoker Jorge wheat was born in [place], [place] and has been to [facility] for 59 years. He has 3 [...] once a week while he is in [place] and reported back to me. 2 . [...] :His esophageal reflux is well controlled with yzpo-nai-yrojkqw medication and no change in his regimen was necessary today. 6 . A therosclerotic heart disease of [place] coronary artery without angina pectoris - I25.10 N otes :He continues to have anginaa with prolonged exertion. He has an appointment in the near future to see the molecular geneticist after he has an echocardiogram and a nuclear medicine stress test. He will come back from [place] the end of September 2023. I continue [...] Panel 5. O thers Referral To:General Surgeons [facility] Surgery Reason:Evaluate and Treat Right sided [...] 0 10/23/2024 Generated for Estelle chao/Maximino/Alyseitting on: 10:13 AM EDT History and Physical Notes * [...] Referred Provider Not es 10/23/2024 Sebastian Preciado [facility], General Surgeons Evaluate and Treat Right sided abdominal pain Femoral hernia of right side
--- OUTSIDE RECORDS SUMMARY | 2024-11-06 06:45 | XMS_ITS ---
Author Organization Sebastian Preciado III, MD Address [address] [place] [address] [address] [place] [address] Care Team Providers Care Director Global Name Role Phone Dr. Sebastian Preciado III Primary Care Provider [phone] Allergies Allergen (clinical drug ingredient) Drug/Non Drug [...] Problem Status W/U Status Risk Notes Problem [id number] Peripheral edema (R60.0) Active confirmed We began [...] Date Provider Diagnosis Sebastian Preciado III, MD [address] [place] [address] [place] [address] 11/06/2024 Sebastian Preciado Former smoker Z87.89 1 ; Peripheral edema R60.0 ; Overweight E66.3 ; Essential (primary) hypertension I10 ; Hyperlipidemia, unspecified E78.5 ; Malignant neoplasm of prostate C61 ; Gastro-esophageal reflux disease without esophagitis K21.9 ; Nonrheumatic aortic valve stenosis I35.0 ; Osteoarthritis of cervical spine, unspecified spinal osteoarthritis complication status M47.812 and Atherosclerotic heart disease of [place] coronary artery without angina pectoris I25.10 Assessments [...] once a week while he is in [place] and reported back to me. 11/06/2024 Hyperlipidemia, [...] His esophageal reflux is well controlled with lbce-ypb-rrmnber medication and no change in his regimen [...] rapidly. 11/06/2024 Atherosclerotic hear t disease of [place] coronary artery without angina pectoris (ICD-10 - I25.10) He continues to have anginaa with prolonged exertion. He has an appointment in the near future to see the mold filler after he has an echocardiogram and a nuclear medicine stress test. He will come back from [place] the end of September 2023. I continue [...] Provider Name:Sebastian Preciado , 02/15/2025 11:15:00 AM, [address] [place] [address] [address], [place], [address], Provider Name:Sebastian Preciado , 05/14/2025 11:00:00 AM, [address] [place] [address] [address], [place], [address], Progress Notes * Royce JERNIGANDOB: 8 (89 yo M)Acc No.[id number]:11/06/2024 Progress Notes Patient: Royce LOWRY Provider: Willa Preciado MD :1935 A ge:89 Y S ex:Male Date:11/06/2024 Address:[address] [place], [place] [id number] Subjective: * Chief Complaints: * P ain [...] c ardiac catheterization, 3 stents December 2012TAVR, [facility] eft hip surgery 11/2023No history * [...] x-cigarette smoker Jorge wheat was born in [place], [place] and has been to [facility] for 59 years. He has 3 children [...] once a week while he is in [place] and reported back to me. 5 . [...] :His esophageal reflux is well controlled with wvyd-xhx-ggxrabb medication and no change in his regimen [...] 1 0. A therosclerotic heart disease of [place] coronary artery without angina pectoris - I25.10 N otes :He continues to have anginaa with prolonged exertion. He has an appointment in the near future to see the mold filler after he has an echocardiogram and a nuclear medicine stress test. He will come back from [place] the end of September 2023. I continue [...] 0 11/06/2024 Generated for Estelle chao/Maximino/David on: 10:13 AM EDT History and Physical [...]
--- OUTSIDE RECORDS SUMMARY | 2024-11-27 07:15 | XMS_ITS ---
Author Organization Sebastian Preciado III, MD Address [address] [place] [address] [address] [place] [address] Care Team Providers Care Street Light Lamp Cleaner Name Role Phone Dr. Sebastian Preciado III [...] Date Provider Diagnosis Sebastian Preciado III, MD [address] [place] [address] [address], [place] [address] 11/27/2024 Sebastian Ilana Former smoker Z87.89 1 ; Femoral hernia of right side K41.90 ; Hyperlipidemia, unspecified E78.5 ; Malignant neoplasm of prostate C61 ; Essential (primary) hypertension I10 ; Gastro-esophageal reflux disease without esophagitis K21.9 ; Nonrheumatic aortic valve stenosis I35.0 ; Atherosclerotic heart disease of [place] coronary artery without angina pectoris I25.10 ; [...] a week while he is in [place] and reported back to me. 11/27/2024 Gastro-esophageal reflux disease without esophagitis (ICD-10 - K21.9) His esophageal reflux is well controlled with vxip-tla-aqdztdp medication and no change in his regimen was necessary today. 11/27/2024 Nonrheumatic aortic valve stenosis (ICD-10 - I35.0) He had a TAVR in the recent past for aortic stenosis. He is going to have an ultrasound of his heart, which will help clarify if the valve is a source of an embolism. 11/27/2024 Atherosclerotic hear t disease of [place] coronary artery without angina pectoris (ICD-10 - I25.10) He continues to have anginaa with prolonged exertion. He has an appointment in the near future to see the dairy chemist after he has an echocardiogram and a nuclear medicine stress test. He will come back from [place] the end of September 2023. I continue [...] Months, Reason: OV Provider Name:Sebastian Preciado , 02/15/2025 11:15:00 AM, [address] [place] [address] [address], [place], [address], Provider Name:Sebastian Preciado , 05/14/2025 11:00:00 AM, [address] [place] [address] [address], [place], [address], Progress Notes * Royce JERNIGANDOB: (89 yo M)Acc No.[id number]:11/27/2024 Progress Notes Patient: Royce LOWRY Provider: Willa Preciado MD :1935 A ge:89 Y S ex:Male Date:11/27/2024 Address:[address] [place], [place] [id number] Subjective: * Chief Complaints: * R ight femoral herniaHypertensionHyperlipidemiaGERDProstate cancerCoronary artery diseasePeripheral edema * HPI: C OVID-19 Screening: Jorge wheat has an appointment at 9:30 in the morning November 29, 2024 to discuss and plan a right femoral herniorrhaphy at [facility]. He says she is feeling tired [...] c ardiac catheterization, 3 stents December 2012TAVR, [facility] eft hip surgery 11/2023No history * [...] x-cigarette smoker Jorge wheat was born in [place], [place] and has been to [facility] [...] mg/dL) 49 (Ref Range: mg/dL) * Lab:Comprehensive [place]. Pane l Fast * Collection Date 11/01/2024 11/23/2022 [...] a week while he is in [place] and reported back to me. 6 . G warner-esophageal reflux disease without esophagitis - K21.9 ?Notes :His esophageal reflux is well controlled with buqf-ypv-rtgegcc medication and no change in his regimen was necessary today. 7 . N onrheumatic aortic valve stenosis - I35.0 N otes :He had a TAVR in the recent past for aortic stenosis. He is going to have an ultrasound of his heart, which will help clarify if the valve is a source of an embolism. 8 . 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 He has an appointment in the near future to see the dairy chemist after he has an echocardiogram and a nuclear medicine stress test. He will come back from [place] the end of September 2023. I continue [...] * Provider: Willa Preciado MD Date: 0 11/27/2024 Generated for Estelle chao/Maximino/Zoilasmitting on: 1 10:13 AM EDT History and Physical Notes [...]
--- OUTSIDE RECORDS SUMMARY | 2024-12-06 06:55 | XMS_ITS ---
Author Organization Sebastian Preciado III, MD Address [address] [place] [address] [place] [address] Care Team Providers Care Plaster Model And Mold Maker Name Role Phone Dr. Sebastian Preciado III [...] Date Provider Diagnosis Sebastian Preciado III, MD [address] [place] [address] [place] [address] 12/06/2024 Sebastian Preciado Former smoker Z87.891 Assessments [...] Provider Name:Sebastian Preciado , 02/15/2025 11:15:00 AM, [address] [place] [address] [place], [address], Provider Name:Sebastian Preciado , 05/14/2025 11:00:00 AM, [address] [place] [address] [address], [place], [address], Progress Notes * EVERARDOKAVITARoyceDOB: 8 (89 yo M)Acc No.[id number]:12/06/2024 Patient: George BOBBIRoyce LEWIS :1935 A ge:89 Y S ex:Male Address:[address] [place] [address] [place] [address] * Refills Refill Atenolol Tablet, 25 MG, Orally, 90 Tablet, 1 tablet, Once a day, 90 days, Refills=3 * true * Date: Generated for Estelle chao/Maximino/Alyseitting on: 10:13 AM EDT
--- NOTE | 2025-02-14 09:20 | MHC.OFFVIS ---
Vital Signs 02/14/25 09:28 Weight 159 lb BP 148/69 H Blood Pressure Location Rt brachial Position Sitting Pulse 79 Intake Visit Reasons: s/p RIH w/mesh Intake Note: Patient here s/p repair right inguinal hernia with mesh. Patient c/o: swelling, feels bulging not improved. Dressing still in place. Only took tylenol. Surgery: () 02-06-2025 Model Maker Plastic Required: No Accompanied by: Self / Same As Patient Allergies No Known Allergies Allergy (Verified 02/14/25 09:28) HPI HPI s/p RIH w/mesh: Details: 89 year old male who underwent repair right inguinal hernia with mesh on 02/06/[address] Woodruff. He tolerated the procedure well. He reports developing pain at the incision site 2-3 days after the surgery. He took tylenol arthritis for it. He currently denies any pain at the incision site. He also had scrotal swelling and bruising which has improved. He did apply cold packs. He is tolerating a solid diet and moving his bowels once a day. He reports taking the colace three times a day and states he thinks this is helping firm his stool up and helping him go less as he was going several times a day prior to the procedure, and sometimes incontinent. He is concerned because he reports there is still a lump at the repair site and is worried the hernia is back. He is supposed to fly to [place] next week and is wondering if its ok to travel. He denies fevers, chills, nausea, vomiting, chest pain, difficulty breathing. [facility] Medical History Prostate CA HLD (hyperlipidemia) HTN (hypertension) Aortic stenosis CAD (coronary artery disease) Reducible right inguinal hernia Surgical History S/P TAVR (transcatheter aortic valve replacement) (~2020) History of hip surgery (11/2023) Hx of cardiac catheterization (12/2012) Social History Patient Tobacco Use Status: Former Tobacco user Review of Systems Const All systems reviewed & are unremarkable except as noted in HPI and below Physical Exam Vital Signs: Last Vital Signs Pulse 79 02/14/25 09:28 BP 148/69 H 02/14/25 09:28 Const General: comfortable, no acute distress and alert Orientation/consciousness: patient oriented x3 Resp Effort & Inspection: normal respiratory effort GI Other: soft, non distended right groin hernia repair site- dressing and steri strips removed- incision well approximated without surrounding erythema, he does have moderate induration and small area of firm tissue underlying incision, does not increase with valsava, ecchymosis extending into scrotum, area is nontender Palpation (GI): no guarding Percussion: Yes normal to percussion Skin General skin exam: no rashes or lesions noted Neuro General: patient oriented x3 and moves all extremities Results Reviewed Results Reviewed: Right inguinal hernia, herniorrhaphy: Mesothelial-lined fibrovascular and adipose tissue with vascular congestion, consistent with hernia sac Assessment & Plan Assessment & Plan (1) S/P right inguinal hernia repair: Code(s): Z98.890 - Other specified postprocedural states; Z87.19 - Personal history of other diseases of the digestive system Category: Surgical Plan 89 year old male s/p repair right inguinal hernia with mesh on 02/06/[address] Woodruff. He tolerated the procedure well. He is overall doing well post operatively, however his exam does suggest a hematoma with moderate induration of the repair site without hernia recurrence. The incision is clean appearing without evidence of infection. We discussed applying warm compresses/packs to the repair site at least three times a day for 10-15 minutes to help the hematoma/induration resolve. He was reassured the hernia has not recurred. He was instructed on continuing his lifting restrictions for another 5 weeks. He was instructed to discontinue the colace and begin daily fiber supplementation with either metamucil or citrucel and/or increasing his fiber intake to help bulk up his stools. He is in agreement. He was instructed to follow up in a month however he will still be in [place] and will schedule his appointment when he is home in April. He was also reassured it is ok to travel but recommended to wear compression stockings and periodically walk during the flight to help with circulation. All questions answered. Coding Level of Care Code Global (78032) Diagnoses S/P right inguinal hernia repair Z98.890; Z87.19
[2025-02-14 09:28] VITALS: BP 148/69; PULSE 79
--- OUTSIDE RECORDS SUMMARY | 2025-02-14 10:13 | XMS_ITS | Clinical Summary ---
Author Organization [facility] Address [address] [place] [address] Care Team Providers Care Intel Recruiter Name Role Phone Unavailable Primary Care Provider [...] Documents on File Type Date Recorded Patient Barrel Endshake Adjuster Expl anation Health Care Decision (hx) 11/21/2023 [facility] PROXY
--- OUTSIDE RECORDS SUMMARY | 2025-02-14 10:13 | XMS_ITS | Data Portability ---
Author Organization [facility] Address [address] [place] [address] Care Team Providers Care Business Test Analyst Name Role Phone PORTIA HAWKINS Primary Care [...] weeks with xrays left hip and pelvis. [email or web address] Not available 12/20/2023 15:48:39 01/18/2024 01/18/2024 CC [...] months with xrays left hip and pelvis. [email or web address] Not available 01/25/2024 17:12:58 02/21/2024 02/21/2024 Patient [...] as she is scheduled to leave for [place] with his on . Patient denies numbness or tingling about the left lower extremity. Examination: 88-year-old male in distress alert and oriented. Palpation and percussion assistance from a cane. On examination of the left hip surgical incisions are well-healed and benign. Range of motion is limited with mild irritability elicited. Calf is soft. X-rays ordered, obtained and reviewed at [facility] 2 views left hip reveal short InterTAN nailing good position. No change in fixation noted, no significant progression of callus from previous x-rays. 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 Patient offered possibility of CT scan to further evaluate. Patient reports she needs to leave on for [place], was cautioned that she have continued difficulty should seek care while he is in [place] or upon his return. Was counseled to continue with use of ambulatory assistive devices. [facility] speech recognition electrical and instrumentation mechanic software was used to create portions of [...] obtained, and reviewed by me today at [facility] show a trochanteric femur fracture with [...] time. Date: 05/22/2024 Patient Name: Mr. Liu [email or web address] Not available 05/22/2024 15:35:19 Plan of Treatment [...] [facility], [address], [place], [address], 5 14:13:10 XR, hip + pelvis, unilatera l, 2 or 3 view - room 120 2V L hip 2023 024 [email or web address] [facility], [address], [place], [address], 4 15:48:00 XR, hip + pelvis, unilatera l, 2 or 3 view - 313 2v lt hip and ap pelvis global 2023 024 RITA [facility], [address], [place], [address], 4 15:14:06 XR, hip + pelvis, unilatera l, 2 or 3 view - 315 ap pelvis, 2v left hip global pt is changing into shorts 2023 024 [email or web address] [facility], [address], [address], [place], [address], 17:05:27 Medication Orders None recorded. Patient TargetsNo [...] a4ajBk vP9nXo QUaueC m3YtLR FvZlgJ JJ8mAn HZtai3 8o2420 AC0Kob 3qEV6P eUC8mr 84%3D INTERFACE [facility] [address], [place], [address], 12/20/2023 13:54:35 12/20/19 24 12/20/2023 XR, hip + pelvi s, unila teral , 2 or 3 view [email or web address] ?Encry pted=s hAaTro YD8dLq bEUv6g %2BXZw aYqtaq 0bqfl% 2Fg9IQ a4ajBk vP9nXo QUaueC m3YtLR FvZlgJ JJ8mAn HZtai3 2m3157 AC0Kob 3qEV6P eUC8mr 84%3D INTERFACE [facility] [address], [place], [address], 12/20/2023 13:54:37 01/18/20 24 01/18/2024 XR, hip + pelvi s, unila teral , 2 or 3 view [email or web address] ?Encry pted=s hAaTro YD8dLq bEUv6g %2BXZw aYqtaq 0bqfl% 2Fg9IQ a4ajBk vP9nXo QUaueC m3YtLR FvZlgJ JJ8mAn HZtai3 8m5589 AC0Kqa n2FV6S vKiQtr MwF INTERFACE [facility] [address], [place], [address], 01/18/2024 15:14:06 01/18/20 24 01/18/2024 XR, hip + pelvi s, unila teral , 2 or 3 view [email or web address] ?Encry pted=s hAaTro YD8dLq bEUv6g %2BXZw aYqtaq 0bqfl% 2Fg9IQ a4ajBk vP9nXo QUaueC m3YtLR FvZlgJ JJ8mAn HZtai3 0q7139 AC0Kqa n2FV6S vKiQtr MwF INTERFACE [facility] [address], [place], [address], 01/18/2024 15:14:09 02/21/20 24 02/21/2024 XR, hip + pelvi s, unila teral , 2 or 3 view [email or web address]:/ [email or web address] ?Encry pted=s hAaTro YD8dLq bEUv6g %2BXZw aYqtaq 0bqfl% 2Fg9IQ a4ajBk vP9nXo QUaueC m3YtLR FvZlgJ JJ8mAn HZtai3 1l4740 AC0Kqa 3mGVaW hKiQtr MwF INTERFACE [facility] [address], [place], [address], 02/21/2024 17:00:06 02/21/20 24 02/21/2024 XR, hip + pelvi s, unila teral , 2 or 3 view [email or web address]:/ [email or web address] ?Encry pted=s hAaTro YD8dLq bEUv6g %2BXZw aYqtaq 0bqfl% 2Fg9IQ a4ajBk vP9nXo QUaueC m3YtLR FvZlgJ JJ8mAn HZtai3 0p0729 AC0Kqa 3mGVaW hKiQtr MwF INTERFACE [facility] [address] [facility] [address], [place], [address], 02/21/2024 17:00:08 05/22/19 25 05/22/2024 XR, hip + pelvi s, unila teral , 2 or 3 view [email or web address] ?Encry pted=s hAaTro YD8dLq bEUv6g %2BXZw aYqtaq 0bqfl% 2Fg9IQ a4ajBk vP9nXo QUaueC m3YtLR FvZlg JJ8mAn HZtai3 0f6625 AC0Kqb 32NUqq vKiQtr MwF INTERFACE [facility] [address] [facility] [address], [place], [address], 05/22/2024 13:41:00 05/22/19 25 05/22/2024 XR, hip + pelvi s, unila teral , 2 or 3 view http:/ [email or web address] ?Encry pted=s hAaTro YD8dLq bEUv6g %2BXZw aYqtaq 0bqfl% 2Fg9IQ a4ajBk vP9nXo QUaueC m3YtLR FvZlgJ JJ8mAn HZtai3 6g1341 AC0Kqb 32NUqq vKiQtr MwF INTERFACE [facility] [address] [facility] [address], [place], [address], 05/22/2024 13:41:02 Result Notes Documentation Provider Name and Address Organization Details Recorded Time Xr, Hip + Pelvis, Unilateral, 2 Or 3 View : [email or web address] Encrypted=gsQaKfgSL2zNejY Uv6g%9CPPikFvzys3jgfz%2Fg 4NGn3dbQvoX4pYsOHpusIh0Lk VMHfXomUYN2mYzKCxrg01t897 5JG2Lvw7wGF6DqPR6je72%3D Not Available [facility] 12/20/2023 13:5 4:36 Xr, Hip + Pelvis, Unilateral, 2 Or 3 View : [email or web address] Encrypted=khVnWpvLX5mRjjF Uv6g%1MXYmrSddkk2hqru%2Fg 6UEy1ycTxrR6iWpBCbceAp9Il QKThKwcENP1vQdIPwkg83o039 3AO0Loi2xBV3GxLB9kp38%3D Not Available [facility] 12/20/2023 13:5 4:38 Xr, Hip + Pelvis, Unilateral, 2 Or 3 View : [email or web address] Encrypted=dfBtLzrKZ7eSgmO Uv6g%1HSMnmUyncd6irkw%2Fg 4UHy5suBmwZ1vMiVHhzfOv5Ch GSPmOhkPTQ8tRuEAsre17a528 3GK1Uwam3WD2PoArJcqKmE Not Available [facility] 01/18/2024 15:14: 07 Xr, Hip + Pelvis, Unilateral, 2 Or 3 View : [email or web address] Encrypted=bfViRabEF6dAwtK Uv6g%1DOKicBsmph0vtcn%2Fg 8LZq1isEeaI9pWfVLkpgZo9Jc VXMhJxwZIF7rWuTThwc67v631 4NC0Qzzi6EA2OqYpVxwAoI Not Available [facility] 01/18/2024 15:14: 09 Xr, Hip + Pelvis, Unilateral, 2 Or 3 View : [email or web address] Encrypted=lrXaXjsDD0fIbtN Uv6g%1QTYweJhozb3perh%2Fg 7FSr0lkYesS8tCkYYcxvIt7Le MPZrJjmNFN2dAxKLspa55s832 2QS0Mjo4kDWmAaYiQlgJpG Not Available [facility] 02/21/2024 17:00: 07 Xr, Hip + Pelvis, Unilateral, 2 Or 3 View : [email or web address] Encrypted=jgFrFewEW6jBgmA Uv6g%2JTIfeXbtex0adyd%2Fg 8KSp5qwLwdW1mGcLThxfXb9Fd WXVtKxnIBD6fZxHJshn41f854 7VD2Ybi6oGHcTqEwGjiAhB Not Available [facility] 02/21/2024 17:00: 09 Xr, Hip + Pelvis, Unilateral, 2 Or 3 View : [email or web address] Encrypted=eaNkWufTR3vAxjK Uv6g%2UNIwzDsjlf0ihmz%2Fg 3QJw1vbAeoL5dFqMAuczRf8Gd EYSrVstFQU9jMcXKzct93f518 8IN9Jhi42UIkfvNzHmlMmU Not Available [facility] 05/22/2024 13:41: 01 Xr, Hip + Pelvis, Unilateral, 2 Or 3 View : [email or web address] Encrypted=baGcRyhOD6qUjjI Uv6g%7ONVlaFafqf4iipa%2Fg 2JPt8mhYwkM5hWcCFgepLg0Bo TBDtWlpOUW8pArQLxid30x038 3KY0Ygi99UEkopYuZvnLoV Not Available [facility] 05/22/2024 13:41: 03 Procedures Surgical History Date Name Laterality Status Provider Name and Address Organization Details Recorded Time open reduction of fracture of femur with internal fixation completed KATE WINN [place] - [facility] 05/22/2024 13:26:59 insertion of stent into aorta completed KATE WINN [place] [facility] 05/22/2024 13:26:41 Imaging Results None recorded. Procedure [...] Updated DateTime 05/22/2024 175.26 cm 23.8 kg/m2 39786.37 g KATE WINN [facility] 05/22/2024 13:24:30 Date Recorded Body height Body mass index (BMI) Body weight Provider Name and Address Organization Details Last Updated DateTime 12/20/2023 177.8 cm 23 kg/m2 17334.78 g KATE WINN [facility] 12/20/2023 13:43:47 Date Recorded Body height Body mass index (BMI) Body weight Provider Name and Address Organization Details Last Updated DateTime 01/18/2024 177.8 cm 23 kg/m2 66897.78 g KATE WINN [facility] 01/18/2024 15:05:18 Date Recorded Body height Body mass index (BMI) Body weight Provider Name and Address Organization Details Last Updated DateTime 02/21/2024 175.26 cm 23.8 kg/m2 90641.37 g MILTON FAROOQ [facility] 02/21/2024 16:52:06 Social History None recorded. Functional Status None recorded. Mental Status None recorded. Family History Nothing Reported. Medical History Condition Response Allergies/Hayfever N Coronary Artery Disease N Anxiety/Depression N Breathing or lung disorders N Emphysema N Nerve Disorders N Thyroid Problems N COPD N Pacemaker N Anemia N Kidney/Bladder Problems N Vascular Disease N Heart Trouble N Heart Attack (ND) N Gastrointestinal Disease N Cholesterol N Diabetes N Autoimmune disease N Inflammatory Joint disease N Bleeding Disorder N Orthotics N Arthritis Y Seizures/Epilepsy N [...] Diagnosis SNOMED-CT Code Diagnosis ICD10 Code Diagnosis IMO Codes Diagnosis Note [id number] MD [facility] [address] [place] [address] 12/20/2023 13:33:40 12/20/2023 16:09:42 Fracture of neck of femur 9508568 S72.001D [id number] MD [facility] [address] [place] [address] 01/18/2024 14:53:36 02/14/2024 09:50:01 Fracture of neck of femur 4209215 S72.001D [id number] NICHOLAS Linknimary alice [address] [place] [address] 02/21/2024 16:30:46 03/08/2024 15:48:00 Pain of left hip joint 2000353267 06712 M25.057 [id number] Felipa Juan MD [facility] [address] [place] [address] 05/22/2024 13:08:51 06/04/2024 14:13:09 Closed fracture of hip 330381217 S72.002A [id number] Health Concerns Section Related Observation LastModified by Organization Detai ls LastModified Time None Recorded Concern Status LastModified by Organization Details LastModified Time None Recorded Advance Directives Directive None Recorded Payers Insurance Date Sequence Insurance Name Policy Number Policy Dean Covered Member ID Dean Member ID Guarantor Name 06/04/2024 2 [place] [id number] Royce Liu [id number] Royce Liu 05/22/2024 1 [place] [employer] Royce Liu [id number] Royce Liu
--- OUTSIDE RECORDS SUMMARY | 2025-02-14 10:13 | XMS_ITS | Patient Health Record ---
Author Organization [facility] Address [address] [place] [address] Care Team Providers Care Top Knitter Name Role Phone Sebastian Preciado MD Primary Care Provider Kt Sorenson Jr Unavailable [phone] Allergies No Known Allergies Reason For [...] Problem Status W/U Status Risk Notes Problem 50536568 Other constipati on (K59.09) Active confirmed Problem 41427433 Other dysphagia (R13.19) Active confirmed Problem 76333802 Oropharyngeal dysphagia (R13.12) Active confirmed Problem 74579158 Dysphagia, unspecified type (R13.10) Active confirmed Problem 42150396 Diarrhea, unspecified type (R19.7) Active confirmed Problem 839317439 Aspiration into airway, initial encounter (T17.918A) Active confirmed Plan Of Treatment Pending Test Test Name Order Date XR BARIUM SWALLOW-ESOPHAGUS 12/16/2021 XR BARIUM SWALLOW, MODIFIED VIDEO 2021 Insurance Providers Payer Name Payer Address Payer Phone Subscriber Number Group Number Insured Name Patient Relationship to Insured Coverage Start Date Coverage End Date MEDICARE OF [place] [address] [place] [address] [phone] [id number] AMITA JERNIGAN Self - patient is the insured [employer] ATTN CLAIMS [address] [place] [address] [id number] AMITA JERNIGAN Self - patient is the [...] 03/02/21 Hospitalization History Reason Date(Month/Year) T[place] in [place] 09/05
--- OUTSIDE RECORDS SUMMARY | 2025-02-14 10:14 | XMS_ITS | Patient Health Record ---
Author Organization Sebastian Preciado III, MD Address [address] [place] [address] [place] [address] Care Team Providers Care Chiropractic Care Name Role Phone Dr. Sebastian Preciado III [...] ff Reviewed date:05/15/2024 11:39:51 AM Interpretation: Performing Lab:[facility], [address] [place] [phone] Notes/Report: White Blood Count 8.5 4.8-10.8 X10*3/uL [...] Panel Reviewed date:05/15/2024 11:39:51 AM Interpretation: Performing Lab:[facility], [address] [place] [phone] Notes/Report: Sodium 138 135-145 mmol/L Potassium 4.2 [...] Antigen Reviewed date:05/15/2024 11:39:51 AM Interpretation: Performing Lab:[facility], [address] [place] [phone] Notes/Report: Prostate Specific Antigen 0.50 <0.05-4.0 ng/mL PSA methodology: Systems Integration Alinity i Chemiluminescent Microparticle Immunoassay (CMIA) Beta-2 Glycoprotein Antibody Reviewed date:05/22/2024 04:16:19 PM Interpretation: Performing Lab:[facility], [address] [place] [phone] Notes/Report: Beta-2 Glycoprotein IgG <2.0 <20.0 U/mL [...] aging. For additional information, please refer to http://education.LemonCrate.iTwin/faq/FA Q123 (This link is being provided for informational/ educational purposes only.) THIS TEST WAS PERFORMED AT: [facility] [address] TREVON CHEN MD,PHD Tricyclic Antidepressant Scr n Reviewed date:05/22/2024 04:16:19 PM Interpretation: Performing Lab:[facility], [address] [place] [phone] Notes/Report: Amitriptyline, Urine NEGATIVE REFERENCE RANGE: <100 ng/mL THIS TEST PERFORMED AT: [facility] [address] [place], [place] [phone] MEDICAL STAFF SERVICES MANAGER: TREVON CHEN MD, PHD NOTES AND COMMENTS: This drug testing is for medical treatment only. Analysis was performed as non-forensic testing and these results should be used only by healthcare providers to render diagnosis or treatment, or to monitor progress of medical conditions. LDT Notes: Confirmation tests were developed and their analytical performance characteristics have been determined by [facility]. It has not been cleared or approved by the FDA. This assay has been validated pursuant to the CLIA regulations and is used for clinical purposes. Healthcare Providers needing Interpretation assistance, please contact us at [phone] ( ) M-F, 8am to 10pm EST THIS TEST PERFORMED AT: [facility] [address] [phone] MEDICAL STAFF SERVICES MANAGER: JAYDA WATTS MD Nortriptyline, Urine NEGATIVE REFERENCE RANGE: <100 ng/mL THIS TEST PERFORMED AT: [facility] [address] [place] [address] [phone] MEDICAL STAFF SERVICES MANAGER: TREVON CHEN MD, PHD NOTES AND COMMENTS: This drug testing is for medical treatment only. Analysis was performed as non-forensic testing and these results should be used only by healthcare providers to render diagnosis or treatment, or to monitor progress of medical conditions. LDT Notes: Confirmation tests were developed and their analytical performance characteristics have been determined by [facility]. It has not been cleared or approved by the FDA. This assay has been validated pursuant to the CLIA regulations and is used for clinical purposes. Healthcare Providers needing Interpretation assistance, please contact us at [phone] ( ) M-F, 8am to 10pm EST THIS TEST PERFORMED AT: [facility] [address] [place] [phone] MEDICAL STAFF SERVICES MANAGER: JAYDA WATTS MD CT abdomen pelvis w con Reviewed date:05/26/2024 09:04:12 PM Interpretation: Performing Lab: Notes/Report: [address] [address] [address] Scan Report Signed Patient: Royce Jernigan MR#: [id number] : 1935 Acct:[id number] Age/Sex: 88 / M ADM Date: 05/23/24 Loc: HO.CT Attending Dr: Sebastian Preciado MD Ordering Physician: Sebastian Preciado MD Date of Service: 05/23/24 Procedure(s): CT abdomen pelvis w IV con Accession Number(s): [id number] cc: Sebastian Preciado MD Report Number: [id number]: Total DLP = 594.00 mGy-cm EXAMINATION: CT [...] by: Sebastian Latham MD 05/23/2024 03:27 PM [facility] Dictated By: Sebastian Latham MD Signed By: <Electronically signed by Sebastian Latham MD in OV> 05/23/24 1527 DD/ 1411 TD/TT: 05/23/24 1446 Advertising Dispatch Clerk: [address] [address] [address] Scan Report Signed Patient: Chaparro Jernigan MR#: [id number] 0424 : 1935 Acct:[id number] Age/Sex: 88 / M ADM Date: 05/23/24 Loc: HO.CT Attending Dr: Sebastian Preciado MD Ordering Physician: Sebastian Preciado MD Date of Service: 05/23/24 Procedure(s): CT abd omen pelvis w IV con Accession Number(s): [id number] cc: Sebastian Preciado MD Report Number: [id number]: Total DLP = 594.00 mGy-cm EXAMINATION: CT ABDO MEN PELVIS WITH IV CONTRAST HISTORY: femoral hernia [...] base. The visualized left lung base is cl ear. There is no pleural effusion. CARDIOVASCULATURE: T he heart is normal in size. There is no pericardial effusion. LIVER: The liver is normal in size and contour. No liver mass is identified. The hepa tic and portal veins are patent. GALLBLADDER / BILE D UCTS: The gallbladder is unremarkable. There is no intra or extrahepati c biliary ductal dilatation. SPLEEN: The spleen i s normal in size. No focal splenic lesion is identified. PANCREAS: The pancre as is unremarkable in appearance. ADRENAL GLANDS: With in normal limits. KIDNEYS/RETROPERITON EUM: No renal calculi are identified. There is no hydronephrosis. No r enal masses are identified. LYMPH NODES: No abdo braden or pelvic lymphadenopathy. VASCULATURE: The abdominal aorta demonstrates atherosclerotic calcification, but i s normal in caliber. MESENTERY/PERITONEUM : No free fluid. No masses. There is no free intraperitoneal gas. STOMACH: The stomach is collapsed, limiting evaluation. SMALL BOWEL: The sma ll bowel is normal in caliber. COLON: There is a la rge amount of stool throughout the colon. APPENDIX: Normal. URINARY BLADDER/PELV IC ORGANS: The urinary bladder is unremarkable. The prostate is obsc ured by streak artifact from a left total hip arthroplasty. BONES / SOFT TISSUES : No suspicious bony or soft tissue abnormalities. There is a fat-conta ining right femoral hernia. __ C T/CT abdomen pelvis w IV con IMPRESSION: 1. Fat-containing ri ght femoral hernia. 2. Large amount of s tool throughout the colon. Electronically yunior d by: Sebastian Latham MD 05/23/2024 03:27 PM EST Dictated By: Sebastian Latham MD Signed By: <Electronically signed by Sebastian Latham MD in OV> 05/23/24 1527 DD/ 1411 TD/TT: 05/23/24 1446 Advertising Dispatch Clerk: Complete Blood Count Auto Di ff Reviewed date:11/04/2024 01:48:53 PM Interpretation: Performing Lab:[facility], [address] [place] [phone] Notes/Report: White Blood Count 5.8 4.8-10.8 X10*3/uL [...] NRBC Abs Auto 0.000 0.0-0.012 X10*3/uL Comprehensive Wake. Panel Fa Reviewed date:11/04/2024 01:48:53 PM Interpretation: Performing Lab:[facility], [address] [place] [phone] Notes/Report: Sodium 139 135-145 mmol/L Potassium 4.2 [...] Panel Reviewed date:11/04/2024 01:48:53 PM Interpretation: Performing Lab:[facility], [address] [place] [phone] Notes/Report: Triglycerides 70 <150 mg/dL Desirable Triglyceride: [...] Antigen Reviewed date:11/04/2024 01:48:53 PM Interpretation: Performing Lab:[facility], [address] [place] [phone] Notes/Report: Prostate Specific Antigen 0.69 <0.05-4.0 ng/mL PSA methodology: Burger Alinity i Chemiluminescent Microparticle Immunoassay (CMIA) Complete Blood Count Auto Di ff Reviewed date:11/25/2024 09:42:15 AM Interpretation: Performing Lab:[facility], [address] [place] [phone] Notes/Report: White Blood Count 6.2 4.8-10.8 X10*3/uL [...] Panel Reviewed date:11/25/2024 09:42:15 AM Interpretation: Performing Lab:[facility], [address] [place] [phone] Notes/Report: Sodium 139 135-145 mmol/L Potassium 4.2 [...] 3.5-5.0 g/dL Alkaline Phosphatase 59 39-117 U/L Complete Blood Count Auto Di ff Reviewed date:02/08/2025 10:33:48 AM Interpretation: Performing Lab:[facility], [address] [place] [phone] Notes/Report: White Blood Count 7.3 4.8-10.8 X10*3/uL Red Blood Count 4.25 4.60-5.80 X10*6/uL Hemoglobin 13.6 14.0-18.0 g/dl Hematocrit 42.3 42.0-52.0 % Mean Corpuscular Volume 99.5 80.0-98.0 fL Mean Corpuscular Hemoglobin 32.0 27.0-33.0 pg Mean Corpuscular HGB Conc 32.2 31.0-36.0 g/dl Red Cell Distribution Width 14.4 11.0-16.0 % Platelet Count 250 160-400 X10*3/uL Mean Platelet Volume 9.8 9.4-12.4 fL Neutrophils Percent Auto 66.7 45-73 % Imm Gran Pct Auto 0.4 0.0-0.4 % Lymphocytes Percent Auto 20.5 20-40 % Monocytes Percent Auto 9.3 2-11 % Eosinophils Percent Auto 2.1 0-4 % Basophils Percent Auto 1.0 0-2 % NRBC Pct Auto 0.0 0.0-0.2 /100WBC Neutrophils Absolute Auto 4.9 2.0-8.3 x10*3/uL Imm Gran Abs Auto 0.03 0.00-0.03 X10*3/uL Lymphocytes Absolute Auto 1.5 1.2-4.9 X10*3/uL Monocytes Absolute Auto 0.7 0.1-1.2 X10*3/uL Eosinophils Absolute Auto 0.2 0.0-0.4 X10*3/uL Basophils Absolute Auto 0.1 0.0-0.2 X10*3/uL NRBC Abs Auto 0.000 0.0-0.012 X10*3/uL Comprehensive Wake. Panel Fa st Reviewed date:02/08/2025 10:33:48 AM Interpretation: Performing Lab:[facility], [address] [place] [phone] Notes/Report: Sodium 142 135-145 mmol/L Potassium 4.2 3.3-5.1 mmol/L Chloride 106 96-108 mmol/L Carbon Dioxide 28 22-29 mmol/L Anion Gap 12 12-20 Blood Urea Nitrogen 19 9-16 mg/dL Creatinine 0.92 0.5-1.4 mg/dL Estimated Glomerular Filt Rate > 60 Chronic Kidney Disease: Estimated GFR < 60 mL/min/1.73m2 Severe Kidney Disease: Estimated GFR < 15 mL/min/1.73m2 Glucose Fasting 95 60-99 mg/dL Calcium 9.7 8.4-10.2 mg/dL Bilirubin Total 1.0 0.0-1.0 mg/dL Aspartate Amino Transferase 25 5-37 U/L Alanine Aminotransferase 19 0-40 U/L Total Protein 7.9 6.5-8.0 g/dL Albumin Level 4.5 3.5-5.0 g/dL Alkaline Phosphatase 63 39-117 U/L Lipid Panel Reviewed date:02/08/2025 10:33:48 AM Interpretation: Performing Lab:[facility], [address] [place] [phone] Notes/Report: Triglycerides 63 <150 mg/dL Desirable Triglyceride: less than 150 mg/dL Borderline High Triglyceride 150-199 mg/dL High Triglyceride: 200-499 mg/dL Very High Triglyceride: greater than or equal to 5OO mg/dL Cholesterol 141 <200 mg/dL Desirable Cholesterol: less than 200 mg/dL Borderline High Cholesterol: 200-239 mg/dL High Cholesterol: greater than 239 mg/dL LDL Cholesterol Calculated 83 <100 mg/dL Desirable LDL: less than 100 mg/dL Near Optimal/Above Optimal LDL: 110-129 mg/dL Borderline High LDL: 130-159 mg/dL High LDL: 160-189 mg/dL Very High LDL: greater than or equal to 190 mg/dL HDL Cholesterol 46 >40 mg/dL Desirable HDL: greater than 40 mg/dL Note: This HDL assay may give artificially low results in patients with liver disease. Prostate Specific Antigen Reviewed date:02/08/2025 10:33:48 AM Interpretation: Performing Lab:[facility], [address] [place] [phone] Notes/Report: Prostate Specific Antigen 0.67 <0.05-4.0 ng/mL PSA methodology: Burger Alinity i Chemiluminescent Microparticle Immunoassay (CMIA) Pathology Reviewed date:02/08/2025 10:33:48 AM Interpretation: Performing Lab:[facility], [address] [place] [phone] Notes/Report: ----- Name: Royce Jernigan Age/Sex: 89/M : 1935 Unit#: [id number] Attend Dr: Anand Woodruff MD Re02/06/25 Status : [facility] Location: [place] Disch: ----- SPEC : [id number] RECD : 02/06/25 STATUS: [place] NUM: [id number] COBY: 02/06/25-1023 [facility] DR: Anand Woodruff MD ENTERED: 02/06/25 SP TYPE: Surgical OTHR DR: Sebastian Preciado MD ORDERED: Gross Micro L2 Diagnosis Right inguinal herni a, herniorrhaphy: Mesothelial-lined fibrovascular and adipose tissue with vascular conges tion, consistent with hernia sac. Clinical History Right inguinal hernia Microscopic Description Microscopic sections reviewed. Material Received Right inguinal hernia sac Gross Description Received in formalin is a 3.6 x 2.2 x 1.0 cm portion of young-red fibromembranous connective tissue with attached yellow lobulated fat. Discrete abnormalities are not identified grossly. Representat matthew sections are submitted in A1. (RJD) IHC S/NG Disclaimer NOTE: Unless otherwi se stated, all tissue is formalin-fixed and paraffin-embedded. Some or all of the immunohistochemical tests reported herein may have been developed and their performance characteristics determined by [facility]. They have not been cleared or appr stewart by the U.S. Food and Drug Administration (FDA). However, the FDA has determined that such clearance or approval is not necessary. This laboratory is certified under the Clinical Laboratory Improvement Amendments of 1988 (CLIA) as qualified to perform high complexity clinical laboratory testing. Copies To: Sebastian Preciado MD [address] [facility] [address] [place] [address] Anand Woodruff MD [facility] [address] [place], [place] [id number] CONTINUED ON NEXT PAGE ----- Name: Royce Jernigan Age/Sex: 89/M : 1935 Unit#: [id number] Attend Dr: Anand Woodruff MD Re02/06/25 [place] [facility] [place] [facility] Disch: ----- SPEC : [id number] RECD : 02/06/25 STATUS: [place] NUM: [id number] COBY: 02/06/25-[address] [facility] [address]: Anand Woodruff MD ENTERED: 02/06/25 SP TYPE: Surgical OTHR DR: Sebastian Preciado MD ORDERED: Shawn Rubio L2 ----- Signed (signature on file) Daniel Mae MD 02/07/25 4292 ----- END OF REPORT Reason For Referral Reason Evaluate and Treat Right sided abdominal pain Femoral hernia of right side Diagnosis 1 Femoral hernia of ri ght side (K41.90) Diagnosis 2 Abdominal pain (R10. 9) Referral Organization Sebastian Preciado III, MD Referring Provider First Name Sebastian Referring Provider Last Name Ilana Referring Provider Speciality Internal M edicine Referred Provider [facility], [facility] Sur[facility] Referred Provider Specialty Surgery General Notes DSade 10/29/2024 10:27:12 AM > Referral faxed with [...] Influenza IM Intramuscular 04/18/2013 Administered Lot# [id number] Pneumococcal Unknown 02/25/2010 Administered Influenza Unknown 03/04/2014 [...] Problem Status W/U Status Risk Notes Problem 5221084 Former smoker (Z87.891) Active confirmed He has a plan to prevent relapse in times of stress and illness. We discussed lifestyle today. Problem 826190717 Overweight (E66.3) Active confirmed He remains overweight. We discussed his diet and nutrition.We reviewed his previous weights. We made a plan to lose weight at a rate of 1 pound per week. Problem 7122044 Arthritis (M19.90) Active confirmed The right third [...] hand surgery Problem Malignant neoplasm of prostate (491487518) Malignant neoplasm of prostate (C61) Active confirmed His PSA in was 0.44. It is currently 0.63. The values being observed. Problem Hyperlipidemia (08806013) Hyperlipidemia, unspecified (E78.5) Active confirmed His lipids are treated and have been stable. A fasting lipid profile will be done periodically. Problem Essential hypertension (21849539) Essential (primary) hypertension (I10) Active confirmed His blood pressure has been normal and no change was made in his regimen. I urged him to have his blood pressure determined at least once a week while he is in [place] and reported back to me. 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 He has an appointment in the near future to see the engraver machine after he has an echocardiogram and a nuclear medicine stress test. He will come back from [place] the end of September 2023. I continue to use peak with him every 21 days. Problem Gastro-esophageal reflux disease without esophagitis (179147994) Gastro-esophage al reflux disease without esophagitis (K21.9) Active confirmed His esophageal reflux is well controlled with oyfo-ygv-mwpbzx r medication and no change in his regimen was necessary today. Problem 942945961 Erosive (osteo)arthriti s (M15.4) Active confirmed The swelling in the right third and fourth fingers is less than the erythema has resolved. Will be observed at this time. Problem 01151747 Cervical radiculopathy (M54.12) Active confirmed He is free of symptoms at this time. He will notify me if the pain returns. 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 He is going to have an ultrasound of his heart, which will help clarify if the valve is a source of an embolism. Problem 472697520 Osteoarthritis of cervical spine, unspecified spinal osteoarthritis complication status (M47.812) Active confirmed He has very limited range of motion in all directions of his neck. The current nerve impingement symptoms are improving rapidly. Problem 880891221 Ischemic heart disease (I25.9) Active confirmed We have requested the results of his cardiac studies. He is tolerating the isosorbide well without dizziness. Problem 836963068 Peripheral edema (R60.0) Active confirmed We began a regimen of furosemide 20 mg and potassium chloride 10 mEq daily. 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 I25.10 ; Osteoarthritis of cervical spine, unspecified spinal osteoarthritis complication status M47.812 and Overweight E66.3 Sebastian Preciado III, MD [address] [place] [address] [place] [address] 06/04/2024 Sebastian Preciado Former smoker Z87.89 1 ; Femoral hernia of right side K41.90 ; Gastro-esophageal reflux disease without esophagitis K21.9 ; Malignant neoplasm of prostate C61 ; Essential (primary) hypertension I10 ; Hyperlipidemia, unspecified E78.5 ; Nonrheumatic aortic valve stenosis I35.0 ; 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 I25.10 and Overweight E66.3 Sebastian Preciado III, MD [address] [place] [address] [place] [address] 08/03/2024 Sebastian Preciado Former smoker Z87.89 1 ; Femoral hernia of right side K41.90 ; Essential (primary) hypertension I10 ; Malignant neoplasm of prostate C61 ; Gastro-esophageal reflux disease without esophagitis K21.9 ; Osteoarthritis of cervical spine, unspecified spinal osteoarthritis complication status M47.812 ; 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 I25.10 ; Overweight E66.3 and Nonrheumatic aortic valve stenosis I35.0 Sebastian Preciado III, MD [address] [place] [address] [place] [address] 10/23/2024 Sebastian Preciado Former smoker Z87.89 1 ; Essential (primary) hypertension I10 ; Malignant neoplasm of prostate C61 ; Hyperlipidemia, unspecified E78.5 ; Gastro-esophageal reflux disease without esophagitis K21.9 ; 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 I25.10 ; Osteoarthritis of cervical spine, unspecified spinal osteoarthritis complication status M47.812 ; Overweight E66.3 and Nonrheumatic aortic valve stenosis I35.0 Sebastian Preciado III, MD [address] [place] [address] [place] [address] 11/06/2024 Sebastian Preciado Former smoker Z87.89 1 ; Peripheral edema R60.0 ; Overweight E66.3 ; Essential (primary) hypertension I10 ; Hyperlipidemia, unspecified E78.5 ; Malignant neoplasm of prostate C61 ; Gastro-esophageal reflux disease without esophagitis K21.9 ; Nonrheumatic aortic valve stenosis I35.0 ; Osteoarthritis of cervical spine, unspecified spinal osteoarthritis complication status M47.812 and 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 I25.10 Sebastian Preciado III, MD [address] [place] [address] [place] [address] 11/27/2024 Sebastian Preciado Former smoker Z87.89 1 ; Femoral hernia of right side K41.90 ; Hyperlipidemia, unspecified E78.5 ; Malignant neoplasm of prostate C61 ; Essential (primary) hypertension I10 ; Gastro-esophageal reflux disease without esophagitis K21.9 ; Nonrheumatic aortic valve stenosis I35.0 ; 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 I25.10 ; Osteoarthritis of cervical spine, unspecified spinal osteoarthritis complication status M47.812 and Peripheral edema R60.0 Sebastian Preciado III, MD [address] [place] [address] [place] [address] 05/21/2024 Sebastian Garciarne Unilateral femoral hernia without obstruction or gangrene, recurrence not specified K41.90 Sebastian Preciado III, MD [address] [place] [address] [place] [address] 06/04/2024 Sebastian Chaidezne Former smoker Z87.89 1 Sebastian Preciado III, MD [address] [place] [address] [place] [address] 10/18/2024 Sebastian Chaidezne Former smoker Z87.89 1 Sebastian Preciado III, MD [address] [place] [address] [place] [address] 12/06/2024 Sebastian Chaidezne Former smoker Z87.89 1 Assessments Encounter Date [...] a week while he is in [place] and reported back to me. 06/04/2024 Former [...] to wait until he comes back to [place] in the spring to have it repaired. [...] to wait until he comes back to [place] in the spring to have it repaired. [...] a week while he is in [place] and reported back to me. 11/06/2024 Former [...] His esophageal reflux is well controlled with epkn-rli-cuyisxj medication and no change in his regimen was necessary today. 08/03/2024 Essential (primary) hypertension (ICD-10 - I10) His blood pressure has been 134/72 and no change was made in his regimen. I urged him to have his blood pressure determined at least once a week while he is in [place] and reported back to me. 10/23/2024 Malignant [...] a week while he is in [place] and reported back to me. 11/27/2024 Malignant neoplasm o f prostate (ICD-10 - C61) His PSA in 2022 was 0.44. It is currently 0.63. The values being observed. 05/14/2024 Gastro-esophageal reflux disease without esophagitis (ICD-10 - K21.9) His esophageal reflux is well controlled with hcjk-odr-hukypeu medication and no change in his regimen was necessary today. 06/04/2024 Essential (primary) hypertension (ICD-10 - I10) His blood pressure is 134/72 and no change was made in his regimen. I urged him to have his blood pressure determined at least once a week while he is in [place] and reported back to me. 08/03/2024 Gastro-esophageal reflux disease without esophagitis (ICD-10 - K21.9) His esophageal reflux is well controlled with edhz-dju-mkmurbs medication and no change in his regimen was necessary today. 10/23/2024 Gastro-esophageal reflux disease without esophagitis (ICD-10 - K21.9) His esophageal reflux is well controlled with smew-xbe-rysvklt medication and no change in his regimen [...] a week while he is in [place] and reported back to me. 05/14/2024 Atherosclerotic hear t disease of comanche coronary artery without angina pectoris (ICD-10 - I25.10) He continues to have anginaa with prolonged exertion. He has an appointment in the near future to see the engraver machine after he has an echocardiogram and a nuclear medicine stress test. He will come back from [place] the end of September 2023. I continue [...] rapidly. 10/23/2024 Atherosclerotic hear t disease of comanche coronary artery without angina pectoris (ICD-10 - I25.10) He continues to have anginaa with prolonged exertion. He has an appointment in the near future to see the engraver machine after he has an echocardiogram and a nuclear medicine stress test. He will come back from [place] the end of September 2023. I continue to use peak with him every 21 days. 11/06/2024 Malignant neoplasm o f prostate (ICD-10 - C61) His PSA is being followed. He is under the care of urology. He remains asymptomatic. 11/27/2024 Gastro-esophageal reflux disease without esophagitis (ICD-10 - K21.9) His esophageal reflux is well controlled with zryk-dna-kwliqsc medication and no change in his regimen [...] embolism. 08/03/2024 Atherosclerotic hear t disease of comanche coronary artery without angina pectoris (ICD-10 - I25.10) He continues to have anginaa with prolonged exertion. He has an appointment in the near future to see the engraver machine after he has an echocardiogram and a nuclear medicine stress test. He will come back from [place] the end of September 2023. I continue [...] His esophageal reflux is well controlled with arcl-nyg-lefbebi medication and no change in his regimen [...] week. 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 He has an appointment in the near future to see the engraver machine after he has an echocardiogram and a nuclear medicine stress test. He will come back from [place] the end of September 2023. I continue [...] embolism. 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 He has an appointment in the near future to see the engraver machine after he has an echocardiogram and a nuclear medicine stress test. He will come back from [place] the end of September 2023. I continue [...] rapidly. 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 He has an appointment in the near future to see the engraver machine after he has an echocardiogram and a nuclear medicine stress test. He will come back from [place] the end of September 2023. I continue [...] Provider Name:Sebastian Preciado , 02/15/2025 11:15:00 AM, [address] [place] [address] TER[address] IZQUIERDO, NICHOLE HIGHTOWER, [phone], Provider Name:Sebastian Preciado , 05/14/2025 11:00:00 AM, [address] [place] [address] TERESE IZQUIERDO, [place], [phone], Insurance Providers Payer Name Payer Address Payer Phone Subscriber Number Group Number Insured Name Patient Relationship to Insured Coverage Start Date Coverage End Date MEDICARE NGS [address] [place] [address] [id number] Royce Jernigan Self - patient is the insured [facility] [address] [place], [place] [phone] [id number] Royce Jernigan Self - patient is [...] No history Left hip surgery 11/2023 TAVR, [facility] 02/2021 cardiac catheterization, 3 stents December 2012 Hospitalization History Reason Date(Month/Year) No history
== END 2025-02-14 09:46 | disposition home or self-care (01) ==
LOC: HO.HGS 09:18
PROVIDERS: PCP Internal Medicine Medical Oncology; Visit Provider Physician Assistant Surgical
DX: Z98.890 Other specified postprocedural states (principal); Z87.19 Personal history of other diseases of the digestive system
CPT/HCPCS: 99024

== ENCOUNTER → 2025-02-14 09:17 | Outpatient (BNVA) | payer MEDICARE, SELFPAY | PROVIDERS: PCP Internal Medicine Medical Oncology; Visit Provider Physician Assistant Surgical | DX: Z48.815 Encounter for surgical aftercare following surgery on the digestive system (principal); Z98.890 Other specified postprocedural states; Z87.19 Personal history of other diseases of the digestive system | CPT/HCPCS: 99212 ==

== ENCOUNTER 2025-05-06 08:56 | Outpatient (AMB) | payer MEDICARE, SELFPAY ==
--- OUTSIDE RECORDS SUMMARY | 2024-06-04 04:00 | XMS_ITS ---
Author Organization Sebastian Preciado III, MD Address [address] [place] [address] [address] [place] [address] Care Team Providers Care Email Marketing Coordinator Name Role Phone Dr. Sebastian Preciado III Primary Care Provider Allergies Allergen (clinical drug ingredient) Drug/Non Drug Allergy documented on EMR Reaction Allergy Type Onset Date Status No Known Drug Allergy Unknown Drug Allergy Active REASON FOR VISIT ASHD, hypertension, left hip pain, prostate cancer, right femoral hernia Medications Medication SIG (Take, Route, Frequency, Duration) Notes Start Date End Date Status Tylenol Arthritis Pain Active Isosorbide Mononitrate ER 30 MG 1 tablet in the morning Orally Once a day Active Adult Aspirin EC Low Strength 81 MG 1 tablet Orally Once a day Active Centrum Silver Activ e Atenolol 25 MG 12.5 mg Orally Once a day Active Pravastatin Sodium 40 MG 1 tablet Orally Once a day Active Social History Tobacco Use: Social History [...] has it been since you last smoked? Clevelanda ter than 10 years Additional Findings: Tobacco non-user Ex-cigaret te smoker Problems Problem Type SNOMED Code ICD Code Onset Dates Problem Status W/U Status Risk Notes Problem [id number] Femoral hernia of right side (K41.90) Active confirmed He has occasional pain in his right lower abdominal wall. There is a right femoral hernia on the CT scan done recently. He was instructed on how to take care of this if it worsens. A surgical consultation is pending later this week. 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 We discussed lifestyle today. 06/04/2024 Femoral hernia of right side (ICD-10 - K41.90) He has occasional pain in his right lower abdominal wall. There is a right femoral hernia on the CT scan done recently. He was instructed on how to take care of this if it worsens. He wants to wait until he comes back to [place] in the spring to have it repaired. 06/04/2024 Gastro-esophageal reflux disease without esophagitis (ICD-10 - K21.9) His esophageal reflux is well controlled with [id number] medication and no change in his regimen was necessary today. 06/04/2024 Malignant neoplasm o f prostate (ICD-10 - C61) His prostate cancer appears to be stable. There was no sign of disease progression today. 06/04/2024 Essential (primary) hypertension (ICD-10 - I10) His blood pressure is 134/72 and no change was made in his regimen. I urged him to have his blood pressure determined at least once a week while he is in [place] and reported back to me. 06/04/2024 Hyperlipidemia, unspecified (ICD-10 - E78.5) The current fasting lipid profile shows good control of his lipids. No change in his regimen as needed. 06/04/2024 Nonrheumatic aortic valve stenosis (ICD-10 - I35.0) He had a TAVR in the recent past for aortic stenosis. He is going to have an ultrasound of his heart, which will help clarify if the valve is a source of an embolism. 06/04/2024 Atherosclerotic hear t disease of anvik coronary artery without angina pectoris (ICD-10 - I25.10) He continues to have anginaa with prolonged exertion. He has an appointment in the near future to see the special certificate dictator after he has an echocardiogram and a nuclear medicine stress test. He will come back from [place] the end of September 2023. I continue to use peak with him every 21 days. 06/04/2024 Overweight (ICD-10 - E66.3) His body mass index is stable at 25.09. We discussed a weight loss strategy. He will try to lose weight at a rate of one half of a pound per week. Plan Of Treatment Medication Medication Name Sig Start Date Stop Date Notes Tylenol Arthritis Pain Isosorbide Mononitrate ER 30 MG 1 tablet in the morning Orally Once a day Adult Aspirin EC Low Strengt h 81 MG 1 tablet Orally Once a day Centrum Silver Atenolol 25 MG 12.5 mg Orally Once a day Pravastatin Sodium 40 MG 1 tablet Orally Once a day Next Appt Details Follow Up: July, Reason: Becka feng check-up Provider Name:Sebastian Preciado , 05/14/2025 11:00:00 AM, [address] [place] [address] DR [facility] Steve, [place], [address], Progress Notes * Royce JERNIGANDOB: 8 (88 yo M)Acc No.[id number]:06/04/2024 Patient: Royce LOWRY Provider: Willa Preciado MD :1935 A ge:88 Y S ex:Male Date:06/04/2024 Address:[id number] Subjective: * Chief Complaints: * A SHDHypertensionLeft hip painProstate cancerRight femoral hernia * HPI: * : Telehealth L ocation of provider rendering services: { ...} [address] [facility] [address] L ocation of patient: katy rayo listed in demographics for today's visit P atient identification confirmed using: NELIDA Hansen ame T elehealth method: T elephone only. Patient not visible to care provider. C onsent: P atient verbally consented to treatment, Patient verbally consented to billing insurance company, Patient informed of any privacy concerns related to method of visit T otal time spent with patient (mins) 2 2 This telehealth visit took place over 15 minutes with the patient at home and me in my office. He gave consent for billing. The patient, an 88-year-old male, reported a hernia that bulges during the day and subsides overnight. He also mentioned a fracture that is still causing him pain and affecting his walking. The pain is intermittent, with some days being better than others. He also mentioned a heart condition, but reported that it seems to be doing okay. He is currently in [place] for the winter, but plans to return north in October. His CT scan of the abdomen May 23, 2024 showed a right femoral hernia. It is causing him pain. He does not wish to have it fixed in [place] but wants to wait until he returns to [place] in the next. I have instructed him on what to do if it worsens. * ROS: G eneral/Constitutional: pain R ight lower abdominal wall, otherwise only normal aches and pains. C hills d enies. F atigue a dmits. F ever d enies. ? E NT: Decreased hearing m ild. R espiratory: Cough d enies. C ardiovascular: Chest pain with exertion d enies. D yspnea on exertion?denies. S hortness of breath d enies. G astrointestinal: Constipation o ccasional. D ecreased appetite d enies. D iarrhea d enies. H eartburn d enies. N ausea d enies. R ectal bleeding d enies. V omiting d enies. H ematology: bruising d enies. p etechiae d enies. S wollen glands n one have been noted. M en Only: Admits Jorge waggoner. G enitourinary: Frequent urination o nce a night. M usculoskeletal: Muscle aches d enies. P ainful joints d enies. S ciatica d enies. W eakness t hat is generalized. S kin: Itching d enies. R svetlana d enies. S kin lesion(s)?denies. N eurologic: Difficulty speaking d enies. D izziness d enies.?Headache d enies. L ow back pain d enies. P sychiatric: Depressed mood d enies. * Medical History: * Surgical History: c ardiac catheterization, 3 stents December 2012TAVR, [facility] eft hip surgery 11/2023No history * Hospitalization/Major Diagno stic Procedure: N o history * Family History: F ather: 72 yrs, blood clot. M other: 62 yrs, blood clot. S iblings: . 1 brother(s) , 2 sister(s) . . Three siblings have from accidents, surgery and hypotension. * Social History: T obacco Use: T obacco Use/Smoking P atient is a f ormer smoker H ow long has it been since you last smoked??> 10 years A dditional Findings: Tobacco Non-User E x-cigarette smoker Tobacco Control (Standard) T obacco use: F ormer smoker H ow long has it been since you last smoked??Greater than 10 years A dditional Findings: Tobacco non-user E x-cigarette smoker Jorge wheat was born in [place], [place] and has been to [facility] for 59 years. He has 3 children and 9 grandchildren. 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 * Medications: T akingTylenol Arthritis Pain Centrum Silver Atenolol 25 MG Tablet 12.5 mg Orally Once a day Adult Aspirin EC Low Strength 81 MG Tablet Delayed Release 1 tablet Orally Once a day Pravastatin Sodium 40 MG Tablet 1 tablet Orally Once a day Isosorbide Mononitrate ER 30 MG Tablet Extended Release 24 Hour 1 tablet in the morning Orally Once a day Medication List reviewed and reconciled with the patientTaking Tylenol Arthritis Pain Taking Centrum Silver Taking [...] in the morning Orally Once a day Medication List reviewed and reconciled with the patient * Allergies: N o Known Drug Allergyno[Allergies Verified] Objective: * Vitals: H t: 68, Wt:165, BMI:25.09, Ht-cm: 172.72, Wt-k.84. * P ast Orders: L ab:Tricyclic Antidepressant Scrn (Order Date - 05/14/2024) (Collection Date & Time - 05/14/2024 12:36 PM) Value Reference Range Amitriptyline, Urine NEGATIVE - Nortriptyline, Urine NEGATIVE - Lab:URINE DIP STICK * Collection Date 05/14/2024 11/04/2022 Order Date 05/14/2024 11/04/2022 SG 1.010 (Ref Range: 1.005 - 1.025) 1.010 (Ref Range: 1.005 - 1.025) pH 5.0 (Ref Range: 5.0 - 9.0) 6.0 (Ref Range: 5.0 - 9.0) RAQUEL Negative (Ref Range: Negative -) Negative (Ref Range: Negative -) NIT Negative (Ref Range: Negative -) Negative (Ref Range: Negative -) PRO 15 (Ref Range: Negative - Trace) Negative (Ref Range: Negative - Trace) GLU Negative (Ref Range: Negative -) Negative (Ref Range: Negative -) KET 5 (Ref Range: Negative -) Negative (Ref Range: Negative -) UBG 0.2 (Ref Range: 0.1 - 1.8) 0.2 (Ref Range: 0.1 - 1.8) MOIZ 1 (Ref Range: 0.2 - 1.3) Negative (Ref Range: 0.2 - 1.3) BLD Negative (Ref Range: Negative -) Negative (Ref Range: Negative -) Menstrating NR No * Lab:Complete Blood Count Aut o Diff * Collection Date 05/14/2024 04/12/2023 11/23/2022 Collection Time 12:37 PM 11:39 AM 07:23 AM Order Date 05/14/2024 04/12/2023 11/23/2022 White Blood Count 8.5 (Ref Range: 4.8-10.8 X10*3/uL) 7.0 (Ref Range: 4.8-10.8 X10*3/uL) 5.8 (Ref Range: 4.8-10.8 X10*3/uL) Red Blood Count 3.93 L (Ref Range: 4.60-5.80 X10*6/uL) 3.97 L (Ref Range: 4.60-5.80 X10*6/uL) 4.17 L (Ref Range: 4.60-5.80 X10*6/uL) Hemoglobin 12.3 L (Ref Range: 14.0-18.0 g/dl) 12.6 L (Ref Range: 14.0-18.0 g/dl) 13.0 L (Ref Range: 14.0-18.0 g/dl) Hematocrit 38.7 L (Ref Range: 42.0-52.0 %) 39.0 L (Ref Range: 42.0-52.0 %) 40.7 L (Ref Range: 42.0-52.0 %) Mean Corpuscular Volume 98.5 H (Ref Range: 80.0-98.0 fL) 98.2 H (Ref Range: 80.0-98.0 fL) 97.6 (Ref Range: 80.0-98.0 fL) Mean Corpuscular Hemoglobin 31.3 (Ref Range: 27.0-33.0 pg) 31.7 (Ref Range: 27.0-33.0 pg) 31.2 (Ref Range: 27.0-33.0 pg) Mean Corpuscular HGB Conc 31.8 (Ref Range: 31.0-36.0 g/dl) 32.3 (Ref Range: 31.0-36.0 g/dl) 31.9 (Ref Range: 31.0-36.0 g/dl) Red Cell Distribution Width 15.7 (Ref Range: 11.0-16.0 %) 14.4 (Ref Range: 11.0-16.0 %) 14.3 (Ref Range: 11.0-16.0 %) Platelet Count 243 (Ref Range: 160-400 X10*3/uL) 246 (Ref Range: 160-400 X10*3/uL) 206 (Ref Range: 160-400 X10*3/uL) Mean Platelet Volume 9.6 (Ref Range: 9.4-12.4 fL) 9.9 (Ref Range: 9.4-12.4 fL) 10.4 (Ref Range: 9.4-12.4 fL) Neutrophils Percent Auto 75.8 H (Ref Range: 45-73 %) 68.7 (Ref Range: 45-73 %) 60.3 (Ref Range: 45-73 %) Imm Gran Pct Auto 0.4 (Ref Range: 0.0-0.4 %) 0.3 (Ref Range: 0.0-0.4 %) 0.3 (Ref Range: 0.0-0.4 %) Lymphocytes Percent Auto 12.2 L (Ref Range: 20-40 %) 17.4 L (Ref Range: 20-40 %) 24.0 (Ref Range: 20-40 %) Monocytes Percent Auto 9.2 (Ref Range: 2-11 %) 10.3 (Ref Range: 2-11 %) 10.3 (Ref Range: 2-11 %) Eosinophils Percent Auto 1.8 (Ref Range: 0-4 %) 2.3 (Ref Range: 0-4 %) 3.9 (Ref Range: 0-4 %) Basophils Percent Auto 0.6 (Ref Range: 0-2 %) 1.0 (Ref Range: 0-2 %) 1.2 (Ref Range: 0-2 %) NRBC Pct Auto 0.0 (Ref Range: 0.0-0.2 /100WBC) 0.0 (Ref Range: 0.0-0.2 /100WBC) 0.0 (Ref Range: 0.0-0.2 /100WBC) Neutrophils Absolute Auto 6.5 (Ref Range: 2.0-8.3 x10*3/uL) 4.8 (Ref Range: 2.0-8.3 x10*3/uL) 3.5 (Ref Range: 2.0-8.3 x10*3/uL) Imm Gran Abs Auto 0.03 (Ref Range: 0.00-0.03 X10*3/uL) 0.02 (Ref Range: 0.00-0.03 X10*3/uL) 0.02 (Ref Range: 0.00-0.03 X10*3/uL) Lymphocytes Absolute Auto 1.0 L (Ref Range: 1.2-4.9 X10*3/uL) 1.2 (Ref Range: 1.2-4.9 X10*3/uL) 1.4 (Ref Range: 1.2-4.9 X10*3/uL) Monocytes Absolute Auto 0.8 (Ref Range: 0.1-1.2 X10*3/uL) 0.7 (Ref Range: 0.1-1.2 X10*3/uL) 0.6 (Ref Range: 0.1-1.2 X10*3/uL) Eosinophils Absolute Auto 0.2 (Ref Range: 0.0-0.4 X10*3/uL) 0.2 (Ref Range: 0.0-0.4 X10*3/uL) 0.2 (Ref Range: 0.0-0.4 X10*3/uL) Basophils Absolute Auto 0.1 (Ref Range: 0.0-0.2 X10*3/uL) 0.1 (Ref Range: 0.0-0.2 X10*3/uL) 0.1 (Ref Range: 0.0-0.2 X10*3/uL) NRBC Abs Auto 0.000 (Ref Range: 0.0-0.012 X10*3/uL) 0.000 (Ref Range: 0.0-0.012 X10*3/uL) 0.000 (Ref Range: 0.0-0.012 X10*3/uL) * Lab:Comprehensive Met. Panel * Collection Date 05/14/2024 04/12/2023 11/05/2021 Collection Time 12:37 PM 11:39 AM 12:26 PM Order Date 05/14/2024 04/12/2023 11/05/2021 Sodium 138 (Ref Range: 135-145 mmol/L) 138 (Ref Range: 135-145 mmol/L) 140 (Ref Range: 135-145 mmol/L) Bilirubin Total 0.8 (Ref Range: 0.0-1.0 mg/dL) 0.7 (Ref Range: 0.0-1.0 mg/dL) 1.0 (Ref Range: 0.0-1.0 mg/dL) Aspartate Amino Transferase 25 (Ref Range: 5-37 U/L) 20 (Ref Range: 5-37 U/L) 19 (Ref Range: 5-37 U/L) Alanine Aminotransferase 17 (Ref Range: 0-40 U/L) 16 (Ref Range: 0-40 U/L) 23 (Ref Range: 0-40 U/L) Total Protein 7.1 (Ref Range: 6.5-8.0 g/dL) 7.3 (Ref Range: 6.5-8.0 g/dL) 6.9 (Ref Range: 6.5-8.0 g/dL) Albumin Level 4.0 (Ref Range: 3.5-5.0 g/dL) 3.9 (Ref Range: 3.5-5.0 g/dL) 3.9 (Ref Range: 3.5-5.0 g/dL) Alkaline Phosphatase 62 (Ref Range: 39-117 U/L) 62 (Ref Range: 39-117 U/L) 61 (Ref Range: 39-117 U/L) Potassium 4.2 (Ref Range: 3.3-5.1 mmol/L) 4.5 (Ref Range: 3.3-5.1 mmol/L) 4.0 (Ref Range: 3.3-5.1 mmol/L) Chloride 104 (Ref Range: 96-108 mmol/L) 102 (Ref Range: 96-108 mmol/L) 105 (Ref Range: 96-108 mmol/L) Carbon Dioxide 28 (Ref Range: 22-29 mmol/L) 30 H (Ref Range: 22-29 mmol/L) 27 (Ref Range: 22-29 mmol/L) Anion Gap 10 L (Ref Range: 12-20) 11 L (Ref Range: 12-20) 12 (Ref Range: 12-20) Blood Urea Nitrogen 18 H (Ref Range: 9-16 mg/dL) 17 H (Ref Range: 9-16 mg/dL) 15 (Ref Range: 9-16 mg/dL) Creatinine 0.85 (Ref Range: 0.5-1.4 mg/dL) 0.92 (Ref Range: 0.5-1.4 mg/dL) 0.95 (Ref Range: 0.5-1.4 mg/dL) Estimated Glomerular Filt Rate > 60 > 60 > 60 Glucose Random 97 (Ref Range: 60-115 mg/dL) 97 (Ref Range: 60-115 mg/dL) 83 (Ref Range: 60-115 mg/dL) Calcium 9.7 (Ref Range: 8.4-10.2 mg/dL) 9.4 (Ref Range: 8.4-10.2 mg/dL) 9.1 (Ref Range: 8.4-10.2 mg/dL) * Lab:Prostate Specific Antige n * Collection Date 05/14/2024 04/12/2023 11/23/2022 Collection Time 12:37 PM 11:39 AM 07:23 AM Order Date 05/14/2024 04/12/2023 11/23/2022 Prostate Specific Antigen 0.50 (Ref Range: <0.05-4.0 ng/mL) 0.44 (Ref Range: <0.05-4.0 ng/mL) 0.43 (Ref Range: <0.05-4.0 ng/mL) ???Lab:Beta-2 Glycoprotein Antibody (Order Date - 05/14/2024) (Collection Date & Time - 2:37 PM)?ValueReference Range?Beta-2 Glycoprotein IgG<2.0<20.0 - U/mL?Beta-2 Glycoprotein IgM4.8<20.0 - U/mL ?Beta-2 Glycoprotein IgA<2.0<20.0 - U/mL ???Imaging:CT abdomen pelvis w con (Order Date - 05/23/2024) (Performed Date - 05/23/2024) Assessment: * Assessment: 1. F emoral hernia of right side - K41.90 (Primary) N otes :He has occasional pain in his right lower abdominal wall. There is a right femoral hernia on the CT scan done recently. He was instructed on how to take care of this if it worsens. He wants to wait until he comes back to [place] in the spring to have it repaired. 2 . F ormer smoker - Z87.891 N otes :He has a plan to prevent relapse in times of stress and illness. We discussed lifestyle today. 3 . G warner-esophageal reflux disease without esophagitis - K21.9 ?Notes :His esophageal reflux is well controlled with zvfl-zmo-zvdfkpa medication and no change in his regimen was necessary today. 4 . M alignant neoplasm of prostate - C61 N otes :His prostate cancer appears to be stable. There was no sign of disease progression today. 5 . E ssential (primary) hypertension - I10 N otes :His blood pressure is 134/72 and no change was made in his regimen. I urged him to have his blood pressure determined at least once a week while he is in [place] and reported back to me. 6 . H yperlipidemia, unspecified - E78.5 N otes :The current fasting lipid profile shows good control of his lipids. No change in his regimen as needed. 7 . N onrheumatic aortic valve stenosis - I35.0 N otes :He had a TAVR in the recent past for aortic stenosis. He is going to have an ultrasound of his heart, which will help clarify if the valve is a source of an embolism. 8 . 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 He has an appointment in the near future to see the special certificate dictator after he has an echocardiogram and a nuclear medicine stress test. He will come back from [place] the end of September 2023. I continue to use peak with him every 21 days. 9 . O verweight - E66.3 N otes :His body mass index is stable at 25.09. We discussed a weight loss strategy. He will try to lose weight at a rate of one half of a pound per week. Plan: * Treatment: * Procedure Codes: * Preventive Medicine: Counseling: C are goal follow-up plan: Counseling for abnormal BMI given Y es Above Normal BMI Follow-up D ietary management education, guidance, and counseling S moking/Tobacco Use Patient counseled on the dangers of tobacco use and urged to quit. 0 06/04/2024 * Follow Up: M arch (Reason: Routine check-up) * Images: * Sign off status: Completed true * Provider: Willa Preciado MD Date: 0 06/04/2024 Generated for Estelle chao/Maximino/eTransmitting on: 1 07/07/2024 09:38 AM EST History and Physical Notes * HPI (History of Present Illness) Category Sub-Category Detail Notes Telehealth Location of [facility] rendering services:: {...} [address] [facility] [address] [place], [place] [id number] Location of patient:: address listed in demographics for today's visit Patient identification confirmed using:: Name, Telehealth method:: Telephone only. Jacque ent not visible to care provider. Consent:: Patient verbally c onsented to treatment, Patient verbally consented to billing insurance company, Patient informed of any privacy concerns related to method of visit Total time spent with patient (mins): 22
--- OUTSIDE RECORDS SUMMARY | 2024-06-04 04:17 | XMS_ITS ---
Author Organization Sebastian Preciado III, MD Address [address] [place] [address] [place] [address] Care Team Providers Care Sponge Press Operator Name Role Phone Dr. Sebastian Preciado III Primary Care Provider REASON FOR VISIT Refills Medications Medication SIG (Take, Route, Frequency, Duration) Notes Start Date End Date Status Pravastatin Sodium 40 MG 1 tablet Orally Once a day for 90 days Active Social History Sex Assigned At : Social History Observation Description Sex Assigned At Male Encounters Encounter Location Date Provider Diagnosis Sebastian Preciado III, MD [address] [place] [address] [place] [address] 06/04/2024 Sebastian Preciado Former smoker Z87.891 Assessments Encounter Date Diagnosis (ICD Code) Assessment Notes Treatment Notes Treatment Clinical Notes 06/04/2024 Former smoker (ICD-10 - Z87.891) He has a plan to prevent relapse in times of stress and illness. We discussed lifestyle today. Plan Of Treatment Medication Medication Name Sig Start Date Stop Date Notes Pravastatin Sodium 40 MG 1 tablet Orally Once a day for 90 days Next Appt Details Provider Name:Sebastian Preciado , 05/14/2025 11:00:00 AM, [address] [place] [address] [place], [address], Progress Notes * Royce JERNIGANDOB: 8 (88 yo M)Acc No.[id number]:06/04/2024 Patient: Royce LOWRY :1935 A ge:88 Y S ex:Male Address:[address] [place] [id number] * Refills Refill Pravastatin Sodium Tablet, 40 MG, Orally, 90, 1 tablet, Once a day, 90 days, Refills=3 * true * Date: Generated for Estelle chao/Maximino/Alyseitting on: 07/07/2024 09:39 AM EST
--- OUTSIDE RECORDS SUMMARY | 2024-08-03 04:00 | XMS_ITS ---
Author Organization Sebastian Preciado III, MD Address [address] [place] [address] [address] [place] [address] Care Team Providers Care Wastewater Treatment Engineer Name Role Phone Dr. Sebastian Preciado III Primary Care Provider Allergies Allergen (clinical drug ingredient) Drug/Non Drug Allergy documented on EMR Reaction Allergy Type Onset Date Status No Known Drug Allergy Unknown Drug Allergy Active REASON FOR VISIT Right femoral hernia, symptomatic, History of prostate cancer, Hypertension, GERD, Coronary artery disease, Repaired aortic stenosis, Cervical radiculopathy Medications Medication SIG (Take, Route, Frequency, Duration) Notes Start Date End Date Status Isosorbide Mononitrate ER 30 MG 1 tablet in the morning Orally Once a day Active Adult Aspirin EC Low Strength 81 MG 1 tablet Orally Once a day Active Atenolol 25 MG 12.5 mg Orally Once a day Active Centrum Silver Activ e Tylenol Arthritis Pain Active Pravastatin Sodium 40 MG 1 tablet Orally Once a day Active Social History Tobacco Use: Social History Observation Description Date Details (start date - stop date) Former Smoker NA - NA Sex Assigned At : Social History Observation Description Sex Assigned At Male Tobacco Control (Standard) Question Answer Notes Tobacco use: Former smoker How long has it been since you last smoked? Grea ter than 10 years Additional Findings: Tobacco non-user Ex-cigaret te smoker Vital Signs Height 68 in 08/03/2024 Weight 165 lbs 08/03/2024 BMI 25.09 kg/m2 08/03/2024 Encounters Encounter Location Date Provider Diagnosis Sebastian Preciado III, MD [address] [place] [address] [address], [place] [address] 08/03/2024 Sebastian Preciado Former smoker Z87.89 1 ; Femoral hernia of right side K41.90 ; Essential (primary) hypertension I10 ; Malignant neoplasm of prostate C61 ; Gastro-esophageal reflux disease without esophagitis K21.9 ; Osteoarthritis of cervical spine, unspecified spinal osteoarthritis complication status M47.812 ; 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 We discussed lifestyle today. 08/03/2024 Femoral hernia of right side (ICD-10 - K41.90) He has occasional pain in his right lower abdominal wall. There is a right femoral hernia on the CT scan done recently. He was instructed on how to take care of this if it worsens. He wants to wait until he comes back to [place] in the spring to have it repaired. 08/03/2024 Essential (primary) hypertension (ICD-10 - I10) His blood pressure has been 134/72 and no change was made in his regimen. I urged him to have his blood pressure determined at least once a week while he is in [place] and reported back to me. 08/03/2024 Malignant neoplasm o f prostate (ICD-10 - C61) His prostate cancer appears to be stable. There was no sign of disease progression today. 08/03/2024 Gastro-esophageal reflux disease without esophagitis (ICD-10 - K21.9) His esophageal reflux is well controlled with ergy-qac-zdeukqu medication and no change in his regimen was necessary today. 08/03/2024 Osteoarthritis of cervical spine, unspecified spinal osteoarthritis complication status (ICD-10 - M47.812) He has very limited range of motion in all directions of his neck. The current nerve impingement symptoms are improving rapidly. 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 He has an appointment in the near future to see the gage designer after he has an echocardiogram and a nuclear medicine stress test. He will come back from [place] the end of September 2023. I continue to use peak with him every 21 days. 08/03/2024 Overweight (ICD-10 - E66.3) His body mass index is stable at 25.09. We discussed a weight loss strategy. He will try to lose weight at a rate of one half of a pound per week. 08/03/2024 Nonrheumatic aortic valve stenosis (ICD-10 - I35.0) He had a TAVR in the recent past for aortic stenosis. He is going to have an ultrasound of his heart, which will help clarify if the valve is a source of an embolism. Plan Of Treatment Medication Medication Name Sig Start Date Stop Date Notes Isosorbide Mononitrate ER 30 MG 1 tablet in the morning Orally Once a day Adult Aspirin EC Low Strengt h 81 MG 1 tablet Orally Once a day Atenolol 25 MG 12.5 mg Orally Once a day Centrum Silver Tylenol Arthritis Pain Pravastatin Sodium 40 MG 1 tablet Orally Once a day Next Appt Details Follow Up: 3 Months, Reason: Office visit Provider Name:Sebastian Preciado , 05/14/2025 11:00:00 AM, [address] [place] [address], [address], Progress Notes * EVERARDOKAVITARoyceDOB: 8 (88 yo M)Acc No.[id number]:08/03/2024 Patient: Royce [place] Provider: Willa Preciado MD :1935 A ge:88 Y S ex:Male Date:08/03/2024 Address:[address] [place], [place] [phone] Subjective: * Chief Complaints: * R ight femoral hernia, symptomaticHistory of prostate cancerHypertensionGERDCoronary artery diseaseRepaired aortic stenosisCervical radiculopathy * HPI: * : This was a telehealth visit with the patient at home in [place] and me in my office in [place]. He denies any recent angina or dyspnea. He is no longer smoking. His neck pain is much improved. The right hip pain has resolved. He denies any bone pain. His main complaint is asymptomatic right femoral hernia which was diagnosed here recently. He notices an intermittent bulging sensation. We discussed the necessity for urgent treatment or not. He will wait until he returns to [place] in October of this year before seeking a surgical opinion. I described to him what he should do if he develops unincarcerated hernia which was to go to the nearest emergency room at once. He agreed to do so. Telehealth L ocation of provider rendering services: { ...} [address] [facility] [address] [facility] [address] L ocation of patient: a ddress listed in demographics for today's visit P atient identification confirmed using: NELIDA Hansen ame T elehealth method: T elephone only. Patient not visible to care provider. C onsent: P atient verbally consented to treatment, Patient verbally consented to billing insurance company, Patient informed of any privacy concerns related to method of visit T otal time spent with patient (mins) 1 5 * ROS: G eneral/Constitutional: pain R ight-sided abdominal hernia, otherwise only normal aches and pains. C hills d enies. F atigue a dmits. F ever d enies. ? E NT: Decreased hearing m ild. R espiratory: Cough d enies. C ardiovascular: Chest pain with exertion d enies. D yspnea on exertion?denies. S hortness of breath w ith exertion. G astrointestinal: Constipation o ccasional. D ecreased appetite d enies. D iarrhea d enies. H eartburn o ccasional. N ausea d enies. R ectal bleeding d enies. V omiting d enies. H ematology: bruising d enies. p etechiae d enies. S wollen glands n one have been noted. G enitourinary: Frequent urination t wice a night. M usculoskeletal: Muscle aches d enies. P ainful joints d enies. S ciatica d enies. W eakness d enies. S kin: Itching d enies. R svetlana d enies. S kin lesion(s)?denies. N eurologic: Difficulty speaking d enies. D izziness d enies.?Headache d enies. L ow back pain d enies. P sychiatric: Depressed mood d enies. * Medical History: * Surgical History: c ardiac catheterization, 3 stents December 2012TAVR, [facility] eft hip surgery 11/2023No history * Hospitalization/Major Diagno stic Procedure: N o history * Family History: F ather: 72 yrs, blood clot. M other: 62 yrs, blood clot. S iblings: . 1 brother(s) , 2 sister(s) . . Three siblings have from accidents, surgery and hypotension. * Social History: T obacco Use: T obacco Control (Standard) T obacco use: F ormer smoker H ow long has it been since you last smoked??Greater than 10 years A dditional Findings: Tobacco non-user E x-cigarette smoker Jorge wheat was born in [place], [place] and has been to [facility] for 59 years. He has 3 children and 9 grandchildren. 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 * Medications: T akingTylenol Arthritis Pain Centrum Silver Atenolol 25 MG Tablet 12.5 mg Orally Once a day Adult Aspirin EC Low Strength 81 MG Tablet Delayed Release 1 tablet Orally Once a day Isosorbide Mononitrate ER 30 MG Tablet Extended Release 24 Hour 1 tablet in the morning Orally Once a day Pravastatin Sodium 40 MG Tablet 1 tablet Orally Once a day Medication List reviewed [...] the morning Orally Once a day Taking Pravastatin Sodium 40 MG Tablet 1 tablet Orally Once a day Medication List reviewed and reconciled with the patient * Allergies: N o Known Drug Allergyno[Allergies Verified] Objective: * Vitals: H t: 68, Wt:165, BMI:25.09, Ht-cm: 172.72, Wt-k.84. Assessment: * Assessment: 1. F emoral hernia of right side - K41.90 (Primary) N otes :He has occasional pain in his right lower abdominal wall. There is a right femoral hernia on the CT scan done recently. He was instructed on how to take care of this if it worsens. He wants to wait until he comes back to [place] in the spring to have it repaired. 2 . F ormer smoker - Z87.891 N otes :He has a plan to prevent relapse in times of stress and illness. We discussed lifestyle today. 3 . E ssential (primary) hypertension - I10 N otes :His blood pressure has been 134/72 and no change was made in his regimen. I urged him to have his blood pressure determined at least once a week while he is in [place] and reported back to me. 4 . M alignant neoplasm of prostate - C61 N otes :His prostate cancer appears to be stable. There was no sign of disease progression today. 5 . G warner-esophageal reflux disease without esophagitis - K21.9 ?Notes :His esophageal reflux is well controlled with bemh-ctg-kdocpuw medication and no change in his regimen was necessary today. 6 . O steoarthritis of cervical spine, unspecified spinal osteoarthritis complication status - M47.812 N otes :He has very limited range of motion in all directions of his neck. The current nerve impingement symptoms are improving rapidly. 7 . 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 He has an appointment in the near future to see the gage designer after he has an echocardiogram and a nuclear medicine stress test. He will come back from [place] the end of September 2023. I continue to use peak with him every 21 days. 8 . O verweight - E66.3 N otes :His body mass index is stable at 25.09. We discussed a weight loss strategy. He will try to lose weight at a rate of one half of a pound per week. 9 . N onrheumatic aortic valve stenosis - I35.0 N otes :He had a TAVR in the recent past for aortic stenosis. He is going to have an ultrasound of his heart, which will help clarify if the valve is a source of an embolism. Plan: * Treatment: * Procedure Codes: * Preventive Medicine: Counseling: C are goal follow-up plan: Counseling for abnormal BMI given Y es Above Normal BMI Follow-up D ietary management education, guidance, and counseling S moking/Tobacco Use Patient counseled on the dangers of tobacco use and urged to quit. 0 08/03/2024 * Follow Up: 3 Months (Reason: Office visit) * Images: * Sign off status: Completed true * Provider: Willa Preciado MD Date: 0 08/03/2024 Generated for Estelle chao/Maximino/David on: 1 07/07/2024 09:40 AM EST History and Physical Notes * HPI (History of Present Illness) Category Sub-Category Detail Notes Telehealth Location of [facility] rendering services:: {...} [address] [place] [id number] Location of patient:: address listed in demographics for today's visit Patient identification confirmed using:: Name, Telehealth method:: Telephone only. Jacque ent not visible to care provider. Consent:: Patient verbally c onsented to treatment, Patient verbally consented to billing insurance company, Patient informed of any privacy concerns related to method of visit Total time spent with patient (mins): 15
--- OUTSIDE RECORDS SUMMARY | 2024-10-18 05:15 | XMS_ITS ---
Author Organization Sebastian Preciado III, MD Address [address] [place] [address] [place] [address] Care Team Providers Care Forensic Sergeant Name Role Phone Dr. Sebastian Preciado III Primary Care Provider REASON FOR VISIT Rx Refill Medications Medication SIG (Take, Route, Frequency, Duration) Notes Start Date End Date Status Pravastatin Sodium 40 MG 1 tablet Orally Once a day Unknown Adult Aspirin EC Low Strength 81 MG 1 tablet Orally Once a day Unknown Atenolol 25 MG 12.5 mg Orally Once a day Unknown Centrum Silver Unkno wn Tylenol Arthritis Pain Unknown Isosorbide Mononitrate ER 30 MG 1 tablet in the morning Orally Once a day for 90 days Active Social History Sex Assigned At : Social History Observation Description Sex Assigned At Male Encounters Encounter Location Date Provider Diagnosis Sebastian Preciado III, MD [address] [place] [address] [place] [address] 10/18/2024 Sebastian Preciado Former smoker Z87.891 Assessments Encounter Date Diagnosis (ICD Code) Assessment Notes Treatment Notes Treatment Clinical Notes 10/18/2024 Former smoker (ICD-10 - Z87.891) He has a plan to prevent relapse in times of stress and illness. We discussed lifestyle today. Plan Of Treatment Medication Medication Name Sig Start Date Stop Date Notes Isosorbide Mononitrate ER 30 MG 1 tablet in the morning Orally Once a day for 90 days Next Appt Details Provider Name:Sebastian Preciado , 05/14/2025 11:00:00 AM, [address] [place] [address], [address], Progress Notes * Royce JERNIGANDOB: 8 (89 yo M)Acc No.[id number]:10/18/2024 Patient: Royce [place] :1935 A ge:89 Y S ex:Male Address:[address] [place] [phone] * Refills Refill Isosorbide Mononitrate ER Tablet Extended Release 24 Hour, 30 MG, Orally, 90, 1 tablet in the morning, Once a day, 90 days, Refills=3 Subjective: * Chief Complaints: * R x Refill * Medical History: * Surgical History: * Hospitalization/Major Diagno stic Procedure: * Medications: U nknownPravastatin Sodium 40 MG Tablet 1 tablet Orally Once a day Tylenol Arthritis Pain Centrum Silver Atenolol 25 MG Tablet 12.5 mg Orally Once a day Adult Aspirin EC Low Strength 81 MG Tablet Delayed Release 1 tablet Orally Once a day Isosorbide Mononitrate ER 30 MG Tablet Extended Release 24 Hour 1 tablet in the morning Orally Once a day Unknown Pravastatin Sodium 40 MG Tablet 1 tablet Orally Once a day Unknown Tylenol Arthritis Pain Unknown Centrum Silver Unknown Atenolol 25 MG Tablet 12.5 mg Orally Once a day Unknown Adult Aspirin EC Low Strength 81 MG Tablet Delayed Release 1 tablet Orally Once a day Unknown Isosorbide Mononitrate ER 30 MG Tablet Extended Release 24 Hour 1 tablet in the morning Orally Once a day Objective: * Vitals: * Physical Examination: Assessment: * Assessment: 1. F ormer smoker - Z87.891 N otes :He has a plan to prevent relapse in times of stress and illness. We discussed lifestyle today. Plan: * Treatment: * Procedure Codes: * true * Date: Generated for Estelle chao/Maximino/David on: 07/07/2024 09:39 AM EST
--- OUTSIDE RECORDS SUMMARY | 2024-10-23 10:30 | XMS_ITS ---
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 Sebastian Preciado III Primary Care Provider Allergies Allergen (clinical drug ingredient) Drug/Non Drug Allergy documented on EMR Reaction Allergy Type Onset Date Status No Known Drug Allergy Unknown Drug Allergy Active Reason For Referral Reason Evaluate and Treat Right sided abdominal pain Femoral hernia of right side Diagnosis 1 Femoral hernia of ri ght side (K41.90) Diagnosis 2 Abdominal pain (R10. 9) Referral Organization Sebastian Preciado III, MD Referring Provider First Name Sebastian Referring Provider Last Name Ilana Referring Provider Speciality Internal M edicine Referred Provider [facility] er, General Surgeons Referred Provider Specialty Surgery General Notes D, Sade 10/29/2024 10:27:12 AM > Referral faxed with progress note Referral Priority Routine Referral Appointment Date 11/29/2024 REASON FOR VISIT left knee and ankle pain, Weight loss, Hypertension, Hyperlipidemia, Coronary artery disease, Prostate cancer, Repaired aortic stenosis Medications Medication SIG (Take, Route, Frequency, Duration) Notes Start Date End Date Status Tylenol Arthritis Pain Active Pravastatin Sodium 40 MG 1 tablet Orally Once a day Active Isosorbide Mononitrate ER 30 MG 1 tablet in the morning Orally Once a day Active Furosemide 20 MG 1 tablet Orally Once a day for 10 days 10/23/2024 11/02/2024 Active Centrum Silver Activ e Adult Aspirin EC Low Strength 81 MG 1 tablet Orally Once a day Active Atenolol 25 MG 12.5 mg Orally Once a day Active Social History [...] Tobacco non-user Ex-cigaret te smoker Vital Signs Temperature 97.3 degrees Fahrenheit 10/24/19 25 Blood pressure systolic 132 mm Hg 10/24/19 25 Blood pressure diastolic 73 mm Hg 025 Heart Rate 65 /min 10/23/2024 Height 68 in 10/23/2024 Weight 159 lbs 10/23/2024 BMI 24.17 kg/m2 10/23/2024 Encounters Encounter Location Date Provider Diagnosis Sebastian Preciado III, MD [address] [place] [address] [place] [address] 10/23/2024 Sebastian Ilana Former smoker Z87.89 1 ; Essential (primary) hypertension I10 ; Malignant neoplasm of prostate C61 ; Hyperlipidemia, unspecified E78.5 ; Gastro-esophageal reflux disease without esophagitis K21.9 ; Atherosclerotic heart disease of [place] coronary artery without angina pectoris I25.10 ; Osteoarthritis of cervical spine, unspecified spinal osteoarthritis complication status M47.812 ; Overweight E66.3 and Nonrheumatic aortic valve stenosis I35.0 Assessments Encounter Date Diagnosis (ICD Code) Assessment Notes Treat ment Notes Treatment Clinical Notes 10/23/2024 Former smoker (ICD-1 0 - Z87.891) He has a plan to prevent relapse in times of stress and illness. We discussed lifestyle today. 10/23/2024 Essential (primary) hypertension (ICD-10 - I10) His blood pressure has been normal and no change was made in his regimen. I urged him to have his blood pressure determined at least once a week while he is in [place] and reported back to me. 10/23/2024 Malignant neoplasm o f prostate (ICD-10 - C61) His PSA is being followed. He is under the care of urology. He remains asymptomatic. 10/23/2024 Hyperlipidemia, unspecified (ICD-10 - E78.5) The current fasting lipid profile shows good control of his lipids. No change in his regimen as needed. 10/23/2024 Gastro-esophageal reflux disease without esophagitis (ICD-10 - K21.9) His esophageal reflux is well controlled with bhnv-pqt-jqutxeb medication and no change in his regimen was necessary today. 10/23/2024 Atherosclerotic hear t disease of [place] coronary artery without angina pectoris (ICD-10 - I25.10) He continues to have anginaa with prolonged exertion. He has an appointment in the near future to see the erp specialist after he has an echocardiogram and a nuclear medicine stress test. He will come back from [place] the end of September 2023. I continue to use peak with him every 21 days. 10/23/2024 Osteoarthritis of cervical spine, unspecified spinal osteoarthritis complication status (ICD-10 - M47.812) He has very limited range of motion in all directions of his neck. The current nerve impingement symptoms are improving rapidly. 10/23/2024 Overweight (ICD-10 - E66.3) His body mass index is stable at 25.09. We discussed a weight loss strategy. He will try to lose weight at a rate of one half of a pound per week. 10/23/2024 Nonrheumatic aortic valve stenosis (ICD-10 - I35.0) He had a TAVR in the recent past for aortic stenosis. He is going to have an ultrasound of his heart, which will help clarify if the valve is a source of an embolism. Plan Of Treatment Medication Medication Name Sig Start Date Stop Date Notes Tylenol Arthritis Pain Pravastatin Sodium 40 MG 1 tablet Orally Once a day Isosorbide Mononitrate ER 30 MG 1 tablet in the morning Orally Once a day Furosemide 20 MG 1 tablet Orally Once a day for 10 days 10/23/2024 11/02/2024 Centrum Silver Adult Aspirin EC Low Strengt h 81 MG 1 tablet Orally Once a day Atenolol 25 MG 12.5 mg Orally Once a day Referrals Referral Date Details 10/23/2024 10/23/2024, Evaluate and Treat Right sided abdominal pain Femoral hernia of right side, General Surgeons [facility] Next Appt Details Follow Up: 2 Weeks, Reason: OV Provider Name:Sebastian Nisha Preciado , 05/14/2025 11:00:00 AM, [address] [place] [address] [address], [place], [address], Progress Notes * Royce JERNIGANDOB: 8 (89 yo M)Acc No.[id number]:10/23/2024 Progress Notes Patient: Royce LOWRY Provider: Willa Preciado MD :1935 A ge:89 Y S ex:Male Date:10/23/2024 Address:[address] [place] [id number] Subjective: * Chief Complaints: * L eft knee and ankle painWeight lossHypertensionHyperlipidemiaCoronary artery diseaseProstate cancerRepaired aortic stenosis * HPI: C OVID-19 Screening: Jorge wheat returns for ongoing medical management. He is up-to-date with his erp specialist, Dr. Stephen. He was told his replaced aortic valve is functioning well. He denies any shortness of breath or chest pain. His main complaint today was some edema and pain in the left ankle.He has lost 6 pounds but his lightly dressed compared to July. He has had some pain in his right femoral hernia and is considering repair. He was given 10 days of furosemide today because of edema in the left ankle in the hopes that would reduce the pain. A followup visit was arranged. Questions H ave you had any new onset fever, chills, cough, congestion, sore throat, shortness of breath, muscle aches? N o * ROS: G eneral/Constitutional: pain L eft knee and ankle, Right femoral hernia. C hills d enies. F atigue a dmits. F ever d enies. E NT: Decreased hearing m ild. R [...] c ardiac catheterization, 3 stents December 2012TAVR, [facility] eft hip surgery 11/2023No history * Hospitalization/Major [...] x-cigarette smoker Jorge wheat was born in [place], [place] and has been to [facility] for 59 years. He has 3 children and 9 grandchildren. 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 * Medications: T akingIsosorbide Mononitrate ER 30 MG Tablet Extended Release 24 Hour 1 tablet in the morning Orally Once a day Pravastatin Sodium 40 MG Tablet 1 tablet Orally Once a day Tylenol Arthritis Pain Centrum Silver Atenolol 25 MG Tablet 12.5 mg Orally Once a day Adult Aspirin EC Low Strength 81 MG Tablet Delayed Release 1 tablet Orally Once a day Medication List reviewed and reconciled with the patientTaking Isosorbide Mononitrate ER 30 MG Tablet Extended Release 24 Hour 1 tablet in the morning Orally Once a day Taking Pravastatin Sodium 40 MG Tablet 1 tablet Orally Once a day Taking Tylenol Arthritis Pain Taking Centrum Silver Taking Atenolol 25 MG Tablet 12.5 mg Orally Once a day Taking Adult Aspirin EC Low Strength 81 MG Tablet Delayed Release 1 tablet Orally Once a day Medication List reviewed and reconciled with the patient * Allergies: N o Known Drug Allergyno[Allergies Verified] Objective: * Vitals: H t: 68, Wt:159, BMI:24.17, BP:132/73, HR:65, Temp:97.3, Ht-cm: 172.72, Wt-k.12. * Examination: G eneral Examination: GENERAL APPEARANCE: p leasant, well nourished, well developed, in no acute distress, calm and relaxed, elderly man. HEAD: a traumatic, normocephalic. EYES: e stephanie, perrla, anicteric, conjugate. EARS: n ormal. NOSE: s eptum intact. ORAL CAVITY: n ormal, unremarkable. NECK/THYROID: n o jugular venous distention, no carotid bruit, thyroid normal. LYMPH NODES: n o enlarged lymph nodes,spleen normal. SKIN: n o suspicious lesions, anicteric. HEART: n o clicks, gallops, murmurs, or rubs, regular rhythm, S1, S2 normal, no s3, or vascular bruits. LUNGS: c lear to auscultation . BREASTS: no masses palpable bilaterally. ABDOMEN: b owel sounds normal, no ascites, no organomegaly, no mass. RECTAL EXAM: n ot examined. MUSCULOSKELETAL: e xtremities unremarkable, no clubbing, cyanosis or edema. PERIPHERAL PULSES: n ormal. NEUROLOGIC: a lert and oriented, cranial nerves 2-12 grossly intact, deep tendon reflexes 2+ symmetrical, motor strength normal upper and lower extremities, sensory exam intact, Mild hearing loss, mild memory defects. PSYCH: a lert, oriented. Assessment: * Assessment: 1. E ssential (primary) hypertension - I10 (Primary) N otes :His blood pressure has been normal and no change was made in his regimen. I urged him to have his blood pressure determined at least once a week while he is in [place] and reported back to me. 2 . F ormer smoker - Z87.891 N otes :He has a plan to prevent relapse in times of stress and illness. We discussed lifestyle today. 3 . M alignant neoplasm of prostate - C61 N otes :His PSA is being followed. He is under the care of urology. He remains asymptomatic. 4 . H yperlipidemia, unspecified - E78.5 N otes :The current fasting lipid profile shows good control of his lipids. No change in his regimen as needed. 5 . G warner-esophageal reflux disease without esophagitis - K21.9 ?Notes :His esophageal reflux is well controlled with rzml-ocd-ipogpkm medication and no change in his regimen was necessary today. 6 . A therosclerotic heart disease of [place] coronary artery without angina pectoris - I25.10 N otes :He continues to have anginaa with prolonged exertion. He has an appointment in the near future to see the erp specialist after he has an echocardiogram and a nuclear medicine stress test. He will come back from [place] the end of September 2023. I continue to use peak with him every 21 days. 7 . O steoarthritis of cervical spine, unspecified spinal osteoarthritis complication status - M47.812 N otes :He has very limited range of motion in all directions of his neck. The current nerve impingement symptoms are improving rapidly. 8 . O verweight - E66.3 N [...] source of an embolism. Plan: * Treatment: 2. M alignant neoplasm of prostate L AB: PROFILE, FASTING (COMPREHENSIVE METABOLIC) L AB: PSA, TOTAL L AB: CBC w DIFF L AB: Lipid Panel 3. H yperlipidemia, unspecified L AB: PROFILE, FASTING (COMPREHENSIVE METABOLIC) L AB: PSA, TOTAL L AB: CBC w DIFF L AB: Lipid Panel 4. O verweight L AB: PROFILE, FASTING (COMPREHENSIVE METABOLIC) L AB: PSA, TOTAL L AB: CBC w DIFF L AB: Lipid Panel 5. O thers Referral To:General Surgeons [facility] Surgery Reason:Evaluate and Treat Right sided abdominal pain Femoral hernia of right side * Procedure Codes: * Preventive Medicine: Counseling: S moking/Tobacco Use Patient counseled on the dangers of tobacco use and urged to quit. 0 10/23/2024 * Follow Up: 2 Weeks (Reason: OV) * Images: * Sign off status: Completed true * Provider: Willa Preciado MD Date: 0 10/23/2024 Generated for Hanhi jeremie/Maximino/eTransmitting on: 1 07/07/2024 09:39 AM EST History and Physical Notes * HPI (History of Present Illness) Category Sub-Category Detail Notes COVID-19 Screening Questions Have you had any new onset fever, chills, cough, congestion, sore throat, shortness of breath, muscle aches?: No Examination Category Sub-Category Detail Notes General Examination GENERAL APPEARANCE: pleasant , well nourished, well developed, in no acute distress, calm and relaxed, elderly man HEAD: atraumatic, normocep halic EYES: eomi, perrla, anicte paulina, conjugate EARS: normal NOSE: septum intact NECK/THYROID: no jugular venous di stention, no carotid bruit, thyroid normal HEART: no clicks, gallops, murmurs, or rubs, regular rhythm, S1, S2 normal, no s3, or vascular bruits LUNGS: clear to auscultatio n ABDOMEN: bowel sounds normal, no ascites, no organomegaly, no mass NEUROLOGIC: alert and oriented, cranial nerves 2-12 grossly intact, deep tendon reflexes 2+ symmetrical, motor strength normal upper and lower extremities, sensory exam intact, Mild hearing loss, mild memory defects SKIN: no suspicious lesion s, anicteric PERIPHERAL PULSES: normal BREASTS: no masses palpable b ilaterally MUSCULOSKELETAL: extremities unremark able, no clubbing, cyanosis or edema LYMPH NODES: no enlarged lymph no ed,spleen normal RECTAL EXAM: not examined PSYCH: alert, oriented ORAL CAVITY: normal, unremarkable Consultation Request Notes Referral Date Referring Provider Referred Provider Not es 10/23/2024 Sebastian Preciado [facility], General Surgeons Evaluate and Treat Right sided abdominal pain Femoral hernia of right side
--- OUTSIDE RECORDS SUMMARY | 2024-11-06 05:45 | XMS_ITS ---
Author Organization Sebastian Preciado III, MD Address [address] [place] [address] [address] [place] [address] Care Team Providers Care Tooth Clerk Name Role Phone Dr. Sebastian Preciado III Primary Care Provider Allergies Allergen (clinical drug ingredient) Drug/Non Drug Allergy documented on EMR Reaction Allergy Type Onset Date Status No Known Drug Allergy Unknown Drug Allergy Active REASON FOR VISIT Pain left ankle, Hypertension, Prostate cancer, Coronary artery disease, Repaired aortic stenosis, Cervical radiculopathy, Right femoral hernia Medications Medication SIG (Take, Route, Frequency, Duration) Notes Start Date End Date Status Adult Aspirin EC Low Strength 81 MG 1 tablet Orally Once a day Active Atenolol 25 MG 12.5 mg Orally Once a day Active Pravastatin Sodium 40 MG 1 tablet Orally Once a day Active Tylenol Arthritis Pain Active Isosorbide Mononitrate ER 30 MG 1 tablet in the morning Orally Once a day Active Furosemide 20 MG 1 tablet Orally Once a day for 30 days 11/06/2024 11/01/2025 Active Centrum Silver Activ e Potassium Chloride ER 10 MEQ 1 tablet with food Orally once a day for 30 days 11/06/2024 11/01/2025 Active Social History Tobacco Use: Social History Observation Description Date Details (start date - stop date) Former Smoker NA - NA Sex Assigned At : Social History Observation Description Sex Assigned At Male Tobacco Control (Standard) Question Answer Notes Tobacco use: Former smoker How long has it been since you last smoked? Bella ter than 10 years Additional Findings: Tobacco non-user Ex-cigaret te smoker Problems Problem Type SNOMED Code ICD Code Onset Dates Problem Status W/U Status Risk Notes Problem 687918304 Peripheral edema (R60.0) Active confirmed We began a regimen of furosemide 20 mg and potassium chloride 10 mEq daily. Vital Signs Temperature 98.4 degrees Fahrenheit 11/07/19 25 Blood pressure systolic 135 mm Hg 11/07/19 25 Blood pressure diastolic 69 mm Hg 025 Heart Rate 71 /min 11/06/2024 Height 68 in 11/06/2024 Weight 159 lbs 11/06/2024 BMI 24.17 kg/m2 11/06/2024 Encounters Encounter Location Date Provider Diagnosis Sebastian Preciado III, MD [address] [place] [address] [place] [address] 11/06/2024 Sebastian Preciado Former smoker Z87.89 1 ; Peripheral edema R60.0 ; Overweight E66.3 ; Essential (primary) hypertension I10 ; Hyperlipidemia, unspecified E78.5 ; Malignant neoplasm of prostate C61 ; Gastro-esophageal reflux disease without esophagitis K21.9 ; Nonrheumatic aortic valve stenosis I35.0 ; Osteoarthritis of cervical spine, unspecified spinal osteoarthritis complication status M47.812 and Atherosclerotic heart disease of [place] coronary artery without angina pectoris I25.10 Assessments Encounter Date Diagnosis (ICD Code) Assessment Notes Treat ment Notes Treatment Clinical Notes 11/06/2024 Former smoker (ICD-1 0 - Z87.891) He has a plan to prevent relapse in times of stress and illness. We discussed lifestyle today. 11/06/2024 Peripheral edema (ICD-10 - R60.0) We began a regimen of furosemide 20 mg and potassium chloride 10 mEq daily. 11/06/2024 Overweight (ICD-10 - E66.3) He remains overweight. We discussed his diet and nutrition.We reviewed his previous weights. We made a plan to lose weight at a rate of 1 pound per week. 11/06/2024 Essential (primary) hypertension (ICD-10 - I10) His blood pressure has been normal and no change was made in his regimen. I urged him to have his blood pressure determined at least once a week while he is in [place] and reported back to me. 11/06/2024 Hyperlipidemia, unspecified (ICD-10 - E78.5) The current fasting lipid profile shows good control of his lipids. No change in his regimen as needed. 11/06/2024 Malignant neoplasm o f prostate (ICD-10 - C61) His PSA is being followed. He is under the care of urology. He remains asymptomatic. 11/06/2024 Gastro-esophageal reflux disease without esophagitis (ICD-10 - K21.9) His esophageal reflux is well controlled with kmnb-ita-dwiscwh medication and no change in his regimen was necessary today. 11/06/2024 Nonrheumatic aortic valve stenosis (ICD-10 - I35.0) He had a TAVR in the recent past for aortic stenosis. He is going to have an ultrasound of his heart, which will help clarify if the valve is a source of an embolism. 11/06/2024 Osteoarthritis of cervical spine, unspecified spinal osteoarthritis complication status (ICD-10 - M47.812) He has very limited range of motion in all directions of his neck. The current nerve impingement symptoms are improving rapidly. 11/06/2024 Atherosclerotic hear t disease of [place] coronary artery without angina pectoris (ICD-10 - I25.10) He continues to have anginaa with prolonged exertion. He has an appointment in the near future to see the administrative hearing officer after he has an echocardiogram and a nuclear medicine stress test. He will come back from [place] the end of September 2023. I continue to use peak with him every 21 days. Plan Of Treatment Medication Medication Name Sig Start Date Stop Date Notes Adult Aspirin EC Low Strengt h 81 MG 1 tablet Orally Once a day Atenolol 25 MG 12.5 mg Orally Once a day Pravastatin Sodium 40 MG 1 tablet Orally Once a day Tylenol Arthritis Pain Isosorbide Mononitrate ER 30 MG 1 tablet in the morning Orally Once a day Furosemide 20 MG 1 tablet Orally Once a day for 30 days 11/06/2024 11/01/2025 Centrum Silver Potassium Chloride ER 10 MEQ 1 tablet wi th food Orally once a day for 30 days 11/06/2024 11/01/2025 Next Appt Details Follow Up: 3 Weeks, Reason: OV Provider Name:Sebastian Preciado , 05/14/2025 11:00:00 AM, [address] [place] [address] [address] [place] [address], [place], [address], Progress Notes * Royce JERNIGANDOB: 8 (89 yo M)Acc No.[id number]:11/06/2024 Progress Notes Patient: Royce LOWRY Provider: Willa Preciado MD :1935 A ge:89 Y S ex:Male Date:11/06/2024 Address:[address] [place] [address], [facility] [place], [id number] Subjective: * Chief Complaints: * P ain left ankleHypertensionProstate cancerCoronary artery diseaseRepaired aortic stenosisCervical radiculopathyRight femoral hernia * HPI: C OVID-19 Screening: He returns for evaluation of edema of his lower extremities worse on the left with pain in the left ankle. The pain to range of motion of the left ankle is much improved and there is no edema at this time. He has been given a course of furosemide. At this pointWe decided he would do best continue on 20 mg of furosemide daily with 10 mEq of potassium chloride daily. These prescriptions were written. He was given instructions on when to call me in a follow-up visit was arranged. Questions H ave you had any new onset fever, chills, cough, congestion, sore throat, shortness of breath, muscle aches? N o * ROS: G eneral/Constitutional: pain L eft foot, otherwise only normal aches and pains.?Chills d enies. F atigue a dmits. F [...] have been noted. G enitourinary: Frequent urination o nce a [...] History: c ardiac catheterization, 3 stents December 2012TA, [facility] eft hip surgery 11/2023No history * Hospitalization/Major [...] [place], [place] and has been to [facility] for 59 years. He has 3 [...] * Vitals: H t: 68, Wt:159, BMI:24.17, BP:135/69, HR:71, Temp:98.4, Ht-cm: 172.72, Wt-k.12. * P ast Orders: Lab:Complete Blood Count Aut o Diff * Collection Date 11/01/2024 05/14/2024 04/12/2023 Collection Time 07:25 AM 12:37 PM 11:39 AM Order Date 11/01/2024 05/14/2024 04/12/2023 White Blood Count 5.8 (Ref Range: 4.8-10.8 X10*3/uL) 8.5 (Ref Range: 4.8-10.8 X10*3/uL) 7.0 (Ref Range: 4.8-10.8 X10*3/uL) Red Blood Count 4.22 L (Ref Range: 4.60-5.80 X10*6/uL) 3.93 L (Ref Range: 4.60-5.80 X10*6/uL) 3.97 L (Ref Range: 4.60-5.80 X10*6/uL) Hemoglobin 13.6 L (Ref Range: 14.0-18.0 g/dl) 12.3 L (Ref Range: 14.0-18.0 g/dl) 12.6 L (Ref Range: 14.0-18.0 g/dl) Hematocrit 41.5 L (Ref Range: 42.0-52.0 %) 38.7 L (Ref Range: 42.0-52.0 %) 39.0 L (Ref Range: 42.0-52.0 %) Mean Corpuscular Volume 98.3 H (Ref Range: 80.0-98.0 fL) 98.5 H (Ref Range: 80.0-98.0 fL) 98.2 H (Ref Range: 80.0-98.0 fL) Mean Corpuscular Hemoglobin 32.2 (Ref Range: 27.0-33.0 pg) 31.3 (Ref Range: 27.0-33.0 pg) 31.7 (Ref Range: 27.0-33.0 pg) Mean Corpuscular HGB Conc 32.8 (Ref Range: 31.0-36.0 g/dl) 31.8 (Ref Range: 31.0-36.0 g/dl) 32.3 (Ref Range: 31.0-36.0 g/dl) Red Cell Distribution Width 14.6 (Ref Range: 11.0-16.0 %) 15.7 (Ref Range: 11.0-16.0 %) 14.4 (Ref Range: 11.0-16.0 %) Platelet Count 248 (Ref Range: 160-400 X10*3/uL) 243 (Ref Range: 160-400 X10*3/uL) 246 (Ref Range: 160-400 X10*3/uL) Mean Platelet Volume 10.0 (Ref Range: 9.4-12.4 fL) 9.6 (Ref Range: 9.4-12.4 fL) 9.9 (Ref Range: 9.4-12.4 fL) Neutrophils Percent Auto 59.2 (Ref Range: 45-73 %) 75.8 H (Ref Range: 45-73 %) 68.7 (Ref Range: 45-73 %) Imm Gran Pct Auto 0.5 H (Ref Range: 0.0-0.4 %) 0.4 (Ref Range: 0.0-0.4 %) 0.3 (Ref Range: 0.0-0.4 %) Lymphocytes Percent Auto 25.0 (Ref Range: 20-40 %) 12.2 L (Ref Range: 20-40 %) 17.4 L (Ref Range: 20-40 %) Monocytes Percent Auto 10.5 (Ref Range: 2-11 %) 9.2 (Ref Range: 2-11 %) 10.3 (Ref Range: 2-11 %) Eosinophils Percent Auto 3.4 (Ref Range: 0-4 %) 1.8 (Ref Range: 0-4 %) 2.3 (Ref Range: 0-4 %) Basophils Percent Auto 1.4 (Ref Range: 0-2 %) 0.6 (Ref Range: 0-2 %) 1.0 (Ref Range: 0-2 %) NRBC Pct Auto 0.0 (Ref Range: 0.0-0.2 /100WBC) 0.0 (Ref Range: 0.0-0.2 /100WBC) 0.0 (Ref Range: 0.0-0.2 /100WBC) Neutrophils Absolute Auto 3.4 (Ref Range: 2.0-8.3 x10*3/uL) 6.5 (Ref Range: 2.0-8.3 x10*3/uL) 4.8 (Ref Range: 2.0-8.3 x10*3/uL) Imm Gran Abs Auto 0.03 (Ref Range: 0.00-0.03 X10*3/uL) 0.03 (Ref Range: 0.00-0.03 X10*3/uL) 0.02 (Ref Range: 0.00-0.03 X10*3/uL) Lymphocytes Absolute Auto 1.5 (Ref Range: 1.2-4.9 X10*3/uL) 1.0 L (Ref Range: 1.2-4.9 X10*3/uL) 1.2 (Ref Range: 1.2-4.9 X10*3/uL) Monocytes Absolute Auto 0.6 (Ref Range: 0.1-1.2 X10*3/uL) 0.8 (Ref Range: 0.1-1.2 X10*3/uL) 0.7 (Ref Range: 0.1-1.2 X10*3/uL) Eosinophils Absolute Auto 0.2 (Ref Range: 0.0-0.4 X10*3/uL) 0.2 (Ref Range: 0.0-0.4 X10*3/uL) 0.2 (Ref Range: 0.0-0.4 X10*3/uL) Basophils Absolute Auto 0.1 (Ref Range: 0.0-0.2 X10*3/uL) 0.1 (Ref Range: 0.0-0.2 X10*3/uL) 0.1 (Ref Range: 0.0-0.2 X10*3/uL) NRBC Abs Auto 0.000 (Ref Range: 0.0-0.012 X10*3/uL) 0.000 (Ref Range: 0.0-0.012 X10*3/uL) 0.000 (Ref Range: 0.0-0.012 X10*3/uL) * Lab:Elzbieta Higginbotham. Cade l Fast * Collection Date 11/01/2024 11/23/2022 10/07/2020 Collection Time 07:25 AM 07:23 AM 07:35 AM Order Date 11/01/2024 11/23/2022 10/07/2020 Sodium 139 (Ref Range: 135-145 mmol/L) 140 (Ref Range: 135-145 mmol/L) 138 (Ref Range: 135-145 mmol/L) Bilirubin Total 1.0 (Ref Range: 0.0-1.0 mg/dL) 1.1 H (Ref Range: 0.0-1.0 mg/dL) 1.2 H (Ref Range: 0.0-1.0 mg/dL) Aspartate Amino Transferase 23 (Ref Range: 5-37 U/L) 21 (Ref Range: 5-37 U/L) 17 (Ref Range: 5-37 U/L) Alanine Aminotransferase 19 (Ref Range: 0-40 U/L) 24 (Ref Range: 0-40 U/L) 21 (Ref Range: 0-40 U/L) Total Protein 7.4 (Ref Range: 6.5-8.0 g/dL) 7.1 (Ref Range: 6.5-8.0 g/dL) 6.7 (Ref Range: 6.5-8.0 g/dL) Albumin Level 4.3 (Ref Range: 3.5-5.0 g/dL) 3.8 (Ref Range: 3.5-5.0 g/dL) 3.9 (Ref Range: 3.5-5.0 g/dL) Alkaline Phosphatase 60 (Ref Range: 39-117 U/L) 54 (Ref Range: 39-117 U/L) 59 (Ref Range: 39-117 U/L) Potassium 4.2 (Ref Range: 3.3-5.1 mmol/L) 3.9 (Ref Range: 3.3-5.1 mmol/L) 4.0 (Ref Range: 3.3-5.1 mmol/L) Chloride 102 (Ref Range: 96-108 mmol/L) 105 (Ref Range: 96-108 mmol/L) 103 (Ref Range: 96-108 mmol/L) Carbon Dioxide 30 H (Ref Range: 22-29 mmol/L) 25 (Ref Range: 22-29 mmol/L) 27 (Ref Range: 22-29 mmol/L) Anion Gap 11 L (Ref Range: 12-20) 14 (Ref Range: 12-20) 12 (Ref Range: 12-20) Blood Urea Nitrogen 22 H (Ref Range: 9-16 mg/dL) 15 (Ref Range: 9-16 mg/dL) 19 H (Ref Range: 9-16 mg/dL) Creatinine 1.05 (Ref Range: 0.5-1.4 mg/dL) 0.95 (Ref Range: 0.5-1.4 mg/dL) 1.07 (Ref Range: 0.5-1.4 mg/dL) Estimated Glomerular Filt Rate > 60 > 60 > 60 Glucose Fasting 92 (Ref Range: 60-99 mg/dL) 103 H (Ref Range: 60-99 mg/dL) 97 (Ref Range: 60-99 mg/dL) Calcium 9.6 (Ref Range: 8.4-10.2 mg/dL) 9.6 (Ref Range: 8.4-10.2 mg/dL) 9.2 (Ref Range: 8.4-10.2 mg/dL) * Lab:Lipid Panel * Collection Date 11/01/2024 11/23/2022 10/07/2020 Collection Time 07:25 AM 07:23 AM 07:35 AM Order Date 11/01/2024 11/23/2022 10/07/2020 Triglycerides 70 (Ref Range: <150 mg/dL) 66 (Ref Range: mg/dL) 77 (Ref Range: mg/dL) Cholesterol 133 (Ref Range: <200 mg/dL) 131 (Ref Range: mg/dL) 127 (Ref Range: mg/dL) LDL Cholesterol Calculated 77 (Ref Range: <100 mg/dL) 69 (Ref Range: mg/dl) 63 (Ref Range: mg/dl) HDL Cholesterol 42 (Ref Range: >40 mg/dL) 49 (Ref Range: mg/dL) 49 (Ref Range: mg/dL) * Lab:Prostate Specific Antige n * Collection Date 11/01/2024 05/14/2024 04/12/2023 Collection Time 07:25 AM 12:37 PM 11:39 AM Order Date 11/01/2024 05/14/2024 04/12/2023 Prostate Specific Antigen 0.69 (Ref Range: <0.05-4.0 ng/mL) 0.50 (Ref Range: <0.05-4.0 ng/mL) 0.44 (Ref Range: <0.05-4.0 ng/mL) * Examination: G eneral Examination: GENERAL APPEARANCE: p leasant, well nourished, well developed, in no acute distress, calm and relaxed, elderly man. HEAD: a traumatic, normocephalic. EYES: e stephanie, perrla, anicteric, conjugate. EARS: n ormal. NOSE: s eptum intact. ORAL CAVITY: n ormal, unremarkable. NECK/THYROID: n o jugular venous distention, no carotid bruit, thyroid normal, Decreased range of motion. LYMPH NODES: n o enlarged lymph nodes,spleen [...] examined. MUSCULOSKELETAL: e xtremities unremarkable, no clubbing, cyanosis, Trace edema both ankles. PERIPHERAL PULSES: n ormal. NEUROLOGIC: a lert and oriented, cranial nerves 2-12 grossly intact, deep tendon reflexes 2+ symmetrical, motor strength normal upper and lower extremities, sensory exam intact. PSYCH: a lert, oriented. Assessment: * Assessment: 1. P eripheral edema - R60.0 (Primary) N otes :We began a regimen of furosemide 20 mg and potassium chloride 10 mEq daily. 2 . F ormer smoker - Z87.891 N otes :He has a plan to prevent relapse in times of stress and illness. We discussed lifestyle today. 3 . O verweight - E66.3 N otes :He remains overweight. We discussed his diet and nutrition.We reviewed his previous weights. We made a plan to lose weight at a rate of 1 pound per week. 4 . E ssential (primary) hypertension - I10 N otes :His blood pressure has been normal and no change was made in his regimen. I urged him to have his blood pressure determined at least once a week while he is in [place] and reported back to me. 5 . H yperlipidemia, unspecified - E78.5 N otes :The current fasting lipid profile shows good control of his lipids. No change in his regimen as needed. 6 . M alignant neoplasm of prostate - C61 N otes :His PSA is being followed. He is under the care of urology. He remains asymptomatic. 7 . G warner-esophageal reflux disease without esophagitis - K21.9 ?Notes :His esophageal reflux is well controlled with sftv-fwi-pfqniks medication and no change in his regimen was necessary today. 8 . N onrheumatic aortic valve stenosis - I35.0 N otes :He had a TAVR in the recent past for aortic stenosis. He is going to have an ultrasound of his heart, which will help clarify if the valve is a source of an embolism. 9 . O steoarthritis of cervical spine, unspecified spinal osteoarthritis complication status - M47.812 N otes :He has very limited range of motion in all directions of his neck. The current nerve impingement symptoms are improving rapidly. 1 0. A therosclerotic heart disease of [place] coronary artery without angina pectoris - I25.10 N otes :He continues to have anginaa with prolonged exertion. He has an appointment in the near future to see the administrative hearing officer after he has an echocardiogram and a nuclear medicine stress test. He will come back from [place] the end of September 2023. I continue to use peak with him every 21 days. Plan: * Treatment: 2. O verweight L AB: PROFILE, RANDOM (COMPREHENSIVE METABOLIC) L AB: CBC w DIFF 3. H yperlipidemia, unspecified L AB: PROFILE, RANDOM (COMPREHENSIVE METABOLIC) L AB: CBC w DIFF * Procedure Codes: * Preventive Medicine: Counseling: C are goal follow-up plan: Counseling for abnormal BMI given Y es Above Normal BMI Follow-up D ietary management education, guidance, and counseling, Dietary needs education, Exercise promotion: strength training, Exercise promotion: stretching, Feeding regime, Giving encouragement to exercise, Lifestyle education regarding diet, Nutrition / feeding management, Nutrition therapy, Prescribed activity/exercise education, Prescribed diet education, Prescribed dietary intake, Special diet education, Weight monitoring , Intervention, Order not done: Medical or Other reason not done S moking/Tobacco Use Patient counseled on the dangers of tobacco use and urged to quit. 0 11/06/2024 * Follow Up: 3 Weeks (Reason: OV) * Images: * Sign off status: Completed true * Provider: Willa Preciado MD Date: 0 11/06/2024 Generated for Estelle chao/Maximino/eTransmitting on: 1 07/07/2024 09:39 AM EST History [...] di stention, no carotid bruit, thyroid normal, Decreased range of motion HEART: no clicks, gallops, [...] ilaterally MUSCULOSKELETAL: extremities unremark able, no clubbing, cyanosis, Trace edema both ankles LYMPH NODES: no enlarged lymph no ed,spleen normal RECTAL EXAM: not examined PSYCH: alert, oriented ORAL CAVITY: normal, unremarkable
--- OUTSIDE RECORDS SUMMARY | 2024-11-27 06:15 | XMS_ITS ---
Author Organization Sebastian Preciado III, MD Address [address] [place] [address] [address] [place] [address] Care Team Providers Care Registry Nurse Name Role Phone Dr. Sebastian Preciado III Primary Care Provider Allergies Allergen (clinical drug ingredient) Drug/Non Drug Allergy documented on EMR Reaction Allergy Type Onset Date Status No Known Drug Allergy Unknown Drug Allergy Active REASON FOR VISIT right femoral hernia, Hypertension, Hyperlipidemia, GERD, Prostate cancer, Coronary artery disease,Peripheral edema Medications Medication SIG (Take, Route, Frequency, Duration) Notes Start Date End Date Status Furosemide 20 MG 1 tablet Orally Once a day 11/06/2024 Active Potassium Chloride ER 10 MEQ 1 tablet with food Orally once a day 11/06/2024 Active Atenolol 25 MG 12.5 mg Orally Once a day Active Adult Aspirin EC Low Strength 81 MG 1 tablet Orally Once a day Active Isosorbide Mononitrate ER 30 MG 1 tablet in the morning Orally Once a day Active Pravastatin Sodium 40 MG 1 tablet Orally Once a day Active Tylenol Arthritis Pain Active Centrum Silver Activ e Social History Tobacco Use: Social History Observation [...] non-user Ex-cigaret te smoker Vital Signs Temperature 98.2 degrees Fahrenheit 11/28/19 25 Blood pressure systolic 138 mm Hg 11/28/19 25 Blood pressure diastolic 79 mm Hg 025 Heart Rate 66 /min 11/27/2024 Height 68 in 11/27/2024 Weight 159 lbs 11/27/2024 BMI 24.17 kg/m2 11/27/2024 Encounters Encounter Location Date Provider Diagnosis Sebastian Preciado III, MD [address] [place] [address] [address], [place] [address] 11/27/2024 Sebastian Ilana Former smoker Z87.89 1 ; Femoral hernia of right side K41.90 ; Hyperlipidemia, unspecified E78.5 ; Malignant neoplasm of prostate C61 ; Essential (primary) hypertension I10 ; Gastro-esophageal reflux disease without esophagitis K21.9 ; Nonrheumatic aortic valve stenosis I35.0 ; Atherosclerotic heart disease of [place] coronary artery without angina pectoris I25.10 ; Osteoarthritis of cervical spine, unspecified spinal osteoarthritis complication status M47.812 and Peripheral edema R60.0 Assessments Encounter Date Diagnosis (ICD Code) Assessment Notes Treat ment Notes Treatment Clinical Notes 11/27/2024 Former smoker (ICD-1 0 - Z87.891) He has a plan to prevent relapse in times of stress and illness. We discussed lifestyle today. 11/27/2024 Femoral hernia of right side (ICD-10 - K41.90) He has occasional pain in his right lower abdominal wall. There is a right femoral hernia on the CT scan done recently. He was instructed on how to take care of this if it worsens. A surgical consultation is pending later this week. 11/27/2024 Hyperlipidemia, unspecified (ICD-10 - E78.5) His lipids are treated and have been stable. A fasting lipid profile will be done periodically. 11/27/2024 Malignant neoplasm o f prostate (ICD-10 - C61) His PSA in 2022 was 0.44. It is currently 0.63. The values being observed. 11/27/2024 Essential (primary) hypertension (ICD-10 - I10) His blood pressure has been normal and no change was made in his regimen. I urged him to have his blood pressure determined at least once a week while he is in [place] and reported back to me. 11/27/2024 Gastro-esophageal reflux disease without esophagitis (ICD-10 - K21.9) His esophageal reflux is well controlled with rijg-whb-qnouijt medication and no change in his regimen was necessary today. 11/27/2024 Nonrheumatic aortic valve stenosis (ICD-10 - I35.0) He had a TAVR in the recent past for aortic stenosis. He is going to have an ultrasound of his heart, which will help clarify if the valve is a source of an embolism. 11/27/2024 Atherosclerotic hear t disease of [place] coronary artery without angina pectoris (ICD-10 - I25.10) He continues to have anginaa with prolonged exertion. He has an appointment in the near future to see the mental measurements teacher after he has an echocardiogram and a nuclear medicine stress test. He will come back from [place] the end of September 2023. I continue to use peak with him every 21 days. 11/27/2024 Osteoarthritis of cervical spine, unspecified spinal osteoarthritis complication status (ICD-10 - M47.812) He has very limited range of motion in all directions of his neck. The current nerve impingement symptoms are improving rapidly. 11/27/2024 Peripheral edema (ICD-10 - R60.0) We began a regimen of furosemide 20 mg and potassium chloride 10 mEq daily. Plan Of Treatment Medication Medication Name Sig Start Date Stop Date Notes Furosemide 20 MG 1 tablet Orally Once a day 11/06/2024 Potassium Chloride ER 10 MEQ 1 tablet wi th food Orally once a day 11/06/2024 Atenolol 25 MG 12.5 mg Orally Once a day Adult Aspirin EC Low Strengt h 81 MG 1 tablet Orally Once a day Isosorbide Mononitrate ER 30 MG 1 tablet in the morning Orally Once a day Pravastatin Sodium 40 MG 1 tablet Orally Once a day Tylenol Arthritis Pain Centrum Silver Pending Test Test Name Order Date PROFILE, FASTING (COMPREHENSIVE METABOLI C) 11/27/2024 PSA, TOTAL 11/27/2024 CBC w DIFF 11/27/2024 Lipid Panel 11/27/2024 Next Appt Details Follow Up: 3 Months, Reason: OV Provider Name:Sebastian Preciado , 05/14/2025 11:00:00 AM, [address] [place] [address] [address], [place], [address], Progress Notes * Royce JERNIGANDOB: 8 (89 yo M)Acc No.[id number]:11/27/2024 Progress Notes Patient: Royce LOWRY Provider: Willa Preciado MD :1935 A ge:89 Y S ex:Male Date:11/27/2024 Address:[address] [place] [id number] Subjective: * Chief Complaints: * R ight femoral herniaHypertensionHyperlipidemiaGERDProstate cancerCoronary artery diseasePeripheral edema * HPI: C OVID-19 Screening: Jorge wheat has an appointment at 9:30 in the morning November 29, 2024 to discuss and plan a right femoral herniorrhaphy at [facility]. He says she is feeling tired but has had no chest pain. He has an echocardiogram scheduled by cardiology next month. He has pain in his neck with range of motion but it is not serious. The pain in his right knee has improved. He stopped the furosemide tablets on his own since his last visit and he has developed mild edema in the left leg below the knee. We decided he would restart the furosemide for control of this. He was in normal sinus rhythm today and no new problems were detected. Questions H ave you had any new onset fever, chills, cough, congestion, sore throat, shortness of breath, muscle aches? N o * ROS: G eneral/Constitutional: pain R ight inguinal hernia, neck. C hills d enies.?Fatigue a dmits. F ever d enies. E NT: Decreased hearing d enies. R espiratory: Cough d enies. C ardiovascular: [...] c ardiac catheterization, 3 stents December 2012TAVR, [facility] eft hip surgery 11/2023No history [...] x-cigarette smoker Jorge wheat was born in [place], [place] and has been to [facility] for 59 years. He has 3 children and 9 grandchildren. 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 * Medications: T akingIsosorbide Mononitrate ER 30 MG Tablet Extended Release 24 Hour 1 tablet in the morning Orally Once a day Pravastatin Sodium 40 MG Tablet 1 tablet Orally Once a day Tylenol Arthritis Pain Atenolol 25 MG Tablet 12.5 mg Orally Once a day Adult Aspirin EC Low Strength 81 MG Tablet Delayed Release 1 tablet Orally Once a day Taking Isosorbide Mononitrate ER 30 MG Tablet Extended Release 24 Hour 1 tablet in the morning Orally Once a day Taking Pravastatin Sodium 40 MG Tablet 1 tablet Orally Once a day Taking Tylenol Arthritis Pain Taking Atenolol 25 MG Tablet 12.5 mg Orally Once a day Taking Adult Aspirin EC Low Strength 81 MG Tablet Delayed Release 1 tablet Orally Once a day DiscontinuedCentrum Silver Furosemide 20 MG Tablet 1 tablet Orally Once a day , stop date 11/01/2025Potassium Chloride ER 10 MEQ Tablet Extended Release 1 tablet with food Orally once a day , stop date 11/01/2025Medication List reviewed and reconciled with the patientDiscontinued Centrum Silver Discontinued Furosemide 20 MG Tablet 1 tablet Orally Once a day , stop date 11/01/2025Discontinued Potassium Chloride ER 10 MEQ Tablet Extended Release 1 tablet with food Orally once a day , stop date 11/01/2025Medication List reviewed and reconciled with the patient * Allergies: N o Known Drug Allergyno[Allergies Verified] Objective: * Vitals: H t: 68, Wt:159, BMI:24.17, BP:138/79, HR:66, Temp:98.2, Ht-cm: 172.72, Wt-k.12. * P ast Orders: Lab:Comprehensive Met. Panel * Collection Date 11/20/2024 05/14/2024 04/12/2023 Collection Time 07:24 AM 12:37 PM 11:39 AM Order Date 11/20/2024 05/14/2024 04/12/2023 Sodium 139 (Ref Range: 135-145 mmol/L) 138 (Ref Range: 135-145 mmol/L) 138 (Ref Range: 135-145 mmol/L) Bilirubin Total 0.9 (Ref Range: 0.0-1.0 mg/dL) 0.8 (Ref Range: 0.0-1.0 mg/dL) 0.7 (Ref Range: 0.0-1.0 mg/dL) Aspartate Amino Transferase 22 (Ref Range: 5-37 U/L) 25 (Ref Range: 5-37 U/L) 20 (Ref Range: 5-37 U/L) Alanine Aminotransferase 18 (Ref Range: 0-40 U/L) 17 (Ref Range: 0-40 U/L) 16 (Ref Range: 0-40 U/L) Total Protein 7.0 (Ref Range: 6.5-8.0 g/dL) 7.1 (Ref Range: 6.5-8.0 g/dL) 7.3 (Ref Range: 6.5-8.0 g/dL) Albumin Level 4.1 (Ref Range: 3.5-5.0 g/dL) 4.0 (Ref Range: 3.5-5.0 g/dL) 3.9 (Ref Range: 3.5-5.0 g/dL) Alkaline Phosphatase 59 (Ref Range: 39-117 U/L) 62 (Ref Range: 39-117 U/L) 62 (Ref Range: 39-117 U/L) Potassium 4.2 (Ref Range: 3.3-5.1 mmol/L) 4.2 (Ref Range: 3.3-5.1 mmol/L) 4.5 (Ref Range: 3.3-5.1 mmol/L) Chloride 104 (Ref Range: 96-108 mmol/L) 104 (Ref Range: 96-108 mmol/L) 102 (Ref Range: 96-108 mmol/L) Carbon Dioxide 30 H (Ref Range: 22-29 mmol/L) 28 (Ref Range: 22-29 mmol/L) 30 H (Ref Range: 22-29 mmol/L) Anion Gap 9 L (Ref Range: 12-20) 10 L (Ref Range: 12-20) 11 L (Ref Range: 12-20) Blood Urea Nitrogen 17 H (Ref Range: 9-16 mg/dL) 18 H (Ref Range: 9-16 mg/dL) 17 H (Ref Range: 9-16 mg/dL) Creatinine 0.93 (Ref Range: 0.5-1.4 mg/dL) 0.85 (Ref Range: 0.5-1.4 mg/dL) 0.92 (Ref Range: 0.5-1.4 mg/dL) Estimated Glomerular Filt Rate > 60 > 60 > 60 Glucose Random 93 (Ref Range: 60-115 mg/dL) 97 (Ref Range: 60-115 mg/dL) 97 (Ref Range: 60-115 mg/dL) Calcium 9.3 (Ref Range: 8.4-10.2 mg/dL) 9.7 (Ref Range: 8.4-10.2 mg/dL) 9.4 (Ref Range: 8.4-10.2 mg/dL) * Lab:Complete Blood Count Aut o Diff * Collection Date 11/20/2024 11/01/2024 05/14/2024 Collection Time 07:24 AM 07:25 AM 12:37 PM Order Date 11/20/2024 11/01/2024 05/14/2024 White Blood Count 6.2 (Ref Range: 4.8-10.8 X10*3/uL) 5.8 (Ref Range: 4.8-10.8 X10*3/uL) 8.5 (Ref Range: 4.8-10.8 X10*3/uL) Red Blood Count 4.08 L (Ref Range: 4.60-5.80 X10*6/uL) 4.22 L (Ref Range: 4.60-5.80 X10*6/uL) 3.93 L (Ref Range: 4.60-5.80 X10*6/uL) Hemoglobin 12.9 L (Ref Range: 14.0-18.0 g/dl) 13.6 L (Ref Range: 14.0-18.0 g/dl) 12.3 L (Ref Range: 14.0-18.0 g/dl) Hematocrit 40.0 L (Ref Range: 42.0-52.0 %) 41.5 L (Ref Range: 42.0-52.0 %) 38.7 L (Ref Range: 42.0-52.0 %) Mean Corpuscular Volume 98.0 (Ref Range: 80.0-98.0 fL) 98.3 H (Ref Range: 80.0-98.0 fL) 98.5 H (Ref Range: 80.0-98.0 fL) Mean Corpuscular Hemoglobin 31.6 (Ref Range: 27.0-33.0 pg) 32.2 (Ref Range: 27.0-33.0 pg) 31.3 (Ref Range: 27.0-33.0 pg) Mean Corpuscular HGB Conc 32.3 (Ref Range: 31.0-36.0 g/dl) 32.8 (Ref Range: 31.0-36.0 g/dl) 31.8 (Ref Range: 31.0-36.0 g/dl) Red Cell Distribution Width 14.6 (Ref Range: 11.0-16.0 %) 14.6 (Ref Range: 11.0-16.0 %) 15.7 (Ref Range: 11.0-16.0 %) Platelet Count 203 (Ref Range: 160-400 X10*3/uL) 248 (Ref Range: 160-400 X10*3/uL) 243 (Ref Range: 160-400 X10*3/uL) Mean Platelet Volume 9.7 (Ref Range: 9.4-12.4 fL) 10.0 (Ref Range: 9.4-12.4 fL) 9.6 (Ref Range: 9.4-12.4 fL) Neutrophils Percent Auto 61.3 (Ref Range: 45-73 %) 59.2 (Ref Range: 45-73 %) 75.8 H (Ref Range: 45-73 %) Imm Gran Pct Auto 0.5 H (Ref Range: 0.0-0.4 %) 0.5 H (Ref Range: 0.0-0.4 %) 0.4 (Ref Range: 0.0-0.4 %) Lymphocytes Percent Auto 22.7 (Ref Range: 20-40 %) 25.0 (Ref Range: 20-40 %) 12.2 L (Ref Range: 20-40 %) Monocytes Percent Auto 10.2 (Ref Range: 2-11 %) 10.5 (Ref Range: 2-11 %) 9.2 (Ref Range: 2-11 %) Eosinophils Percent Auto 4.2 H (Ref Range: 0-4 %) 3.4 (Ref Range: 0-4 %) 1.8 (Ref Range: 0-4 %) Basophils Percent Auto 1.1 (Ref Range: 0-2 %) 1.4 (Ref Range: 0-2 %) 0.6 (Ref Range: 0-2 %) NRBC Pct Auto 0.0 (Ref Range: 0.0-0.2 /100WBC) 0.0 (Ref Range: 0.0-0.2 /100WBC) 0.0 (Ref Range: 0.0-0.2 /100WBC) Neutrophils Absolute Auto 3.8 (Ref Range: 2.0-8.3 x10*3/uL) 3.4 (Ref Range: 2.0-8.3 x10*3/uL) 6.5 (Ref Range: 2.0-8.3 x10*3/uL) Imm Gran Abs Auto 0.03 (Ref Range: 0.00-0.03 X10*3/uL) 0.03 (Ref Range: 0.00-0.03 X10*3/uL) 0.03 (Ref Range: 0.00-0.03 X10*3/uL) Lymphocytes Absolute Auto 1.4 (Ref Range: 1.2-4.9 X10*3/uL) 1.5 (Ref Range: 1.2-4.9 X10*3/uL) 1.0 L (Ref Range: 1.2-4.9 X10*3/uL) Monocytes Absolute Auto 0.6 (Ref Range: 0.1-1.2 X10*3/uL) 0.6 (Ref Range: 0.1-1.2 X10*3/uL) 0.8 (Ref Range: 0.1-1.2 X10*3/uL) Eosinophils Absolute Auto 0.3 (Ref Range: 0.0-0.4 X10*3/uL) 0.2 (Ref Range: 0.0-0.4 X10*3/uL) 0.2 (Ref Range: 0.0-0.4 X10*3/uL) Basophils Absolute Auto 0.1 (Ref Range: 0.0-0.2 X10*3/uL) 0.1 (Ref Range: 0.0-0.2 X10*3/uL) 0.1 (Ref Range: 0.0-0.2 X10*3/uL) NRBC Abs Auto 0.000 (Ref Range: 0.0-0.012 X10*3/uL) 0.000 (Ref Range: 0.0-0.012 X10*3/uL) 0.000 (Ref Range: 0.0-0.012 X10*3/uL) * Lab:Prostate Specific Antige n * Collection Date 11/01/2024 05/14/2024 04/12/2023 Collection Time 07:25 AM 12:37 PM 11:39 AM Order Date 11/01/2024 05/14/2024 04/12/2023 Prostate Specific Antigen 0.69 (Ref Range: <0.05-4.0 ng/mL) 0.50 (Ref Range: <0.05-4.0 ng/mL) 0.44 (Ref Range: <0.05-4.0 ng/mL) * Lab:Lipid Panel * Collection Date 11/01/2024 [...] Range: mg/dL) 49 (Ref Range: mg/dL) * Lab:Comprehensive [place]. Orline l Fast * Collection Date 11/01/2024 11/23/2022 [...] mg/dL) 9.2 (Ref Range: 8.4-10.2 mg/dL) * Examination: G eneral Examination: GENERAL APPEARANCE: p leasant, well nourished, well developed, in no acute distress, calm and relaxed, elderly man. HEAD: a traumatic, normocephalic. EYES: e stephanie, perrla, anicteric, conjugate. EARS: n ormal. NOSE: s eptum intact. ORAL CAVITY: n ormal, unremarkable. NECK/THYROID: n o jugular venous distention, no carotid bruit, thyroid normal, Decreased lateral flexion. LYMPH NODES: n o enlarged lymph nodes,spleen normal. SKIN: n o suspicious lesions, anicteric. HEART: n o clicks, gallops, murmurs, or rubs, regular rhythm, S1, S2 normal, no s3, or vascular bruits. LUNGS: c lear to auscultation . BREASTS: no masses palpable bilaterally. ABDOMEN: b owel sounds normal, no ascites, no organomegaly, no mass, Right lower quadrant abdominal hernia. RECTAL EXAM: n ot examined. MUSCULOSKELETAL: e xtremities unremarkable, no clubbing, cyanosis or edema. PERIPHERAL PULSES: n ormal. NEUROLOGIC: a lert and oriented, cranial nerves 2-12 grossly intact, deep tendon reflexes 2+ symmetrical, motor strength normal upper and lower extremities, sensory exam intact. PSYCH: a lert, oriented. Assessment: * Assessment: 1. F emoral hernia of right side - K41.90 (Primary) N otes :He has occasional pain in his right lower abdominal wall. There is a right femoral hernia on the CT scan done recently. He was instructed on how to take care of this if it worsens. A surgical consultation is pending later this week. 2 . F ormer smoker - Z87.891 N otes :He has a plan to prevent relapse in times of stress and illness. We discussed lifestyle today. 3 . H yperlipidemia, unspecified - E78.5 N otes :His lipids are treated and have been stable. A fasting lipid profile will be done periodically. 4 . M alignant neoplasm of prostate - C61 N otes :His PSA in 2022 was 0.44. It is currently 0.63. The values being observed. 5 . E ssential (primary) hypertension - I10 N otes :His blood pressure has been normal and no change was made in his regimen. I urged him to have his blood pressure determined at least once a week while he is in [place] and reported back to me. 6 . G warner-esophageal reflux disease without esophagitis - K21.9 ?Notes :His esophageal reflux is well controlled with filx-lzd-ytfphdb medication and no change in his regimen was necessary today. 7 . N onrheumatic aortic valve stenosis - I35.0 N otes :He had a TAVR in the recent past for aortic stenosis. He is going to have an ultrasound of his heart, which will help clarify if the valve is a source of an embolism. 8 . 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 He has an appointment in the near future to see the mental measurements teacher after he has an echocardiogram and a nuclear medicine stress test. He will come back from [place] the end of September 2023. I continue to use peak with him every 21 days. 9 . O steoarthritis of cervical spine, unspecified spinal osteoarthritis complication status - M47.812 N otes :He has very limited range of motion in all directions of his neck. The current nerve impingement symptoms are improving rapidly. 1 0. P eripheral edema - R60.0 N otes :We began a regimen of furosemide 20 mg and potassium chloride 10 mEq daily. Plan: * Treatment: 2. H yperlipidemia, unspecified L AB: PROFILE, FASTING (COMPREHENSIVE METABOLIC) L AB: PSA, TOTAL L AB: CBC w DIFF L AB: Lipid Panel 3. M alignant neoplasm of prostate L AB: PROFILE, FASTING (COMPREHENSIVE METABOLIC) L AB: PSA, TOTAL L AB: CBC w DIFF L AB: Lipid Panel * Procedure Codes: * Preventive Medicine: Counseling: S moking/Tobacco Use Patient counseled on the dangers of tobacco use and urged to quit. 0 11/27/2024 * Follow Up: 3 Months (Reason: OV) * Images: * Sign off status: Completed true * Provider: Willa Precidao MD Date: 0 11/27/2024 Generated for Estelle chao/Maximino/Alyseitting on: 1 07/07/2024 09:40 AM EST History [...] stention, no carotid bruit, thyroid normal, Decreased lateral flexion HEART: no clicks, gallops, murmurs, or rubs, regular rhythm, S1, S2 normal, no s3, or vascular bruits LUNGS: clear to auscultatio n ABDOMEN: bowel sounds normal, no ascites, no organomegaly, no mass, Right lower quadrant abdominal hernia NEUROLOGIC: alert and oriented, cranial nerves 2-12 [...]
--- OUTSIDE RECORDS SUMMARY | 2024-12-06 05:55 | XMS_ITS ---
Author Organization Sebastian Preciado III, MD Address [address] [place] [address] [place] [address] Care Team Providers Care Top Lift Trimmer Name Role Phone Dr. Sebastian Preciado III Primary Care Provider [phone] REASON FOR VISIT Rx Refill Medications Medication SIG (Take, Route, Fr equency, Duration) Notes Start Date End Date Status Atenolol 25 MG 1 tablet Orally Once a day for 90 days Active Social History Sex Assigned At : Social History Observation Description Sex Assigned At Male Encounters Encounter Location Date Provider Diagnosis Sebastian Preciado III, MD [address] [place] [address] [place] [address] 12/06/2024 Sebastian Preciado Former smoker Z87.891 Assessments Encounter Date Diagnosis (ICD Code) Assessment Notes Treatment Notes Treatment Clinical Notes 12/06/2024 Former smoker (ICD-10 - Z87.891) He has a plan to prevent relapse in times of stress and illness. We discussed lifestyle today. Plan Of Treatment Medication Medication Name Sig Start Date Stop Date Notes Atenolol 25 MG 1 tablet Orally Once a day for 90 days Next Appt Details Provider Name:Sebastian Preciado , 05/14/2025 11:00:00 AM, [address] [place] [address] [place], [address], Progress Notes * Royce JERNIGANDOB: 8 (89 yo M)Acc No.[id number]:12/06/2024 Patient: Royce LOWRY :1935 A ge:89 Y S ex:Male Address:[address] [place] [address] * Refills Refill Atenolol Tablet, 25 MG, Orally, 90 Tablet, 1 tablet, Once a day, 90 days, Refills=3 * true * Date: Generated for Estelle chao/Maximino/Alyseitting on: 07/07/2024 09:40 AM EST
--- OUTSIDE RECORDS SUMMARY | 2025-02-15 06:15 | XMS_ITS ---
Author Organization Sebastian Preciado III, MD Address [address] [place] [address] [address] [place] [address] Care Team Providers Care Carpenter And Joiner Name Role Phone Dr. Sebastian Preciado III Primary Care Provider Allergies Allergen (clinical drug ingredient) Drug/Non Drug Allergy documented on EMR Reaction Allergy Type Onset Date Status No Known Drug Allergy Unknown Drug Allergy Active REASON FOR VISIT Hypertension, Hyperlipidemia, Prostate cancer, Coronary artery disease, Aortic stenosis Medications Medication SIG (Take, Route, Frequency, Duration) Notes Start Date End Date Status Tylenol Arthritis Pain Active Centrum Silver Activ e Adult Aspirin EC Low Strength 81 MG 1 tablet Orally Once a day Active Pravastatin Sodium 40 MG 1 tablet Orally Once a day Active Doxycycline Hyclate 100 MG 1 capsule Ora lly twice a day for 7 days 02/15/2025 02/22/2025 Active Furosemide 20 MG 1 tablet Orally Once a day 11/06/2024 Active Atenolol 25 MG 1 tablet Orally Once a day Active Isosorbide Mononitrate ER 30 MG 1 tablet in the morning Orally Once a day Active Potassium Chloride ER 10 MEQ 1 tablet with food Orally once a day 11/06/2024 Active Social History Tobacco Use: Social History [...] smoker Vital Signs Temperature 98.2 degrees Fahrenheit 02/16/20 25 Blood pressure systolic 117 mm Hg 02/16/20 25 Blood pressure diastolic 55 mm Hg 025 Heart Rate 71 /min 02/15/2025 Height 68 in 02/15/2025 Weight 159 lbs 02/15/2025 BMI 24.17 kg/m2 02/15/2025 Encounters Encounter Location Date Provider Diagnosis Sebastian Preciado III, MD [address] [place] [address] [place] [address] 02/15/2025 Sebastian Garciarne Former smoker Z87.89 1 ; 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 We discussed lifestyle today. 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 He has an appointment in the near future to see the bilingual account manager after he has an echocardiogram and a nuclear medicine stress test. He will come back from [place] the end of September 2023. I continue to use peak with him every 21 days. 02/15/2025 Essential (primary) hypertension (ICD-10 - I10) His blood pressure has been normal and no change was made in his regimen. I urged him to have his blood pressure determined at least once a week while he is in [place] and reported back to me. 02/15/2025 Hyperlipidemia, unspecified (ICD-10 - E78.5) His lipids are treated and have been stable. A fasting lipid profile will be done periodically. 02/15/2025 Malignant neoplasm o f prostate (ICD-10 - C61) His PSA in 2022 was 0.44. It is currently 0.63. The values being observed. 02/15/2025 Gastro-esophageal reflux disease without esophagitis (ICD-10 - K21.9) His esophageal reflux is well controlled with jjgg-nyn-qdihaok medication and no change in his regimen was necessary today. 02/15/2025 Osteoarthritis of cervical spine, unspecified spinal osteoarthritis complication status (ICD-10 - M47.812) He has very limited range of motion in all directions of his neck. The current nerve impingement symptoms are improving rapidly. Plan Of Treatment Medication Medication Name Sig Start Date Stop Date Notes Tylenol Arthritis Pain Centrum Silver Adult Aspirin EC Low Strengt h 81 MG 1 tablet Orally Once a day Pravastatin Sodium 40 MG 1 tablet Orally Once a day Doxycycline Hyclate 100 MG 1 capsule Ora lly twice a day for 7 days 02/15/2025 02/22/2025 Furosemide 20 MG 1 tablet Orally Once a day 11/06/2024 Atenolol 25 MG 1 tablet Orally Once a day Isosorbide Mononitrate ER 30 MG 1 tablet in the morning Orally Once a day Potassium Chloride ER 10 MEQ 1 tablet wi th food Orally once a day 11/06/2024 Next Appt Details Follow Up: As Scheduled, Rekha son: Annual Exam Provider Name:Sebastian Preciado , 05/14/2025 11:00:00 AM, [address] [place] [address], [id number], Progress Notes * Royce JERNIGANDOB: 8 (89 yo M)Acc No.[id number]:02/15/2025 Progress Notes Patient: Royce LOWRY Provider: Willa Preciado MD :1935 A ge:89 Y S ex:Male Date:02/15/2025 Address:[address] [place], [place] [id number] Subjective: * Chief Complaints: * H ypertensionHyperlipidemiaProstate cancerCoronary artery diseaseAortic stenosis * HPI: C OVID-19 Screening: H e returns for medical management. He says he has been stable and compliant with all of his medications. His prostate cancer was treated with radiation and his PSA is now 0.67. It has not been rising. He is going to spend the winter in both the right time. He will leave on February 19, 2025. He will return for the at which time he will be seen again. A new problem was a small area of swelling and edema medial portion of his right second finger were he had mild trauma. He was given an antibiotic for this. He admits nocturia 3 times a night. Questions H ave you had any new onset fever, chills, cough, congestion, sore throat, shortness of breath, muscle aches? N o * ROS: G eneral/Constitutional: pain R hinitis in his finger. C hills d enies. F atigue a dmits. F ever d enies. E NT: Decreased hearing i n both ears. R espiratory: Cough d enies. C ardiovascular: Chest pain with exertion d enies. D yspnea on exertion?with prolonged activity. S hortness of breath d enies. G [...] c ardiac catheterization, 3 stents December 2012TAVR, [facility] 10/2021Left hip surgery 11/2023No history * Hospitalization/Major Diagno [...] x-cigarette smoker Jorge wheat was born in [place], [place] and has been to [facility] for 59 years. He has 3 children and 9 grandchildren. 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 * Medications: T akingIsosorbide Mononitrate ER 30 MG Tablet Extended Release 24 Hour 1 tablet in the morning Orally Once a day Pravastatin Sodium 40 MG Tablet 1 tablet Orally Once a day Tylenol Arthritis Pain Centrum Silver Adult Aspirin EC Low Strength 81 MG Tablet Delayed Release 1 tablet Orally Once a day Furosemide 20 MG Tablet 1 tablet Orally Once a day Potassium Chloride ER 10 MEQ Tablet Extended Release 1 tablet with food Orally once a day Atenolol 25 MG Tablet 1 tablet Orally Once a day Medication List reviewed and reconciled with the patientTaking Isosorbide Mononitrate ER 30 MG Tablet Extended Release 24 Hour 1 tablet in the morning Orally Once a day Taking Pravastatin Sodium 40 MG Tablet 1 tablet Orally Once a day Taking Tylenol Arthritis Pain Taking Centrum Silver Taking Adult Aspirin EC Low Strength 81 MG Tablet Delayed Release 1 tablet Orally Once a day Taking Furosemide 20 MG Tablet 1 tablet Orally Once a day Taking Potassium Chloride ER 10 MEQ Tablet Extended Release 1 tablet with food Orally once a day Taking Atenolol 25 MG Tablet 1 tablet Orally Once a day Medication List reviewed and reconciled with the patient * Allergies: N o Known Drug Allergyno[Allergies Verified] Objective: * Vitals: H t: 68, Wt:159, BMI:24.17, BP:117/55, HR:71, Temp:98.2, Ht-cm: 172.72, Wt-k.12. * P ast Orders: L ab:Pathology (Order Date - 02/06/2025) (Collection Date & Time - 02/06/2025 10:23 AM) Lab:Prostate Specific Antige n * Collection Date 02/05/2025 11/01/2024 05/14/2024 Collection Time 07:21 AM 07:25 AM 12:37 PM Order Date 02/05/2025 11/01/2024 05/14/2024 Prostate Specific Antigen 0.67 (Ref Range: <0.05-4.0 ng/mL) 0.69 (Ref Range: <0.05-4.0 ng/mL) 0.50 (Ref Range: <0.05-4.0 ng/mL) * Lab:Lipid Panel * Collection Date 02/05/2025 11/01/2024 11/23/2022 Collection Time 07:21 AM 07:25 AM 07:23 AM Order Date 02/05/2025 11/01/2024 11/23/2022 Triglycerides 63 (Ref Range: <150 mg/dL) 70 (Ref Range: <150 mg/dL) 66 (Ref Range: mg/dL) Cholesterol 141 (Ref Range: <200 mg/dL) 133 (Ref Range: <200 mg/dL) 131 (Ref Range: mg/dL) LDL Cholesterol Calculated 83 (Ref Range: <100 mg/dL) 77 (Ref Range: <100 mg/dL) 69 (Ref Range: mg/dl) HDL Cholesterol 46 (Ref Range: >40 mg/dL) 42 (Ref Range: >40 mg/dL) 49 (Ref Range: mg/dL) * Lab:Comprehensive [place]. Pane l Fast * Collection Date 02/05/2025 11/01/2024 11/23/2022 Collection Time 07:21 AM 07:25 AM 07:23 AM Order Date 02/05/2025 11/01/2024 11/23/2022 Sodium 142 (Ref Range: 135-145 mmol/L) 139 (Ref Range: 135-145 mmol/L) 140 (Ref Range: 135-145 mmol/L) Bilirubin Total 1.0 (Ref Range: 0.0-1.0 mg/dL) 1.0 (Ref Range: 0.0-1.0 mg/dL) 1.1 H (Ref Range: 0.0-1.0 mg/dL) Aspartate Amino Transferase 25 (Ref Range: 5-37 U/L) 23 (Ref Range: 5-37 U/L) 21 (Ref Range: 5-37 U/L) Alanine Aminotransferase 19 (Ref Range: 0-40 U/L) 19 (Ref Range: 0-40 U/L) 24 (Ref Range: 0-40 U/L) Total Protein 7.9 (Ref Range: 6.5-8.0 g/dL) 7.4 (Ref Range: 6.5-8.0 g/dL) 7.1 (Ref Range: 6.5-8.0 g/dL) Albumin Level 4.5 (Ref Range: 3.5-5.0 g/dL) 4.3 (Ref Range: 3.5-5.0 g/dL) 3.8 (Ref Range: 3.5-5.0 g/dL) Alkaline Phosphatase 63 (Ref Range: 39-117 U/L) 60 (Ref Range: 39-117 U/L) 54 (Ref Range: 39-117 U/L) Potassium 4.2 (Ref Range: 3.3-5.1 mmol/L) 4.2 (Ref Range: 3.3-5.1 mmol/L) 3.9 (Ref Range: 3.3-5.1 mmol/L) Chloride 106 (Ref Range: 96-108 mmol/L) 102 (Ref Range: 96-108 mmol/L) 105 (Ref Range: 96-108 mmol/L) Carbon Dioxide 28 (Ref Range: 22-29 mmol/L) 30 H (Ref Range: 22-29 mmol/L) 25 (Ref Range: 22-29 mmol/L) Anion Gap 12 (Ref Range: 12-20) 11 L (Ref Range: 12-20) 14 (Ref Range: 12-20) Blood Urea Nitrogen 19 H (Ref Range: 9-16 mg/dL) 22 H (Ref Range: 9-16 mg/dL) 15 (Ref Range: 9-16 mg/dL) Creatinine 0.92 (Ref Range: 0.5-1.4 mg/dL) 1.05 (Ref Range: 0.5-1.4 mg/dL) 0.95 (Ref Range: 0.5-1.4 mg/dL) Estimated Glomerular Filt Rate > 60 > 60 > 60 Glucose Fasting 95 (Ref Range: 60-99 mg/dL) 92 (Ref Range: 60-99 mg/dL) 103 H (Ref Range: 60-99 mg/dL) Calcium 9.7 (Ref Range: 8.4-10.2 mg/dL) 9.6 (Ref Range: 8.4-10.2 mg/dL) 9.6 (Ref Range: 8.4-10.2 mg/dL) * Lab:Complete Blood Count Aut o Diff * Collection Date 02/05/2025 11/20/2024 11/01/2024 Collection Time 07:21 AM 07:24 AM 07:25 AM Order Date 02/05/2025 11/20/2024 11/01/2024 White Blood Count 7.3 (Ref Range: 4.8-10.8 X10*3/uL) 6.2 (Ref Range: 4.8-10.8 X10*3/uL) 5.8 (Ref Range: 4.8-10.8 X10*3/uL) Red Blood Count 4.25 L (Ref Range: 4.60-5.80 X10*6/uL) 4.08 L (Ref Range: 4.60-5.80 X10*6/uL) 4.22 L (Ref Range: 4.60-5.80 X10*6/uL) Hemoglobin 13.6 L (Ref Range: 14.0-18.0 g/dl) 12.9 L (Ref Range: 14.0-18.0 g/dl) 13.6 L (Ref Range: 14.0-18.0 g/dl) Hematocrit 42.3 (Ref Range: 42.0-52.0 %) 40.0 L (Ref Range: 42.0-52.0 %) 41.5 L (Ref Range: 42.0-52.0 %) Mean Corpuscular Volume 99.5 H (Ref Range: 80.0-98.0 fL) 98.0 (Ref Range: 80.0-98.0 fL) 98.3 H (Ref Range: 80.0-98.0 fL) Mean Corpuscular Hemoglobin 32.0 (Ref Range: 27.0-33.0 pg) 31.6 (Ref Range: 27.0-33.0 pg) 32.2 (Ref Range: 27.0-33.0 pg) Mean Corpuscular HGB Conc 32.2 (Ref Range: 31.0-36.0 g/dl) 32.3 (Ref Range: 31.0-36.0 g/dl) 32.8 (Ref Range: 31.0-36.0 g/dl) Red Cell Distribution Width 14.4 (Ref Range: 11.0-16.0 %) 14.6 (Ref Range: 11.0-16.0 %) 14.6 (Ref Range: 11.0-16.0 %) Platelet Count 250 (Ref Range: 160-400 X10*3/uL) 203 (Ref Range: 160-400 X10*3/uL) 248 (Ref Range: 160-400 X10*3/uL) Mean Platelet Volume 9.8 (Ref Range: 9.4-12.4 fL) 9.7 (Ref Range: 9.4-12.4 fL) 10.0 (Ref Range: 9.4-12.4 fL) Neutrophils Percent Auto 66.7 (Ref Range: 45-73 %) 61.3 (Ref Range: 45-73 %) 59.2 (Ref Range: 45-73 %) Imm Gran Pct Auto 0.4 (Ref Range: 0.0-0.4 %) 0.5 H (Ref Range: 0.0-0.4 %) 0.5 H (Ref Range: 0.0-0.4 %) Lymphocytes Percent Auto 20.5 (Ref Range: 20-40 %) 22.7 (Ref Range: 20-40 %) 25.0 (Ref Range: 20-40 %) Monocytes Percent Auto 9.3 (Ref Range: 2-11 %) 10.2 (Ref Range: 2-11 %) 10.5 (Ref Range: 2-11 %) Eosinophils Percent Auto 2.1 (Ref Range: 0-4 %) 4.2 H (Ref Range: 0-4 %) 3.4 (Ref Range: 0-4 %) Basophils Percent Auto 1.0 (Ref Range: 0-2 %) 1.1 (Ref Range: 0-2 %) 1.4 (Ref Range: 0-2 %) NRBC Pct Auto 0.0 (Ref Range: 0.0-0.2 /100WBC) 0.0 (Ref Range: 0.0-0.2 /100WBC) 0.0 (Ref Range: 0.0-0.2 /100WBC) Neutrophils Absolute Auto 4.9 (Ref Range: 2.0-8.3 x10*3/uL) 3.8 (Ref Range: 2.0-8.3 x10*3/uL) 3.4 (Ref Range: 2.0-8.3 x10*3/uL) Imm Gran Abs Auto 0.03 (Ref Range: 0.00-0.03 X10*3/uL) 0.03 (Ref Range: 0.00-0.03 X10*3/uL) 0.03 (Ref Range: 0.00-0.03 X10*3/uL) Lymphocytes Absolute Auto 1.5 (Ref Range: 1.2-4.9 X10*3/uL) 1.4 (Ref Range: 1.2-4.9 X10*3/uL) 1.5 (Ref Range: 1.2-4.9 X10*3/uL) Monocytes Absolute Auto 0.7 (Ref Range: 0.1-1.2 X10*3/uL) 0.6 (Ref Range: 0.1-1.2 X10*3/uL) 0.6 (Ref Range: 0.1-1.2 X10*3/uL) Eosinophils Absolute Auto 0.2 (Ref Range: 0.0-0.4 X10*3/uL) 0.3 (Ref Range: 0.0-0.4 X10*3/uL) 0.2 (Ref Range: 0.0-0.4 X10*3/uL) Basophils Absolute Auto 0.1 (Ref Range: 0.0-0.2 X10*3/uL) 0.1 (Ref Range: 0.0-0.2 X10*3/uL) 0.1 (Ref Range: 0.0-0.2 X10*3/uL) NRBC Abs Auto 0.000 (Ref Range: 0.0-0.012 X10*3/uL) 0.000 (Ref Range: 0.0-0.012 X10*3/uL) 0.000 (Ref Range: 0.0-0.012 X10*3/uL) * Lab:Comprehensive Met. Panel * Collection Date 11/20/2024 [...] mg/dL) 9.4 (Ref Range: 8.4-10.2 mg/dL) * Examination: G eneral Examination: GENERAL APPEARANCE: p leasant, well nourished, well developed, in no acute distress, calm and relaxed man. HEAD: a traumatic, normocephalic. EYES: e stephanie, perrla, anicteric, conjugate. EARS: : Normal anatomy with bilateral hearing loss. NOSE: s eptum intact. ORAL CAVITY: n [...] no ascites, no organomegaly, no mass, Right femoral hernia, Recently repaired with mesh, still swollen. RECTAL EXAM: n ot examined. MUSCULOSKELETAL: e xtremities unremarkable, no clubbing, cyanosis or edema, Mild decreased range of motion neck and shoulders. PERIPHERAL PULSES: n ormal. NEUROLOGIC: a lert and oriented, cranial nerves 2-12 grossly intact, deep tendon reflexes 2+ symmetrical, motor strength normal upper and lower extremities, sensory exam intact. PSYCH: a lert, oriented. Assessment: * Assessment: 1. 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 He has an appointment in the near future to see the bilingual account manager after he has an echocardiogram and a nuclear medicine stress test. He will come back from [place] the end of September 2023. I continue to use peak with him every 21 days. 2 . F ormer smoker - Z87.891 [...] in [place] and reported back to me. 4 . H yperlipidemia, unspecified - E78.5 N otes :His lipids are treated and have been stable. A fasting lipid profile will be done periodically. 5 . M alignant neoplasm of prostate - C61 N otes :His PSA in 2022 was 0.44. It is currently 0.63. The values being observed. 6 . G warner-esophageal reflux disease without esophagitis - K21.9 ?Notes :His esophageal reflux is well controlled with npac-jzr-fukabxe medication and no change in his regimen was necessary today. 7 . O steoarthritis of cervical spine, unspecified spinal osteoarthritis complication status - M47.812 N otes :He has very limited range of motion in all directions of his neck. The current nerve impingement symptoms are improving rapidly. Plan: * Treatment: * Procedure Codes: * Preventive Medicine: Counseling: S moking/Tobacco Use Patient counseled on the dangers of tobacco use and urged to quit. 1 * Follow Up: A s Scheduled (Reason: Annual Exam) * Images: * Sign off status: Completed true * Provider: Willa Preciado MD Date: 1 Generated for Estelle chao/Maximino/Zoilasmitting on: 07/07/2024 09:38 AM EST History and Physical Notes * HPI (History of Present Illness) Category Sub-Category Detail Notes COVID-19 Screening Questions Have you had any new onset fever, chills, cough, congestion, sore throat, shortness of breath, muscle aches?: No Examination Category Sub-Category Detail Notes General Examination GENERAL APPEARANCE: pleasant , well nourished, well developed, in no acute distress, calm and relaxed man HEAD: atraumatic, normocep halic EYES: eomi, perrla, anicte paulina, conjugate EARS: : Normal anatomy wit h bilateral hearing loss NOSE: septum intact NECK/THYROID: no jugular venous di stention, no carotid bruit, thyroid normal HEART: no clicks, gallops, murmurs, or rubs, regular rhythm, S1, S2 normal, no s3, or vascular bruits LUNGS: clear to auscultatio n ABDOMEN: bowel sounds normal, no ascites, no organomegaly, no mass, Right femoral hernia, Recently repaired with mesh, still swollen NEUROLOGIC: alert and oriented, cranial nerves 2-12 grossly intact, deep tendon reflexes 2+ symmetrical, motor strength normal upper and lower extremities, sensory exam intact SKIN: no suspicious lesion s, anicteric PERIPHERAL PULSES: normal BREASTS: no masses palpable b ilaterally MUSCULOSKELETAL: extremities unremark able, no clubbing, cyanosis or edema, Mild decreased range of motion neck and shoulders LYMPH NODES: no enlarged lymph no ed,spleen normal RECTAL EXAM: not examined PSYCH: alert, oriented ORAL CAVITY: normal, unremarkable
--- OUTSIDE RECORDS SUMMARY | 2025-02-19 13:15 | XMS_ITS ---
Author Organization Sebastian Preciado III, MD Address [address] [place] [address] [place] [address] Care Team Providers Care Rod Welder Name Role Phone Dr. Sebastian Preciado III Primary Care Provider REASON FOR VISIT Follow up Social History Sex Assigned At : Social History Observation Description Sex Assigned At Male Encounters Encounter Location Date Provider Diagnosis Sebastian Preciado III, MD [address] [place] [address] [place] [address] 02/19/2025 Sebastian Preciado Plan Of Treatment Next Appt Details Provider Name:Sebastian Preciado , 05/14/2025 11:00:00 AM, [address] [place] [address] [place], [address], Progress Notes * Royce JERNIGANDOB: (89 yo M)Acc No.[id number]:02/19/2025 Progress Notes Patient: Royce LOWRY Provider: Willa Preciado MD :1935 A ge:89 Y S ex:Male Date:02/19/2025 Address:[address] [phone] Subjective: * Chief Complaints: * 1 . Follow up. * Medical History: Objective: * Vitals: Assessment: Plan: * Treatment: * Images: * The named appointment provid er may or may not be the originator of this progress note, and it is not deemed complete until electronically signed by the appointment provider. Sign off status: Pending * Provider: Willa Preciado MD Date: 1 Generated for Estelle chao/Maximino/Zoilasmitting on: 07/07/2024 09:39 AM EST
--- NOTE | 2025-05-06 09:09 | MHC.OFFVIS ---
Vital Signs 05/06/25 09:11 Height 5 ft 10 in Weight 162 lb BMI 23.2 BP 130/82 Blood Pressure Location Lt brachial Position Sitting Intake Visit Reasons: RIH w/mesh Intake Note: Patient is seen in office for one month follow up visit, post right inguinal hernia repair. Pt c/o: denies any concenrs Oral And Maxillofacial Surgery Required: No Accompanied by: Self / Same As Patient Allergies No Known Allergies Allergy (Verified 05/06/25 09:10) Medication List - Last Reconciled 05/06/25 by Anand Woodruff MD acetaminophen ER (Tylenol Arthritis Pain) 650 mg PO Q12H aspirin 81 mg PO DAILY atenolol 25 mg PO DAILY isosorbide mononitrate ER 30 mg PO DAILY fr-zsz-vtant-B2-qvboexa-yyizyv [phone] mcg (Centrum Silver Men) 1 tab PO DAILY pravastatin 40 mg PO DAILY HPI Comments Details: 89-year-old male patient returning following repair of a right inguinal hernia with mesh on 02/06/2025. He has returned from [place] and had a good trip. He feels much improved with no pain, swelling or constipation. He is very happy with his results. [facility] Medical History Prostate CA HLD (hyperlipidemia) HTN (hypertension) Aortic stenosis CAD (coronary artery disease) Reducible right inguinal hernia Surgical History S/P TAVR (transcatheter aortic valve replacement) (~2020) History of hip surgery (11/2023) Hx of cardiac catheterization (12/2012) Social History Patient Tobacco Use Status: Former Tobacco user Physical Exam Vital Signs: Last Vital Signs BP 130/82 05/06/25 09:11 BMI result Body Mass Index 23.2 Const General: comfortable Nutritional Appearance: well nourished Orientation/consciousness: patient oriented x3 Limitations: ambulation with cane Resp Effort & Inspection: normal respiratory effort GI Other: Right inguinal incision is clean, dry, and intact with a minimal residual healing ridge. No changes noted with Valsalva maneuvers. No tenderness to palpation. Neuro General: patient oriented x3 Extrem Other: No edema Assessment & Plan Assessment & Plan (1) S/P right inguinal hernia repair: Code(s): Z98.890 - Other specified postprocedural states; Z87.19 - Personal history of other diseases of the digestive system Category: Surgical (2) Reducible right inguinal hernia: Code(s): K40.90 - Unilateral inguinal hernia, without obstruction or gangrene, not specified as recurrent Category: Medical Plan 89-year-old male patient returning following repair of a right inguinal hernia on 02/06/2025. He tolerated the procedure well in his wounds are healing nicely. There is no evidence of hernia recurrence or wound infection. He may resume normal activity without restriction and should follow up as needed. Coding Level of Care Code Global (03353) Diagnoses S/P right inguinal hernia repair Z98.890; Z87.19 Reducible right inguinal hernia K40.90
[2025-05-06 09:11] VITALS: BP 130/82; BMI 23.2
--- OUTSIDE RECORDS SUMMARY | 2025-05-06 09:39 | XMS_ITS | Patient Health Record ---
Author Organization [facility] Address [address] [place] [address] Care Team Providers Care Experimental Mechanic Name Role Phone Sebastian Preciado MD Primary Care Provider Kt Sorenson Jr Unavailable Allergies No Known Allergies Reason For Referral No Information Medications Medication SIG (Take, Route, Frequency, Duration) Notes Start Date End Date Status Plavix 75 MG Tablet 1 tablet Orally Once a day; Duration: 30 day(s) Active Aspirin 81 81 MG Tablet Chewable 1 tablet Orally Once a day; Duration: 30 day(s) Active Losartan Potassium-HCTZ 50-12.5 MG Tablet 1 tablet Orally Once a day; Duration: 30 day(s) Active Atenolol 25 MG Tablet 1 tablet Orally On ce a day; Duration: 30 day(s) Active Pravastatin Sodium 40 MG Tablet 1 tablet Orally Once a day; Duration: 30 day(s) Active Immunizations Vaccine Route Administration Date Status Comme nts Influenza Unknown 12/16/2021 Refused Social History Tobacco Use: Social History Observation Description Date Details (start date - stop date) Never Smoker NA - NA Social History Drugs/Alcohol: Social Info Question Answer Notes Alcohol Screen Did you have a drink containing alcohol in the past year? Yes How often did you have a drink containing alcohol in the past year? Monthly or less (1 point) How many drinks did you have on a typical day when you were drinking in the past year? 1 or 2 drinks (0 point) How often did you have 6 or more drinks on one occasion in the past year? Never (0 point) Points 1 Interpretation Negative Tobacco Use: Social Info Question Answer Notes Tobacco Use/Smoking Patient is a nonsmoker Additional Details Category Social Info Options Details Miscellaneous: Marital status: Occupation: retired Problems Problem Type SNOMED Code ICD Code Onset Dates Problem Status W/U Status Risk Notes Problem Constipation (87352647) Other constipation (K59.09) Active confirmed Problem Dysphagia (46725550) Other dysphagia (R13.19) Active confirmed Problem Oropharyngeal dysphagia (12856920) Oropharyngeal dysphagia (R13.12) Active confirmed Problem Dysphagia (25101264) Dysphagia, unspecified type (R13.10) Active confirmed Problem Diarrhea (45200100) Diarrhea, unspecified type (R19.7) Active confirmed Problem Aspiration into airway, initial encounter (T17.040U) Active confirmed Plan Of Treatment Pending Test Test Name Order Date XR BARIUM SWALLOW-ESOPHAGUS 12/16/2021 XR BARIUM SWALLOW, MODIFIED VIDEO 2021 Insurance Providers Payer Name Payer Address Payer Phone Subscriber Number Group Number Insured Name Patient Relationship to Insured Coverage Start Date Coverage End Date MEDICARE OF [place] [address] [place] [address] [id number] AMITA JERNIGAN Self - patient is the insured [employer] ATT[employer] CLAIMS [address] [place] [phone] [id number] AMITA JERNIGAN Self - patient is the [...] 03/02/21 Hospitalization History Reason Date(Month/Year) TIA in [place] 09/05
--- OUTSIDE RECORDS SUMMARY | 2025-05-06 09:39 | XMS_ITS | Data Portability ---
Author Organization [facility], [facility] Address [address] [place] [address] Care Team Providers Care Risk Control Consultant Name Role Phone PORTIA HAWKINS Primary Care [...] weeks with xrays left hip and pelvis. [email or web address] Not available 12/20/2023 15:48:39 01/18/2024 01/18/2024 CC [...] months with xrays left hip and pelvis. [email or web address] Not available 01/25/2024 17:12:58 02/21/2024 02/21/2024 Patient [...] as she is scheduled to leave for [place] with his on . Patient denies numbness or tingling about the left lower extremity. Examination: 88-year-old male in distress alert and oriented. Palpation and percussion assistance from a cane. On examination of the left hip surgical incisions are well-healed and benign. Range of motion is limited with mild irritability elicited. Calf is soft. X-rays ordered, obtained and reviewed at [facility] 2 views left hip reveal short InterTAN nailing good position. No change in fixation noted, no significant progression of callus from previous x-rays. 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 Patient offered possibility of CT scan to further evaluate. Patient reports she needs to leave on for [place], was cautioned that she have continued difficulty should seek care while he is in [place] or upon his return. Was counseled to continue with use of ambulatory assistive devices. [facility] speech recognition ethylene plant helper software was used to create portions of [...] obtained, and reviewed by me today at [facility] show a trochanteric femur fracture with [...] time. Date: 05/22/2024 Patient Name: Mr. Liu Not available 05/22/2024 15:35:19 Plan of Treatment [...] [facility], [address], [place], [address], 5 14:13:10 XR, hip + pelvis, unilatera l, 2 or 3 view - room 120 2V L hip 2023 024 [email or web address] [facility], [address], [place], [address], 4 15:48:00 XR, hip + pelvis, unilatera l, 2 or 3 view - 313 2v lt hip and ap pelvis global 2023 024 RITA [facility], [address], [place], [address], 4 15:14:06 XR, hip + pelvis, unilatera l, 2 or 3 view - 315 ap pelvis, 2v left hip global pt is changing into shorts 2023 024 [email or web address] [facility], [address], [address], [place], [address], 17:05:27 Medication Orders None recorded. Patient TargetsNo [...] a4ajBk vP9nXo QUaueC m3YtLR FvZlgJ JJ8mAn HZtai3 9v0978 AC0Kob 3qEV6P eUC8mr 84%3D INTERFACE [facility] [address], [place], [address], 12/20/2023 13:54:35 12/20/19 24 12/20/2023 XR, hip + pelvi s, unila teral , 2 or 3 view [email or web address] ?Encry pted=s hAaTro YD8dLq bEUv6g %2BXZw aYqtaq 0bqfl% 2Fg9IQ a4ajBk vP9nXo QUaueC m3YtLR FvZlgJ JJ8mAn HZtai3 4h9266 AC0Kob 3qEV6P eUC8mr 84%3D INTERFACE [facility] [address], [place], [address], 12/20/2023 13:54:37 01/18/20 24 01/18/2024 XR, hip + pelvi s, unila teral , 2 or 3 view [email or web address]:/ [email or web address] ?Encry pted=s hAaTro YD8dLq bEUv6g %2BXZw aYqtaq 0bqfl% 2Fg9IQ a4ajBk vP9nXo QUaueC m3YtLR FvZlgJ JJ8mAn HZtai3 2q1335 AC0Kqa n2FV6S vKiQtr MwF INTERFACE [facility] [address], [place], [address], 01/18/2024 15:14:06 01/18/20 24 01/18/2024 XR, hip + pelvi s, unila teral , 2 or 3 view [email or web address] ?Encry pted=s hAaTro YD8dLq bEUv6g %2BXZw aYqtaq 0bqfl% 2Fg9IQ a4ajBk vP9nXo QUaueC m3YtLR FvZlgJ JJ8mAn HZtai3 6h4412 AC0Kqa n2FV6S vKiQtr MwF INTERFACE [facility] [address], [place], [address], 01/18/2024 15:14:09 02/21/20 24 02/21/2024 XR, hip + pelvi s, unila teral , 2 or 3 view http:/ [email or web address] ?Encry pted=s hAaTro YD8dLq bEUv6g %2BXZw aYqtaq 0bqfl% 2Fg9IQ a4ajBk vP9nXo QUaueC m3YtLR FvZlgJ JJ8mAn HZtai3 7h1369 AC0Kqa 3mGVaW hKiQtr MwF INTERFACE [facility] [address], [place], [address], 02/21/2024 17:00:06 02/21/20 24 02/21/2024 XR, hip + pelvi s, unila teral , 2 or 3 view http:/ [email or web address] ?Encry pted=s hAaTro YD8dLq bEUv6g %2BXZw aYqtaq 0bqfl% 2Fg9IQ a4ajBk vP9nXo QUaueC m3YtLR FvZlgJ JJ8mAn HZtai3 1d3190 AC0Kqa 3mGVaW hKiQtr MwF INTERFACE [facility] [address] [facility] [address] [facility] [address] [facility] [address], [place], [address], 02/21/2024 17:00:08 05/22/19 25 05/22/2024 XR, hip + pelvi s, unila teral , 2 or 3 view http:/ [email or web address] ?Encry pted=s hAaTro YD8dLq bEUv6g %2BXZw aYqtaq 0bqfl% 2Fg9IQ a4ajBk vP9nXo QUaueC m3YtLR FvZlg JJ8mAn HZtai3 2w6483 AC0Kqb 32NUqq vKiQtr MwF INTERFACE [facility] [address] [facility] [address], [place], [address], 05/22/2024 13:41:00 05/22/19 25 05/22/2024 XR, hip + pelvi s, unila teral , 2 or 3 view http:/ [email or web address] ?Encry pted=s hAaTro YD8dLq bEUv6g %2BXZw aYqtaq 0bqfl% 2Fg9IQ a4ajBk vP9nXo QUaueC m3YtLR FvZlgJ JJ8mAn HZtai3 4m9640 AC0Kqb 32NUqq vKiQtr MwF INTERFACE [facility] [address] [facility] [address], [place], [address], 05/22/2024 13:41:02 Result Notes Documentation Provider Name and Address Organization Details Recorded Time Xr, Hip + Pelvis, Unilateral, 2 Or 3 View : [email or web address] Encrypted=lnVpDhmWB6kHzhG Uv6g%6JXFvaJyhrt4toap%2Fg 6BCw3xrNtvI0qXtPKwnyQd3Bo RWKaUsoPVZ1sVmRPqtn41n645 4ID6Yfh7dVM7KqMD3jh14%3D Not Available [facility] 12/20/2023 13:5 4:36 Xr, Hip + Pelvis, Unilateral, 2 Or 3 View : [email or web address] Encrypted=ujNhMxwIO5xWlyR Uv6g%0WVIksVxeic3rqbt%2Fg 3UHe2hkJrzZ3pRuFCzojLt5Il XDYvBguHDH6jEaKLaih75z656 7GA3Wnw6kHH8TrPP6rb05%3D Not Available [facility] 12/20/2023 13:5 4:38 Xr, Hip + Pelvis, Unilateral, 2 Or 3 View : [email or web address] Encrypted=zoZdLibVI9uFbcD Uv6g%0FJLmrUdseh7ncsw%2Fg 1KQy9reTjqK7mCgSYxchFq0Hl IDKuPkvORC3sRiXHlhm86p412 6WX4Hskc6XV6GoPdIraYpT Not Available [facility] 01/18/2024 15:14: 07 Xr, Hip + Pelvis, Unilateral, 2 Or 3 View : [email or web address] Encrypted=mhUsKhsWG2zUezB Uv6g%1VRJhhWjmcd8qsou%2Fg 4EFh8jkRdjN0wSlBZqpdXs6Sf IVXqKalZHH8iYiKZrom08i392 9KU6Pvjv3IK5ZbMkQqpOnT Not Available [facility] 01/18/2024 15:14: 09 Xr, Hip + Pelvis, Unilateral, 2 Or 3 View : [email or web address] Encrypted=whSdMatBM8tKjhR Uv6g%0SJMseRrqzg7mjno%2Fg 7NWn9juTenN0uYwMDijjCg1Kv LBIeByiXMT5aJtRIyly79t598 1JI9Tcm0lYCbTwHaNknGeR Not Available [facility] 02/21/2024 17:00: 07 Xr, Hip + Pelvis, Unilateral, 2 Or 3 View : [email or web address] Encrypted=fzOpEerFG1dSckR Uv6g%9NBVdxNukzh1ezdj%2Fg 7ZUz9owKyjI1pHcXGsktIs2Fx DIErGypAAM2wSlVRexc65b023 1OO6Chk5jKApZlRfGviKgV Not Available [facility] 02/21/2024 17:00: 09 Xr, Hip + Pelvis, Unilateral, 2 Or 3 View : [email or web address] Encrypted=qpAjImyUY0vJkaS Uv6g%0SMJhkUclxk8mrhk%2Fg 0THx4zqVodZ8yPwNLsiuLn6Bp JIJlXxcGWV9dZvLXioh52s017 7IJ6Wgx75MRpqsGtVbsAwV Not Available [facility] 05/22/2024 13:41: 01 Xr, Hip + Pelvis, Unilateral, 2 Or 3 View : [email or web address] Encrypted=guEfRylJG5dIusK Uv6g%8WIQpsIodyv5hanb%2Fg 8APn3uuWwkP1rFzHCurfDa9Gr NRYcBqyXSD4tMvNOwuo30m732 7XW4Cae49JNahbMxEmjLbP Not Available [facility] 05/22/2024 13:41: 03 Procedures Surgical History Date Name Laterality Status Provider Name and Address Organization Details Recorded Time open reduction of fracture of femur with internal fixation completed KATE WINN [place] - [facility] 05/22/2024 13:26:59 insertion of stent into aorta completed KATE WINN [place] - [facility] 05/22/2024 13:26:41 Imaging Results None recorded. Procedure [...] Updated DateTime 05/22/2024 175.26 cm 23.8 kg/m2 36689.37 g KATE WINN [facility] 05/22/2024 13:24:30 Date Recorded Body height Body mass index (BMI) Body weight Provider Name and Address Organization Details Last Updated DateTime 12/20/2023 177.8 cm 23 kg/m2 15178.78 g KATE WINN [facility] 12/20/2023 13:43:47 Date Recorded Body height Body mass index (BMI) Body weight Provider Name and Address Organization Details Last Updated DateTime 01/18/2024 177.8 cm 23 kg/m2 84599.78 g KATE WINN [facility] 01/18/2024 15:05:18 Date Recorded Body height Body mass index (BMI) Body weight Provider Name and Address Organization Details Last Updated DateTime 02/21/2024 175.26 cm 23.8 kg/m2 75132.37 g MILTON FAROOQ [facility] 02/21/2024 16:52:06 Social History None recorded. Functional Status None recorded. Mental Status None recorded. Family History Nothing Reported. Medical History Condition Response Allergies/Hayfever N Coronary Artery Disease N Breathing or lung disorders N Anxiety/Depression N Emphysema N Nerve Disorders N Thyroid Problems N COPD N Pacemaker N Kidney/Bladder Problems N Anemia N Vascular Disease N Heart Trouble N Heart Attack (VT) N Gastrointestinal Disease N Cholesterol N Diabetes N Autoimmune disease N Inflammatory Joint disease N Bleeding Disorder N Orthotics N Seizures/Epilepsy N Arthritis Y Blood Clot N AIDS/HIV N Congestive Heart Failure (CHF) N Acid Reflux (GERD) N Cancer Y Stroke Y Asthma N Circulation Problems Y Peripheral Vascular Disease N Sleep Apnea N Hepatitis N Heart Disease N Rheumatoid Arthritis N Pulmonary Embolism N Arrhythmia N Headaches N Fibromyalgia N Hypertension Y Osteoporosis N Past Encounters Encounter ID Performer Location Encounter Start Date Encounter Closed Date Diagnosis/Indication Diagnosis SNOMED-CT Code Diagnosis ICD10 Code Diagnosis IMO Codes Diagnosis Note [id number] MD [facility] [address] [place] [address] 12/20/2023 13:33:40 12/20/2023 16:09:42 Fracture of neck of femur 9658332 S72.001D [id number] MD [facility] [address] [place] [address] 01/18/2024 14:53:36 02/14/2024 09:50:01 Fracture of neck of femur 9617684 S72.001D [id number] NICHOLAS Linkn[facility] alice [address] [place] [address] 02/21/2024 16:30:46 03/08/2024 15:48:00 Pain of left hip joint 3425665777 40283 M25.354 [id number] Felipa Juan MD MIC[facility] - [facility] [address] [place] [address] 05/22/2024 13:08:51 06/04/2024 14:13:09 Closed fracture of hip 507747930 S72.002A [id number] Health Concerns Section Related Observation LastModified by Organization Detai ls LastModified Time None Recorded Concern Status LastModified by Organization Details LastModified Time None Recorded Advance Directives Directive None Recorded Payers Insurance Date Sequence Insurance Name Policy Number Policy Dean Covered Member ID Dean Member ID Guarantor Name 06/04/2024 2 [place] [id number] Royce Liu [id number] Royce Liu 05/22/2024 1 [place] [employer] Royce Liu [id number] Royce Liu
--- OUTSIDE RECORDS SUMMARY | 2025-05-06 09:39 | XMS_ITS | Clinical Summary ---
Author Organization [facility] it[facility] Address [address] [place] [address] Care Team Providers Care Radio Communications Mechanician Name Role Phone Unavailable Primary Care Provider [...] Depression Screening 05/16/2024 COVID-19 Vaccine (1 - 2024-2 6 season) 2025 Influenza Vaccine (#1) 2025 HIB [...] Documents on File Type Date Recorded Patient Supervisor [employer] Expl anation Health Care Decision (hx) 11/21/2023 HE [facility]TH CARE PROXY
--- OUTSIDE RECORDS SUMMARY | 2025-05-06 09:40 | XMS_ITS | Patient Health Record ---
Author Organization Sebastian Preciado III, MD Address [address] [place] [address] [place] [address] Care Team Providers Care Credit Control Officer Name Role Phone Dr. Sebastian Preciado III [...] ff Reviewed date:05/15/2024 11:39:51 AM Interpretation: Performing Lab:[facility], [address] [place] [address] Notes/Report: White Blood Count 8.5 4.8-10.8 X10*3/uL [...] Panel Reviewed date:05/15/2024 11:39:51 AM Interpretation: Performing Lab:[facility], [address] [place] [phone] Notes/Report: Sodium 138 135-145 mmol/L Potassium 4.2 [...] Antigen Reviewed date:05/15/2024 11:39:51 AM Interpretation: Performing Lab:[facility], [address] [place] [address] Notes/Report: Prostate Specific Antigen 0.50 <0.05-4.0 ng/mL PSA methodology: InSupply Alinity i Chemiluminescent Microparticle Immunoassay (CMIA) Beta-2 Glycoprotein Antibody Reviewed date:05/22/2024 04:16:19 PM Interpretation: Performing Lab:[facility], [address] [place] [phone] Notes/Report: Beta-2 Glycoprotein IgG <2.0 <20.0 U/mL [...] aging. For additional information, please refer to http://education.[employer]faq/FA Q175 (This link is being provided for informational/ educational purposes only.) THIS TEST WAS PERFORMED AT: [facility] [employer] [address] TREVON CHEN MD,PHD Tricyclic Antidepressant Scr n Reviewed date:05/22/2024 04:16:19 PM Interpretation: Performing Lab:[facility], [address] [place] [phone] Notes/Report: Amitriptyline, Urine NEGATIVE REFERENCE RANGE: <100 ng/mL THIS TEST PERFORMED AT: [facility] [address] [place], [place] [phone] HIGH VOLTAGE ELECTRICIAN: TREVON CHEN MD, PHD NOTES AND COMMENTS: This drug testing is for medical treatment only. Analysis was performed as non-forensic testing and these results should be used only by healthcare providers to render diagnosis or treatment, or to monitor progress of medical conditions. LDT Notes: Confirmation tests were developed and their analytical performance characteristics have been determined by [employer]. It has not been cleared or approved by the FDA. This assay has been validated pursuant to the CLIA regulations and is used for clinical purposes. Healthcare Providers needing Interpretation assistance, please contact us at [phone] ( ) M-F, 8am to 10pm EST THIS TEST PERFORMED AT: [facility] [address] [address] [phone] HIGH VOLTAGE ELECTRICIAN: JAYDA WATTS MD Nortriptyline, Urine NEGATIVE REFERENCE RANGE: <100 ng/mL THIS TEST PERFORMED AT: [facility] [address] [place] [place] [address] [phone] HIGH VOLTAGE ELECTRICIAN: TREVON CHEN MD, PHD NOTES AND COMMENTS: This drug testing is for medical treatment only. Analysis was performed as non-forensic testing and these results should be used only by healthcare providers to render diagnosis or treatment, or to monitor progress of medical conditions. LDT Notes: Confirmation tests were developed and their analytical performance characteristics have been determined by [employer]. It has not been cleared or approved by the FDA. This assay has been validated pursuant to the CLIA regulations and is used for clinical purposes. Healthcare Providers needing Interpretation assistance, please contact us at [phone] ( ) M-F, 8am to 10pm EST THIS TEST PERFORMED AT: [facility] [address] [place] [phone] HIGH VOLTAGE ELECTRICIAN: JAYDA WATTS MD CT abdomen pelvis w con Reviewed date:05/26/2024 09:04:12 PM Interpretation: Performing Lab: Notes/Report: [address] [address] [address] Scan Report Signed Patient: Royce Jernigan MR#: [id number] 0424 : 1935 Acct:[id number] Age/Sex: 88 / M ADM Date: 05/23/24 Loc: HO.CT Attending Dr: Sebastian Preciado MD Ordering Physician: Sebastian Preciado MD Date of Service: 05/23/24 Procedure(s): CT abdomen pelvis w IV con Accession Number(s): [id number] cc: Sebastian Preciado MD Report Number: [id number]: Total DLP = 594.00 mGy-cm EXAMINATION: CT [...] by: Sebastian Latham MD 05/23/2024 03:27 PM [facility] [place]ict[place] By: Sebastian Latham MD Signed By: <Electronically signed by Sebastian Latham MD in OV> 05/23/24 1527 DD/ 1411 TD/TT: 05/23/24 1446 Revenue Tax Specialist: [address] [address] [address] Scan Report Signed Patient: Chaparro Jernigan MR#: [id number] 0424 : 1935 Acct:[id number] Age/Sex: 88 / M ADM Date: 05/23/24 Loc: HO.CT Attending Dr: Sebastian Preciado MD Ordering Physician: Sebastian Preciado MD Date of Service: 05/23/24 Procedure(s): CT abd omen pelvis w IV con Accession Number(s): [id number] cc: Sebastian Preciado MD Report Number: [id number] [...] 05/23/24 1527 DD/ 1411 TD/TT: 05/23/24 1446 Revenue Tax Specialist: Complete Blood Count Auto Di ff Reviewed date:11/04/2024 01:48:53 PM Interpretation: Performing Lab:[facility], [address] [place] [phone] Notes/Report: White Blood Count 5.8 4.8-10.8 X10*3/uL [...] NRBC Abs Auto 0.000 0.0-0.012 X10*3/uL Comprehensive [place]. Panel Fa Reviewed date:11/04/2024 01:48:53 PM Interpretation: Performing Lab:[facility], [address] [place] [address] Notes/Report: Sodium 139 135-145 mmol/L Potassium 4.2 [...] Panel Reviewed date:11/04/2024 01:48:53 PM Interpretation: Performing Lab:[facility], [address] [place] [phone] Notes/Report: Triglycerides 70 <150 mg/dL Desirable Triglyceride: [...] Antigen Reviewed date:11/04/2024 01:48:53 PM Interpretation: Performing Lab:[facility], [address] [place] [phone] Notes/Report: Prostate Specific Antigen 0.69 <0.05-4.0 ng/mL PSA methodology: Burger Alinity i Chemiluminescent Microparticle Immunoassay (CMIA) Complete Blood Count Auto Di ff Reviewed date:11/25/2024 09:42:15 AM Interpretation: Performing Lab:[facility], [address] [place] [address] Notes/Report: White Blood Count 6.2 4.8-10.8 X10*3/uL [...] Panel Reviewed date:11/25/2024 09:42:15 AM Interpretation: Performing Lab:[facility], [address] [place] [phone] Notes/Report: Sodium 139 135-145 mmol/L Potassium 4.2 [...] ff Reviewed date:02/08/2025 10:33:48 AM Interpretation: Performing Lab:[facility], [address] [place] [phone] Notes/Report: White Blood Count 7.3 4.8-10.8 X10*3/uL [...] NRBC Abs Auto 0.000 0.0-0.012 X10*3/uL Comprehensive [place]. Panel Fa st Reviewed date:02/08/2025 10:33:48 AM Interpretation: Performing Lab:[facility], [address] [place] [phone] Notes/Report: Sodium 142 135-145 mmol/L Potassium 4.2 [...] Panel Reviewed date:02/08/2025 10:33:48 AM Interpretation: Performing Lab:[facility], [address] [place] [address] Notes/Report: Triglycerides 63 <150 mg/dL Desirable Triglyceride: [...] Antigen Reviewed date:02/08/2025 10:33:48 AM Interpretation: Performing Lab:[facility], [address] [place] [phone] Notes/Report: Prostate Specific Antigen 0.67 <0.05-4.0 ng/mL PSA methodology: Burger Alinity i Chemiluminescent Microparticle Immunoassay (CMIA) Pathology Reviewed date:02/08/2025 10:33:48 AM Interpretation: Performing Lab:[facility], [address] [place] [phone] Notes/Report: ----- Name: Royce Jernigan Age/Sex: 89/M : 1935 Unit#: [id number] Attend Dr: Anand Woodruff MD Re02/06/25 Status : [facility] Location: [place] Disch: ----- SPEC : [id number] RECD : 02/06/25 STATUS: [place] NUM: [id number] COBY: 02/06/25-10[address] [facility] DR: Anand Woodruff MD ENTERED: 02/06/25 [...] developed and their performance characteristics determined by [facility]. They have not been cleared or appr stewart by the U.S. Food and Drug Administration (FDA). However, the FDA has determined that such clearance or approval is not necessary. This laboratory is certified under the Clinical Laboratory Improvement Amendments of 1988 (CLIA) as qualified to perform high complexity clinical laboratory testing. Copies To: Sebastian Preciado MD [address] [facility] [address] [place] [address] Anand Woodruff MD [facility] [address] [place], [place] [id number] CONTINUED ON NEXT PAGE ----- Name: Royce Jernigan Age/Sex: 89/M : 1935 Unit#: [id number] Attend Dr: Anand Woodruff MD Re02/06/25 Status : [facility] Location: [facility] Disch: ----- SPEC : [id number] RECD : 02/06/25 STATUS: [place] NUM: [id number] COBY: 02/06/25-[address] [facility] [address]: Anand Woodruff MD ENTERED: 02/06/25 SP TYPE: Surgical OTHR DR: Sebastian Preciado MD ORDERED: Shawn Rubio L2 ----- Signed (signature on file) Daniel Mae MD 02/07/25 7162 ----- END OF REPORT Reason For Referral Reason Evaluate and Treat Right sided abdominal pain Femoral hernia of right side Diagnosis 1 Femoral hernia of ri ght side (K41.90) Diagnosis 2 Abdominal pain (R10. 9) Referral Organization Sebastian Preciado III, MD Referring Provider First Name Sebastian Referring Provider Last Name Ilana Referring Provider Speciality Internal M edicine Referred Provider [facility] er, General Surgeons Referred Provider Specialty Surgery General Notes D, Sade 10/29/2024 10:27:12 AM > Referral faxed with progress note Referral Priority Routine Referral Appointment Date 11/29/2024 Medications Medication SIG (Take, Route, Frequency, Duration) Notes Start Date End Date Status Tylenol Arthritis Pain Active Centrum Silver Activ e Adult Aspirin EC Low Strength 81 MG 1 tablet Orally Once a day Active Furosemide 20 MG 1 tablet Orally Once a day 11/06/2024 Active Atenolol 25 MG 1 tablet Orally Once a day Active Isosorbide Mononitrate ER 30 MG 1 tablet in the morning Orally Once a day Active Pravastatin Sodium 40 MG 1 tablet Orally Once a day Active Potassium Chloride ER 10 MEQ 1 tablet with food Orally once a day 11/06/2024 Active Immunizations Vaccine Route Administration Date Status Comme nts Influenza IM Intramuscular 04/18/2013 Administered Lot# [id number] Pneumococcal Unknown 02/25/2010 Administered Influenza Unknown 03/04/2014 [...] Problem Status W/U Status Risk Notes Problem 2202488 Former smoker (Z87.891) Active confirmed He has a plan to prevent relapse in times of stress and illness. We discussed lifestyle today. Problem 248254022 Overweight (E66.3) Active confirmed He remains overweight. We discussed his diet and nutrition.We reviewed his previous weights. We made a plan to lose weight at a rate of 1 pound per week. Problem 9472316 Arthritis (M19.90) Active confirmed The right third [...] hand surgery Problem Malignant neoplasm of prostate (551752387) Malignant neoplasm of prostate (C61) Active confirmed His PSA in was 0.44. It is currently 0.63. The values being observed. Problem Hyperlipidemia (38062224) Hyperlipidemia, unspecified (E78.5) Active confirmed His lipids are treated and have been stable. A fasting lipid profile will be done periodically. Problem Essential hypertension (98894298) Essential (primary) hypertension (I10) Active confirmed His blood pressure has been normal and no change was made in his regimen. I urged him to have his blood pressure determined at least once a week while he is in [place] and reported back to me. 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 He has an appointment in the near future to see the script writer after he has an echocardiogram and a nuclear medicine stress test. He will come back from [place] the end of September 2023. I continue to use peak with him every 21 days. Problem Gastro-esophageal reflux disease without esophagitis (210225910) Gastro-esophage al reflux disease without esophagitis (K21.9) Active confirmed His esophageal reflux is well controlled with drmj-ndu-rhyczz r medication and no change in his regimen was necessary today. Problem 534347421 Erosive (osteo)arthriti s (M15.4) Active confirmed The swelling in the right third and fourth fingers is less than the erythema has resolved. Will be observed at this time. Problem 94023209 Cervical radiculopathy (M54.12) Active confirmed He is free of symptoms at this time. He will notify me if the pain returns. 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 He is going to have an ultrasound of his heart, which will help clarify if the valve is a source of an embolism. Problem 968639071 Osteoarthritis of cervical spine, unspecified spinal osteoarthritis complication status (M47.812) Active confirmed He has very limited range of motion in all directions of his neck. The current nerve impingement symptoms are improving rapidly. Problem 696628518 Ischemic heart disease (I25.9) Active confirmed We have requested the results of his cardiac studies. He is tolerating the isosorbide well without dizziness. Problem 807777426 Peripheral edema (R60.0) Active confirmed We began a regimen of furosemide 20 mg and potassium chloride 10 mEq daily. Problem 48028413994577805 Femoral hernia of right side (K41.90) Active confirmed He has occasional pain in his right lower abdominal wall. There is a right femoral hernia on the CT scan done recently. He was instructed on how to take care of this if it worsens. A surgical consultation is pending later this week. Vital Signs Heart Rate 71 /min 02/15/2025 Temperature 98.2 degrees Fahrenheit 02/15/2025 Blood pressure diastolic 55 mm Hg 02/15/2025 Height 68 in 02/15/2025 Blood pressure systolic 117 mm Hg 02/15/2025 Weight 159 lbs 02/15/2025 BMI 24.17 kg/m2 02/15/2025 Encounters Encounter Location Date Provider Diagnosis Sebastian Preciado III, MD [address] [place] [address] DR [place], [place] [address] 05/14/2024 Sebastian Preciado Former smoker Z87.89 1 ; Essential (primary) hypertension I10 ; Hyperlipidemia, unspecified E78.5 ; Malignant neoplasm of prostate C61 ; Gastro-esophageal reflux disease without esophagitis K21.9 ; 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 I25.10 ; Osteoarthritis of cervical spine, unspecified spinal osteoarthritis complication status M47.812 and Overweight E66.3 Sebastian Preciado III, MD [address] [place] [address] [place] [address] 06/04/2024 Sebastian Preciado Former smoker Z87.89 1 ; Femoral hernia of right side K41.90 ; Gastro-esophageal reflux disease without esophagitis K21.9 ; Malignant neoplasm of prostate C61 ; Essential (primary) hypertension I10 ; Hyperlipidemia, unspecified E78.5 ; Nonrheumatic aortic valve stenosis I35.0 ; 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0 Sebastian Preciado III, MD [address] [place] [address] [place] [address] 10/23/2024 Sebastian Preciado Former smoker Z87.89 1 ; Essential (primary) hypertension I10 ; Malignant neoplasm of prostate C61 ; Hyperlipidemia, unspecified E78.5 ; Gastro-esophageal reflux disease without esophagitis K21.9 ; 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 I25.10 ; Osteoarthritis of cervical spine, unspecified spinal osteoarthritis complication status M47.812 ; Overweight E66.3 and Nonrheumatic aortic valve stenosis I35.0 Sebastian Preciado III, MD [address] [place] [address] [place] [address] 11/06/2024 Sebastian Preciado Former smoker Z87.89 1 ; Peripheral edema R60.0 ; Overweight E66.3 ; Essential (primary) hypertension I10 ; Hyperlipidemia, unspecified E78.5 ; Malignant neoplasm of prostate C61 ; Gastro-esophageal reflux disease without esophagitis K21.9 ; Nonrheumatic aortic valve stenosis I35.0 ; Osteoarthritis of cervical spine, unspecified spinal osteoarthritis complication status M47.812 and 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 I25.10 Sebastian Preciado III, MD [address] [place] [address] [place] [address] 11/27/2024 Sebastian Preciado Former smoker Z87.89 1 ; Femoral hernia of right side K41.90 ; Hyperlipidemia, unspecified E78.5 ; Malignant neoplasm of prostate C61 ; Essential (primary) hypertension I10 ; Gastro-esophageal reflux disease without esophagitis K21.9 ; Nonrheumatic aortic valve stenosis I35.0 ; 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 I25.10 ; Osteoarthritis of cervical spine, unspecified spinal osteoarthritis complication status M47.812 and Peripheral edema R60.0 Sebastian Preciado III, MD [address] [place] [address] [place] [address] 02/15/2025 Sebastian Preciado Former smoker Z87.89 1 ; 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 I25.10 ; Essential (primary) hypertension I10 ; Hyperlipidemia, unspecified E78.5 ; Malignant neoplasm of prostate C61 ; Gastro-esophageal reflux disease without esophagitis K21.9 and Osteoarthritis of cervical spine, unspecified spinal osteoarthritis complication status M47.812 Sebastian Preciado III, MD [address] [place] [address] [place] [address] 05/21/2024 Sebastian Preciado Unilateral femoral hernia without obstruction or gangrene, recurrence not specified K41.90 Sebastian Preciado III, MD [address] [place] [address] [place] [address] 06/04/2024 Sbeastian Preciado Former smoker Z87.89 1 Sebastian Preciado III, MD [address] [place] [address] [place] [address] 10/18/2024 Sebastian Preciado Former smoker Z87.89 1 Sebastian Preciado III, MD [address] [place] [address] [place] [address] 12/06/2024 Sebastian Preciado Former smoker Z87.89 1 [...] to wait until he comes back to [place] in the spring to have it repaired. [...] to wait until he comes back to [place] in the spring to have it repaired. [...] surgical consultation is pending later this week. 02/15/2025 Former smoker (ICD-1 0 - Z87.891) He has a plan to prevent relapse in times of stress and illness. We discussed lifestyle today. 02/15/2025 Atherosclerotic hear t disease of umatilla tribe coronary artery without angina pectoris (ICD-10 - I25.10) He continues to have anginaa with prolonged exertion. He has an appointment in the near future to see the script writer after he has an echocardiogram and a nuclear medicine stress test. He will come back from [place] the end of September 2023. I continue to use peak with him every 21 days. 05/21/2024 Unilateral femoral hernia without obstruction or [...] His esophageal reflux is well controlled with jrek-qdy-iavittp medication and no change in his regimen [...] lipid profile will be done periodically. 02/15/2025 Essential (primary) hypertension (ICD-10 - I10) His blood pressure has been normal and no change was made in his regimen. I urged him to have his blood pressure determined at least once a week while he is in [place] and reported back to me. 05/14/2024 Malignant neoplasm o f prostate (ICD-10 [...] currently 0.63. The values being observed. 02/15/2025 Hyperlipidemia, unspecified (ICD-10 - E78.5) His lipids are treated and have been stable. A fasting lipid profile will be done periodically. 05/14/2024 Gastro-esophageal reflux disease without esophagitis (ICD-10 - K21.9) His esophageal reflux is well controlled with ndmr-lku-deutsud medication and no change in his regimen [...] His esophageal reflux is well controlled with cxmg-hyl-tubmzkv medication and no change in his regimen was necessary today. 10/23/2024 Gastro-esophageal reflux disease without esophagitis (ICD-10 - K21.9) His esophageal reflux is well controlled with edym-jrw-xggjmvh medication and no change in his regimen [...] [place] and reported back to me. 02/15/2025 Malignant neoplasm o f prostate (ICD-10 - C61) His PSA in 2022 was 0.44. It is currently 0.63. The values being observed. 05/14/2024 Atherosclerotic hear t disease of um[place] tribe coronary artery without angina pectoris (ICD-10 - I25.10) He continues to have anginaa with prolonged exertion. He has an appointment in the near future to see the script writer after he has an echocardiogram and a [...] rapidly. 10/23/2024 Atherosclerotic hear t disease of um[place] tribe coronary artery without angina pectoris (ICD-10 - I25.10) He continues to have anginaa with prolonged exertion. He has an appointment in the near future to see the script writer after he has an echocardiogram and a [...] His esophageal reflux is well controlled with mizv-bnc-irxcqur medication and no change in his regimen was necessary today. 02/15/2025 Gastro-esophageal reflux disease without esophagitis (ICD-10 - K21.9) His esophageal reflux is well controlled with qsne-kol-yeuqdyq medication and no change in his regimen [...] embolism. 08/03/2024 Atherosclerotic hear t disease of umat[place] tribe coronary artery without angina pectoris (ICD-10 - I25.10) He continues to have anginaa with prolonged exertion. He has an appointment in the near future to see the script writer after he has an echocardiogram and a [...] His esophageal reflux is well controlled with nugb-xwg-ccdllws medication and no change in his regimen was necessary today. 11/27/2024 Nonrheumatic aortic valve stenosis (ICD-10 - I35.0) He had a TAVR in the recent past for aortic stenosis. He is going to have an ultrasound of his heart, which will help clarify if the valve is a source of an embolism. 02/15/2025 Osteoarthritis of cervical spine, unspecified spinal [...] week. 06/04/2024 Atherosclerotic hear t disease of umat[place] tribe coronary artery without angina pectoris (ICD-10 - I25.10) He continues to have anginaa with prolonged exertion. He has an appointment in the near future to see the script writer after he has an echocardiogram and a [...] embolism. 11/27/2024 Atherosclerotic hear t disease of umat[place] tribe coronary artery without angina pectoris (ICD-10 - I25.10) He continues to have anginaa with prolonged exertion. He has an appointment in the near future to see the script writer after he has an echocardiogram and a [...] rapidly. 11/06/2024 Atherosclerotic hear t disease of um[place] tribe coronary artery without angina pectoris (ICD-10 - I25.10) He continues to have anginaa with prolonged exertion. He has an appointment in the near future to see the script writer after he has an echocardiogram and a [...] Provider Name:Sebastian Preciado , 05/14/2025 11:00:00 AM, [address] [place] [address], [address], Insurance Providers Payer Name Payer Address Payer Phone Subscriber Number Group Number Insured Name Patient Relationship to Insured Coverage Start Date Coverage End Date MEDICARE NGS [address] [place] [address] [id number] Royce Jernigan Self - patient is the insured [facility] [address] [place], [place] [id number] Royce Jernigan Self - patient is [...] No history Left hip surgery 11/2023 TAVR, [facility] 02/2021 cardiac catheterization, 3 stents December 2012 Hospitalization History Reason Date(Month/Year) No history
== END 2025-05-06 09:25 | disposition home or self-care (01) ==
LOC: HO.HGS 08:56
PROVIDERS: PCP Internal Medicine Medical Oncology; Visit Provider Surgery
DX: Z98.890 Other specified postprocedural states (principal); Z87.19 Personal history of other diseases of the digestive system; K40.90 Unilateral inguinal hernia, without obstruction or gangrene, not specified as recurrent
CPT/HCPCS: 99024

== ENCOUNTER → 2025-05-06 08:56 | Outpatient (BNVA) | payer MEDICARE, SELFPAY | PROVIDERS: PCP Internal Medicine Medical Oncology; Visit Provider Surgery | DX: Z48.815 Encounter for surgical aftercare following surgery on the digestive system (principal); Z87.19 Personal history of other diseases of the digestive system | CPT/HCPCS: 99212 ==